=== PATIENT | female | born 1955 | race Caucasian/White ===

== ENCOUNTER 2017-09-20 06:54 | Day surgery (SDC) | payer OTHER ==
--- NOTE | 2017-09-19 15:44 | HP ---
DATE OF SURGERY: 09/20/2017 ANTICIPATED PROCEDURE: EGD and colonoscopy. HISTORY OF PRESENT ILLNESS: The patient has epigastric pain requiring EGD. She presents for screening colonoscopic examination. She has not had one since 2007. She did have polypectomy at that time. PAST MEDICAL HISTORY: ALLERGIES: MORPHINE, PROZAC. MEDICATIONS: See list. PAST SURGICAL HISTORY: Previous colonoscopy in 2007. SOCIAL HISTORY: Positive tobacco. Negative ETOH. FAMILY HISTORY: Negative. PHYSICAL EXAMINATION: VITAL SIGNS: Normal. CHEST: Clear. COR: Regular. ABDOMEN: No palpable organomegaly or mass.
[2017-09-20] MEDS ORDERED: VERSED 5 MG/5 ML IV ONE (06:55)
[2017-09-20] MEDS ORDERED: DEMEROL 50 MG SDV IV ONE (06:55)
[2017-09-20] MEDS ORDERED: Lactated Ringers 1,000 ML IV SCH (07:30)
--- NOTE | 2017-09-20 10:14 | OP ---
SURGERY DATE/TIME: 09/20/2017 0856 PREOPERATIVE DIAGNOSIS: Epigastric pain and screening. POSTOPERATIVE DIAGNOSES: 1) Two inch hiatal hernia. 2) Grade II/III gastroesophageal reflux disease. 3) Antritis. 4) One single large polyp of the distal sigmoid. 5) Moderate internal hemorrhoids. PROCEDURES: 1) Colonoscopy with hot snare polypectomy x1. 2) EGD with cold biopsy x1. SURGEON: Jensen Salazar M.D. CLAM DREDGE BOAT CAPTAIN: Ken Ribeiro M.D. ANESTHESIA: IV sedation 15 minutes monitored. COMPLICATIONS: None. CONDITION: Stable. INDICATION: A patient with epigastric pain. She has not had a scope in ten years. DESCRIPTION OF PROCEDURE: She was taken to endoscopy. Left lateral decubitus position. The scope was introduced. Pharyngo-esophageal junction was normal. The esophagus is normal. Gastroesophageal junction 2 cm rim of esophagitis grade II. There was a two inch hiatal hernia. She states she does get some reflux up to the vocal cords and this is probably is possible. There was some gastritis especially in the antrum. 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 Pylorus satisfactory. Duodenal bulb satisfactory. Second portion satisfactory. The scope withdrawn and looped upon itself. A two inch hiatal hernia. Scope withdrawn. Anal digital examination satisfactory anal tone. The scope advanced. Fairly long redundant colon fairly tortuous. Very significant splenic flexure this was navigated. The scope advanced and advanced to the base of the cecum. The base of the cecum, ileocecal valve and appendiceal orifice was normal. Ascending, hepatic, transverse, splenic, descending there was scattered diverticulum but not many. In the distal sigmoid a 1 cm polyp with a stalk was taken with hot snare. The base was satisfactory. The rectum was satisfactory. There were moderate internal hemorrhoids. The patient tolerated the procedure satisfactorily. Anticipated follow up three years. She will be seen in the office for pathology here shortly. She is started on Protonix also.
[2017-09-20 11:08] VITALS: BP 110/66; PULSE 67; O2SAT 95
== END 2017-09-20 11:15 | disposition home or self-care (01) ==
LOC: SDC 06:54
PROVIDERS: ATTEND Surgery
DX: K44.9 Diaphragmatic hernia without obstruction or gangrene (principal); K21.9 Gastro-esophageal reflux disease without esophagitis; J32.0 Chronic maxillary sinusitis; K63.5 Polyp of colon; K64.8 Other hemorrhoids; Z12.11 Encounter for screening for malignant neoplasm of colon
CPT/HCPCS: 88305; J2175; J2250

== ENCOUNTER 2018-07-27 17:42 | Emergency (ER) | payer OTHER ==
--- NOTE | 2018-07-27 18:10 | ERPHSYRPT ---
- History of Present Illness Time Seen by Provider: 07/27/18 18:07 Source: patient, family Exam Limitations: no limitations Patient Subjective Stated Complaint: pt tripped in road and fell on [address], landing on right side Triage Nursing Assessment: pt arrived per wc, alert, resp easy, skin w/d/p.no bruising or abrasions noted, pt co pain to right hip Physician History: struck right hip from walking trip and has no other pain except that joint - neurovasc intact Method of Injury: fell Occurred: just prior to arrival Quality: constant, sharpness Severity of Pain-Max: moderate Severity of Pain-Current: moderate Lower Extremities Pain: hip: right Modifying Factors: Improves With: movement Allergies/Adverse Reactions: morphine Allergy (Severe, Verified 07/27/18 18:00) Irregular Heart Beat sulfamethoxazole [From Bactrim] Allergy (Verified 07/27/18 18:00) Hives trimethoprim [From Bactrim] Allergy (Verified 07/27/18 18:00) Hives fluoxetine HCl [From Prozac] Adverse Reaction (Intermediate, Verified 07/27/18 18:00) homicidal thoughts homicidal thoughts Home Medications: Lisinopril [Zestril 40 mg] 40 mg PO DAILY 04/23/15 [History] Hydrochlorothiazide 25 mg PO DAILY 09/11/17 [History] Mirtazapine 15 mg PO UD 09/11/17 [History] Trazodone HCl 150 mg PO HS 09/11/17 [History] Ibuprofen [Advil] 0 mg PO UD PRN 09/20/17 [History] Hx Tetanus, Diphtheria Vaccination/Date Given: No Hx Influenza Vaccination/Date Given: No Hx Pneumococcal Vaccination/Date Given: No Immunizations Up to Date: Yes - Review of Systems Constitutional: No Fever, No Chills Eyes: No Symptoms Ears, Nose, & Throat: No Symptoms Respiratory: No Cough, No Dyspnea Cardiac: No Chest Pain, No Edema, No Syncope Abdominal/Gastrointestinal: No Abdominal Pain, No Nausea, No Vomiting, No Diarrhea Genitourinary Symptoms: No Dysuria Musculoskeletal: Fall, Injury, Joint Pain, No Back Pain, No Neck Pain Skin: No Rash Neurological: No Dizziness, No Focal Weakness, No Sensory Changes Psychological: No Symptoms Endocrine: No Symptoms All Other Systems: Reviewed and Negative - Past Medical History Pertinent Past Medical History: Yes Neurological History: No Pertinent History ENT History: No Pertinent History Cardiac History: High Cholesterol, Hypertension Respiratory History: Asthma, COPD Endocrine Medical History: Other Musculoskeletal History: Arthritis, Other GI Medical History: Ulcer, Other History: No Pertinent History Psycho-Social History: Anxiety, Depression Female Reproductive Disorders: Ovarian Cancer, Uterine Cancer Other Medical History: hx of bleeding ulcer and ileus, 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 - Past Surgical History Past Surgical History: Yes Neuro Surgical History: No Pertinent History Cardiac: No Pertinent History Respiratory: No Pertinent History Gastrointestinal: Appendectomy, Bowel Surgery, Cholecystectomy, Hernia Repair Genitourinary: No Pertinent History Musculoskeletal: Orthopedic Surgery Female Surgical History: Hysterectomy, Tubal Ligation Other Surgical History: TONSILS, bone auto graft to wrist - Social History Smoking Status: Current every day smoker How long have you smoked: years Exposure to second hand smoke: Yes Drug Use: none Patient Lives Alone: Yes - Female History Hx Last Menstrual Period: psot Hx Now: No - Nursing Vital Signs Nursing Vital Signs: Initial Vital Signs Temperature 97.4 F 07/27/18 17:55 Pulse Rate 75 07/27/18 17:55 Respiratory Rate 18 07/27/18 17:55 Blood Pressure 129/90 07/27/18 17:55 O2 Sat by Pulse Oximetry 97 07/27/18 17:55 Pain Scale Pain Intensity 7 - Physical Exam General Appearance: alert Eyes, Ears, Nose, Throat Exam: moist mucous membranes Neck Exam: non-tender, supple Cardiovascular/Respiratory Exam: chest non-tender, normal breath sounds, regular rate/rhythm, no respiratory distress Gastrointestinal/Abdominal Exam: non-tender, guarding Back Exam: normal inspection, No vertebral tenderness Hips Exam: right: bone tenderness, limited range of motion, pain, soft tissue tenderness, left: non-tender, normal inspection, normal range of motion, no evidence of injury Legs Exam: bilateral leg: non-tender, normal inspection, normal range of motion , no evidence of injury Knees Exam: bilateral knee: non-tender, normal inspection, normal range of motion, no evidence of injury Ankle Exam: bilateral ankle: non-tender, normal inspection, normal range of motion, no evidence of injury Foot Exam: bilateral foot: non-tender, normal inspection, normal range of motion , no evidence of injury DTR - Lower Extremities Exam: knee (R): 2+, knee (L): 2+, ankle (R): 2+, ankle ( L): 2+ Neuro/Tendon Exam: normal sensation, normal motor functions 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, oriented x 3, cooperative Skin Exam: normal color, warm, dry SpO2 Interpretation: normal SpO2: 97 O2 Delivery: Room Air - Course Nursing assessment & vital signs reviewed: Yes - Radiology Exams Right Hip X-ray Interpretation: Teleradiologist Report, No Fracture Ordered Tests: Active Orders 24 hr Category Date Time Status HIPS BALWINDER(2V) INCL PEL IF DONE Stat Exams 07/27/18 18:11 Taken Medication Summary Discontinued Medications Generic Name Dose Route Start Last Admin Trade Name Freq PRN Reason Stop Dose Admin Hydromorphone HCl 1 mg 07/27/18 19:50 07/27/18 20:02 Hydromorphone 1 Mg/Ml Ampule IM 07/27/18 19:51 1 mg STAT ONE Administration Hydromorphone HCl Confirm 07/27/18 19:59 Hydromorphone 1 Mg/Ml Ampule Administered 07/27/18 20:00 Dose 1 mg .ROUTE .Fixmo-MED ONE - Progress Progress: improved, re-examined Progress Note: 07/27/18 20:58 pt prefers outpt f/u to further w/u in ER or admission and she declines CT at this time and knows she could still have a hip fracture which could be occult 07/27/18 21:09 pt states she has taken hydrocodone before without problems Counseled pt/family regarding: diagnosis, need for follow-up, rad results - Departure Departure Disposition: Home Clinical Impression: Contusion of hip Condition: Good Critical Care Time: No Referrals: KELLE CANALES [ACTIVE STAFF] - Instructions: Hip Fracture (DC), Contusion (DC) Additional Instructions: we are treating this as if there could be a hip fracture even though it is not seen by radiologist today and use crutches and see your DrOdilon next week for more studies if continues and return meantime if not improving; Prescriptions: Hydrocodone/APAP 5-325 Tab^^^ [[place] 5-325 Tablet^^^] 1 tab PO Q6HPRN PRN #10 tablet MDD 6 PRN Reason: Pain
[2018-07-27] MEDS ORDERED: Hydromorphone 1 mg/ml Ampule IM ONE (19:50)
[2018-07-27] MEDS ORDERED: Hydromorphone 1 mg/ml Ampule ONE (19:59)
[2018-07-27 21:09] VITALS: O2SAT 97
[2018-07-27] MEDS ORDERED: NORCO 5/325 MG PO ONE (21:10)
[2018-07-27] MEDS ORDERED: NORCO 5/325 MG ONE (21:16)
[2018-07-27 21:35] VITALS: BP 104/61; PULSE 71
--- NOTE | 2018-07-28 09:40 | XRAY ---
Indication: Right hip pain following fall. Comparison: December 14, 2009. AP pelvis and 2 views of the right hip demonstrates new right greater trochanter curvilinear radiolucency concerning for nondisplaced fracture of uncertain chronicity. Elsewhere pelvic suture material, pelvic phleboliths, and stable right gluteal calcified injection granuloma. No other bony, articular, or soft tissue abnormalities. Comment: Preliminary interpretation was made by [facility] who does not report greater trochanter finding but is reported by the interpreting ER clinician.
== END 2018-07-27 21:35 | disposition home or self-care (01) ==
LOC: ED 17:42
DX: S70.01XA Contusion of right hip, initial encounter (principal); W01.198A Fall on same level from slipping, tripping and stumbling with subsequent striking against other object, initial encounter; Z79.899 Other long term (current) drug therapy; E78.00 Pure hypercholesterolemia, unspecified; I10 Essential (primary) hypertension; J44.9 Chronic obstructive pulmonary disease, unspecified; J45.909 Unspecified asthma, uncomplicated; M19.90 Unspecified osteoarthritis, unspecified site; F41.8 Other specified anxiety disorders
CPT/HCPCS: 73521; 96372; 99284; J1170; A9270-GY

== ENCOUNTER 2018-11-16 02:12 | Emergency (ER) | payer OTHER ==
--- NOTE | 2018-11-16 02:19 | ERPHSYRPT ---
- History of Present Illness Time Seen by Provider: 11/16/18 02:19 Source: family Exam Limitations: clinical condition Physician History: 63 y/o white female presents with altered level of consciousness. has intermittent episodes over last 3 months. pt has had several evaluations by pcp. recent MRI brain(11/12/18) reveals no acute pathology but chronic old changes. no head injury. no new medications. no change in medications. there are a variety of resolution times. 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 new finding is pt unable to follow commands and could not move right side of body. Timing/Duration: week(s) (12 plus), worse Severity: moderate Character of Deficits: new weakness, other (lethargic cannot follow any commands ) Deficits: cannot stand, cannot walk, weak Baseline/Normal Cognition: poor alertness Current Cognition: poor alertness Baseline Gait: walks w/o assistance Associated Symptoms: weakness, other (lethargy) Allergies/Adverse Reactions: morphine Allergy (Severe, Verified 11/16/18 02:49) Irregular Heart Beat sulfamethoxazole [From Bactrim] Allergy (Verified 11/16/18 02:49) Hives trimethoprim [From Bactrim] Allergy (Verified 11/16/18 02:49) Hives fluoxetine HCl [From Prozac] Adverse Reaction (Intermediate, Verified 11/16/18 02:49) homicidal thoughts homicidal thoughts Home Medications: Lisinopril [Zestril 40 mg] 40 mg PO DAILY 04/23/15 [History] Hydrochlorothiazide 25 mg PO DAILY 09/11/17 [History] Gabapentin 300 mg PO TID 11/16/18 [History] Hx Tetanus, Diphtheria Vaccination/Date Given: No Hx Influenza Vaccination/Date Given: No Hx Pneumococcal Vaccination/Date Given: No - Review of Systems Constitutional: Lethargy, Weakness Eyes: No Symptoms Ears, Nose, & Throat: No Symptoms Respiratory: No Symptoms Cardiac: No Symptoms Abdominal/Gastrointestinal: No Symptoms Genitourinary Symptoms: No Symptoms Musculoskeletal: No Symptoms Skin: No Symptoms Neurological: Other (lethargy with generalized weakness; not following commands) Endocrine: No Symptoms Hematologic/Lymphatic: No Symptoms Immunological/Allergic: No Symptoms All Other Systems: Reviewed and Negative - Past Medical History Pertinent Past Medical History: Yes Neurological History: No Pertinent History ENT History: No Pertinent History Cardiac History: High Cholesterol, Hypertension Respiratory History: Asthma, COPD Endocrine Medical History: Other Musculoskeletal History: Arthritis, Other GI Medical History: Ulcer, Other History: No Pertinent History Psycho-Social History: Anxiety, Depression Female Reproductive Disorders: Ovarian Cancer, Uterine Cancer Other Medical History: hx of bleeding ulcer and ileus, 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 - Past Surgical History Past Surgical History: Yes Neuro Surgical History: No Pertinent History Cardiac: No Pertinent History Respiratory: No Pertinent History Gastrointestinal: Appendectomy, Bowel Surgery, Cholecystectomy, Hernia Repair Genitourinary: No Pertinent History Musculoskeletal: Orthopedic Surgery Female Surgical History: Hysterectomy, Tubal Ligation Other Surgical History: TONSILS, bone auto graft to wrist - Social History Smoking Status: Current every day smoker How long have you smoked: years Exposure to second hand smoke: Yes Drug Use: none Patient Lives Alone: Yes - Nursing Vital Signs Nursing Vital Signs: Initial Vital Signs Temperature 96.0 F 11/16/18 02:14 Pulse Rate 75 11/16/18 02:14 Respiratory Rate 20 11/16/18 02:14 Blood Pressure 111/70 11/16/18 02:14 O2 Sat by Pulse Oximetry 91 L 11/16/18 02:14 Pain Scale Pain Intensity 0 - [place] Coma Scale Best Eye Response (Maddie): (3) open to voice Best Verbal Response ([place]): (2) incomprehsible sounds Best Motor Response ([place]): (5) localizes to pain Maddie Total: 10 - Physical Exam General Appearance: lethargy Eye Exam: bilateral eye: normal inspection, PERRL, EOMI Ears, Nose, Throat Exam: normal ENT inspection, moist mucous membranes Neck Exam: normal inspection, non-tender, supple, full range of motion Respiratory: normal breath sounds, lungs clear, airway intact, No chest tenderness, No respiratory distress Cardiovascular: regular rate/rhythm, normal heart sounds, normal peripheral pulses Gastrointestinal: soft, normal bowel sounds, No tenderness Pelvic Exam: not done Rectal Exam: not done Back Exam: normal inspection, normal range of motion, No CVA tenderness, No vertebral tenderness Extremity Exam: normal inspection, normal range of motion, pelvis stable Mental Status: alert, oriented x 3, 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 Exam: PERRL Coordination/Gait: No ABN nose to finger (R), No ABN nose to finger (L) (unable to follow commands) Skin Exam: normal color, warm, dry SpO2 Interpretation: borderline oxygenation O2 Delivery: Room Air - Course Nursing assessment & vital signs reviewed: Yes EKG Interpreted by Me: RATE (71), Sinus Rhythm, NORMAL AXIS, NORMAL INTERVALS, 1st degree AV Block, NORMAL QRS, Other (no changes from comparison ekg dated ) Ordered Tests: Active Orders 24 hr Category Date Time Status Bowling Ball Molder STAT Care 11/16/18 02:30 Active EKG-ER Only STAT Care 11/16/18 02:29 Active IV Insertion STAT Care 11/16/18 02:29 Active NPO (ED) STAT Care 11/16/18 02:29 Active Pulse Oximetry (ED) STAT Care 11/16/18 02:29 Active HEAD WITHOUT CONTRAST [CT] Stat Exams 11/16/18 02:29 Taken CBC W DIFF Stat Lab 11/16/18 03:17 Completed CMP Stat Lab 11/16/18 03:17 Completed CULTURE,URINE Stat Lab 11/16/18 02:55 Ordered UA W/RFX UR CULTURE Stat Lab 11/16/18 02:55 Ordered Urine Triage Profile Stat Lab 11/16/18 03:04 Ordered Medication Summary Generic Name Dose Route Start Last Admin Trade Name Freq PRN Reason Stop Dose Admin Lactated Ringer's 500 mls @ 500 mls/hr 11/16/18 03:43 11/16/18 04:14 Lactated Ringers IV 11/16/18 04:42 500 mls/hr .Q1H ONE Administration Potassium Chloride 20 meq in 100 mls @ 50 mls/hr 11/16/18 03:43 11/16/18 04: 18 Potassium Chloride 20 Meq In Water 100ml IV 11/16/18 05:42 50 mls/hr STAT ONE Administration Discontinued Medications Generic Name Dose Route Start Last Admin Trade Name Freq PRN Reason Stop Dose Admin Sodium Chloride 1,000 mls @ 999 mls/hr 11/16/18 02:29 11/16/18 03:11 Sodium Chloride 0.9% 1000 Ml IV 11/16/18 03:29 999 mls/hr .Q1H1M STA Administration Sodium Chloride Confirm 11/16/18 03:10 Sodium Chloride 0.9% 1000 Ml Administered 11/16/18 03:11 Dose 1,000 mls @ ud .ROUTE .STK-MED ONE Lactated Ringer's Confirm 11/16/18 04:12 Lactated Ringers Administered 11/16/18 04:13 Dose 1,000 mls @ ud IV .STK-MED ONE Potassium Chloride Confirm 11/16/18 04:12 Potassium Chloride 20 Meq In Water 100ml Administered 11/16/18 04:13 Dose 100 mls @ ud IV .STK-MED ONE Lab/Rad Data: Laboratory Result Diagrams 11/16/18 03:17 11/16/18 03:17 Laboratory Results 11/16/18 11/16/18 11/16/18 Range/Units 03:17 03:17 03:01 WBC 8.9 (4.0-10.5) K/mm3 RBC 4.20 (4.1-5.4) M/mm3 Hgb 12.1 (12.0-16.0) gm/dl Hct 34.2 L (35-47) % MCV 81.4 (78-100) fl MCH 28.8 (26-32) pg MCHC 35.4 (32-36) g/dl RDW 13.4 (11.5-14.0) % Plt Count 403 (150-450) K/mm3 MPV 7.8 (6-9.5) fl Gran % 69.9 H (36.0-66.0) % Eos # (Auto) 0.26 (0-0.5) Absolute Lymphs (auto) 1.65 (1.0-4.6) Absolute Monos (auto) 0.72 (0.0-1.3) Lymphocytes % 18.6 L (24.0-44.0) % Monocytes % 8.1 (0.0-12.0) % Eosinophils % 2.9 (0.00-5.0) % Basophils % 0.5 (0.0-0.4) % Absolute Granulocytes 6.21 (1.4-6.9) Basophils # 0.04 (0-0.4) Sodium 121 L (137-145) mmol/L Potassium 2.9 L* (3.5-5.1) mmol/L Chloride 87 L (98-107) mmol/L Carbon Dioxide 24 (22-30) mmol/L Anion Gap 12.9 (5-15) MEQ/L BUN 10 (7-17) mg/dL Creatinine 0.57 (0.52-1.04) mg/dL Estimated GFR > 60.0 ML/MIN Glucose 148 H (74-106) mg/dL Calcium 9.1 (8.4-10.2) mg/dL Total Bilirubin 0.10 L (0.2-1.3) mg/dL AST 20 (14-36) U/L ALT 21 (0-35) U/L Alkaline Phosphatase 110 (38-126) U/L Ammonia 19 (9-30) umol/L Serum Total Protein 6.8 (6.3-8.2) g/dL Albumin 3.9 (3.5-5.0) g/dL - Progress Progress: improved, re-examined Progress Note: 11/16/18 04:01 pt more awake and alert. will reexamine 11/16/18 04:12 pt reexamined. pt without complaints. a & o x4. neurologically intact. pt moving all 4 extremities. tongue midline. no facial droop. speech wnl. pt denies cp, denies soa. denies abd pain. pt laughing, smiling and joking. ct head-no acute intracranial pathology. Counseled pt/family regarding: lab results, diagnosis, need for follow-up, rad results - Departure Departure Disposition: Home Clinical Impression: TIA (transient ischemic attack), Altered mental status, Hypokalemia Condition: Stable Critical Care Time: No Referrals: ORACIO GREENE [Primary Care Provider] - Additional Instructions: resume medications as prescribed. follow up with your primary doctor on sunday for further management. call your neurologist for further management
[2018-11-16] MEDS ORDERED: Sodium Chloride 0.9% 1000 ML 1,000 ML ONE (03:10)
[2018-11-16] MEDS: Sodium Chloride 0.9% 1000 ML 1,000 ML IV STA (03:11)
[2018-11-16 03:15] LABS: BASOPHIL % 0.5 % (0.0-0.4); Basophil (Absolute #) 0.04 (0-0.4); Eosinophil % 2.9 % (0.00-5.0); Eosinophil (Absolute #) 0.26 (0-0.5); Granulocyte Absolute (ANC) 6.21 (1.4-6.9); Granulocytes % 69.9 % (36.0-66.0); Hematocrit 34.2 % (35-47); Hemoglobin 12.1 gm/dl (12.0-16.0); Lymphocyte (Absolute #) 1.65 (1.0-4.6); Lymphocytes % 18.6 % (24.0-44.0); Mean Cell Volume 81.4 fl (78-100); Mean Corpuscular Hemoglobin 28.8 pg (26-32); Mean Corpuscular Hgb Concent. 35.4 g/dl (32-36); Mean Platelet Volume 7.8 fl (6-9.5); Monocyte (Absolute #) 0.72 (0.0-1.3); Monocytes % 8.1 % (0.0-12.0); Platelet Count 403 K/mm3 (150-450); Red Cell Distribution Width 13.4 % (11.5-14.0); White Blood Count 8.9 K/mm3 (4.0-10.5)
[2018-11-16 03:25] LABS: ALBUMIN 3.9 g/dL (3.5-5.0); ALKALINE PHOSPHATASE 110 U/L (38-126); ANION GAP 12.9 MEQ/L (5-15); BLOOD UREA NITROGEN 10 mg/dL (7-17); CHLORIDE 87 mmol/L (98-107); Calcium 9.1 mg/dL (8.4-10.2); Carbon Dioxide 24 mmol/L (22-30); Creatinine 1 0.57 mg/dL (0.52-1.04); Glucose 148 mg/dL (74-106); SGOT/AST 20 U/L (14-36); SGPT/ALT 21 U/L (0-35); SODIUM 121 mmol/L (137-145); Total Protein 6.8 g/dL (6.3-8.2)
[2018-11-16 03:41] LABS: Potassium 2.9 mmol/L (3.5-5.1)
[2018-11-16] MEDS ORDERED: Lactated Ringers 1,000 ML IV ONE (04:12)
[2018-11-16] MEDS ORDERED: POTASSIUM CHLORIDE 20 mEq IN WATER 100ML 100 ML IV ONE (04:12)
[2018-11-16] MEDS: Lactated Ringers 500 ML IV ONE (04:14)
[2018-11-16] MEDS: POTASSIUM CHLORIDE 20 mEq IN WATER 100ML 20 MEQ/100 ML BAG IV ONE (04:18)
[2018-11-16 04:27] LABS: Appearance CLEAR (CLEAR); Bilirubin NEGATIVE (NEGATIVE); Blood NEGATIVE Ery/ul (0-5); Glucose NEGATIVE (NEGATIVE); Ketones NEGATIVE (NEGATIVE); Leukocyte Esterase NEGATIVE (NEGATIVE); Nitrite NEGATIVE (NEGATIVE); Protein,Urine Dip NEGATIVE (Negative); Specific Gravity 1.004 (1.005-1.025); Urobilinogen NEGATIVE mg/dL (0-1)
[2018-11-16 04:44] LABS: Amphetamine,Urine NEGATIVE (NEGATIVE); Barbiturate,Urine NEGATIVE (NEGATIVE); Benzodiazepine,Urine NEGATIVE (NEGATIVE); Cocaine,Urine NEGATIVE (NEGATIVE); Methadone,Urine NEGATIVE (NEGATIVE); Opiate,Urine NEGATIVE (NEGATIVE); PCP,Urine NEGATIVE (NEGATIVE); THC,Urine NEGATIVE (NEGATIVE)
[2018-11-16 05:53] VITALS: BP 161/77; PULSE 76; O2SAT 98
--- NOTE | 2018-11-16 08:46 | XRAY ---
Indication: Facial droop and slurred speech. Possible stroke. Multiple contiguous axial images obtained through the head without contrast. Comparison: December 06, 2015. New finding small remote left occipital lobe infarct. No acute intracranial hemorrhage, hydrocephalus, or mass effect. Fourth ventricle is midline. Steinberg-white matter differentiation preserved. Bony calvarium intact. Visualized paranasal sinuses and mastoid air cells are clear. Impression: 1. 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 2. No acute intracranial abnormalities. Comment: Preliminary interpretation was made by [facility]. No critical discrepancy. CTDI 59.47
== END 2018-11-16 06:44 | disposition home or self-care (01) ==
LOC: ED 02:12
DX: G45.9 Transient cerebral ischemic attack, unspecified (principal); R41.82 Altered mental status, unspecified; E87.6 Hypokalemia
CPT/HCPCS: 36415; 70450; 80053; 80307; 81001; 82140; 85025; 87086; 93005; 93041; 94760; 96360; 96361; 96365; 96366; 99284; J3480

== ENCOUNTER 2019-01-10 01:37 | Emergency (ER) | payer OTHER, SELFPAY ==
[2019-01-10] MEDS ORDERED: Sodium Chloride 0.9% 1000 ML 1,000 ML IV STA (01:42)
[2019-01-10] MEDS ORDERED: Sodium Chloride 0.9% 1000 ML 1,000 ML ONE (01:50)
--- NOTE | 2019-01-10 01:54 | ERPHSYRPT ---
- History of Present Illness Time Seen by Provider: 01/10/19 01:40 Source: patient Exam Limitations: no limitations Physician History: Patient walked to get something to eat, had a brief syncopal event, fell and hit her right shoulder. Patient has pain to the right shoulder. Family states she may have had slurred speech for a minute when she awakened, but this resolved on its own. Patient had no slurred speech when EMS came to the home and no focal weakness. Occurred: just prior to arrival Reason for Fall: fainted Injuries/Pain Location: upper extremity (right clavicle) Loss of Consciousness: unsure Quality: sharpness Severity of Pain-Max: severe Severity of Pain-Current: mild Modifying Factors: Improves With: immobilization, pain medication (given 100 micrograms of Fentanyl by EMS ). Worsens With: movement Associated Symptoms (Fall): slurred speech (briefly per family report, patient does not remember any slurred speech and resolved prior to EMS arriving), No abdominal pain, No back pain, No confusion, No chest pain, No dizziness, No extremity injury, No headache, No lightheadedness, No muscle spasms, No nausea, No neck pain, No ringing in ears, No shortness of breath, No trouble walking, No vomiting, No vision changes Allergies/Adverse Reactions: morphine Allergy (Severe, Verified 11/16/18 02:49) Irregular Heart Beat sulfamethoxazole [From Bactrim] Allergy (Verified 11/16/18 02:49) Hives trimethoprim [From Bactrim] Allergy (Verified 11/16/18 02:49) Hives fluoxetine HCl [From Prozac] Adverse Reaction (Intermediate, Verified 11/16/18 02:49) homicidal thoughts homicidal thoughts Home Medications: Lisinopril [Zestril 40 mg] 40 mg PO DAILY 04/23/15 [History] Hydrochlorothiazide 25 mg PO DAILY 09/11/17 [History] Amitriptyline HCl 25 mg [Elavil 25 mg] 1 tab PO HS 11/16/18 [History] Gabapentin 300 mg PO TID 11/16/18 [History] Hx Tetanus, Diphtheria Vaccination/Date Given: No Hx Influenza Vaccination/Date Given: No Hx Pneumococcal Vaccination/Date Given: No - Review of Systems Constitutional: No Fever, No Chills Eyes: No Symptoms, No Eye Pain, No Vision Changes Ears, Nose, & Throat: No Ear Pain, No Nose Pain, No Epistaxis, No Mouth Swelling , No Loose Teeth, No Stridor Respiratory: No Cough, No Dyspnea Cardiac: No Chest Pain, No Edema, No Syncope Abdominal/Gastrointestinal: No Abdominal Pain, No Nausea, No Vomiting, No Diarrhea Genitourinary Symptoms: No Dysuria, No Hematuria, No Flank Pain Musculoskeletal: No Back Pain, No Neck Pain Skin: No Rash Neurological: No Dizziness, No Focal Weakness, No Sensory Changes Psychological: No Symptoms Endocrine: No Symptoms Hematologic/Lymphatic: No Easy Bleeding, No Easy Bruising All Other Systems: Reviewed and Negative - Past Medical History Pertinent Past Medical History: Yes Neurological History: No Pertinent History ENT History: No Pertinent History Cardiac History: High Cholesterol, Hypertension Respiratory History: Asthma, COPD Endocrine Medical History: Other Musculoskeletal History: Arthritis, Other GI Medical History: Ulcer, Other History: No Pertinent History Psycho-Social History: Anxiety, Depression Female Reproductive Disorders: Ovarian Cancer, Uterine Cancer Other Medical History: hx of bleeding ulcer and ileus, 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 - Past Surgical History Past Surgical History: Yes Neuro Surgical History: No Pertinent History Cardiac: No Pertinent History Respiratory: No Pertinent History Gastrointestinal: Appendectomy, Bowel Surgery, Cholecystectomy, Hernia Repair Genitourinary: No Pertinent History Musculoskeletal: Orthopedic Surgery Female Surgical History: Hysterectomy, Tubal Ligation Other Surgical History: TONSILS, bone auto graft to wrist - Social History Smoking Status: Current every day smoker How long have you smoked: years Exposure to second hand smoke: Yes Drug Use: none Patient Lives Alone: Yes - Nursing Vital Signs Nursing Vital Signs: Initial Vital Signs Pulse Rate 74 01/10/19 01:39 Respiratory Rate 20 01/10/19 01:39 Blood Pressure 93/58 01/10/19 01:39 O2 Sat by Pulse Oximetry 94 L 01/10/19 01:39 Pain Scale Pain Intensity 6 - [place] Coma Score Best Eye Response ([place]): (4) open spontaneously Best Verbal Response ([place]): (5) oriented Best Motor Response ([place]): (6) obeys commands Maddie Total: 15 - Physical Exam General Appearance: no apparent distress, alert Head Injury: no evidence of injury, No active bleeding, No Reese's Sign, No ecchymosis, No raccoon eyes, No swelling, No tenderness Eye Exam: PERRL/EOMI, eyes nml inspection, No scleral icterus ENT Exam: airway nml, nml ext.inspection, hearing grossly normal, No evidence of ENT injury, No dental injury, No midface instability, No hemotympanum, No clotted nasal blood, No malocclusion, No oral injury Neck Exam: supple, trachea midline, normal alignment, normal inspection, No focal neuro deficit, No paraspinous muscle tender, No pain on movement of neck, No tenderness, No tender lateral, No Brudzinski, No Kernig's Respiratory/Chest Exam: normal breath sounds, No chest tenderness, No respiratory distress Cardiovascular Exam: normal heart sounds, regular rate/rhythm, normal peripheral pulses Gastrointestinal Exam: soft, normal bowel sounds, No tenderness, No distention, No guarding, No ecchymosis, No rebound, No hernia Back Exam: normal inspection, No CVA tenderness, No vertebral tenderness Extremity Exam: normal inspection, normal range of motion, capillary refill <3 sec, pelvis stable, bony point tenderness (right clavicle only), pain with movement (right clavicle only), No deformities, No lacerations, No hip tenderness Peripheral Pulses: dorsalis-pedis (R): 2+, dorsalis-pedis (L): 2+ Neurologic Exam: alert, oriented x 3, cooperative, sensation nml, No motor deficits Skin Exam: normal color, warm, dry SpO2 Interpretation: normal O2 Delivery: Room Air - Course EKG Interpreted by Me: RATE (73), Sinus Rhythm (sinus arrhythmia), NORMAL AXIS, NORMAL INTERVALS, NORMAL QRS, NORMAL ST-T, Other (no appreciable change in comparison to EKG from11/16/2018) - Radiology Exams Chest X-ray Interpretation: Interpreted by me, Reviewed by me, No Pneumonia, No Pneumothorax, Nml Alignment, Nml Heart Size, Displaced Fracture (mildly of mid shaft fracture of right clavicle) - CT Exams Head CT Interpretation: Negative, Tele-radiologist Report, No Fracture, No/ Intracranial Hemorrhag, Other (stable age-related diffusely low-volume loss and chronic microvascular ischemic disease. 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 No ventriculomegaly. Unremarkable bowel no acute fracture. Mucosal thickening in the ethmoid sinus. Visualized mastoid air cells are well aerated. Unremarkable soft tissues.) Ordered Tests: Active Orders 24 hr Category Date Time Status Accucheck STAT Care 01/10/19 01:42 Active Ambulate Patient ROUTINE Care 01/10/19 01:42 Active Java Groovy Developer STAT Care 01/10/19 01:47 Active EKG-ER Only STAT Care 01/10/19 01:42 Active IV Insertion STAT Care 01/10/19 01:42 Active Orthostatic Vital Signs STAT Care 01/10/19 01:42 Active Pulse Oximetry (ED) STAT Care 01/10/19 01:42 Active Sling Application STAT Care 01/10/19 04:12 Active CHEST 1 VIEW (PORTABLE) Stat Exams 01/10/19 01:43 Taken HEAD WITHOUT CONTRAST [CT] Stat Exams 01/10/19 01:47 Taken CBC W DIFF Stat Lab 01/10/19 02:15 Completed CMP Stat Lab 01/10/19 02:15 Completed ETHYL ALCOHOL Stat Lab 01/10/19 02:15 Completed MAGNESIUM Stat Lab 01/10/19 02:15 Completed PROTIME WITH INR Stat Lab 01/10/19 02:15 Completed TROPONIN Q3H Lab 01/10/19 02:15 Completed TROPONIN Q3H Lab 01/10/19 06:30 Ordered TROPONIN Q3H Lab 01/10/19 09:30 Ordered TROPONIN Q3H Lab 01/10/19 12:30 Ordered TROPONIN Q3H Lab 01/10/19 15:30 Ordered UA W/RFX UR CULTURE Stat Lab 01/10/19 04:10 Received Urine Triage Profile Stat Lab 01/10/19 04:10 Received Medication Summary Discontinued Medications Generic Name Dose Route Start Last Admin Trade Name Prashantq PRN Reason Stop Dose Admin Fentanyl Citrate 25 mcg 01/10/19 04:13 01/10/19 04:20 Sublimaze 100 Mcg/2 Ml IV 01/10/19 04:14 25 mcg STAT ONE Administration Fentanyl Citrate Confirm 01/10/19 04:18 Sublimaze 100 Mcg/2 Ml Administered 01/10/19 04:19 Dose 100 mcg .ROUTE .STK-MED ONE Sodium Chloride 1,000 mls @ 999 mls/hr 01/10/19 01:42 01/10/19 01:51 Sodium Chloride 0.9% 1000 Ml IV 01/10/19 02:42 999 mls/hr .Q1H1M STA Administration Sodium Chloride Confirm 01/10/19 01:50 Sodium Chloride 0.9% 1000 Ml Administered 01/10/19 01:51 Dose 1,000 mls @ ud .ROUTE .[facility]-MED ONE Lab/Rad Data: Laboratory Result Diagrams 01/10/19 02:15 01/10/19 02:15 Laboratory Results 01/10/19 01/10/19 01/10/19 Range/Units 04:10 04:10 02:15 WBC (4.0-10.5) K/mm3 RBC (4.1-5.4) M/mm3 Hgb (12.0-16.0) gm/dl Hct (35-47) % MCV (78-100) fl MCH (26-32) pg MCHC (32-36) g/dl RDW (11.5-14.0) % Plt Count (150-450) K/mm3 MPV (6-9.5) fl Gran % (36.0-66.0) % Eos # (Auto) (0-0.5) Absolute Lymphs (auto) (1.0-4.6) Absolute Monos (auto) (0.0-1.3) Lymphocytes % (24.0-44.0) % Monocytes % (0.0-12.0) % Eosinophils % (0.00-5.0) % Basophils % (0.0-0.4) % Absolute Granulocytes (1.4-6.9) Basophils # (0-0.4) PT (9.95-12.35) SECONDS INR (0.8-3.0) Sodium (137-145) mmol/L Potassium (3.5-5.1) mmol/L Chloride (98-107) mmol/L Carbon Dioxide (22-30) mmol/L Anion Gap (5-15) MEQ/L BUN (7-17) mg/dL Creatinine (0.52-1.04) mg/dL Estimated GFR ML/MIN Glucose (74-106) mg/dL Calcium (8.4-10.2) mg/dL Magnesium (1.6-2.3) mg/dL Total Bilirubin (0.2-1.3) mg/dL AST (14-36) U/L ALT (0-35) U/L Alkaline Phosphatase (38-126) U/L Troponin I < 0.012 (0.000-0.034) ng/mL Serum Total Protein (6.3-8.2) g/dL Albumin (3.5-5.0) g/dL Urine Color YELLOW (YELLOW) Urine Appearance CLEAR (CLEAR) Urine pH 7.0 (5-6) Ur Specific [place] 1.008 (1.005-1.025) Urine Protein NEGATIVE (Negative) Urine Ketones NEGATIVE (NEGATIVE) Urine Blood NEGATIVE (0-5) Parviz/ul Urine Nitrite NEGATIVE (NEGATIVE) Urine Bilirubin NEGATIVE (NEGATIVE) Urine Urobilinogen NEGATIVE (0-1) mg/dL Ur Leukocyte Esterase NEGATIVE (NEGATIVE) Urine WBC (Auto) NONE (0-5) /HPF Urine RBC (Auto) 0-2 (0-2) /HPF U Hyaline Cast (Auto) 3-5 (0-2) /LPF U Epithel Cells (Auto) NONE (FEW) /HPF Urine Bacteria (Auto) NONE (NEGATIVE) /HPF Urine Mucus (Auto) SLIGHT (NEGATIVE) /HPF Urine Culture Reflexed NO (NO) Urine Glucose NEGATIVE (NEGATIVE) mg/dL Urine Opiates Level NEGATIVE (NEGATIVE) Ur Methadone NEGATIVE (NEGATIVE) Urine Barbiturates NEGATIVE (NEGATIVE) Ur Phencyclidine (PCP) NEGATIVE (NEGATIVE) Urine Amphetamine NEGATIVE (NEGATIVE) U Benzodiazepine Level NEGATIVE (NEGATIVE) Urine Cocaine NEGATIVE (NEGATIVE) Urine Marijuana (THC) NEGATIVE (NEGATIVE) Ethyl Alcohol (0-10) mg/dL 01/10/19 01/10/19 01/10/19 Range/Units 02:15 02:15 02:15 WBC (4.0-10.5) K/mm3 RBC (4.1-5.4) M/mm3 Hgb (12.0-16.0) gm/dl Hct (35-47) % MCV (78-100) fl MCH (26-32) pg MCHC (32-36) g/dl RDW (11.5-14.0) % Plt Count (150-450) K/mm3 MPV (6-9.5) fl Gran % (36.0-66.0) % Eos # (Auto) (0-0.5) Absolute Lymphs (auto) (1.0-4.6) Absolute Monos (auto) (0.0-1.3) Lymphocytes % (24.0-44.0) % Monocytes % (0.0-12.0) % Eosinophils % (0.00-5.0) % Basophils % (0.0-0.4) % Absolute Granulocytes (1.4-6.9) Basophils # (0-0.4) PT 10.7 (9.95-12.35) SECONDS INR 0.95 (0.8-3.0) Sodium 128 L (137-145) mmol/L Potassium 3.5 (3.5-5.1) mmol/L Chloride 92 L (98-107) mmol/L Carbon Dioxide 25 (22-30) mmol/L Anion Gap 14.6 (5-15) MEQ/L BUN 11 (7-17) mg/dL Creatinine 0.71 (0.52-1.04) mg/dL Estimated GFR > 60.0 ML/MIN Glucose 123 H (74-106) mg/dL Calcium 8.9 (8.4-10.2) mg/dL Magnesium 1.8 (1.6-2.3) mg/dL Total Bilirubin 0.30 (0.2-1.3) mg/dL AST 26 (14-36) U/L ALT 25 (0-35) U/L Alkaline Phosphatase 92 (38-126) U/L Troponin I (0.000-0.034) ng/mL Serum Total Protein 7.0 (6.3-8.2) g/dL Albumin 3.8 (3.5-5.0) g/dL Urine Color (YELLOW) Urine Appearance (CLEAR) Urine pH (5-6) Ur Specific [place] (1.005-1.025) Urine Protein (Negative) Urine Ketones (NEGATIVE) Urine Blood (0-5) Parviz/ul Urine Nitrite (NEGATIVE) Urine Bilirubin (NEGATIVE) Urine Urobilinogen (0-1) mg/dL Ur Leukocyte Esterase (NEGATIVE) Urine WBC (Auto) (0-5) /HPF Urine RBC (Auto) (0-2) /HPF U Hyaline Cast (Auto) (0-2) /LPF U Epithel Cells (Auto) (FEW) /HPF Urine Bacteria (Auto) (NEGATIVE) /HPF Urine Mucus (Auto) (NEGATIVE) /HPF Urine Culture Reflexed (NO) Urine Glucose (NEGATIVE) mg/dL Urine Opiates Level (NEGATIVE) Ur Methadone (NEGATIVE) Urine Barbiturates (NEGATIVE) Ur Phencyclidine (PCP) (NEGATIVE) Urine Amphetamine (NEGATIVE) U Benzodiazepine Level (NEGATIVE) Urine Cocaine (NEGATIVE) Urine Marijuana (THC) (NEGATIVE) Ethyl Alcohol < 10 (0-10) mg/dL 01/10/19 Range/Units 02:15 WBC 9.8 (4.0-10.5) K/mm3 RBC 3.66 L (4.1-5.4) M/mm3 Hgb 10.4 L (12.0-16.0) gm/dl Hct 30.8 L (35-47) % MCV 84.2 (78-100) fl MCH 28.4 (26-32) pg MCHC 33.8 (32-36) g/dl RDW 14.6 H (11.5-14.0) % Plt Count 388 (150-450) K/mm3 MPV 7.7 (6-9.5) fl Gran % 64.4 (36.0-66.0) % Eos # (Auto) 0.46 (0-0.5) Absolute Lymphs (auto) 1.90 (1.0-4.6) Absolute Monos (auto) 1.06 (0.0-1.3) Lymphocytes % 19.3 L (24.0-44.0) % Monocytes % 10.8 (0.0-12.0) % Eosinophils % 4.7 (0.00-5.0) % Basophils % 0.8 (0.0-0.4) % Absolute Granulocytes 6.33 (1.4-6.9) Basophils # 0.08 (0-0.4) PT (9.95-12.35) SECONDS INR (0.8-3.0) Sodium (137-145) mmol/L Potassium (3.5-5.1) mmol/L Chloride (98-107) mmol/L Carbon Dioxide (22-30) mmol/L Anion Gap (5-15) MEQ/L BUN (7-17) mg/dL Creatinine (0.52-1.04) mg/dL Estimated GFR ML/MIN Glucose (74-106) mg/dL Calcium (8.4-10.2) mg/dL Magnesium (1.6-2.3) mg/dL Total Bilirubin (0.2-1.3) mg/dL AST (14-36) U/L ALT (0-35) U/L Alkaline Phosphatase (38-126) U/L Troponin I (0.000-0.034) ng/mL Serum Total Protein (6.3-8.2) g/dL Albumin (3.5-5.0) g/dL Urine Color (YELLOW) Urine Appearance (CLEAR) Urine pH (5-6) Ur Specific [place] (1.005-1.025) Urine Protein (Negative) Urine Ketones (NEGATIVE) Urine Blood (0-5) Parviz/ul Urine Nitrite (NEGATIVE) Urine Bilirubin (NEGATIVE) Urine Urobilinogen (0-1) mg/dL Ur Leukocyte Esterase (NEGATIVE) Urine WBC (Auto) (0-5) /HPF Urine RBC (Auto) (0-2) /HPF U Hyaline Cast (Auto) (0-2) /LPF U Epithel Cells (Auto) (FEW) /HPF Urine Bacteria (Auto) (NEGATIVE) /HPF Urine Mucus (Auto) (NEGATIVE) /HPF Urine Culture Reflexed (NO) Urine Glucose (NEGATIVE) mg/dL Urine Opiates Level (NEGATIVE) Ur Methadone (NEGATIVE) Urine Barbiturates (NEGATIVE) Ur Phencyclidine (PCP) (NEGATIVE) Urine Amphetamine (NEGATIVE) U Benzodiazepine Level (NEGATIVE) Urine Cocaine (NEGATIVE) Urine Marijuana (THC) (NEGATIVE) Ethyl Alcohol (0-10) mg/dL Reviewed 2D Echo from 12/02/2018 showed normal EF, Cardiac Imaging Nuclear Study from 12/02/2018 with no signs of any induced reversible ischemia to myocardium Carotid Ultrasound from 11/19/2018: Left ICA occlusion, which was also shown on the Brain MRI from 11/12/2018 as well as a Carotid Ultrasound on 10/15/2017 Brain MRI from 11/12/2018: Small, old occipital infarct, no other significant abnormalities - Progress Progress: improved Progress Note: 01/10/19 04:14 pain is returning in her right shoulder. Patient will be placed in a shoulder sling and given Fentanyl 25micrograms IV times one patient has remained in sinus rhythm throughout her time in the emergency department. 01/10/19 04:39 Reviewed her occluded ICA seen on multiple studies and patient was aware of this. Patient is not a candidate she and her state for any procedure to treat the chronic ICA occlusion 01/10/19 04:40 Patient has no neurologic deficits throughout her time in the emergency department as patient appears to be at her baseline neurologically. With recent MRI, carotid ultrasound, cardiac stress testing and 2D Echo, patient does not require inpatient testing for any further testing as she has a normal EKG and a negative troponin in the emergency department with maintaining sinus rhythm throughout her time in the emergency department. Most likely patient was slightly sleepy and tripped and fell, landing on her right shoulder causing her fracture. With no slurring of her speech noted by EMS or by my examinations with no other deficits seen on EMS or my examinations, patient will be discharged home to follow-up as an outpatient for her clavicle fracture. Counseled pt/family regarding: lab results, diagnosis, need for follow-up, rad results - Departure Departure Disposition: Home Clinical Impression: Syncope Qualifiers: Syncope type: unspecified Qualified Code(s): R55 - Syncope and collapse Closed right clavicular fracture Qualifiers: Encounter type: initial encounter Clavicle location: shaft Fracture alignment: displaced Qualified Code(s): S42.021A - Displaced fracture of shaft of right clavicle, initial encounter for closed fracture Hypertension Qualifiers: Hypertension type: essential hypertension Qualified Code(s): I10 - Essential ( primary) hypertension Condition: Good Critical Care Time: No Referrals: ISAIAH FOSTER NP [Primary Care Provider] - 01/10/19 (Orthopedic Clinic opens on Sunday, January 13, 2019 at 8 am. Follow-up your shoulder/clavicle at 8 am on 01/13/2019.) Instructions: High Blood Pressure (DC), Syncope (Fainting) (DC), Clavicle Fracture (DC) Additional Instructions: You have a right clavicle (collar bone) fracture. FOllow-up with the Orthopedic Clinic on 01/13/2019 at 8am. Return to the emergency department if any new fainting, new weakness, new change in speech, loss of sensation, change in vision, new pain or any other concerning sign or symptom that was not present at today's emergency department visit for immediate reevaluation in the emergency department. Prescriptions: Etodolac 400 mg [Lodine 400 mg] 400 mg PO BID PRN PRN #20 tablet PRN Reason: Pain
[2019-01-10 02:21] LABS: BASOPHIL % 0.8 % (0.0-0.4); Basophil (Absolute #) 0.08 (0-0.4); Eosinophil % 4.7 % (0.00-5.0); Eosinophil (Absolute #) 0.46 (0-0.5); Granulocyte Absolute (ANC) 6.33 (1.4-6.9); Granulocytes % 64.4 % (36.0-66.0); Hematocrit 30.8 % (35-47); Hemoglobin 10.4 gm/dl (12.0-16.0); Lymphocytes % 19.3 % (24.0-44.0); Mean Cell Volume 84.2 fl (78-100); Mean Corpuscular Hemoglobin 28.4 pg (26-32); Mean Corpuscular Hgb Concent. 33.8 g/dl (32-36); Mean Platelet Volume 7.7 fl (6-9.5); Monocyte (Absolute #) 1.06 (0.0-1.3); Monocytes % 10.8 % (0.0-12.0); Platelet Count 388 K/mm3 (150-450); Red Blood Count 3.66 M/mm3 (4.1-5.4); Red Cell Distribution Width 14.6 % (11.5-14.0); White Blood Count 9.8 K/mm3 (4.0-10.5)
[2019-01-10 02:28] LABS: INR 0.95 (0.8-3.0); PROTIME 10.7 SECONDS (9.95-12.35)
[2019-01-10 02:33] LABS: ALBUMIN 3.8 g/dL (3.5-5.0); ALKALINE PHOSPHATASE 92 U/L (38-126); ANION GAP 14.6 MEQ/L (5-15); BLOOD UREA NITROGEN 11 mg/dL (7-17); CHLORIDE 92 mmol/L (98-107); Calcium 8.9 mg/dL (8.4-10.2); Carbon Dioxide 25 mmol/L (22-30); Creatinine 1 0.71 mg/dL (0.52-1.04); Glucose 123 mg/dL (74-106); Potassium 3.5 mmol/L (3.5-5.1); SGOT/AST 26 U/L (14-36); SGPT/ALT 25 U/L (0-35); SODIUM 128 mmol/L (137-145)
[2019-01-10 02:35] LABS: ETHYL ALCOHOL < 10 mg/dL (0-10)
[2019-01-10] MEDS ORDERED: SUBLIMAZE 100 MCG/2 ML IV ONE (04:13)
[2019-01-10 04:17] VITALS: O2SAT 94
[2019-01-10] MEDS ORDERED: SUBLIMAZE 100 MCG/2 ML ONE (04:18)
[2019-01-10 04:29] LABS: Amphetamine,Urine NEGATIVE (NEGATIVE); Barbiturate,Urine NEGATIVE (NEGATIVE); Benzodiazepine,Urine NEGATIVE (NEGATIVE); Cocaine,Urine NEGATIVE (NEGATIVE); Methadone,Urine NEGATIVE (NEGATIVE); Opiate,Urine NEGATIVE (NEGATIVE); PCP,Urine NEGATIVE (NEGATIVE); THC,Urine NEGATIVE (NEGATIVE)
[2019-01-10 04:36] LABS: Appearance CLEAR (CLEAR); Bilirubin NEGATIVE (NEGATIVE); Blood NEGATIVE Ery/ul (0-5); Glucose NEGATIVE (NEGATIVE); Ketones NEGATIVE (NEGATIVE); Leukocyte Esterase NEGATIVE (NEGATIVE); Mucus SLIGHT /HPF (NEGATIVE); Nitrite NEGATIVE (NEGATIVE); Protein,Urine Dip NEGATIVE (Negative); RBC 0-2 /HPF (0-2); Specific Gravity 1.008 (1.005-1.025); Urobilinogen NEGATIVE mg/dL (0-1)
[2019-01-10 05:05] VITALS: PULSE 71
[2019-01-10 05:06] VITALS: BP 166/92
--- NOTE | 2019-01-10 08:45 | XRAY ---
Indication: Syncope. History Parkinson's. Multiple contiguous axial images obtained through the head without contrast. Comparison: November 16, 2018. Stable small remote left occipital lobe infarct. Again no acute intracranial hemorrhage, hydrocephalus, or mass effect. Fourth ventricle is midline. Steinberg-white matter differentiation preserved. Bony calvarium intact. Visualized paranasal sinuses and mastoid air cells are clear. 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 No new or acute intracranial abnormalities. Comment: Preliminary interpretation was made by [facility]. No discrepancy. CT DI 66.37
--- NOTE | 2019-01-10 09:13 | XRAY ---
Indication: Syncope. Comparison: December 06, 2015. Portable chest remains clear with chronic right hemidiaphragm elevation. Heart is not enlarged. Bony thorax demonstrates new right mid clavicle acute fracture with stable osteopenia and old left clavicle/left rib fractures.
== END 2019-01-10 05:20 | disposition home or self-care (01) ==
LOC: ED 01:37
DX: R55 Syncope and collapse (principal); S42.021A Displaced fracture of shaft of right clavicle, initial encounter for closed fracture; I10 Essential (primary) hypertension; W19.XXXA Unspecified fall, initial encounter; M25.511 Pain in right shoulder
CPT/HCPCS: 36415; 70450; 71045; 80053; 80307; 81001; 82962; 83735; 84484; 85025; 85610; 93005; 93041; 94760; 96360; 96374; 99285; G0480; J3010

== ENCOUNTER 2019-08-18 18:58 | Observation (INO) | payer OTHER ==
[2019-08-18 19:26] LABS: Absolute Neutrophil Ct (ANC) 2.01 (1.4-6.9); BASOPHIL % 0.2 % (0.0-0.4); Basophil (Absolute #) 0.01 (0-0.4); Eosinophil % 1.7 % (0.00-5.0); Eosinophil (Absolute #) 0.09 (0-0.5); Hemoglobin 12.7 gm/dl (12.0-16.0); Lymphocyte (Absolute #) 2.89 (1.0-4.6); Lymphocytes % 53.2 % (24.0-44.0); Mean Cell Volume 84.8 fl (78-100); Mean Corpuscular Hemoglobin 27.6 pg (26-32); Mean Corpuscular Hgb Concent. 32.6 g/dl (32-36); Mean Platelet Volume 8.8 fl (7.5-11.0); Monocyte (Absolute #) 0.43 (0.0-1.3); Monocytes % 7.9 % (0.0-12.0); Platelet Count 454 K/mm3 (150-450); Red Cell Distribution Width 14.1 % (11.5-14.0); White Blood Count 5.4 K/mm3 (4.0-10.5)
[2019-08-18 19:54] LABS: ALBUMIN 4.4 g/dL (3.5-5.0); ALKALINE PHOSPHATASE 164 U/L (38-126); ANION GAP 16.4 MEQ/L (5-15); BLOOD UREA NITROGEN 14 mg/dL (7-17); CHLORIDE 100 mmol/L (98-107); Calcium 9.6 mg/dL (8.4-10.2); Carbon Dioxide 22 mmol/L (22-30); Creatinine 1 0.95 mg/dL (0.52-1.04); Glucose 165 mg/dL (74-106); NT PRO BNP 370 pg/mL (0-900); Potassium 3.3 mmol/L (3.5-5.1); SGOT/AST 30 U/L (14-36); SGPT/ALT 39 U/L (0-35); SODIUM 135 mmol/L (137-145); Total Protein 8.1 g/dL (6.3-8.2)
[2019-08-18] MEDS ORDERED: SUBLIMAZE 100 MCG/2 ML IV ONE ×2 (20:12→23:20)
[2019-08-18] MEDS ORDERED: Sodium Chloride 0.9% 1000 ML 1,000 ML IV STA (20:13)
[2019-08-18] MEDS ORDERED: SUBLIMAZE 100 MCG/2 ML ONE ×2 (20:28→23:54)
[2019-08-18] MEDS ORDERED: Sodium Chloride 0.9% 1000 ML 1,000 ML ONE (20:28)
--- NOTE | 2019-08-18 20:30 | ERPHSYRPT ---
- History of Present Illness Time Seen by Provider: 08/18/19 19:40 Historian: patient Exam Limitations: no limitations Patient Subjective Stated Complaint: pt c/o chest pain Triage Nursing Assessment: pt c/o chest pain to center of chest, radiating to left and right arm, more pain to right arm. Pt has had nausea and vomiting, sob but denies any diaphoresis. Lungs clear, heart tones reg, abd lg obese with active bs x4 quad. Pt wore holter monitor x4 weeks and got it off last Sun. Pt is to follow up with pole truck driver Dr. Hale this Sunday. Physician History: Patient is a 63-year-old female presents to our ED with complaint of chest pain or shortness of breath. Pain tends to radiate to both arms on her back. Pain is associated with nausea and vomiting. No diaphoresis. Symptoms are moderate in intensity. No specific worsening or improving factors. No fever. No trauma. Symptoms are constant. No specific worsening improving factors. Patient voices no other complaints at this time. at bedside. Timing/Duration: today (Pain started approximately 6 PM.) Activities at Onset: none Location: substernal Chest Pain Radiation: arm, back Severity of Pain-Max: moderate Severity of Pain-Current: moderate Modifying Factors: Improves With: nothing Associated Symptoms: nausea, vomiting Prior Chest Pain/Cardiac Workup: angina (Patient currently being worked up for chest pain.) Nitro Today/Relief: no nitro taken today Aspirin Treatment Today: no aspirin today Allergies/Adverse Reactions: morphine Allergy (Severe, Verified 11/16/18 02:49) Irregular Heart Beat sulfamethoxazole [From Bactrim] Allergy (Verified 11/16/18 02:49) Hives trimethoprim [From Bactrim] Allergy (Verified 11/16/18 02:49) Hives fluoxetine HCl [From Prozac] Adverse Reaction (Intermediate, Verified 11/16/18 02:49) homicidal thoughts homicidal thoughts Home Medications: lisinopriL [Zestril 40 mg] 40 mg PO DAILY 04/23/15 [History] Amitriptyline HCl 25 mg [Elavil 25 mg] 1 tab PO HS 11/16/18 [History] Gabapentin 300 mg PO TID 11/16/18 [History] Amantadine HCl [Amantadine] 100 mg PO TID 08/18/19 [History] Carvedilol 3.125 mg [Coreg 3.125 MG] 3.125 mg PO BID 08/18/19 [History] Simvastatin 20Mg [Zocor 20Mg] 40 mg PO DAILY 08/18/19 [History] Hx Tetanus, Diphtheria Vaccination/Date Given: No Hx Influenza Vaccination/Date Given: No Hx Pneumococcal Vaccination/Date Given: No Immunizations Up to Date: No Travel Risk - International Travel Have you traveled outside of the country in past 3 weeks: No Have you or anyone close to you been diagnosed with or: No Do your reside in a community with a known COVID-19 case?: Yes If Yes where:: [place] - Coronavirus Screening Has patient experienced Coronavirus symptoms: No - Review of Systems Constitutional: No Symptoms, No Fever, No Chills Eyes: No Symptoms Ears, Nose, & Throat: No Symptoms Respiratory: No Symptoms, No Cough, No Dyspnea Cardiac: No Symptoms, No Chest Pain, No Edema, No Syncope Abdominal/Gastrointestinal: No Symptoms, No Abdominal Pain, No Nausea, No Vomiting, No Diarrhea Genitourinary Symptoms: No Symptoms, No Dysuria Musculoskeletal: No Symptoms, No Back Pain, No Neck Pain Skin: No Symptoms, No Rash Neurological: No Symptoms, No Dizziness, No Focal Weakness, No Sensory Changes Psychological: No Symptoms Endocrine: No Symptoms Hematologic/Lymphatic: No Symptoms Immunological/Allergic: No Symptoms All Other Systems: Reviewed and Negative - Past Medical History Pertinent Past Medical History: Yes Neurological History: TIA ENT History: No Pertinent History Cardiac History: Angina, High Cholesterol, Hypertension Respiratory History: Asthma, COPD Endocrine Medical History: Other Musculoskeletal History: Arthritis, Other GI Medical History: Ulcer, Other History: No Pertinent History Psycho-Social History: Anxiety, Depression Female Reproductive Disorders: Ovarian Cancer, Uterine Cancer Other Medical History: hx of bleeding ulcer and ileus, 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. ??Parkinsons disease - Past Surgical History Past Surgical History: Yes Neuro Surgical History: No Pertinent History Cardiac: No Pertinent History Respiratory: No Pertinent History Gastrointestinal: Appendectomy, Bowel Surgery, Cholecystectomy, Hernia Repair Genitourinary: No Pertinent History Musculoskeletal: Orthopedic Surgery Female Surgical History: Hysterectomy, Tubal Ligation Other Surgical History: bone auto graft to wrist, collar bone surgery - Social History Smoking Status: Former smoker How long have you smoked: years Exposure to second hand smoke: No Drug Use: none Patient Lives Alone: No - Female History Hx Now: No - Nursing Vital Signs Nursing Vital Signs: Initial Vital Signs Temperature 97.6 F 08/18/19 19:22 Pulse Rate 71 08/18/19 19:22 Respiratory Rate 22 08/18/19 19:22 Blood Pressure 97/72 08/18/19 19:22 O2 Sat by Pulse Oximetry 84 L 08/18/19 19:22 Pain Scale Pain Intensity 8 - Physical Exam General Appearance: no apparent distress, alert Eye Exam: PERRL/EOMI, eyes nml inspection Ears, Nose, Throat Exam: normal ENT inspection, moist mucous membranes Neck Exam: normal inspection, non-tender, supple, full range of motion Respiratory Exam: normal breath sounds, lungs clear, No respiratory distress Cardiovascular Exam: regular rate/rhythm, normal heart sounds Gastrointestinal/Abdomen Exam: soft, No tenderness, No mass Back Exam: normal inspection, No CVA tenderness, No vertebral tenderness Extremity Exam: normal inspection, normal range of motion Neurologic Exam: alert, oriented x 3, cooperative, normal mood/affect, sensation nml, No motor deficits Skin Exam: normal color, warm, dry SpO2 Interpretation: normal SpO2: 93 O2 Delivery: Room Air - Course Nursing assessment & vital signs reviewed: Yes EKG Interpreted by Me: RATE, Sinus Rhythm, NORMAL AXIS, NORMAL INTERVALS Ordered Tests: Active Orders 24 hr Category Date Time Status Shank Pinner STAT Care 08/18/19 19:17 Active EKG-ER Only STAT Care 08/18/19 19:16 Active IV Insertion STAT Care 08/18/19 19:16 Active Isolation, Initiate & Maintain Q4H Care 08/18/19 19:36 Active Pulse Oximetry (ED) STAT Care 08/18/19 19:16 Active ABDOMEN AND PELVIS W CONTRAST [CT] Stat Exams 08/18/19 20:27 Taken CHEST 1 VIEW (PORTABLE) Stat Exams 08/18/19 19:17 Taken CHEST WITH CONTRAST [CT] Stat Exams 08/18/19 20:27 Taken CBC W DIFF Stat Lab 08/18/19 19:15 Completed CMP Stat Lab 08/18/19 19:15 Completed NT PRO BNP Stat Lab 08/18/19 19:15 Completed TROPONIN Q3H Lab 08/18/19 19:15 Completed TROPONIN Q3H Lab 08/18/19 22:20 Completed TROPONIN Q3H Lab 08/19/19 01:30 Ordered TROPONIN Q3H Lab 08/19/19 04:30 Ordered TROPONIN Q3H Lab 08/19/19 07:30 Ordered Urine Triage Profile Stat Lab 08/18/19 19:17 Uncollected Transfer Order Routine Transfer 08/18/19 Ordered Medication Summary Discontinued Medications Generic Name Dose Route Start Last Admin Trade Name Freq PRN Reason Stop Dose Admin Aspirin 324 mg 08/18/19 23:13 Baby Aspirin 81 Mg Chew PO 08/18/19 23:14 STAT ONE Fentanyl Citrate 25 mcg 08/18/19 20:12 08/18/19 20:32 Sublimaze 100 Mcg/2 Ml IV 08/18/19 20:13 25 mcg STAT ONE Administration Fentanyl Citrate Confirm 08/18/19 20:28 Sublimaze 100 Mcg/2 Ml Administered 08/18/19 20:29 Dose 100 mcg .ROUTE .STK-MED ONE Fentanyl Citrate 25 mcg 08/18/19 23:20 Sublimaze 100 Mcg/2 Ml IV 08/18/19 23:21 STAT ONE Sodium Chloride 1,000 mls @ 999 mls/hr 08/18/19 20:13 08/18/19 20:32 Sodium Chloride 0.9% 1000 Ml IV 08/18/19 21:13 999 mls/hr .Q1H1M STA Administration Sodium Chloride Confirm 08/18/19 20:28 Sodium Chloride 0.9% 1000 Ml Administered 08/18/19 20:29 Dose 1,000 mls @ ud .ROUTE .STK-MED ONE Nitroglycerin 1 gm 08/18/19 23:20 Nitro-Bid 2% Ud Packets TOP 08/18/19 23:21 STAT ONE Ondansetron HCl 4 mg 08/18/19 21:53 08/18/19 22:56 Zofran 4 Mg/2 Ml Vial IV 08/18/19 21:54 4 mg STAT ONE Administration Ondansetron HCl Confirm 08/18/19 22:54 Zofran 4 Mg/2 Ml Vial Administered 08/18/19 22:55 Dose 4 mg .ROUTE .STK-MED ONE Lab/Rad Data: Laboratory Result Diagrams 08/18/19 19:15 08/18/19 19:15 Laboratory Results 08/18/19 08/18/19 08/18/19 Range/Units 22:20 19:15 19:15 WBC (4.0-10.5) K/mm3 RBC (4.1-5.4) M/mm3 Hgb (12.0-16.0) gm/dl Hct (35-47) % MCV (78-100) fl MCH (26-32) pg MCHC (32-36) g/dl RDW (11.5-14.0) % Plt Count (150-450) K/mm3 MPV (7.5-11.0) fl Gran % (36.0-66.0) % Eos # (Auto) (0-0.5) Absolute Lymphs (auto) (1.0-4.6) Absolute Monos (auto) (0.0-1.3) Lymphocytes % (24.0-44.0) % Monocytes % (0.0-12.0) % Eosinophils % (0.00-5.0) % Basophils % (0.0-0.4) % Absolute Granulocytes (1.4-6.9) Basophils # (0-0.4) Sodium 135 L (137-145) mmol/L Potassium 3.3 L (3.5-5.1) mmol/L Chloride 100 (98-107) mmol/L Carbon Dioxide 22 (22-30) mmol/L Anion Gap 16.4 H (5-15) MEQ/L BUN 14 (7-17) mg/dL Creatinine 0.95 (0.52-1.04) mg/dL Estimated GFR > 60.0 ML/MIN Glucose 165 H (74-106) mg/dL Calcium 9.6 (8.4-10.2) mg/dL Total Bilirubin 0.30 (0.2-1.3) mg/dL AST 30 (14-36) U/L ALT 39 H (0-35) U/L Alkaline Phosphatase 164 H (38-126) U/L Troponin I < 0.012 < 0.012 (0.000-0.034) ng/mL NT-Pro-B Natriuret Pep 370 (0-900) pg/mL Serum Total Protein 8.1 (6.3-8.2) g/dL Albumin 4.4 (3.5-5.0) g/dL 08/18/19 Range/Units 19:15 WBC 5.4 (4.0-10.5) K/mm3 RBC 4.60 (4.1-5.4) M/mm3 Hgb 12.7 (12.0-16.0) gm/dl Hct 39.0 (35-47) % MCV 84.8 (78-100) fl MCH 27.6 (26-32) pg MCHC 32.6 (32-36) g/dl RDW 14.1 H (11.5-14.0) % Plt Count 454 H (150-450) K/mm3 MPV 8.8 (7.5-11.0) fl Gran % 37.0 (36.0-66.0) % Eos # (Auto) 0.09 (0-0.5) Absolute Lymphs (auto) 2.89 (1.0-4.6) Absolute Monos (auto) 0.43 (0.0-1.3) Lymphocytes % 53.2 H (24.0-44.0) % Monocytes % 7.9 (0.0-12.0) % Eosinophils % 1.7 (0.00-5.0) % Basophils % 0.2 (0.0-0.4) % Absolute Granulocytes 2.01 (1.4-6.9) Basophils # 0.01 (0-0.4) Sodium (137-145) mmol/L Potassium (3.5-5.1) mmol/L Chloride (98-107) mmol/L Carbon Dioxide (22-30) mmol/L Anion Gap (5-15) MEQ/L BUN (7-17) mg/dL Creatinine (0.52-1.04) mg/dL Estimated GFR ML/MIN Glucose (74-106) mg/dL Calcium (8.4-10.2) mg/dL Total Bilirubin (0.2-1.3) mg/dL AST (14-36) U/L ALT (0-35) U/L Alkaline Phosphatase (38-126) U/L Troponin I (0.000-0.034) ng/mL NT-Pro-B Natriuret Pep (0-900) pg/mL Serum Total Protein (6.3-8.2) g/dL Albumin (3.5-5.0) g/dL - Progress Progress: improved Air Movement: good Progress Note: 08/18/19 23:25 Patient reassessed. Chest pain improved. Case discussed with Dr. Mcgill covering Dr. Lozano. We will admit patient for further evaluation and treatment of chest pain. Blood Culture(s) Obtained: No Antibiotics given: No Discussed with : Sameera Will see patient in: hospital (observation) Counseled pt/family regarding: lab results, diagnosis, rad results - Departure Departure Disposition: Home, Observation, Extended Care Facility Clinical Impression: ACS (acute coronary syndrome), Chest pain, CAD (coronary artery disease), Mitral valve annular calcification, Atherosclerosis, Hepatic steatosis, Renal lesion, Lumbar spine pain, Abdominal wall hernia, Bowel wall thickening Condition: Stable Critical Care Time: No Referrals: TAWNYA LOZANO [Primary Care Provider] -
[2019-08-18] MEDS ORDERED: Zofran 4 MG/2 ML VIAL IV ONE (21:53)
[2019-08-18] MEDS ORDERED: Zofran 4 MG/2 ML VIAL ONE (22:54)
[2019-08-18] MEDS ORDERED: BABY ASPIRIN 81 MG CHEW PO ONE (23:13)
[2019-08-18] MEDS ORDERED: NITRO-BID 2% UD PACKETS TOP ONE (23:20)
[2019-08-18] MEDS ORDERED: BABY ASPIRIN 81 MG CHEW ONE (23:51)
[2019-08-18] MEDS ORDERED: NITRO-BID 2% UD PACKETS ONE (23:51)
[2019-08-19] MEDS ORDERED: TYLENOL 325 MG PO PRN (00:37)
[2019-08-19] MEDS ORDERED: MILK OF MAGNESIA 30 ML PO PRN (00:37)
[2019-08-19] MEDS ORDERED: MAALOX ES 30 ML UNIT DOSE PO PRN (00:37)
[2019-08-19] MEDS ORDERED: Senokot-S Tablet PO PRN (00:37)
[2019-08-19 00:42] LABS: Amphetamine,Urine NEGATIVE (NEGATIVE); Barbiturate,Urine NEGATIVE (NEGATIVE); Benzodiazepine,Urine NEGATIVE (NEGATIVE); Cocaine,Urine NEGATIVE (NEGATIVE); Methadone,Urine NEGATIVE (NEGATIVE); Opiate,Urine NEGATIVE (NEGATIVE); PCP,Urine NEGATIVE (NEGATIVE); THC,Urine NEGATIVE (NEGATIVE)
[2019-08-19] MEDS ORDERED: MORPHINE SULFATE 2 MG INJ IV PRN (00:53)
[2019-08-19] MEDS: DILAUDID 2 MG INJECTION IV PRN ×3 (01:39→10:33)
[2019-08-19] MEDS: Phenergan 25 MG INJ IV PRN ×2 (01:51→05:57)
[2019-08-19] MEDS: Zofran 4 MG/2 ML VIAL IV PRN ×3 (03:54→15:15)
[2019-08-19 06:20] LABS: Cholesterol 117 mg/dL (50-200); HDL CHOLESTEROL 41 mg/dL (40-60); LDL, DIRECT 64 mg/dL (30-100); Risk Ratio 2.9; TRIGLYCERIDE 152 mg/dL (30-150)
[2019-08-19 06:26] LABS: TROPONIN < 0.012 ng/mL (0.000-0.034)
--- NOTE | 2019-08-19 08:41 | XRAY ---
Indication: Substernal chest pain radiating upper extremities. History angina and TIAs. Multiple contiguous axial images obtained through the chest using 100 cc Isovue-370 contrast. Comparison: None Lungs demonstrates minimal bilateral dependent atelectasis and minimal scattered fibrosis/scarring. No suspicious pulmonary mass, infiltrate, or effusion. Heart is not enlarged. Aorta is normal in course and caliber. No pathologic mediastinal/hilar lymphadenopathy. Bony thorax demonstrates mild degenerative changes throughout the spine, multiple old bilateral anterior rib fractures, and old right clavicle fracture with intact fixation hardware. CT abdomen/pelvis reported separately. Impression: 1. Scattered atelectasis, fibrosis/scarring, and chronic bony findings. 2. Remaining CT chest with contrast exam is negative.
--- NOTE | 2019-08-19 08:51 | XRAY ---
Indication: Abdomen pain. Substernal chest pain radiating upper extremities. History angina and TIAs. Multiple contiguous axial images obtained through the abdomen and pelvis using 100 cc Isovue-370 contrast. Comparison: January 20, 2008. CT chest reported separately. Stomach is moderately fluid distended. Stomach also demonstrates mild focal wall thickening at the GE junction. Noncontrasted stomach and bowel loops appear nonobstructed mild/moderate fecal debris in the right hemicolon. Previous appendectomy, cholecystectomy, and hysterectomy. No free fluid/air. 23 cm fatty hepatomegaly. Both kidneys enhance and excrete with a few small bilateral renal cysts, largest 1 cm left mid to upper pole. Remaining liver, pancreas, spleen, adrenal glands, kidneys, ureters, and bladder appear unremarkable. Moderate scattered aortoiliac calcifications. No AAA or pathological retroperitoneal lymphadenopathy. Osseous structures intact with mild/moderate degenerative changes throughout the thoracolumbar spine. Additional mild degenerative changes of both hips, old right greater trochanter fracture, and 1 cm right superior acetabulum bone island. Mild broad-based midline epigastric ventral hernia with minimal protruding small bowel loop without incarceration. Impression: 1. Mild broad-based epigastric ventral hernia as detailed without complications. 2. Fluid distended stomach with focal wall thickening at the GE junction. Endoscopy may yield further information. 3. Right hemicolon fecal loading. 4. Incidental fatty hepatomegaly, bilateral renal cysts, and chronic bony findings. Comment: Preliminary interpretation was made by [facility]. No critical discrepancy.
--- NOTE | 2019-08-19 08:53 | XRAY ---
Indication: Chest pain. Comparison: June 25, 2019. Portable chest less inflated and remains clear. Heart is not enlarged. Bony thorax intact again with osteopenia, old bilateral clavicle fractures, and old left rib fractures. Impression: Continued nonacute chest with chronic bony findings.
--- NOTE | 2019-08-19 12:27 | PCM.HP ---
History of Present Illness - Chief Complaint Chief Complaint: ACS, CAD Date: 08/19/19 History of Present Illness: is a 63 year old female seen following admission from ER for chest pain. Patient reports that the chest pain comes and goes and radiates deep to her back. It is left sided. Deep breaths make it worse. She is unsure if the pain is sharp or dull. Patient reports that she has taken Nitro for her chest pain which usually helps and she reports after the nitro and IV fluids she startePatient reports that she has had chest pain before and has had a stroke as well. Patient reports increasing pain. Patient sees Dr Hale and had a cath done. Patient reports that she has an occluded artery. Patient had cardiac monitoring done which lasted 4 weeks and just finished last week. Patient does report a hx of GI issues. - Review of Systems Constitutional: Night Sweats, Other (Weight gain 40 pounds since mar), No Fever , No Chills, No Weakness Eyes: No Symptoms Ears, Nose, & Throat: Nose Congestion, Sinus Drainage, Throat Pain, Snoring, Other (trouble swallowing) Respiratory: Cough, Short Of Breath, Wheezing, No Orthopnea Cardiac: Chest Pain, Palpitations, Syncope, No Edema Abdominal/Gastrointestinal: Nausea, Vomiting, Constipation, No Abdominal Pain, No Diarrhea Genitourinary Symptoms: Other (odor), No Frequency Musculoskeletal: Back Pain, Joint Pain Skin: No Symptoms Neurological: Dizziness, Headache Psychological: Anxiety, Other (panic attacks), No Alcohol Abuse, No Drug Abuse Endocrine: Other (Thyroid problems) Hematologic/Lymphatic: Anemia, Blood Clots Immunological/Allergic: Other (sometimes seasonal allergies. ) Medications & Allergies Home Medications: Home Medication List lisinopriL [Zestril 40 mg] 40 mg PO DAILY 04/23/15 [History Confirmed 08/18/19] Amitriptyline HCl 25 mg [Elavil 25 mg] 2 - 3 tab PO HS PRN PRN 11/16/18 [ History Confirmed 08/19/19] Gabapentin 300 mg PO TID 11/16/18 [History Confirmed 08/18/19] Amantadine HCl [Amantadine] 100 mg PO TID 08/18/19 [History Confirmed 08/18/19] Carvedilol 3.125 mg [Coreg 3.125 MG] 3.125 mg PO BID 08/18/19 [History Confirmed 08/18/19] Simvastatin 20Mg [Zocor 20Mg] 40 mg PO DAILY 08/18/19 [History Confirmed 08/03] Aspirin EC 81 mg [Ecotrin 81 mg] 81 mg PO DAILY 08/19/19 [History Confirmed 08/19/19] Allergies/Adverse Reactions: Allergies Allergy/AdvReac Type Severity Reaction Status Date / Time morphine Allergy Severe Irregular Verified 11/16/18 02:49 Heart Beat sulfamethoxazole Allergy Intermediate Hives Verified 08/19/19 01:18 [From Bactrim] trimethoprim [From Bactrim] Allergy Intermediate Hives Verified 08/19/19 01:18 fluoxetine HCl [From Prozac] AdvReac Intermediate homicidal Verified 11/16/18 02 :49 thoughts - Past Medical History Past Medical History: Yes Neurological History: TIA ENT History: No Pertinent History Cardiac History: Angina, High Cholesterol, Hypertension Respiratory History: Asthma, COPD Endocrine Medical History: Other Musculoskelatal History: Arthritis, Other GI Medical History: Ulcer, Other History: No Pertinent History Pyscho-Social History: Anxiety, Depression Reproductive Disorders: Ovarian Cancer, Uterine Cancer Comment: hx of bleeding ulcer and ileus, 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. ??Parkinsons disease - Female History Are you now?: No - Past Surgical History Past Surgical History: Yes Neuro Surgical History: No Pertinent History Cardiac History: No Pertinent History, Cardiac Catheterization Respiratory Surgery: No Pertinent History GI Surgical History: Appendectomy, Bowel Surgery, Cholecystectomy, Hernia Repair Genitourinary Surgical Hx: No Pertinent History Musculskeletal Surgical Hx: Orthopedic Surgery Female Surgical History: Hysterectomy, Tubal Ligation Other Surgical History: bone auto graft to wrist, collar bone surgery - Social History Smoking Status: Former smoker How long have you smoked: years Exposure to second hand smoke: No Alcohol: Rarely Drug Use: none - Physical Exam Vital Signs: Vital Signs - 24 hr Temp Pulse Pulse Resp BP Pulse Ox 08/19/19 09:08 98.6 F 82 20 126/61 93 L 08/19/19 06:16 98.7 F 70 18 120/58 95 08/19/19 03:51 98.0 F 73 18 96/54 94 L 08/19/19 01:54 98.5 F 93 H 18 123/69 96 08/19/19 00:50 83 18 93 L 08/19/19 00:03 83 20 99/73 96 08/18/19 23:40 84 21 122/106 97 08/18/19 23:25 93 L 08/18/19 22:58 81 15 103/68 93 L 08/18/19 22:15 81 23 117/86 92 L 08/18/19 20:45 83 14 87/76 100 08/18/19 19:54 87 23 93 L 08/18/19 19:26 81 08/18/19 19:25 92 L 08/18/19 19:22 97.6 F 71 22 97/72 84 L General Appearance: moderate distress Neurologic Exam: alert, oriented x 3, cooperative, normal mood/affect Eye Exam: No scleral icterus Ears, Nose, Throat Exam: moist mucous membranes Neck Exam: normal inspection Respiratory Exam: normal breath sounds, chest tenderness, lungs clear, No respiratory distress, No diminished breath sounds, No crackles/rales, No rhonchi , No wheezing Cardiovascular Exam: regular rate/rhythm, normal heart sounds, other, No murmur , No friction rub, No gallop Gastrointestinal/Abdomen Exam: soft, normal bowel sounds, No tenderness, No distention Pelvic Exam: deferred Rectal Exam: deferred Extremity Exam: normal inspection Skin Exam: normal color, warm, dry, No rash Results - Labs Lab/Micro Results: Lab Results-Last 24 Hours 08/18/19 08/18/19 08/18/19 Range/Units 00:05 19:15 19:15 WBC 5.4 (4.0-10.5) K/mm3 RBC 4.60 (4.1-5.4) M/mm3 Hgb 12.7 (12.0-16.0) gm/dl Hct 39.0 (35-47) % MCV 84.8 (78-100) fl MCH 27.6 (26-32) pg MCHC 32.6 (32-36) g/dl RDW 14.1 H (11.5-14.0) % Plt Count 454 H (150-450) K/mm3 MPV 8.8 (7.5-11.0) fl Gran % 37.0 (36.0-66.0) % Eos # (Auto) 0.09 (0-0.5) Absolute Lymphs (auto) 2.89 (1.0-4.6) Absolute Monos (auto) 0.43 (0.0-1.3) Lymphocytes % 53.2 H (24.0-44.0) % Monocytes % 7.9 (0.0-12.0) % Eosinophils % 1.7 (0.00-5.0) % Basophils % 0.2 (0.0-0.4) % Absolute Granulocytes 2.01 (1.4-6.9) Basophils # 0.01 (0-0.4) Sodium 135 L (137-145) mmol/L Potassium 3.3 L (3.5-5.1) mmol/L Chloride 100 (98-107) mmol/L Carbon Dioxide 22 (22-30) mmol/L Anion Gap 16.4 H (5-15) MEQ/L BUN 14 (7-17) mg/dL Creatinine 0.95 (0.52-1.04) mg/dL Estimated GFR > 60.0 ML/MIN Glucose 165 H (74-106) mg/dL Calcium 9.6 (8.4-10.2) mg/dL Total Bilirubin 0.30 (0.2-1.3) mg/dL AST 30 (14-36) U/L ALT 39 H (0-35) U/L Alkaline Phosphatase 164 H (38-126) U/L Troponin I (0.000-0.034) ng/mL NT-Pro-B Natriuret Pep 370 (0-900) pg/mL Serum Total Protein 8.1 (6.3-8.2) g/dL Albumin 4.4 (3.5-5.0) g/dL Triglycerides (30-150) mg/dL Cholesterol (50-200) mg/dL LDL Cholesterol (30-100) mg/dL HDL Cholesterol (40-60) mg/dL Heart Disease Risk Ratio Urine Opiates Level NEGATIVE (NEGATIVE) Ur Methadone NEGATIVE (NEGATIVE) Urine Barbiturates NEGATIVE (NEGATIVE) Ur Phencyclidine (PCP) NEGATIVE (NEGATIVE) Urine Amphetamine NEGATIVE (NEGATIVE) U Benzodiazepine Level NEGATIVE (NEGATIVE) Urine Cocaine NEGATIVE (NEGATIVE) Urine Marijuana (THC) NEGATIVE (NEGATIVE) 05/04/20 05/04/20 05/05/20 Range/Units 19:15 22:20 01:34 WBC (4.0-10.5) K/mm3 RBC (4.1-5.4) M/mm3 Hgb (12.0-16.0) gm/dl Hct (35-47) % MCV (78-100) fl MCH (26-32) pg MCHC (32-36) g/dl RDW (11.5-14.0) % Plt Count (150-450) K/mm3 MPV (7.5-11.0) fl Gran % (36.0-66.0) % Eos # (Auto) (0-0.5) Absolute Lymphs (auto) (1.0-4.6) Absolute Monos (auto) (0.0-1.3) Lymphocytes % (24.0-44.0) % Monocytes % (0.0-12.0) % Eosinophils % (0.00-5.0) % Basophils % (0.0-0.4) % Absolute Granulocytes (1.4-6.9) Basophils # (0-0.4) Sodium (137-145) mmol/L Potassium (3.5-5.1) mmol/L Chloride (98-107) mmol/L Carbon Dioxide (22-30) mmol/L Anion Gap (5-15) MEQ/L BUN (7-17) mg/dL Creatinine (0.52-1.04) mg/dL Estimated GFR ML/MIN Glucose (74-106) mg/dL Calcium (8.4-10.2) mg/dL Total Bilirubin (0.2-1.3) mg/dL AST (14-36) U/L ALT (0-35) U/L Alkaline Phosphatase (38-126) U/L Troponin I < 0.012 < 0.012 < 0.012 (0.000-0.034) ng/mL NT-Pro-B Natriuret Pep (0-900) pg/mL Serum Total Protein (6.3-8.2) g/dL Albumin (3.5-5.0) g/dL Triglycerides (30-150) mg/dL Cholesterol (50-200) mg/dL LDL Cholesterol (30-100) mg/dL HDL Cholesterol (40-60) mg/dL Heart Disease Risk Ratio Urine Opiates Level (NEGATIVE) Ur Methadone (NEGATIVE) Urine Barbiturates (NEGATIVE) Ur Phencyclidine (PCP) (NEGATIVE) Urine Amphetamine (NEGATIVE) U Benzodiazepine Level (NEGATIVE) Urine Cocaine (NEGATIVE) Urine Marijuana (THC) (NEGATIVE) 08/19/19 08/19/19 Range/Units 05:10 07:44 WBC (4.0-10.5) K/mm3 RBC (4.1-5.4) M/mm3 Hgb (12.0-16.0) gm/dl Hct (35-47) % MCV (78-100) fl MCH (26-32) pg MCHC (32-36) g/dl RDW (11.5-14.0) % Plt Count (150-450) K/mm3 MPV (7.5-11.0) fl Gran % (36.0-66.0) % Eos # (Auto) (0-0.5) Absolute Lymphs (auto) (1.0-4.6) Absolute Monos (auto) (0.0-1.3) Lymphocytes % (24.0-44.0) % Monocytes % (0.0-12.0) % Eosinophils % (0.00-5.0) % Basophils % (0.0-0.4) % Absolute Granulocytes (1.4-6.9) Basophils # (0-0.4) Sodium (137-145) mmol/L Potassium (3.5-5.1) mmol/L Chloride (98-107) mmol/L Carbon Dioxide (22-30) mmol/L Anion Gap (5-15) MEQ/L BUN (7-17) mg/dL Creatinine (0.52-1.04) mg/dL Estimated GFR ML/MIN Glucose (74-106) mg/dL Calcium (8.4-10.2) mg/dL Total Bilirubin (0.2-1.3) mg/dL AST (14-36) U/L ALT (0-35) U/L Alkaline Phosphatase (38-126) U/L Troponin I < 0.012 < 0.012 (0.000-0.034) ng/mL NT-Pro-B Natriuret Pep (0-900) pg/mL Serum Total Protein (6.3-8.2) g/dL Albumin (3.5-5.0) g/dL Triglycerides 152 H (30-150) mg/dL Cholesterol 117 (50-200) mg/dL LDL Cholesterol 64 (30-100) mg/dL HDL Cholesterol 41 (40-60) mg/dL Heart Disease Risk Ratio 2.9 Urine Opiates Level (NEGATIVE) Ur Methadone (NEGATIVE) Urine Barbiturates (NEGATIVE) Ur Phencyclidine (PCP) (NEGATIVE) Urine Amphetamine (NEGATIVE) U Benzodiazepine Level (NEGATIVE) Urine Cocaine (NEGATIVE) Urine Marijuana (THC) (NEGATIVE) - Radiology Impressions Radiology Exams & Impressions: Radiology Procedures Category Date Time Status ABDOMEN AND PELVIS W CONTRAST [CT] Stat Exams 08/18/19 20:27 Completed CHEST 1 VIEW (PORTABLE) Stat Exams 08/18/19 19:17 Completed CHEST WITH CONTRAST [CT] Stat Exams 08/18/19 20:27 Completed - Other Procedures and Tests Respiratory Therapy 08/19/19 00:57 Respiratory Therapy Assessment DAILY 08/20/19 05:00 EKG DAILY 08/21/19 05:00 EKG ROUTINE 08/22/19 05:00 EKG DAILY Assessment/Plan (1) ACS (acute coronary syndrome) Current Visit: Yes Status: Acute Assessment & Plan: 63 yr old female with chest pain. Patient had x3 negative troponins and 2 ekg's that did not show STEMI. This episode of chest pain did not appear to be cardiac in nature. Patient's CT indicated Fluid distended stomach with focal wall thickening at the GE junction. It also showed large ventral hernia. These may be alternate explanation's for patients pleuritic chest pain. Patient also recently had cath performed by Dr Hale. Patient has follow up appt with him already scheduled for tomorrow. Patient appeared to be stable enough for discharge however she will need to follow up with both cardiology and surgery. She will also follow up with me in clinic next week Code(s): I24.9 - ACUTE ISCHEMIC HEART DISEASE, UNSPECIFIED (2) Bowel wall thickening Current Visit: Yes Status: Acute Assessment & Plan: Unsure etiology. Patient will have Surgery consult following discharge to evaluate both the bowel wall thickening and ventral hernia as they potentially could be causing her chest pain. Code(s): K63.9 - DISEASE OF INTESTINE, UNSPECIFIED (3) Chest pain Current Visit: Yes Status: Acute Assessment & Plan: Patient was having pleuritic chest pain which had improved after admission. 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 Unsure if patient may benefit from imdur or other type medication Code(s): R07.9 - CHEST PAIN, UNSPECIFIED (4) Hypokalemia Current Visit: No Status: Acute Assessment & Plan: Will get repeat labs as outpatient. Patient will be restarted on oral potassium. Will also check magnesium Code(s): E87.6 - HYPOKALEMIA Discharge Summary Date of Admission: 08/19/19 00:33 Date of Discharge: 08/19/2019 Admitting Physician: AUBREY SONI MD Primary Care Provider: TAWNYA LOZANO
[2019-08-19 13:06] VITALS: BP 134/60; PULSE 87; O2SAT 94
[2019-08-19] MEDS ORDERED: ELAVIL 25 MG PO PRN (15:12)
[2019-08-19] MEDS ORDERED: MEDICATION INTERVENTION MC SCH (15:45)
[2019-08-19] MEDS ORDERED: NEURONTIN 300 MG PO SCH (16:00)
[2019-08-19] MEDS ORDERED: Zestril 20 MG PO SCH (16:00)
[2019-08-19] MEDS ORDERED: ECOTRIN 81 MG PO SCH (16:00)
[2019-08-19] MEDS ORDERED: Coreg 3.125 MG PO SCH (17:00)
[2019-08-19] MEDS ORDERED: NON-FORMULARY ITEM (Amantadine Hcl [Amantadine] 100 MG) PO SCH (22:00)
[2019-08-20] MEDS ORDERED: ZOCOR 20MG PO SCH (22:00)
== END 2019-08-19 17:50 | disposition home or self-care (01) ==
LOC: ED 18:58 → MED SURG 08-19 00:33
PROVIDERS: ADMIT Family Medicine; ATTEND Family Medicine
DX: I24.9 Acute ischemic heart disease, unspecified (principal); R42 Dizziness and giddiness; K63.9 Disease of intestine, unspecified; I10 Essential (primary) hypertension; R06.02 Shortness of breath; R51 Headache; E87.6 Hypokalemia; R11.2 Nausea with vomiting, unspecified; F41.9 Anxiety disorder, unspecified; J44.9 Chronic obstructive pulmonary disease, unspecified; E78.00 Pure hypercholesterolemia, unspecified; Z79.899 Other long term (current) drug therapy; Z86.73 Personal history of transient ischemic attack (TIA), and cerebral infarction without residual deficits
CPT/HCPCS: 36000; 36415; 71045; 71260; 74177; 80053; 80061; 80307; 83721; 83880; 84484; 85025; 93005; 93041; 93268; 94760; 96374; 96375; 96376; 99285; G0378; J1170; J2405; J2550; J3010; A9270-GY

== ENCOUNTER 2019-09-29 08:26 | Day surgery (SDC) | payer OTHER ==
[2019-09-29] MEDS ORDERED: Lactated Ringers 1,000 ML IV SCH (08:30)
--- NOTE | 2019-09-29 08:34 | HP ---
DATE OF SURGERY: 09/29/2019 HISTORY OF PRESENT ILLNESS: The patient is a 64 year old with epigastric pain radiating up to the chest associated with some nausea. Last upper endoscopy was a couple of years ago. She has history of ventral hernia, epigastric pain, question esophagitis, gastritis or peptic ulcer disease. She is in need of upper endoscopy for further evaluation. PAST MEDICAL HISTORY: TIA in the past. CT scan showed ventral hernia without complications. Hyperlipidemia. Hypertension. PAST SURGICAL HISTORY: Cholecystectomy. Upper endoscopy in the past. Laparotomy in the past. MEDICATIONS: Lisinopril. Gabapentin. Amitriptyline. Simvastatin. Carvedilol. Amantadine. Aspirin. Omeprazole. ALLERGIES: MORPHINE. LATEX. FLU VACCINE. FAMILY HISTORY: Negative in regards to this problem. SOCIAL HISTORY: No alcohol abuse. REVIEW OF SYSTEMS: Fourteen systems reviewed per admission assessment. No chest pain or palpitations. Other systems negative or noncontributory as above and per preadmission questionnaire. PHYSICAL EXAMINATION: GENERAL: No acute distress. HEENT: Sclerae nonicteric. NECK: No JVD. CHEST: Equal excursion, nonlabored breathing. CVS: Regular rate and rhythm. ABDOMEN: Soft. No peritoneal signs. EXTREMITIES: No significant edema. NEURO: Alert, oriented, moving extremities symmetrically. No gross motor deficits noted. PSYCH: Appropriate mood and affect. IMPRESSION: Epigastric pain radiating to the chest. I feel she needs upper endoscopy. Risks and benefits explained in detail including but not limited to bleeding or infection, risk of bowel injury or perforation possibly requiring open procedure, risk of missed or nondiagnosis or incomplete exam possibly requiring barium swallow, other studies or procedures. She understands and agrees to the planned procedure and will proceed with outpatient EGD with possible biopsy.
[2019-09-29] MEDS ORDERED: Lactated Ringers 1,000 ML IV ONE (09:30)
[2019-09-29] MEDS ORDERED: DIPRIVAN 200 MG/20 ML IV ONE (10:37)
[2019-09-29] MEDS ORDERED: Ketamine HCl 50 MG/ML ONE (10:37)
[2019-09-29 11:31] VITALS: O2SAT 97
--- NOTE | 2019-09-29 11:45 | OP ---
SURGERY DATE/TIME: 09/29/2019 1036 PREOPERATIVE DIAGNOSIS: History of epigastric pain, nausea. POSTOPERATIVE DIAGNOSES: 1) Minimal to mild gastritis. 2) Plus or minus very short segment of early distal gastroesophagitis versus early Buchanan's versus normal variation of the gastroesophageal junction. PROCEDURES: 1) EGD with cold biopsy small bowel for celiac sprue. 2) Cold biopsy of antrum to evaluate with JORDON-test for Helicobacter pylori. 3) Cold biopsy distal esophagus to GE junction. SURGEON: Dr. Robert Villar. ANESTHESIA: MAC. ESTIMATED BLOOD LOSS: Minimal. INDICATIONS: As noted above. Risks and benefits explained in detail and not limited to and consent obtained. DESCRIPTION OF PROCEDURE AND FINDINGS: The patient is taken to the endoscopy room. MAC anesthesia introduced. After official time out and no disagreement with planned procedure, bite block positioned. Video gastroscope easily passed down the esophagus through the patent pylorus to the junction of the second and third portion of the duodenum. Given her symptoms complaints and unclear etiology, cold biopsy taken of the small bowel to evaluate for celiac sprue. There is no evidence of any obvious ulcers or masses in the proximal small bowel. Scope is pulled back into the stomach. Antrum had some mild erythema. Whether just some minimal to mild early gastritis versus normal variation of the mucosa, cold biopsy taken to evaluate for JORDON-test for Helicobacter pylori. Good hemostasis noted. On retroflex the gastroesophageal junction was snug against the scope. There were no signs of any significant hiatal hernia. Cold biopsy taken of the antrum for JORDON-test. Good hemostasis noted. The scope pulled back to gastroesophageal junction at 40 cm. Z-line had a few little splotches of pink mucosa a couple areas proximal to the Z-line. Cold biopsy taken to evaluate for early distal gastroesophagitis versus normal variation of gastroesophageal junction versus early splotches of Buchanan's. Again, this is very small, just 2 to 3 mm segment. Cold biopsy taken. Good hemostasis noted. The remainder of the esophagus grossly unremarkable. No signs of any significant masses or other mucosal lesions on withdrawal of the scope. The patient tolerated the procedure well. There were no immediate complications. There was no family available to discuss the findings with out in the waiting area.
[2019-09-29 12:04] VITALS: BP 158/98; PULSE 85
== END 2019-09-29 12:00 | disposition home or self-care (01) ==
LOC: SDC 08:26
PROVIDERS: ATTEND Surgery
DX: K29.70 Gastritis, unspecified, without bleeding (principal); K21.0 Gastro-esophageal reflux disease with esophagitis; E11.9 Type 2 diabetes mellitus without complications; I10 Essential (primary) hypertension; E78.5 Hyperlipidemia, unspecified; Z79.899 Other long term (current) drug therapy
CPT/HCPCS: 82962; 87081; 88305; 88341; 88342; J2704

== ENCOUNTER 2019-10-09 16:55 | Emergency (ER) | payer OTHER ==
--- NOTE | 2019-10-09 17:18 | ERPHSYRPT ---
- History of Present Illness Time Seen by Provider: 10/09/19 16:56 Source: patient, EMS Exam Limitations: no limitations Physician History: This is a morbidly obese 64-year-old white female has a history of hypertension coronary disease, stroke without residual deficits panic attacks, benzodiazepine dependency and overdose of narcotics who presents via ambulance service with hypotension and symptoms of acute CVA which onset was approximately an hour and a half prior to arrival. Patient had a systolic blood pressure in the 50s upon EMS arrival. She was not communicating with the ambulance service. An intravenous line was placed and bolus of normal saline was started. Patient was mumbling with right-sided drooping of face and marked right-sided weakness dimple red to the left side. Patient arrived to the emergency department with a systolic blood pressure in the 80s. She was immediately taken to the CAT scanner suite. Patient returns to the emergency department from the CAT scan suite now answering questions but still with right side facial weakness and right-sided weakness. She also appears to have some decreased vision in right- sided hummel. She states she has no headache, no chest pain, no abdominal pain. She is able to move her left side upper extremities and left side lower extremities. Timing/Duration: today Severity: moderate Character of Deficits: new weakness, impaired speech, impaired swallowing, Right Facial, RLE, RUE, vision problems Deficits: cannot stand, cannot walk Baseline/Normal Cognition: alert oriented x 3 Current Cognition: alert but confused Baseline Gait: walks w/o assistance Associated Symptoms: confusion, paresthesia, slurred speech, trouble walking, vision changes Allergies/Adverse Reactions: morphine Allergy (Severe, Verified 11/16/18 02:49) Irregular Heart Beat sulfamethoxazole [From Bactrim] Allergy (Intermediate, Verified 08/19/19 01:18) Hives trimethoprim [From Bactrim] Allergy (Intermediate, Verified 08/19/19 01:18) Hives fluoxetine HCl [From Prozac] Adverse Reaction (Intermediate, Verified 11/16/18 02:49) homicidal thoughts homicidal thoughts Home Medications: lisinopriL [Zestril 40 mg] 20 mg PO BID 04/23/15 [History] Amantadine HCl [Amantadine] 100 mg PO TID 08/18/19 [History] Carvedilol 3.125 mg [Coreg 3.125 MG] 3.125 mg PO BID 08/18/19 [History] Simvastatin 20Mg [Zocor 20Mg] 40 mg PO DAILY 08/18/19 [History] Amlodipine Besylate 5 mg [Norvasc 5 mg] 5 mg PO BID 10/09/19 [History] Clopidogrel Bisulfate [Clopidogrel] 75 mg PO DAILY 10/09/19 [History] Omeprazole 20 mg PO DAILY 10/09/19 [History] PANTOPRAZOLE 40 mg Tablet [Protonix 40MG Tablet] 40 mg PO DAILY 10/09/19 [History] Hx Tetanus, Diphtheria Vaccination/Date Given: No Hx Influenza Vaccination/Date Given: No Hx Pneumococcal Vaccination/Date Given: No Travel Risk - International Travel Have you traveled outside of the country in past 3 weeks: No - Coronavirus Screening Are you exhibiting any of the following symptoms?: No Close contact with a COVID-19 positive Pt in past 14-21 Days: No - Review of Systems Constitutional: Weakness (Right side) Eyes: Vision Changes Ears, Nose, & Throat: No Symptoms Respiratory: No Symptoms Cardiac: No Symptoms Abdominal/Gastrointestinal: No Symptoms Genitourinary Symptoms: No Symptoms Musculoskeletal: No Symptoms Skin: No Symptoms Neurological: Gait Changes, Paralysis (Right side), Parasthesia (Right side), Speech Changes Psychological: No Symptoms, Drug Abuse (In the past patient was dependent on benzodiazepines and has had a history of narcotic overdose.) Endocrine: No Symptoms Hematologic/Lymphatic: No Symptoms Immunological/Allergic: No Symptoms All Other Systems: Reviewed and Negative - Past Medical History Pertinent Past Medical History: Yes Neurological History: Peripheral Neuropathy, TIA ENT History: No Pertinent History Cardiac History: Angina, Coronary Artery Disease, High Cholesterol, Hypertension Respiratory History: Asthma, COPD Endocrine Medical History: Other Musculoskeletal History: Arthritis, Other GI Medical History: Ulcer, Other History: No Pertinent History Psycho-Social History: Anxiety, Depression Female Reproductive Disorders: Ovarian Cancer, Uterine Cancer Other Medical History: hx of bleeding ulcer and ileus, 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. early onset Parkinsons disease - Past Surgical History Past Surgical History: Yes Neuro Surgical History: No Pertinent History Cardiac: Cardiac Catheterization Respiratory: No Pertinent History Gastrointestinal: Appendectomy, Bowel Surgery, Cholecystectomy, Hernia Repair Genitourinary: No Pertinent History Musculoskeletal: Orthopedic Surgery Female Surgical History: Hysterectomy, Tubal Ligation Other Surgical History: bone auto graft to wrist, collar bone surgery - Social History Smoking Status: Never smoker How long have you smoked: years Exposure to second hand smoke: No Drug Use: none Patient Lives Alone: No - Female History Hx Now: No (N) - Nursing Vital Signs Nursing Vital Signs: Initial Vital Signs Pulse Rate 68 10/09/19 16:56 Respiratory Rate 20 10/09/19 16:56 Blood Pressure 116/61 10/09/19 16:56 O2 Sat by Pulse Oximetry 96 10/09/19 16:56 Pain Scale Pain Intensity 4 - Yarnell Coma Scale Best Eye Response (Maddie): (3) open to voice Best Verbal Response (Maddie): (4) confused conversation Best Motor Response (Maddie): (6) obeys commands Yarnell Total: 13 - Physical Exam General Appearance: mild distress, alert, anxiety, obese Eye Exam: bilateral eye: normal inspection, PERRL, EOMI Ears, Nose, Throat Exam: normal ENT inspection, TMs normal, moist mucous membranes Neck Exam: normal inspection, non-tender, supple, full range of motion Respiratory: normal breath sounds, lungs clear, airway intact, No chest tenderness, No respiratory distress Cardiovascular: regular rate/rhythm, normal heart sounds, normal peripheral pulses Gastrointestinal: soft, normal bowel sounds, No tenderness Pelvic Exam: not done Rectal Exam: not done Back Exam: normal inspection, normal range of motion, No CVA tenderness, No vertebral tenderness Extremity Exam: normal inspection, paralysis (Right upper and lower extremities) 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 No acute ischemic changes) Ordered Tests: Active Orders 24 hr Category Date Time Status Acute Dialysis Registered Nurse STAT Care 10/09/19 17:19 Active Catheter-[place] STAT Care 10/09/19 17:18 Active EKG-ER Only STAT Care 10/09/19 17:18 Active IV Insertion STAT Care 10/09/19 17:18 Active IV Insertion-2nd Peripheral STAT Care 10/09/19 17:34 Active NPO (ED) STAT Care 10/09/19 17:18 Active NPO (ED) STAT Care 10/09/19 17:55 Active Oxygen-ED Only Nasal Cannula 2 lpm Care 10/09/19 17:34 Active Pulse Oximetry (ED) STAT Care 10/09/19 17:18 Active HEAD WITHOUT CONTRAST [CT] Routine Exams 10/09/19 17:06 Taken CBC W DIFF Stat Lab 10/09/19 17:15 Completed CMP Stat Lab 10/09/19 17:15 Completed CULTURE,URINE Stat Lab 10/09/19 17:40 Received PROTIME WITH INR Stat Lab 10/09/19 17:15 Completed TROPONIN Q3H Lab 10/09/19 17:15 Completed TROPONIN Q3H Lab 10/09/19 20:30 Ordered TROPONIN Q3H Lab 10/09/19 23:30 Ordered TROPONIN Q3H Lab 10/10/19 02:30 Ordered TROPONIN Q3H Lab 10/10/19 05:30 Ordered UA W/RFX UR CULTURE Stat Lab 10/09/19 17:40 Received Urine Triage Profile Stat Lab 10/09/19 17:40 Received Medication Summary Generic Name Dose Route Start Last Admin Trade Name Freq PRN Reason Stop Dose Admin Sodium Chloride 1,000 mls @ 100 mls/hr 10/09/19 17:30 10/09/19 17:40 Sodium Chloride 0.9% 1000 Ml IV 11/08/19 17:29 100 mls/hr .Q10H BRADY Administration Discontinued Medications Generic Name Dose Route Start Last Admin Trade Name Freq PRN Reason Stop Dose Admin Alteplase, Recombinant 9 mg 10/09/19 17:48 10/09/19 18:01 Activase 100 Mg IV 10/09/19 17:49 9 mg STAT STA Administration Alteplase, Recombinant 80 mg 10/09/19 17:55 10/09/19 18:02 Activase 100 Mg IV 10/09/19 17:56 80 mg STAT STA Administration Lab/Rad Data: Laboratory Result Diagrams 10/09/19 17:15 10/09/19 17:15 Laboratory Results 10/09/19 10/09/19 10/09/19 Range/Units 17:15 17:15 17:15 WBC (4.0-10.5) K/mm3 RBC (4.1-5.4) M/mm3 Hgb (12.0-16.0) gm/dl Hct (35-47) % MCV (78-100) fl MCH (26-32) pg MCHC (32-36) g/dl RDW (11.5-14.0) % Plt Count (150-450) K/mm3 MPV (7.5-11.0) fl Gran % (36.0-66.0) % Eos # (Auto) (0-0.5) Absolute Lymphs (auto) (1.0-4.6) Absolute Monos (auto) (0.0-1.3) Lymphocytes % (24.0-44.0) % Monocytes % (0.0-12.0) % Eosinophils % (0.00-5.0) % Basophils % (0.0-0.4) % Absolute Granulocytes (1.4-6.9) Basophils # (0-0.4) PT 13.0 H (9.95-12.35) SECONDS INR 1.15 (0.8-3.0) Sodium 134 L (137-145) mmol/L Potassium 3.8 (3.5-5.1) mmol/L Chloride 102 (98-107) mmol/L Carbon Dioxide 22 (22-30) mmol/L Anion Gap 13.6 (5-15) MEQ/L BUN 16 (7-17) mg/dL Creatinine 1.08 H (0.52-1.04) mg/dL Estimated GFR 54.5 ML/MIN Glucose 157 H (74-106) mg/dL Calcium 9.3 (8.4-10.2) mg/dL Total Bilirubin 0.50 (0.2-1.3) mg/dL AST 32 (14-36) U/L ALT 38 H (0-35) U/L Alkaline Phosphatase 146 H (38-126) U/L Troponin I < 0.012 (0.000-0.034) ng/mL Serum Total Protein 7.3 (6.3-8.2) g/dL Albumin 4.0 (3.5-5.0) g/dL // Range/Units 17:15 WBC 9.4 (4.0-10.5) K/mm3 RBC 4.45 (4.1-5.4) M/mm3 Hgb 11.9 L (12.0-16.0) gm/dl Hct 38.0 (35-47) % MCV 85.4 (78-100) fl MCH 26.7 (26-32) pg MCHC 31.3 L (32-36) g/dl RDW 14.6 H (11.5-14.0) % Plt Count 372 (150-450) K/mm3 MPV 9.0 (7.5-11.0) fl Gran % 69.2 H (36.0-66.0) % Eos # (Auto) 0.17 (0-0.5) Absolute Lymphs (auto) 1.85 (1.0-4.6) Absolute Monos (auto) 0.85 (0.0-1.3) Lymphocytes % 19.7 L (24.0-44.0) % Monocytes % 9.0 (0.0-12.0) % Eosinophils % 1.8 (0.00-5.0) % Basophils % 0.3 (0.0-0.4) % Absolute Granulocytes 6.51 (1.4-6.9) Basophils # 0.03 (0-0.4) PT (9.95-12.35) SECONDS INR (0.8-3.0) Sodium (137-145) mmol/L Potassium (3.5-5.1) mmol/L Chloride (98-107) mmol/L Carbon Dioxide (22-30) mmol/L Anion Gap (5-15) MEQ/L BUN (7-17) mg/dL Creatinine (0.52-1.04) mg/dL Estimated GFR ML/MIN Glucose (74-106) mg/dL Calcium (8.4-10.2) mg/dL Total Bilirubin (0.2-1.3) mg/dL AST (14-36) U/L ALT (0-35) U/L Alkaline Phosphatase (38-126) U/L Troponin I (0.000-0.034) ng/mL Serum Total Protein (6.3-8.2) g/dL Albumin (3.5-5.0) g/dL - Progress Progress: improved Progress Note: 10/09/19 17:37 Stat read of the CAT scan of the head (stroke protocol): Compared to 01/10/2019 there is a new finding of a 1 cm focus of an old infarct left insula. Stable small old left occipital infarct 3 tiny bilateral basal ganglia lacunar infarcts. No acute findings. 10/09/19 18:03 Medical decision making: This patient clinically is having an active stroke. Patient underwent tele-neurology with Dr. Cata Gill. Dr. Gill and I agree that the patient is a candidate for TPA and it should be used. We did discuss tpa use with the patient's son Nash. The patient also gave her consent. She stated that she understood risks and benefits of tpa use. The patient's son, Nash also agreed and TPA 9 mg intravenous bolus over 1 minute was given to the patient. We will follow that up immediately with 80 mg intravenous TPA over 60 minutes. 10/09/19 18:16 10/09/19 18:24 Medical decision making: I spoke with Dr. Jiang who is the emergency department physician at . He accepts the patient in transfer. The patient will need a CTA of the head. We are unable to perform that test. I reviewed the patient history, condition, EKG findings laboratory results and the results of the CAT scan. I also reviewed the patient's initial stroke scale score and the updated condition. Counseled pt/family regarding: lab results, diagnosis, rad results - Departure Departure Disposition: Transfer Clinical Impression: Acute CVA (cerebrovascular accident) Condition: Fair Critical Care Time: Yes Critical Care Time(excluding separately billable procedures): Critical 30-74 mins Referrals: AURBEY SONI MD [Primary Care Provider] -
[2019-10-09 17:23] LABS: Absolute Neutrophil Ct (ANC) 6.51 (1.4-6.9); BASOPHIL % 0.3 % (0.0-0.4); Basophil (Absolute #) 0.03 (0-0.4); Eosinophil % 1.8 % (0.00-5.0); Eosinophil (Absolute #) 0.17 (0-0.5); Hemoglobin 11.9 gm/dl (12.0-16.0); Lymphocyte (Absolute #) 1.85 (1.0-4.6); Lymphocytes % 19.7 % (24.0-44.0); Mean Cell Volume 85.4 fl (78-100); Mean Corpuscular Hemoglobin 26.7 pg (26-32); Mean Corpuscular Hgb Concent. 31.3 g/dl (32-36); Monocyte (Absolute #) 0.85 (0.0-1.3); Neutrophil % 69.2 % (36.0-66.0); Platelet Count 372 K/mm3 (150-450); Red Blood Count 4.45 M/mm3 (4.1-5.4); Red Cell Distribution Width 14.6 % (11.5-14.0); White Blood Count 9.4 K/mm3 (4.0-10.5)
[2019-10-09 17:27] LABS: INR 1.15 (0.8-3.0)
[2019-10-09] MEDS ORDERED: Sodium Chloride 0.9% 1000 ML 1,000 ML IV SCH (17:30)
[2019-10-09 17:33] LABS: ANION GAP 13.6 MEQ/L (5-15); BILIRUBIN,TOTAL 0.5 mg/dL (0.2-1.3); Calcium 9.3 mg/dL (8.4-10.2); Creatinine 1 1.08 mg/dL (0.52-1.04); Potassium 3.8 mmol/L (3.5-5.1); Total Protein 7.3 g/dL (6.3-8.2)
[2019-10-09] MEDS ORDERED: Sodium Chloride 0.9% 1000 ML 1,000 ML ONE (17:35)
[2019-10-09] MEDS ORDERED: Activase 100 MG IV STA ×2 (17:48→17:55)
[2019-10-09 17:58] LABS: Appearance CLEAR (CLEAR); Bilirubin NEGATIVE (NEGATIVE); Blood NEGATIVE Ery/ul (0-5); Glucose NEGATIVE (NEGATIVE); Ketones NEGATIVE (NEGATIVE); Leukocyte Esterase NEGATIVE (NEGATIVE); Mucus SLIGHT /HPF (NEGATIVE); Nitrite NEGATIVE (NEGATIVE); Protein,Urine Dip NEGATIVE (Negative); Specific Gravity 1.006 (1.005-1.025); Urobilinogen NEGATIVE mg/dL (0-1)
[2019-10-09 18:21] LABS: Amphetamine,Urine NEGATIVE (NEGATIVE); Barbiturate,Urine NEGATIVE (NEGATIVE); Benzodiazepine,Urine NEGATIVE (NEGATIVE); Cocaine,Urine NEGATIVE (NEGATIVE); Methadone,Urine NEGATIVE (NEGATIVE); Opiate,Urine NEGATIVE (NEGATIVE); PCP,Urine NEGATIVE (NEGATIVE); THC,Urine NEGATIVE (NEGATIVE)
[2019-10-09 18:47] VITALS: PULSE 70
[2019-10-09 18:52] VITALS: BP 104/59; O2SAT 98
--- NOTE | 2019-10-10 08:36 | XRAY ---
Indication: Right-sided weakness. Possible stroke. Multiple contiguous axial images obtained through the head without contrast. Comparison: January 10, 2019. There is again age-appropriate global atrophy, small remote left occipital lobe infarct, and tiny bilateral basal ganglia lacunar infarcts. Left insula demonstrates new 1 cm ovoid focus of remote appearing infarct. No acute intracranial hemorrhage, abnormal extra-axial fluid question, or mass effect. Fourth ventricle is midline without hydrocephalus. Steinberg-white matter differentiation preserved. Bony calvarium intact. Visualized paranasal sinuses and mastoid air cells are clear. Impression: 1. New finding small focus old left insula infarct. 2. Stable atrophy, small old left occipital infarct, and old bilateral basal ganglia lacunar infarcts. 3. No acute intracranial abnormalities. Comment: Follow-up CT head or MRI brain may yield further information if there remains clinical concern.
== END 2019-10-09 19:07 | disposition short-term general hospital (02) ==
LOC: ED 16:55
DX: I63.9 Cerebral infarction, unspecified (principal); I25.10 Atherosclerotic heart disease of native coronary artery without angina pectoris; I10 Essential (primary) hypertension; R41.0 Disorientation, unspecified; Z79.899 Other long term (current) drug therapy; E78.00 Pure hypercholesterolemia, unspecified; J44.9 Chronic obstructive pulmonary disease, unspecified
CPT/HCPCS: 36000; 36415; 51702; 70450; 80053; 80307; 81001; 84484; 85025; 85610; 87086; 93005; 93041; 94760; 96374; 99285; 99291; J2997

== ENCOUNTER 2019-10-23 15:28 | Observation (INO) | payer OTHER ==
[2019-10-23] MEDS ORDERED: NITRO-BID 2% UD PACKETS TOP ONE (16:02)
[2019-10-23] MEDS ORDERED: BABY ASPIRIN 81 MG CHEW PO ONE (16:02)
[2019-10-23 16:10] LABS: Absolute Neutrophil Ct (ANC) 3.38 (1.4-6.9); BASOPHIL % 0.3 % (0.0-0.4); Basophil (Absolute #) 0.02 (0-0.4); Eosinophil % 2.2 % (0.00-5.0); Eosinophil (Absolute #) 0.15 (0-0.5); Hematocrit 37.5 % (35-47); Lymphocyte (Absolute #) 2.57 (1.0-4.6); Lymphocytes % 38.4 % (24.0-44.0); Mean Corpuscular Hemoglobin 26.5 pg (26-32); Mean Platelet Volume 9.1 fl (7.5-11.0); Monocyte (Absolute #) 0.58 (0.0-1.3); Monocytes % 8.7 % (0.0-12.0); Neutrophil % 50.4 % (36.0-66.0); Platelet Count 489 K/mm3 (150-450); Red Blood Count 4.52 M/mm3 (4.1-5.4); Red Cell Distribution Width 14.3 % (11.5-14.0); White Blood Count 6.7 K/mm3 (4.0-10.5)
[2019-10-23] MEDS ORDERED: Hydromorphone 1 mg/ml Ampule IV ONE (16:13)
[2019-10-23] MEDS ORDERED: Zofran 4 MG/2 ML VIAL IV ONE (16:13)
[2019-10-23 16:14] LABS: INR 1.09 (0.8-3.0); PROTIME 12.3 SECONDS (9.95-12.35)
[2019-10-23] MEDS ORDERED: NITRO-BID 2% UD PACKETS ONE (16:14)
[2019-10-23] MEDS ORDERED: BABY ASPIRIN 81 MG CHEW ONE (16:14)
[2019-10-23 16:16] LABS: PTT 32.7 SECONDS (25.3-37.0)
[2019-10-23] MEDS ORDERED: Zofran 4 MG/2 ML VIAL ONE (16:16)
[2019-10-23] MEDS ORDERED: Hydromorphone 1 mg/ml Ampule ONE (16:17)
[2019-10-23 16:27] LABS: ALBUMIN 4.3 g/dL (3.5-5.0); ALKALINE PHOSPHATASE 159 U/L (38-126); ANION GAP 16.3 MEQ/L (5-15); BLOOD UREA NITROGEN 9 mg/dL (7-17); CHLORIDE 95 mmol/L (98-107); Calcium 9.7 mg/dL (8.4-10.2); Carbon Dioxide 24 mmol/L (22-30); Creatinine 1 0.78 mg/dL (0.52-1.04); Glucose 181 mg/dL (74-106); SGOT/AST 31 U/L (14-36); SGPT/ALT 37 U/L (0-35); SODIUM 133 mmol/L (137-145); Total Protein 7.7 g/dL (6.3-8.2)
--- NOTE | 2019-10-23 16:28 | XRAY ---
Indication: Sternal chest pain. Comparison: August 18, 2019. Portable chest remains clear. Heart and mediastinal structures within normal limits. Bony thorax intact again with osteopenia, old bilateral clavicle fractures, and old bilateral rib fractures. Impression: Continued nonacute chest with chronic features.
[2019-10-23] MEDS ORDERED: Klor Con 10 MEQ PO ONE ×2 (16:57→17:01)
--- NOTE | 2019-10-23 17:12 | ERPHSYRPT ---
- History of Present Illness Time Seen by Provider: 10/23/19 15:47 Historian: patient Exam Limitations: no limitations Patient Subjective Stated Complaint: Pt stated that she began having chest pain approx 15 minutes prior to arrival to the ER, N&V accompanied the pain Triage Nursing Assessment: Pt brought to the ER by her , hypertensive, tachycardic, states pain in the medial chest that radiates to her right arm, pt stated that she had a stroke a week and a half ago and they had stopped here on the way to [facility] due to being unresponsive, rates chest pain as 01/23 Physician History: 64 years old female with multiple medical problems including coronary artery disease, hypertension, hyperlipidemia, diabetes mellitus, recent stroke presented in the ER with chief complaint of substernal chest pain moderate intensity while she was walking in [facility] almost an hour prior to arrival, gradually worsening, moderate intensity dull aching pressure in the center with radiation to the right arm with no associated shortness of breath or palpitations. Denies any fever chills or cough. Patient report having 40 to 50% blockage on previous cardiac cath done few months ago. Timing/Duration: today, sudden, worse Activities at Onset: activity Quality: dullness, fullness Location: substernal Chest Pain Radiation: arm Severity of Pain-Max: moderate Severity of Pain-Current: moderate Modifying Factors: Improves With: exertion Associated Symptoms: nausea, vomiting Prior Chest Pain/Cardiac Workup: cardiac cath Nitro Today/Relief: no nitro taken today Aspirin Treatment Today: 81 mg x 1 Allergies/Adverse Reactions: morphine Allergy (Severe, Verified 10/23/19 15:48) Irregular Heart Beat sulfamethoxazole [From Bactrim] Allergy (Intermediate, Verified 10/23/19 15:48) Hives trimethoprim [From Bactrim] Allergy (Intermediate, Verified 10/23/19 15:48) Hives fluoxetine HCl [From Prozac] Adverse Reaction (Intermediate, Verified 10/23/19 15:48) homicidal thoughts homicidal thoughts Home Medications: Amlodipine Besylate 5 mg [Norvasc 5 mg] 5 mg PO BID 10/09/19 [History] Clopidogrel Bisulfate [Clopidogrel] 75 mg PO DAILY 10/09/19 [History] Atorvastatin Calcium 80 mg PO DAILY 10/23/19 [History] Gabapentin 300 mg PO TID 10/23/19 [History] lisinopriL [Lisinopril] 5 mg PO DAILY 10/23/19 [History] Hx Tetanus, Diphtheria Vaccination/Date Given: No Hx Influenza Vaccination/Date Given: No Hx Pneumococcal Vaccination/Date Given: No Travel Risk - International Travel Have you traveled outside of the country in past 3 weeks: No - Coronavirus Screening Close contact with a COVID-19 positive Pt in past 14-21 Days: No - Review of Systems Constitutional: Weakness Eyes: No Symptoms Ears, Nose, & Throat: No Symptoms Respiratory: Dyspnea, Dyspnea on Exertion (GREGG) Cardiac: Chest Pain Abdominal/Gastrointestinal: Nausea, Vomiting, No Abdominal Pain Genitourinary Symptoms: No Symptoms Musculoskeletal: No Symptoms Skin: No Symptoms Neurological: No Symptoms Psychological: No Symptoms Endocrine: No Symptoms Hematologic/Lymphatic: No Symptoms Immunological/Allergic: No Symptoms - Past Medical History Pertinent Past Medical History: Yes Neurological History: Peripheral Neuropathy, TIA ENT History: No Pertinent History Cardiac History: Angina, Coronary Artery Disease, High Cholesterol, Hypertension Respiratory History: Asthma, COPD Endocrine Medical History: Other Musculoskeletal History: Arthritis, Other GI Medical History: Ulcer, Other History: No Pertinent History Psycho-Social History: Anxiety, Depression Female Reproductive Disorders: Ovarian Cancer, Uterine Cancer Other Medical History: hx of bleeding ulcer and ileus, 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. early onset Parkinsons disease - Past Surgical History Past Surgical History: Yes Neuro Surgical History: No Pertinent History Cardiac: Cardiac Catheterization Respiratory: No Pertinent History Gastrointestinal: Appendectomy, Bowel Surgery, Cholecystectomy, Hernia Repair Genitourinary: No Pertinent History Musculoskeletal: Orthopedic Surgery Female Surgical History: Hysterectomy, Tubal Ligation Other Surgical History: bone auto graft to wrist, collar bone surgery - Social History Smoking Status: Former smoker How long have you smoked: years Exposure to second hand smoke: No Drug Use: none Patient Lives Alone: No - Female History Hx Now: No - Nursing Vital Signs Nursing Vital Signs: Initial Vital Signs Temperature 97.3 F 10/23/19 15:35 Pulse Rate 103 H 10/23/19 15:35 Respiratory Rate 17 10/23/19 15:35 Blood Pressure 163/132 10/23/19 15:35 O2 Sat by Pulse Oximetry 96 10/23/19 15:35 Pain Scale Pain Intensity 10 - Physical Exam General Appearance: no apparent distress, alert Eye Exam: PERRL/EOMI, eyes nml inspection Ears, Nose, Throat Exam: normal ENT inspection, TMs normal, pharynx normal Neck Exam: normal inspection, non-tender, supple, full range of motion Respiratory Exam: normal breath sounds, lungs clear Cardiovascular Exam: regular rate/rhythm, normal heart sounds Gastrointestinal/Abdomen Exam: soft, normal bowel sounds, No tenderness, No distention Back Exam: normal inspection, normal range of motion Extremity Exam: normal inspection, normal range of motion Neurologic Exam: alert, oriented x 3, cooperative Skin Exam: normal color SpO2 Interpretation: normal SpO2: 96 O2 Delivery: Room Air - Course Nursing assessment & vital signs reviewed: Yes EKG Interpreted by Me: RATE ([id number]), Sinus Tach, Left [place] Deviation, NORMAL INTERVALS, Non-specific ST Changes Ordered Tests: Active Orders 24 hr Category Date Time Status Glove Examiner STAT Care 10/23/19 16:03 Active EKG-ER Only STAT Care 10/23/19 16:02 Active IV Insertion STAT Care 10/23/19 16:02 Active CHEST 1 VIEW (PORTABLE) Stat Exams 10/23/19 16:03 Completed CHEST WITH CONTRAST [CT] Stat Exams 10/23/19 17:59 Ordered CBC W DIFF Stat Lab 10/23/19 16:00 Completed CMP Stat Lab 10/23/19 16:00 Completed D-DIMER QUANTITATIVE Stat Lab 10/23/19 Completed NT PRO BNP Stat Lab 10/23/19 16:00 Completed PROTIME WITH INR Stat Lab 10/23/19 16:00 Completed PTT Stat Lab 10/23/19 16:00 Completed TROPONIN Q3H Lab 10/23/19 16:00 Completed TROPONIN Q3H Lab 10/23/19 19:15 Ordered TROPONIN Q3H Lab 10/23/19 22:15 Ordered TROPONIN Q3H Lab 10/24/19 01:15 Ordered TROPONIN Q3H Lab 10/24/19 04:15 Ordered Transfer Order Routine Transfer 10/23/19 Ordered Medication Summary Discontinued Medications Generic Name Dose Route Start Last Admin Trade Name Freq PRN Reason Stop Dose Admin Aspirin 324 mg 10/23/19 16:02 10/23/19 16:15 Baby Aspirin 81 Mg Chew PO 10/23/19 16:03 324 mg STAT ONE Administration Aspirin Confirm 10/23/19 16:14 Baby Aspirin 81 Mg Chew Administered 10/23/19 16:15 Dose 324 mg .ROUTE .STK-MED ONE Hydromorphone HCl 1 mg 10/23/19 16:13 10/23/19 16:18 Hydromorphone 1 Mg/Ml Ampule IV 10/23/19 16:14 1 mg STAT ONE Administration Hydromorphone HCl Confirm 10/23/19 16:17 Hydromorphone 1 Mg/Ml Ampule Administered 10/23/19 16:18 Dose 1 mg .ROUTE .STK-MED ONE Nitroglycerin 1 gm 10/23/19 16:02 10/23/19 16:16 Nitro-Bid 2% Ud Packets TOP 10/23/19 16:03 1 gm STAT ONE Administration Nitroglycerin Confirm 10/23/19 16:14 Nitro-Bid 2% Ud Packets Administered 10/23/19 16:15 Dose 1 gm .ROUTE .STK-MED ONE Ondansetron HCl 4 mg 10/23/19 16:13 10/23/19 16:17 Zofran 4 Mg/2 Ml Vial IV 10/23/19 16:14 4 mg STAT ONE Administration Ondansetron HCl Confirm 10/23/19 16:16 Zofran 4 Mg/2 Ml Vial Administered 10/23/19 16:17 Dose 4 mg .ROUTE .STK-MED ONE Potassium Chloride 40 meq 10/23/19 16:57 10/23/19 17:02 Klor Con 10 Meq PO 10/23/19 16:58 40 meq STAT ONE Administration Potassium Chloride Confirm 10/23/19 17:01 Klor Con 10 Meq Administered 10/23/19 17:02 Dose 40 meq PO .STK-MED ONE Lab/Rad Data: Laboratory Result Diagrams 10/23/19 16:00 10/23/19 16:00 Laboratory Results 10/23/19 10/23/19 10/23/19 Range/Units Unknown 16:00 16:00 WBC (4.0-10.5) K/mm3 RBC (4.1-5.4) M/mm3 Hgb (12.0-16.0) gm/dl Hct (35-47) % MCV (78-100) fl MCH (26-32) pg MCHC (32-36) g/dl RDW (11.5-14.0) % Plt Count (150-450) K/mm3 MPV (7.5-11.0) fl Gran % (36.0-66.0) % Eos # (Auto) (0-0.5) Absolute Lymphs (auto) (1.0-4.6) Absolute Monos (auto) (0.0-1.3) Lymphocytes % (24.0-44.0) % Monocytes % (0.0-12.0) % Eosinophils % (0.00-5.0) % Basophils % (0.0-0.4) % Absolute Granulocytes (1.4-6.9) Basophils # (0-0.4) PT 12.3 (9.95-12.35) SECONDS INR 1.09 (0.8-3.0) APTT 32.7 (25.3-37.0) SECONDS D-Dimer 1231 H* (215-500) ng/mL Sodium (137-145) mmol/L Potassium (3.5-5.1) mmol/L Chloride (98-107) mmol/L Carbon Dioxide (22-30) mmol/L Anion Gap (5-15) MEQ/L BUN (7-17) mg/dL Creatinine (0.52-1.04) mg/dL Estimated GFR ML/MIN Glucose (74-106) mg/dL Calcium (8.4-10.2) mg/dL Total Bilirubin (0.2-1.3) mg/dL AST (14-36) U/L ALT (0-35) U/L Alkaline Phosphatase (38-126) U/L Troponin I < 0.012 (0.000-0.034) ng/mL NT-Pro-B Natriuret Pep (0-900) pg/mL Serum Total Protein (6.3-8.2) g/dL Albumin (3.5-5.0) g/dL 10/23/19 10/23/19 Range/Units 16:00 16:00 WBC 6.7 (4.0-10.5) K/mm3 RBC 4.52 (4.1-5.4) M/mm3 Hgb 12.0 (12.0-16.0) gm/dl Hct 37.5 (35-47) % MCV 83.0 (78-100) fl MCH 26.5 (26-32) pg MCHC 32.0 (32-36) g/dl RDW 14.3 H (11.5-14.0) % Plt Count 489 H (150-450) K/mm3 MPV 9.1 (7.5-11.0) fl Gran % 50.4 (36.0-66.0) % Eos # (Auto) 0.15 (0-0.5) Absolute Lymphs (auto) 2.57 (1.0-4.6) Absolute Monos (auto) 0.58 (0.0-1.3) Lymphocytes % 38.4 (24.0-44.0) % Monocytes % 8.7 (0.0-12.0) % Eosinophils % 2.2 (0.00-5.0) % Basophils % 0.3 (0.0-0.4) % Absolute Granulocytes 3.38 (1.4-6.9) Basophils # 0.02 (0-0.4) PT (9.95-12.35) SECONDS INR (0.8-3.0) APTT (25.3-37.0) SECONDS D-Dimer (215-500) ng/mL Sodium 133 L (137-145) mmol/L Potassium 3.0 L (3.5-5.1) mmol/L Chloride 95 L (98-107) mmol/L Carbon Dioxide 24 (22-30) mmol/L Anion Gap 16.3 H (5-15) MEQ/L BUN 9 (7-17) mg/dL Creatinine 0.78 (0.52-1.04) mg/dL Estimated GFR > 60.0 ML/MIN Glucose 181 H (74-106) mg/dL Calcium 9.7 (8.4-10.2) mg/dL Total Bilirubin 0.30 (0.2-1.3) mg/dL AST 31 (14-36) U/L ALT 37 H (0-35) U/L Alkaline Phosphatase 159 H (38-126) U/L Troponin I (0.000-0.034) ng/mL NT-Pro-B Natriuret Pep 36.0 (0-900) pg/mL Serum Total Protein 7.7 (6.3-8.2) g/dL Albumin 4.3 (3.5-5.0) g/dL - Progress Progress: improved, re-examined Air Movement: good Progress Note: 10/23/19 17:57 64 years old is evaluated for chest pain. EKG did not show any acute ST elevation. Has negative initial troponin. Chest x-ray did not show any acute cardiopulmonary findings. She is given pain medicine, aspirin and nitro, on reevaluation her pain is better but not completely improved. Patient has multiple risk factor for CAD. Her D-dimers are elevated and will obtain CTA chest. She has a mildly low potassium for which she is getting replacement. I have discussed with Dr. Wilkinson and patient is being admitted for rule out. Blood Culture(s) Obtained: No Antibiotics given: No Discussed with .: Johanny Will see patient in: hospital (observation) Counseled pt/family regarding: lab results, diagnosis, rad results - Departure Departure Disposition: Observation Clinical Impression: Chest pain, rule out acute myocardial infarction, Hypokalemia, Elevated d-dimer Condition: Stable Critical Care Time: No Referrals: AUBREY SONI MD [Primary Care Provider] -
[2019-10-23] MEDS ORDERED: DUONEB 0.5-3 MG/3 ml Neb IH PRN (20:42)
[2019-10-23] MEDS ORDERED: HUMALOG SQ PRN (20:42)
[2019-10-23] MEDS ORDERED: Zofran 4 MG/2 ML VIAL IV PRN (20:42)
[2019-10-23] MEDS: NORCO 5/325 MG PO PRN (21:25)
[2019-10-23] MEDS: Pepcid 20 MG VIAL IV SCH (21:38)
[2019-10-23] MEDS: TYLENOL 325 MG PO PRN (23:22)
[2019-10-24] MEDS: NORCO 5/325 MG PO PRN (02:03)
[2019-10-24 05:31] LABS: ALBUMIN 3.7 g/dL (3.5-5.0); ANION GAP 12.5 MEQ/L (5-15); BILIRUBIN,TOTAL 0.3 mg/dL (0.2-1.3); Creatinine 1 1.11 mg/dL (0.52-1.04); Potassium 3.6 mmol/L (3.5-5.1); Total Protein 6.7 g/dL (6.3-8.2)
[2019-10-24 05:33] LABS: Absolute Neutrophil Ct (ANC) 4.27 (1.4-6.9); BASOPHIL % 0.3 % (0.0-0.4); Basophil (Absolute #) 0.02 (0-0.4); Eosinophil % 2.1 % (0.00-5.0); Eosinophil (Absolute #) 0.15 (0-0.5); Hematocrit 31.9 % (35-47); Hemoglobin 10.1 gm/dl (12.0-16.0); Lymphocyte (Absolute #) 2.27 (1.0-4.6); Lymphocytes % 31.1 % (24.0-44.0); Mean Cell Volume 83.5 fl (78-100); Mean Corpuscular Hemoglobin 26.4 pg (26-32); Mean Corpuscular Hgb Concent. 31.7 g/dl (32-36); Mean Platelet Volume 8.9 fl (7.5-11.0); Monocyte (Absolute #) 0.58 (0.0-1.3); Neutrophil % 58.5 % (36.0-66.0); Platelet Count 411 K/mm3 (150-450); Red Blood Count 3.82 M/mm3 (4.1-5.4); Red Cell Distribution Width 14.3 % (11.5-14.0); White Blood Count 7.3 K/mm3 (4.0-10.5)
[2019-10-24 07:15] VITALS: O2SAT 94
[2019-10-24 07:26] VITALS: BP 138/60; PULSE 81
--- NOTE | 2019-10-24 08:01 | PCM.SSS ---
History of Present Illness - Chief Complaint Chief Complaint: CHEST PAIN RULE OUT ND History of Present Illness: is a 64 year old female who presented with chest pain that began while shopping at [employer], she denies pain today. she has a previous history of cva, follows with Dr Hale and states she had a cardiac cath within the last 6 months with 1 mild blockage found, no intervention was required. pain was a dull, ache in substernal chest with right arm radiation. no shortness of breath, no diaphoresis or palpitations associated with the episode. - Review of Systems Constitutional: No Fever, No Chills Respiratory: No Cough, No Short Of Breath Cardiac: Chest Pain Abdominal/Gastrointestinal: No Abdominal Pain, No Nausea, No Vomiting, No Diarrhea Genitourinary Symptoms: No Dysuria Skin: No Rash All Other Systems: Reviewed and Negative Medications & Allergies Home Medications: Home Medication List Aspirin EC 81 mg [Ecotrin 81 mg] 81 mg PO DAILY #0 09/29/19 [Rx Confirmed 10/23/19] Clopidogrel Bisulfate [Clopidogrel] 75 mg PO DAILY 10/09/19 [History Confirmed 10/23/19] Amitriptyline HCl 25 mg [Elavil 25 mg] 25 mg PO HS 10/23/19 [History Confirmed 10/23/19] Atorvastatin Calcium 80 mg PO HS 10/23/19 [History Confirmed 10/23/19] Gabapentin 300 mg PO TID 10/23/19 [History Confirmed 10/23/19] PANTOPRAZOLE 40 mg Tablet [Protonix 40MG Tablet] 40 mg PO DAILY 10/23/19 [History Confirmed 10/23/19] lisinopriL [Lisinopril] 5 mg PO DAILY 10/23/19 [History Confirmed 10/23/19] Allergies/Adverse Reactions: Allergies Allergy/AdvReac Type Severity Reaction Status Date / Time morphine Allergy Severe Irregular Verified 10/23/19 15:48 Heart Beat sulfamethoxazole Allergy Intermediate Hives Verified 10/23/19 15:48 [From Bactrim] trimethoprim [From Bactrim] Allergy Intermediate Hives Verified 10/23/19 15:48 fluoxetine HCl [From Prozac] AdvReac Intermediate homicidal Verified 10/23/19 15:48 thoughts - Past Medical History Past Medical History: Yes Neurological History: Peripheral Neuropathy, TIA ENT History: No Pertinent History Cardiac History: Angina, Coronary Artery Disease, High Cholesterol, Hypertension Respiratory History: Asthma, COPD Endocrine Medical History: Other Musculoskelatal History: Arthritis, Other GI Medical History: Ulcer, Other History: No Pertinent History Pyscho-Social History: Anxiety, Depression Reproductive Disorders: Ovarian Cancer, Uterine Cancer Comment: hx of bleeding ulcer and ileus, 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. early onset Parkinsons disease - Female History Are you now?: No - Past Surgical History Past Surgical History: Yes Neuro Surgical History: No Pertinent History Cardiac History: Cardiac Catheterization Respiratory Surgery: No Pertinent History GI Surgical History: Appendectomy, Bowel Surgery, Cholecystectomy, Hernia Repair Genitourinary Surgical Hx: No Pertinent History Musculskeletal Surgical Hx: Orthopedic Surgery Female Surgical History: Hysterectomy, Tubal Ligation Other Surgical History: bone auto graft to wrist, collar bone surgery - Social History Smoking Status: Former smoker How long have you smoked: years Exposure to second hand smoke: No Alcohol: None Drug Use: none - Physical Exam Vital Signs: Vital Signs - 24 hr Temp Pulse Pulse Resp BP Pulse Ox 10/24/19 07:26 97.6 F 81 20 138/60 94 L 10/24/19 07:14 88 18 94 L 10/24/19 04:00 96.8 F 84 18 141/83 91 L 10/23/19 23:27 97.1 F 68 20 129/68 94 L 10/23/19 21:13 97.9 F 89 20 89/52 92 L 10/23/19 20:14 84 17 75/62 95 10/23/19 19:44 92 H 22 94 L 10/23/19 19:33 84 21 88/54 95 10/23/19 18:31 96 10/23/19 17:53 90 27 H 104/67 93 L 10/23/19 17:15 90 20 104/67 94 L 10/23/19 15:35 97.3 F 101 H 103 H 17 163/132 96 General Appearance: no apparent distress, alert Neurologic Exam: alert, oriented x 3, cooperative, normal mood/affect, nml cerebellar function, nml station & gait, sensation nml, No motor deficits Respiratory Exam: normal breath sounds, lungs clear, No respiratory distress Cardiovascular Exam: regular rate/rhythm, normal heart sounds, normal peripheral pulses Gastrointestinal/Abdomen Exam: soft, normal bowel sounds, No tenderness, No mass Extremity Exam: normal inspection Skin Exam: normal color, warm, dry, No rash Results - Labs Lab/Micro Results: Accuchecks Date 10/24/19 Date 10/24/19 Time 04:15 Time 00:01 Accucheck Value: 130 Accucheck Value: 144 Lab Results-Last 24 Hours 10/23/19 10/23/19 10/23/19 Range/Units 16:00 16:00 16:00 WBC 6.7 (4.0-10.5) K/mm3 RBC 4.52 (4.1-5.4) M/mm3 Hgb 12.0 (12.0-16.0) gm/dl Hct 37.5 (35-47) % MCV 83.0 (78-100) fl MCH 26.5 (26-32) pg MCHC 32.0 (32-36) g/dl RDW 14.3 H (11.5-14.0) % Plt Count 489 H (150-450) K/mm3 MPV 9.1 (7.5-11.0) fl Gran % 50.4 (36.0-66.0) % Eos # (Auto) 0.15 (0-0.5) Absolute Lymphs (auto) 2.57 (1.0-4.6) Absolute Monos (auto) 0.58 (0.0-1.3) Lymphocytes % 38.4 (24.0-44.0) % Monocytes % 8.7 (0.0-12.0) % Eosinophils % 2.2 (0.00-5.0) % Basophils % 0.3 (0.0-0.4) % Absolute Granulocytes 3.38 (1.4-6.9) Basophils # 0.02 (0-0.4) PT 12.3 (9.95-12.35) SECONDS INR 1.09 (0.8-3.0) APTT 32.7 (25.3-37.0) SECONDS D-Dimer (215-500) ng/mL Sodium 133 L (137-145) mmol/L Potassium 3.0 L (3.5-5.1) mmol/L Chloride 95 L (98-107) mmol/L Carbon Dioxide 24 (22-30) mmol/L Anion Gap 16.3 H (5-15) MEQ/L BUN 9 (7-17) mg/dL Creatinine 0.78 (0.52-1.04) mg/dL Estimated GFR > 60.0 ML/MIN Glucose 181 H (74-106) mg/dL Calcium 9.7 (8.4-10.2) mg/dL Total Bilirubin 0.30 (0.2-1.3) mg/dL AST 31 (14-36) U/L ALT 37 H (0-35) U/L Alkaline Phosphatase 159 H (38-126) U/L Troponin I (0.000-0.034) ng/mL NT-Pro-B Natriuret Pep 36.0 (0-900) pg/mL Serum Total Protein 7.7 (6.3-8.2) g/dL Albumin 4.3 (3.5-5.0) g/dL 10/23/19 10/23/19 10/23/19 Range/Units 16:00 20:30 22:15 WBC (4.0-10.5) K/mm3 RBC (4.1-5.4) M/mm3 Hgb (12.0-16.0) gm/dl Hct (35-47) % MCV (78-100) fl MCH (26-32) pg MCHC (32-36) g/dl RDW (11.5-14.0) % Plt Count (150-450) K/mm3 MPV (7.5-11.0) fl Gran % (36.0-66.0) % Eos # (Auto) (0-0.5) Absolute Lymphs (auto) (1.0-4.6) Absolute Monos (auto) (0.0-1.3) Lymphocytes % (24.0-44.0) % Monocytes % (0.0-12.0) % Eosinophils % (0.00-5.0) % Basophils % (0.0-0.4) % Absolute Granulocytes (1.4-6.9) Basophils # (0-0.4) PT (9.95-12.35) SECONDS INR (0.8-3.0) APTT (25.3-37.0) SECONDS D-Dimer (215-500) ng/mL Sodium (137-145) mmol/L Potassium (3.5-5.1) mmol/L Chloride (98-107) mmol/L Carbon Dioxide (22-30) mmol/L Anion Gap (5-15) MEQ/L BUN (7-17) mg/dL Creatinine (0.52-1.04) mg/dL Estimated GFR ML/MIN Glucose (74-106) mg/dL Calcium (8.4-10.2) mg/dL Total Bilirubin (0.2-1.3) mg/dL AST (14-36) U/L ALT (0-35) U/L Alkaline Phosphatase (38-126) U/L Troponin I < 0.012 < 0.012 < 0.012 (0.000-0.034) ng/mL NT-Pro-B Natriuret Pep (0-900) pg/mL Serum Total Protein (6.3-8.2) g/dL Albumin (3.5-5.0) g/dL 10/23/19 10/24/19 10/24/19 Range/Units Unknown 01:15 04:35 WBC (4.0-10.5) K/mm3 RBC (4.1-5.4) M/mm3 Hgb (12.0-16.0) gm/dl Hct (35-47) % MCV (78-100) fl MCH (26-32) pg MCHC (32-36) g/dl RDW (11.5-14.0) % Plt Count (150-450) K/mm3 MPV (7.5-11.0) fl Gran % (36.0-66.0) % Eos # (Auto) (0-0.5) Absolute Lymphs (auto) (1.0-4.6) Absolute Monos (auto) (0.0-1.3) Lymphocytes % (24.0-44.0) % Monocytes % (0.0-12.0) % Eosinophils % (0.00-5.0) % Basophils % (0.0-0.4) % Absolute Granulocytes (1.4-6.9) Basophils # (0-0.4) PT (9.95-12.35) SECONDS INR (0.8-3.0) APTT (25.3-37.0) SECONDS D-Dimer 1231 H* (215-500) ng/mL Sodium (137-145) mmol/L Potassium (3.5-5.1) mmol/L Chloride (98-107) mmol/L Carbon Dioxide (22-30) mmol/L Anion Gap (5-15) MEQ/L BUN (7-17) mg/dL Creatinine (0.52-1.04) mg/dL Estimated GFR ML/MIN Glucose (74-106) mg/dL Calcium (8.4-10.2) mg/dL Total Bilirubin (0.2-1.3) mg/dL AST (14-36) U/L ALT (0-35) U/L Alkaline Phosphatase (38-126) U/L Troponin I < 0.012 < 0.012 (0.000-0.034) ng/mL NT-Pro-B Natriuret Pep (0-900) pg/mL Serum Total Protein (6.3-8.2) g/dL Albumin (3.5-5.0) g/dL 10/24/19 10/24/19 Range/Units 04:35 04:35 WBC 7.3 (4.0-10.5) K/mm3 RBC 3.82 L (4.1-5.4) M/mm3 Hgb 10.1 L (12.0-16.0) gm/dl Hct 31.9 L (35-47) % MCV 83.5 (78-100) fl MCH 26.4 (26-32) pg MCHC 31.7 L (32-36) g/dl RDW 14.3 H (11.5-14.0) % Plt Count 411 (150-450) K/mm3 MPV 8.9 (7.5-11.0) fl Gran % 58.5 (36.0-66.0) % Eos # (Auto) 0.15 (0-0.5) Absolute Lymphs (auto) 2.27 (1.0-4.6) Absolute Monos (auto) 0.58 (0.0-1.3) Lymphocytes % 31.1 (24.0-44.0) % Monocytes % 8.0 (0.0-12.0) % Eosinophils % 2.1 (0.00-5.0) % Basophils % 0.3 (0.0-0.4) % Absolute Granulocytes 4.27 (1.4-6.9) Basophils # 0.02 (0-0.4) PT (9.95-12.35) SECONDS INR (0.8-3.0) APTT (25.3-37.0) SECONDS D-Dimer (215-500) ng/mL Sodium 128 L (137-145) mmol/L Potassium 3.6 (3.5-5.1) mmol/L Chloride 93 L (98-107) mmol/L Carbon Dioxide 27 (22-30) mmol/L Anion Gap 12.5 (5-15) MEQ/L BUN 14 (7-17) mg/dL Creatinine 1.11 H (0.52-1.04) mg/dL Estimated GFR 52.8 ML/MIN Glucose 120 H (74-106) mg/dL Calcium 9.0 (8.4-10.2) mg/dL Total Bilirubin 0.30 (0.2-1.3) mg/dL AST 26 (14-36) U/L ALT 32 (0-35) U/L Alkaline Phosphatase 125 (38-126) U/L Troponin I (0.000-0.034) ng/mL NT-Pro-B Natriuret Pep (0-900) pg/mL Serum Total Protein 6.7 (6.3-8.2) g/dL Albumin 3.7 (3.5-5.0) g/dL Accuchecks Date 10/24/19 Date 10/24/19 Time 04:15 Time 00:01 Accucheck Value: 130 Accucheck Value: 144 - Radiology Impressions Radiology Exams & Impressions: Radiology Procedures Category Date Time Status CHEST 1 VIEW (PORTABLE) Stat Exams 10/23/19 16:03 Completed CHEST WITH CONTRAST [CT] Stat Exams 10/23/19 17:59 Taken - Other Procedures and Tests Respiratory Therapy 10/23/19 20:49 Respiratory Therapy Assessment DAILY Assessment/Plan (1) Chest pain, rule out acute myocardial infarction Current Visit: Yes Status: Acute Assessment & Plan: ND ruled out, no current of injury on EKG and serial enzymes are negative, patient is pain-free today. will discharge and advise to f/u with Dr Hale Code(s): R07.9 - CHEST PAIN, UNSPECIFIED Hospital Summary - Vitals & Intake/Output Vital Signs: Vital Signs Temperature 97.6 F 10/24/19 07:26 Pulse Rate 81 10/24/19 07:26 Respiratory Rate 20 10/24/19 07:26 Blood Pressure 138/60 10/24/19 07:26 O2 Sat by Pulse Oximetry 94 L 10/24/19 07:26 Intake & Output: Intake & Output 10/21/19 10/22/19 10/23/19 10/24/19 11:59 11:59 11:59 11:59 Intake Total 660 Balance 660 Weight 87.6 kg - Lab Result Diagrams: 10/24/19 04:35 10/24/19 04:35 Lab Results-Last 24 Hrs: Accuchecks Date 10/24/19 Date 10/24/19 Time 04:15 Time 00:01 Accucheck Value: 130 Accucheck Value: 144 Lab Results-Last 24 Hours 10/23/19 10/23/19 10/23/19 Range/Units 16:00 16:00 16:00 WBC 6.7 (4.0-10.5) K/mm3 RBC 4.52 (4.1-5.4) M/mm3 Hgb 12.0 (12.0-16.0) gm/dl Hct 37.5 (35-47) % MCV 83.0 (78-100) fl MCH 26.5 (26-32) pg MCHC 32.0 (32-36) g/dl RDW 14.3 H (11.5-14.0) % Plt Count 489 H (150-450) K/mm3 MPV 9.1 (7.5-11.0) fl Gran % 50.4 (36.0-66.0) % Eos # (Auto) 0.15 (0-0.5) Absolute Lymphs (auto) 2.57 (1.0-4.6) Absolute Monos (auto) 0.58 (0.0-1.3) Lymphocytes % 38.4 (24.0-44.0) % Monocytes % 8.7 (0.0-12.0) % Eosinophils % 2.2 (0.00-5.0) % Basophils % 0.3 (0.0-0.4) % Absolute Granulocytes 3.38 (1.4-6.9) Basophils # 0.02 (0-0.4) PT 12.3 (9.95-12.35) SECONDS INR 1.09 (0.8-3.0) APTT 32.7 (25.3-37.0) SECONDS D-Dimer (215-500) ng/mL Sodium 133 L (137-145) mmol/L Potassium 3.0 L (3.5-5.1) mmol/L Chloride 95 L (98-107) mmol/L Carbon Dioxide 24 (22-30) mmol/L Anion Gap 16.3 H (5-15) MEQ/L BUN 9 (7-17) mg/dL Creatinine 0.78 (0.52-1.04) mg/dL Estimated GFR > 60.0 ML/MIN Glucose 181 H (74-106) mg/dL Calcium 9.7 (8.4-10.2) mg/dL Total Bilirubin 0.30 (0.2-1.3) mg/dL AST 31 (14-36) U/L ALT 37 H (0-35) U/L Alkaline Phosphatase 159 H (38-126) U/L Troponin I (0.000-0.034) ng/mL NT-Pro-B Natriuret Pep 36.0 (0-900) pg/mL Serum Total Protein 7.7 (6.3-8.2) g/dL Albumin 4.3 (3.5-5.0) g/dL 10/23/19 10/23/19 10/23/19 Range/Units 16:00 20:30 22:15 WBC (4.0-10.5) K/mm3 RBC (4.1-5.4) M/mm3 Hgb (12.0-16.0) gm/dl Hct (35-47) % MCV (78-100) fl MCH (26-32) pg MCHC (32-36) g/dl RDW (11.5-14.0) % Plt Count (150-450) K/mm3 MPV (7.5-11.0) fl Gran % (36.0-66.0) % Eos # (Auto) (0-0.5) Absolute Lymphs (auto) (1.0-4.6) Absolute Monos (auto) (0.0-1.3) Lymphocytes % (24.0-44.0) % Monocytes % (0.0-12.0) % Eosinophils % (0.00-5.0) % Basophils % (0.0-0.4) % Absolute Granulocytes (1.4-6.9) Basophils # (0-0.4) PT (9.95-12.35) SECONDS INR (0.8-3.0) APTT (25.3-37.0) SECONDS D-Dimer (215-500) ng/mL Sodium (137-145) mmol/L Potassium (3.5-5.1) mmol/L Chloride (98-107) mmol/L Carbon Dioxide (22-30) mmol/L Anion Gap (5-15) MEQ/L BUN (7-17) mg/dL Creatinine (0.52-1.04) mg/dL Estimated GFR ML/MIN Glucose (74-106) mg/dL Calcium (8.4-10.2) mg/dL Total Bilirubin (0.2-1.3) mg/dL AST (14-36) U/L ALT (0-35) U/L Alkaline Phosphatase (38-126) U/L Troponin I < 0.012 < 0.012 < 0.012 (0.000-0.034) ng/mL NT-Pro-B Natriuret Pep (0-900) pg/mL Serum Total Protein (6.3-8.2) g/dL Albumin (3.5-5.0) g/dL 10/23/19 10/24/19 10/24/19 Range/Units Unknown 01:15 04:35 WBC (4.0-10.5) K/mm3 RBC (4.1-5.4) M/mm3 Hgb (12.0-16.0) gm/dl Hct (35-47) % MCV (78-100) fl MCH (26-32) pg MCHC (32-36) g/dl RDW (11.5-14.0) % Plt Count (150-450) K/mm3 MPV (7.5-11.0) fl Gran % (36.0-66.0) % Eos # (Auto) (0-0.5) Absolute Lymphs (auto) (1.0-4.6) Absolute Monos (auto) (0.0-1.3) Lymphocytes % (24.0-44.0) % Monocytes % (0.0-12.0) % Eosinophils % (0.00-5.0) % Basophils % (0.0-0.4) % Absolute Granulocytes (1.4-6.9) Basophils # (0-0.4) PT (9.95-12.35) SECONDS INR (0.8-3.0) APTT (25.3-37.0) SECONDS D-Dimer 1231 H* (215-500) ng/mL Sodium (137-145) mmol/L Potassium (3.5-5.1) mmol/L Chloride (98-107) mmol/L Carbon Dioxide (22-30) mmol/L Anion Gap (5-15) MEQ/L BUN (7-17) mg/dL Creatinine (0.52-1.04) mg/dL Estimated GFR ML/MIN Glucose (74-106) mg/dL Calcium (8.4-10.2) mg/dL Total Bilirubin (0.2-1.3) mg/dL AST (14-36) U/L ALT (0-35) U/L Alkaline Phosphatase (38-126) U/L Troponin I < 0.012 < 0.012 (0.000-0.034) ng/mL NT-Pro-B Natriuret Pep (0-900) pg/mL Serum Total Protein (6.3-8.2) g/dL Albumin (3.5-5.0) g/dL 10/24/19 10/24/19 Range/Units 04:35 04:35 WBC 7.3 (4.0-10.5) K/mm3 RBC 3.82 L (4.1-5.4) M/mm3 Hgb 10.1 L (12.0-16.0) gm/dl Hct 31.9 L (35-47) % MCV 83.5 (78-100) fl MCH 26.4 (26-32) pg MCHC 31.7 L (32-36) g/dl RDW 14.3 H (11.5-14.0) % Plt Count 411 (150-450) K/mm3 MPV 8.9 (7.5-11.0) fl Gran % 58.5 (36.0-66.0) % Eos # (Auto) 0.15 (0-0.5) Absolute Lymphs (auto) 2.27 (1.0-4.6) Absolute Monos (auto) 0.58 (0.0-1.3) Lymphocytes % 31.1 (24.0-44.0) % Monocytes % 8.0 (0.0-12.0) % Eosinophils % 2.1 (0.00-5.0) % Basophils % 0.3 (0.0-0.4) % Absolute Granulocytes 4.27 (1.4-6.9) Basophils # 0.02 (0-0.4) PT (9.95-12.35) SECONDS INR (0.8-3.0) APTT (25.3-37.0) SECONDS D-Dimer (215-500) ng/mL Sodium 128 L (137-145) mmol/L Potassium 3.6 (3.5-5.1) mmol/L Chloride 93 L (98-107) mmol/L Carbon Dioxide 27 (22-30) mmol/L Anion Gap 12.5 (5-15) MEQ/L BUN 14 (7-17) mg/dL Creatinine 1.11 H (0.52-1.04) mg/dL Estimated GFR 52.8 ML/MIN Glucose 120 H (74-106) mg/dL Calcium 9.0 (8.4-10.2) mg/dL Total Bilirubin 0.30 (0.2-1.3) mg/dL AST 26 (14-36) U/L ALT 32 (0-35) U/L Alkaline Phosphatase 125 (38-126) U/L Troponin I (0.000-0.034) ng/mL NT-Pro-B Natriuret Pep (0-900) pg/mL Serum Total Protein 6.7 (6.3-8.2) g/dL Albumin 3.7 (3.5-5.0) g/dL Micro Results-Entire Visit: Accuchecks Date 10/24/19 Date 10/24/19 Time 04:15 Time 00:01 Accucheck Value: 130 Accucheck Value: 144 - Radiology Exams Ordered Rad Exams-Entire Visit: Radiology Procedures Category Date Time Status CHEST 1 VIEW (PORTABLE) Stat Exams 10/23/19 16:03 Completed CHEST WITH CONTRAST [CT] Stat Exams 10/23/19 17:59 Taken - Procedures and Test Procedures and Tests throughout Hospitalization: Therapy Orders & Screens 10/23/19 20:49 Respiratory Therapy Assessment DAILY Comment: Diagnosis: CHEST PAIN RULE OUT ND 10/23/19 21:37 ST Screen per Nursing Assess ONCE Comment: Protocol Order Physician Instructions: Greater than [address] Admission Screening Reason For Exam: Triggered on Admission Diagnosis: CHEST PAIN RULE OUT ND CVA/Dyshpagia/Aphasia: Yes Cognitive Deficits: No Dehydration/Nutrition Deficit: No Reflux: Yes Oral-Motor Difficulties: Yes Pneumonia: No [facility] Resident: No Total Points: 11 - Discharge Disposition: Home, Self-Care Condition: Stable Prescriptions: Continue Aspirin EC 81 mg [Ecotrin 81 mg] 81 mg PO DAILY #0 Clopidogrel Bisulfate [Clopidogrel] 75 mg PO DAILY Atorvastatin Calcium 80 mg PO HS lisinopriL [Lisinopril] 5 mg PO DAILY Gabapentin 300 mg PO TID Amitriptyline HCl 25 mg [Elavil 25 mg] 25 mg PO HS PANTOPRAZOLE 40 mg Tablet [Protonix 40MG Tablet] 40 mg PO DAILY Follow up with: AUBREY SONI MD [Primary Care Provider] - 1 Week
--- NOTE | 2019-10-24 08:43 | XRAY ---
Indication: Chest pain. Elevated d-dimer. Multiple contiguous axial images obtained through the chest using 80 cc Isovue 370 contrast and PE protocol. Comparison: Conventional CT chest with contrast August 18, 2019. There is adequate opacification of the pulmonary arteries. Posterior segmental branch of the right upper lobe demonstrates tiny nonoccluding pulmonary emboli. Heart is not enlarged. Aorta remains mildly arteriosclerotic without aneurysm/dissection. No pathologic mediastinal/hilar lymphadenopathy. Examination of the lung parenchyma demonstrates increasing moderate bilateral dependent atelectasis. Stable scattered bilateral peripheral fibrosis/scarring. Again no suspicious pulmonary mass/nodule, infiltrate, or effusion. Bony thorax again demonstrates mild degenerative changes throughout the spine, multiple old bilateral rib fractures, and old right clavicle fracture with fixation hardware. Limited upper abdomen again demonstrates fatty liver. Impression: 1. Nonoccluding right upper lobe pulmonary emboli. 2. Again incidental atelectasis, fibrosis/scarring, fatty liver, and chronic bony findings.
[2019-10-24] MEDS: Pepcid 20 MG VIAL IV SCH (09:12)
[2019-10-24] MEDS: TYLENOL 325 MG PO PRN (09:12)
[2019-10-24] MEDS ORDERED: NEURONTIN 300 MG PO SCH (10:00)
[2019-10-24] MEDS ORDERED: ENOXAPARIN SODIUM SQ SCH (10:00)
[2019-10-24] MEDS ORDERED: Protonix 40MG Tablet PO SCH (10:00)
[2019-10-24] MEDS ORDERED: Zestril 5 MG PO SCH (10:00)
[2019-10-24] MEDS ORDERED: PLAVIX 75 MG Tablet PO SCH (10:00)
[2019-10-24] MEDS ORDERED: ECOTRIN 81 MG PO SCH (10:00)
[2019-10-24] MEDS ORDERED: ELAVIL 25 MG PO SCH (22:00)
[2019-10-24] MEDS ORDERED: NON-FORMULARY ITEM (Atorvastatin Calcium [Atorvastatin Calcium] 80 MG) PO SCH (22:00)
== END 2019-10-24 10:05 | disposition home or self-care (01) ==
LOC: ED 15:28 → MED SURG 20:41
PROVIDERS: ADMIT Family Medicine; ATTEND Family Medicine
DX: R07.9 Chest pain, unspecified (principal); I25.10 Atherosclerotic heart disease of native coronary artery without angina pectoris; I10 Essential (primary) hypertension; J44.9 Chronic obstructive pulmonary disease, unspecified; E78.00 Pure hypercholesterolemia, unspecified; Z86.73 Personal history of transient ischemic attack (TIA), and cerebral infarction without residual deficits; Z79.899 Other long term (current) drug therapy; Z85.43 Personal history of malignant neoplasm of ovary; Z85.42 Personal history of malignant neoplasm of other parts of uterus
CPT/HCPCS: 36000; 36415; 71045; 71260; 80053; 82962; 83036; 83880; 84484; 85025; 85379; 85610; 85730; 93005; 93041; 93268; 94760; 96374; 96375; 99285; G0378; J1170; J2405; A9270-GY

== ENCOUNTER 2020-01-18 13:53 | Inpatient (IN) | payer OTHER ==
[2020-01-18] MEDS ORDERED: Hydromorphone 1 mg/ml Injection IV ONE (14:16)
[2020-01-18] MEDS ORDERED: Sodium Chloride 0.9% 1000 ML 1,000 ML IV STA ×2 (14:16→16:53)
[2020-01-18] MEDS ORDERED: Zofran 4 MG/2 ML VIAL IV ONE (14:16)
--- NOTE | 2020-01-18 14:23 | ERPHSYRPT ---
- History of Present Illness Time Seen by Provider: 01/18/20 14:09 Historian: patient Exam Limitations: no limitations Patient Subjective Stated Complaint: Pt states "My stomach is distended and hurts and I am dry heaving." Triage Nursing Assessment: Pt presented alert and oriented X 3, skin pwd PT ambulates with an upright steady gait, able to speak in clear full sentences pt in no apparent respirattory distress. Pt has tenderness in abdomen in right lower qudrant, periumbilical, and left upper quadrant, abdomen slightly distended. Physician History: 64 years old male with history of hypertension, hyperlipidemia, diabetes mellitus, TIA,/stroke with right-sided residual weakness, coronary artery disease, multiple abdominal surgeries in the past with subsequent obstructions presented in the ER with sudden onset upper abdominal pain with some distention and 2 episodes of nonprojectile, nonbilious vomiting. She is complaining of moderate intensity sharp pain comes and goes without any significant aggravating or relieving factors. Denies passing flatus. Reports symptoms similar to previous episodes when she had obstruction. No fever or chills reported. Denies any sick contact. Timing/Duration: today Activities at Onset: sleep Quality: sharpness Abdominal Pain Onset Location: LUQ, epigastric Severity of Pain-Max: moderate Severity of Pain-Current: moderate Modifying Factors: Worsens With: movement, palpation, vomiting Associated Symptoms: nausea, vomiting Previous symptoms: no prior history Allergies/Adverse Reactions: morphine Allergy (Severe, Verified 10/23/19 15:48) Irregular Heart Beat sulfamethoxazole [From Bactrim] Allergy (Intermediate, Verified 10/23/19 15:48) Hives trimethoprim [From Bactrim] Allergy (Intermediate, Verified 10/23/19 15:48) Hives fluoxetine HCl [From Prozac] Adverse Reaction (Intermediate, Verified 10/23/19 1 5:48) homicidal thoughts homicidal thoughts Home Medications: Clopidogrel Bisulfate [Clopidogrel] 75 mg PO DAILY 10/09/19 [History] Amitriptyline HCl 25 mg [Elavil 25 mg] 25 mg PO HS 10/23/19 [History] Atorvastatin Calcium 80 mg PO HS 10/23/19 [History] Gabapentin 300 mg PO TID 10/23/19 [History] PANTOPRAZOLE 40 mg Tablet [Protonix 40MG Tablet] 40 mg PO DAILY 10/23/19 [History] lisinopriL [Lisinopril] 5 mg PO DAILY 10/23/19 [History] Apixaban [Eliquis] 5 mg PO DAILY 01/18/20 [History] Loratadine 10 mg PO DAILY 01/18/20 [History] Metformin HCl 850 mg [Glucophage 850 MG] 850 mg PO BID 01/18/20 [History] Hx Tetanus, Diphtheria Vaccination/Date Given: No Hx Influenza Vaccination/Date Given: No Hx Pneumococcal Vaccination/Date Given: No Immunizations Up to Date: Yes Travel Risk - International Travel Have you traveled outside of the country in past 3 weeks: No - Coronavirus Screening Are you exhibiting any of the following symptoms?: No Close contact with a COVID-19 positive Pt in past 14-21 Days: No - Review of Systems Constitutional: No Symptoms Eyes: No Symptoms Ears, Nose, & Throat: No Symptoms Respiratory: No Symptoms Cardiac: No Symptoms Abdominal/Gastrointestinal: Abdominal Pain, Nausea Genitourinary Symptoms: No Symptoms Musculoskeletal: No Symptoms Skin: No Symptoms Neurological: No Symptoms Psychological: No Symptoms Endocrine: No Symptoms Hematologic/Lymphatic: No Symptoms - Past Medical History Pertinent Past Medical History: Yes Neurological History: Peripheral Neuropathy, TIA ENT History: No Pertinent History Cardiac History: Angina, Coronary Artery Disease, High Cholesterol, Hypertension Respiratory History: Asthma, COPD Endocrine Medical History: Other Musculoskeletal History: Arthritis, Other GI Medical History: Ulcer, Other History: No Pertinent History Psycho-Social History: Anxiety, Depression Female Reproductive Disorders: Ovarian Cancer, Uterine Cancer Other Medical History: hx of bleeding ulcer and ileus, 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. early onset Parkinsons disease - Past Surgical History Past Surgical History: Yes Neuro Surgical History: No Pertinent History Cardiac: Cardiac Catheterization Respiratory: No Pertinent History Gastrointestinal: Appendectomy, Bowel Surgery, Cholecystectomy, Hernia Repair Genitourinary: No Pertinent History Musculoskeletal: Orthopedic Surgery Female Surgical History: Hysterectomy, Tubal Ligation Other Surgical History: bone auto graft to wrist, collar bone surgery - Social History Smoking Status: Former smoker How long have you smoked: years Exposure to second hand smoke: No Drug Use: none Patient Lives Alone: No - Female History Hx Now: No - Nursing Vital Signs Nursing Vital Signs: Initial Vital Signs Temperature 98.3 F 01/18/20 14:02 Pulse Rate 104 H 01/18/20 14:02 Respiratory Rate 22 01/18/20 14:02 Blood Pressure 138/74 01/18/20 14:02 O2 Sat by Pulse Oximetry 96 01/18/20 14:02 Pain Scale Pain Intensity 6 - Physical Exam General Appearance: no apparent distress, alert Eye Exam: eyes nml inspection Ears, Nose, Throat Exam: normal ENT inspection Neck Exam: normal inspection, non-tender, supple, full range of motion Respiratory Exam: normal breath sounds, lungs clear Cardiovascular Exam: regular rate/rhythm, normal heart sounds Gastrointestinal/Abdomen Exam: soft, tenderness (UPPER ABD ), distention, No normal bowel sounds Back Exam: normal inspection Extremity Exam: normal range of motion Neurologic Exam: alert, oriented x 3, cooperative Skin Exam: normal color SpO2 Interpretation: normal SpO2: 96 O2 Delivery: Room Air Ordered Tests: Active Orders 24 hr Category Date Time Status IV Insertion STAT Care 01/18/20 14:16 Active NPO (ED) STAT Care 01/18/20 14:16 Active ABDOMEN AND PELVIS W CONTRAST [CT] Stat Exams 01/18/20 14:16 Taken CBC W DIFF Stat Lab 01/18/20 14:15 Completed CMP Stat Lab 01/18/20 14:15 Completed LIPASE Stat Lab 01/18/20 14:15 Completed Lactic Acid Stat Lab 01/18/20 14:27 Completed Lactic Acid Stat Lab 01/18/20 16:32 Completed UA W/RFX UR CULTURE Stat Lab 01/18/20 16:04 Completed Transfer Order Routine Transfer 01/18/20 Ordered Medication Summary Generic Name Dose Route Start Last Admin Trade Name Freq PRN Reason Stop Dose Admin Sodium Chloride 1,000 mls @ 999 mls/hr 01/18/20 16:53 01/18/20 17:05 Sodium Chloride 0.9% 1000 Ml IV 01/18/20 17:53 999 mls/hr .Q1H1M STA Administration Discontinued Medications Generic Name Dose Route Start Last Admin Trade Name Freq PRN Reason Stop Dose Admin Hydromorphone HCl 0.5 mg 01/18/20 14:16 01/18/20 14:42 Hydromorphone 1 Mg/Ml Injection IV 01/18/20 14:17 0.5 mg STAT ONE Administration Hydromorphone HCl Confirm 01/18/20 14:31 Hydromorphone 1 Mg/Ml Injection Administered 01/18/20 14:32 Dose 1 mg .ROUTE .STK-MED ONE Sodium Chloride 1,000 mls @ 999 mls/hr 01/18/20 14:16 01/18/20 16:12 Sodium Chloride 0.9% 1000 Ml IV 01/18/20 15:16 Infused .Q1H1M STA Infusion Sodium Chloride Confirm 01/18/20 14:32 Sodium Chloride 0.9% 1000 Ml Administered 01/18/20 14:33 Dose 1,000 mls @ ud .ROUTE .STK-MED ONE Sodium Chloride Confirm 01/18/20 17:00 Sodium Chloride 0.9% 1000 Ml Administered 01/18/20 17:01 Dose 1,000 mls @ ud .ROUTE .STK-MED ONE Ondansetron HCl 4 mg 01/18/20 14:16 01/18/20 14:41 Zofran 4 Mg/2 Ml Vial IV 01/18/20 14:17 4 mg STAT ONE Administration Ondansetron HCl Confirm 01/18/20 14:31 Zofran 4 Mg/2 Ml Vial Administered 01/18/20 14:32 Dose 4 mg .ROUTE .STK-MED ONE Lab/Rad Data: Laboratory Result Diagrams 01/18/20 14:15 01/18/20 14:15 Laboratory Results 01/18/20 01/18/20 01/18/20 Range/Units 16:32 16:04 14:27 WBC (4.0-10.5) K/mm3 RBC (4.1-5.4) M/mm3 Hgb (12.0-16.0) gm/dl Hct (35-47) % MCV (78-100) fl MCH (26-32) pg MCHC (32-36) g/dl RDW (11.5-14.0) % Plt Count (150-450) K/mm3 MPV (7.5-11.0) fl Gran % (36.0-66.0) % Eos # (Auto) (0-0.5) Absolute Lymphs (auto) (1.0-4.6) Absolute Monos (auto) (0.0-1.3) Lymphocytes % (24.0-44.0) % Monocytes % (0.0-12.0) % Eosinophils % (0.00-5.0) % Basophils % (0.0-0.4) % Absolute Granulocytes (1.4-6.9) Basophils # (0-0.4) Sodium (137-145) mmol/L Potassium (3.5-5.1) mmol/L Chloride (98-107) mmol/L Carbon Dioxide (22-30) mmol/L Anion Gap (5-15) MEQ/L BUN (7-17) mg/dL Creatinine (0.52-1.04) mg/dL Estimated GFR ML/MIN Glucose (74-106) mg/dL Lactic Acid 3.0 H 3.2 H (0.4-2.0) Calcium (8.4-10.2) mg/dL Total Bilirubin (0.2-1.3) mg/dL AST (14-36) U/L ALT (0-35) U/L Alkaline Phosphatase (38-126) U/L Serum Total Protein (6.3-8.2) g/dL Albumin (3.5-5.0) g/dL Lipase (23-300) U/L Urine Color STRAW (YELLOW) Urine Appearance SLIGHTLY CLOUDY (CLEAR) Urine pH 6.0 (5-6) Ur Specific [place] 1.021 (1.005-1.025) Urine Protein NEGATIVE (Negative) Urine Ketones NEGATIVE (NEGATIVE) Urine Blood NEGATIVE (0-5) Parviz/ul Urine Nitrite NEGATIVE (NEGATIVE) Urine Bilirubin NEGATIVE (NEGATIVE) Urine Urobilinogen NEGATIVE (0-1) mg/dL Ur Leukocyte Esterase NEGATIVE (NEGATIVE) Urine WBC (Auto) NONE (0-5) /HPF Urine RBC (Auto) NONE (0-2) /HPF U Epithel Cells (Auto) RARE (FEW) /HPF Urine Bacteria (Auto) NONE (NEGATIVE) /HPF Urine Mucus (Auto) SLIGHT (NEGATIVE) /HPF Urine Culture Reflexed NO (NO) Urine Glucose NEGATIVE (NEGATIVE) mg/dL 01/18/20 01/18/20 Range/Units 14:15 14:15 WBC 13.1 H (4.0-10.5) K/mm3 RBC 4.58 (4.1-5.4) M/mm3 Hgb 11.1 L (12.0-16.0) gm/dl Hct 35.2 (35-47) % MCV 76.9 L (78-100) fl MCH 24.2 L (26-32) pg MCHC 31.5 L (32-36) g/dl RDW 15.0 H (11.5-14.0) % Plt Count 609 H (150-450) K/mm3 MPV 8.4 (7.5-11.0) fl Gran % 82.9 H (36.0-66.0) % Eos # (Auto) 0.02 (0-0.5) Absolute Lymphs (auto) 1.36 (1.0-4.6) Absolute Monos (auto) 0.82 (0.0-1.3) Lymphocytes % 10.4 L (24.0-44.0) % Monocytes % 6.3 (0.0-12.0) % Eosinophils % 0.2 (0.00-5.0) % Basophils % 0.2 (0.0-0.4) % Absolute Granulocytes 10.84 H (1.4-6.9) Basophils # 0.02 (0-0.4) Sodium 129 L (137-145) mmol/L Potassium 3.9 (3.5-5.1) mmol/L Chloride 92 L (98-107) mmol/L Carbon Dioxide 24 (22-30) mmol/L Anion Gap 17.0 H (5-15) MEQ/L BUN 11 (7-17) mg/dL Creatinine 0.71 (0.52-1.04) mg/dL Estimated GFR > 60.0 ML/MIN Glucose 173 H (74-106) mg/dL Lactic Acid (0.4-2.0) Calcium 10.1 (8.4-10.2) mg/dL Total Bilirubin 0.40 (0.2-1.3) mg/dL AST 47 H (14-36) U/L ALT 49 H (0-35) U/L Alkaline Phosphatase 158 H (38-126) U/L Serum Total Protein 8.2 (6.3-8.2) g/dL Albumin 4.7 (3.5-5.0) g/dL Lipase 48 (23-300) U/L Urine Color (YELLOW) Urine Appearance (CLEAR) Urine pH (5-6) Ur Specific [place] (1.005-1.025) Urine Protein (Negative) Urine Ketones (NEGATIVE) Urine Blood (0-5) Parviz/ul Urine Nitrite (NEGATIVE) Urine Bilirubin (NEGATIVE) Urine Urobilinogen (0-1) mg/dL Ur Leukocyte Esterase (NEGATIVE) Urine WBC (Auto) (0-5) /HPF Urine RBC (Auto) (0-2) /HPF U Epithel Cells (Auto) (FEW) /HPF Urine Bacteria (Auto) (NEGATIVE) /HPF Urine Mucus (Auto) (NEGATIVE) /HPF Urine Culture Reflexed (NO) Urine Glucose (NEGATIVE) mg/dL - Progress Progress: improved, pain not gone completely, re-examined Progress Note: 01/18/20 17:20 64 years old is evaluated for sudden onset abdominal pain with some distention and vomiting. She is given fluid bolus along with symptomatic treatment for pain, on reevaluation feeling better. No vomiting while in the ER. She has a white count of 13, elevated lactate 3.2 which I believe is secondary to dehydration. She has a normal bicarb. Repeat lactate is 3.0, given another fluid bolus. CT showed small bowel obstruction in the distal jejunum/early ileum area and left lower quadrant. Placed NG tube. Discussed with surgeon on- call Dr. Madrigal, agreed with conservative management initially. Discussed with Dr. Vance and patient is admitted in consultation with general surgery. Discussed with patient understand and agree with it. Discussed with .: Kevin, Other ( ) Will see patient in: hospital (observation) Counseled pt/family regarding: lab results, diagnosis, rad results - Departure Departure Disposition: Observation Clinical Impression: Small bowel obstruction, Lactic acid acidosis Condition: Fair Critical Care Time: Yes Critical Care Time(excluding separately billable procedures): Critical 30-74 mins Referrals: AUBREY SONI MD [ACTIVE STAFF] -
[2020-01-18 14:25] LABS: Absolute Neutrophil Ct (ANC) 10.84 (1.4-6.9); BASOPHIL % 0.2 % (0.0-0.4); Basophil (Absolute #) 0.02 (0-0.4); Eosinophil % 0.2 % (0.00-5.0); Eosinophil (Absolute #) 0.02 (0-0.5); Hematocrit 35.2 % (35-47); Hemoglobin 11.1 gm/dl (12.0-16.0); Lymphocyte (Absolute #) 1.36 (1.0-4.6); Lymphocytes % 10.4 % (24.0-44.0); Mean Cell Volume 76.9 fl (78-100); Mean Corpuscular Hemoglobin 24.2 pg (26-32); Mean Corpuscular Hgb Concent. 31.5 g/dl (32-36); Mean Platelet Volume 8.4 fl (7.5-11.0); Monocyte (Absolute #) 0.82 (0.0-1.3); Monocytes % 6.3 % (0.0-12.0); Neutrophil % 82.9 % (36.0-66.0); Platelet Count 609 K/mm3 (150-450); Red Blood Count 4.58 M/mm3 (4.1-5.4); White Blood Count 13.1 K/mm3 (4.0-10.5)
[2020-01-18] MEDS ORDERED: Hydromorphone 1 mg/ml Injection ONE ×2 (14:31→18:22)
[2020-01-18] MEDS ORDERED: Zofran 4 MG/2 ML VIAL ONE (14:31)
[2020-01-18] MEDS ORDERED: Sodium Chloride 0.9% 1000 ML 1,000 ML ONE ×2 (14:32→17:00)
[2020-01-18 14:36] LABS: ALBUMIN 4.7 g/dL (3.5-5.0); ALKALINE PHOSPHATASE 158 U/L (38-126); BLOOD UREA NITROGEN 11 mg/dL (7-17); CHLORIDE 92 mmol/L (98-107); Calcium 10.1 mg/dL (8.4-10.2); Carbon Dioxide 24 mmol/L (22-30); Creatinine 1 0.71 mg/dL (0.52-1.04); EST GLOMERULAR FILTRATION RATE > 60.0 ML/MIN; Glucose 173 mg/dL (74-106); LIPASE 48 U/L (23-300); Potassium 3.9 mmol/L (3.5-5.1); SGOT/AST 47 U/L (14-36); SGPT/ALT 49 U/L (0-35); SODIUM 129 mmol/L (137-145); Total Protein 8.2 g/dL (6.3-8.2)
[2020-01-18 16:13] LABS: Appearance SLIGHTLY CLOUDY (CLEAR); Bilirubin NEGATIVE (NEGATIVE); Blood NEGATIVE Ery/ul (0-5); Epithelial Cells RARE /HPF (FEW); Glucose NEGATIVE (NEGATIVE); Ketones NEGATIVE (NEGATIVE); Leukocyte Esterase NEGATIVE (NEGATIVE); Mucus SLIGHT /HPF (NEGATIVE); Nitrite NEGATIVE (NEGATIVE); Protein,Urine Dip NEGATIVE (Negative); Specific Gravity 1.021 (1.005-1.025); Urobilinogen NEGATIVE mg/dL (0-1)
[2020-01-18] MEDS ORDERED: Hydromorphone 1 mg/ml Injection IV PRN (18:19)
[2020-01-18] MEDS ORDERED: HUMALOG SQ PRN (18:19)
[2020-01-18] MEDS ORDERED: PROTONIX 40 MG IV IV ONE (18:24)
[2020-01-18] MEDS: Sodium Chloride 0.9% 1000 ML 1,000 ML IV SCH (18:24)
[2020-01-18] MEDS: Zofran 4 MG/2 ML VIAL IV PRN (19:46)
--- NOTE | 2020-01-18 20:01 | XRAY ---
Indication: Abdomen pain, nausea, and vomiting. Multiple contiguous axial images obtained through the abdomen and pelvis using 80 cc Isovue 370 contrast only. Comparison: August 18, 2019 Lung bases demonstrates mild atelectasis/scarring. Heart is not enlarged. Stomach fluid distended. Duodenal and jejunum are also fluid distended up to 4 cm with transition point left lower quadrant where there is large fecal-like sulcus entericus. The more distal ileum and colon are more normal in caliber. Findings favor distal small bowel obstruction. Stable intact right lower quadrant anastomosis. No free fluid/air. Stable appendectomy, cholecystectomy, hysterectomy, fatty hepatomegaly measuring 24 cm, and bilateral renal cysts. Remaining liver, pancreas, spleen, adrenal glands, kidneys, ureters, and bladder are unremarkable. Stable moderate aortoiliac calcifications. No AAA or pathological retroperitoneal lymphadenopathy. Osseous structures intact again with degenerative changes throughout the thoracolumbar spine, degenerative changes both hips, old right greater trochanter fracture, and right superior acetabulum bone island. Stable broadbase midline epigastric ventral hernia with minimal protruding small bowel loop without incarceration. Impression: 1. New CT findings as detailed for distal small bowel obstruction in the left lower quadrant. 2. Stable fatty hepatomegaly, bilateral renal cysts, epigastric ventral hernia, and chronic bony findings. Comment: Preliminary interpretation was made by [facility]. No critical discrepancy.
[2020-01-18] MEDS: ENOXAPARIN SODIUM SQ SCH (21:50)
[2020-01-18] MEDS: Hydromorphone 1 mg/ml Injection IV PRN (21:51)
[2020-01-19] MEDS: Sodium Chloride 0.9% 1000 ML 1,000 ML IV SCH ×3 (01:48→20:44)
[2020-01-19] MEDS: Zofran 4 MG/2 ML VIAL IV PRN ×4 (01:51→21:42)
[2020-01-19] MEDS: Hydromorphone 1 mg/ml Injection IV PRN ×5 (01:52→21:30)
[2020-01-19 05:26] LABS: Absolute Neutrophil Ct (ANC) 8.24 (1.4-6.9); BASOPHIL % 0.3 % (0.0-0.4); Basophil (Absolute #) 0.03 (0-0.4); Eosinophil % 0.6 % (0.00-5.0); Eosinophil (Absolute #) 0.07 (0-0.5); Hematocrit 30.6 % (35-47); Hemoglobin 9.4 gm/dl (12.0-16.0); Lymphocyte (Absolute #) 2.14 (1.0-4.6); Lymphocytes % 18.5 % (24.0-44.0); Mean Cell Volume 79.7 fl (78-100); Mean Corpuscular Hemoglobin 24.5 pg (26-32); Mean Corpuscular Hgb Concent. 30.7 g/dl (32-36); Mean Platelet Volume 8.4 fl (7.5-11.0); Monocytes % 9.5 % (0.0-12.0); Neutrophil % 71.1 % (36.0-66.0); Platelet Count 498 K/mm3 (150-450); Red Blood Count 3.84 M/mm3 (4.1-5.4); White Blood Count 11.6 K/mm3 (4.0-10.5)
[2020-01-19 05:39] LABS: ALKALINE PHOSPHATASE 118 U/L (38-126); ANION GAP 10.3 MEQ/L (5-15); BLOOD UREA NITROGEN 11 mg/dL (7-17); CHLORIDE 102 mmol/L (98-107); Calcium 9.1 mg/dL (8.4-10.2); Carbon Dioxide 26 mmol/L (22-30); Creatinine 1 0.77 mg/dL (0.52-1.04); EST GLOMERULAR FILTRATION RATE > 60.0 ML/MIN; Glucose 121 mg/dL (74-106); Potassium 3.5 mmol/L (3.5-5.1); SGOT/AST 40 U/L (14-36); SGPT/ALT 50 U/L (0-35); SODIUM 135 mmol/L (137-145); Total Protein 6.9 g/dL (6.3-8.2)
[2020-01-19 09:50] LABS: Risk Ratio 3.3
[2020-01-19] MEDS ORDERED: PROTONIX 40 MG IV IV SCH (10:00)
[2020-01-19] MEDS: PROTONIX 40 MG IV IV SCH (10:09)
[2020-01-19] MEDS: DEXTROSE IV SCH ×3 (10:26→23:46)
[2020-01-19] MEDS: ZOSYN IV SCH ×3 (10:26→23:46)
[2020-01-19] MEDS: WATER IV SCH ×3 (10:26→23:46)
[2020-01-19] MEDS: ENOXAPARIN SODIUM SQ SCH (11:45)
[2020-01-19] MEDS ORDERED: Dulcolax 10 MG SUPP PR ONE (11:45)
--- NOTE | 2020-01-19 14:52 | HP ---
CHIEF COMPLAINT: Vomiting, abdominal pain, abdominal distention. HISTORY OF PRESENT ILLNESS: The patient is a 64 year old white female who has had the above problems for the past few days. She reports a normal bowel movement two days ago. She has been having problems that felt like she was getting so distended she felt like she was going to bust. The patient does report previously having had bowel resection surgery due to retained sponge after hysterectomy when she was in her 20's. The patient has had a couple of episodes since that time with partial bowel obstruction which apparently relieved on its own. PAST MEDICAL HISTORY: The patient had a stroke back in September leaving her with partial right hemiparesis but she has completely resolved her symptoms since that time. The patient does report history of diabetes mellitus type II as well. PAST SURGICAL HISTORY: Surgery prasad she also had cholecystectomy, hysterectomy and appendectomy. HOME MEDICATIONS: Currently are Plavix 75 mg a day, amitriptyline 25 mg at night, atorvastatin 80 mg, gabapentin 300 mg t.i.d., pantoprazole 40 mg a day, Lisinopril 5 mg a day, Eliquis 5 mg a day, loratadine 10 mg a day, Metformin 850 b.i.d. ALLERGIES: MORPHINE. BACTRIM. FLUOXETINE. PHYSICAL EXAMINATION: The patient's vital signs on admission in the emergency room showed her temperature to be 98.3F, pulse 104, respiratory rate 22, blood pressure 138/74. O2 saturation 96%. HEENT: Normocephalic, atraumatic. Pupils equal round reactive to light. Extraocular movements intact. Oropharynx is pink and moist. NECK: Supple without lymphadenopathy, thyromegaly or JVD. She apparently does have NG tube to bulb suction in place and the suction canister is noted to be completely full. HEART: Regular rate and rhythm without murmurs, rubs or gallops. ABDOMEN: Distended, somewhat tender throughout. No palpable masses. Old scars are present. EXTREMITIES: Without cyanosis, clubbing or edema. NEUROLOGIC: The patient is alert and oriented x3 with minimal focal deficits on the right side consistent with her previous CVA. LAB DATA AND TESTS: The patient's x-rays, CT scans showed distal small bowel obstruction, left lower quadrant and stable hepatomegaly. The patient's UA was essentially normal. Her initial lactic acid was 3.0 and follow up with 3.1. Her sugar initially was 173, BUN 11, creatinine 0.71. Sodium slightly low at 129, potassium 3.9. Liver enzymes were slightly elevated with AST 47 and AST 49. Alkaline phosphatase also slightly elevated. Her lipase however is normal. The patient's white count initially 13,100 with hemoglobin 11.1, PLT count 609,000 with 89.2% granulocytes. ASSESSMENT: A patient with small bowel obstruction. She has been placed in the hospital with IV fluids and NG tube suctioning. Will place her on Zosyn empirically to help prevent development of peritonitis. Surgical consultation will be obtained. She has been placed NPO otherwise. Sliding scale coverage for her sugar at a low dose.
[2020-01-20] MEDS: Zofran 4 MG/2 ML VIAL IV PRN ×4 (01:48→16:57)
[2020-01-20] MEDS: Hydromorphone 1 mg/ml Injection IV PRN ×4 (01:48→16:55)
[2020-01-20] MEDS: Sodium Chloride 0.9% 1000 ML 1,000 ML IV SCH ×2 (05:09→16:56)
[2020-01-20 05:14] LABS: Absolute Neutrophil Ct (ANC) 6.94 (1.4-6.9); BASOPHIL % 0.2 % (0.0-0.4); Basophil (Absolute #) 0.02 (0-0.4); Eosinophil % 0.3 % (0.00-5.0); Eosinophil (Absolute #) 0.03 (0-0.5); Hematocrit 31.2 % (35-47); Hemoglobin 9.4 gm/dl (12.0-16.0); Lymphocyte (Absolute #) 1.45 (1.0-4.6); Lymphocytes % 15.5 % (24.0-44.0); Mean Cell Volume 80.2 fl (78-100); Mean Corpuscular Hemoglobin 24.2 pg (26-32); Mean Corpuscular Hgb Concent. 30.1 g/dl (32-36); Mean Platelet Volume 8.4 fl (7.5-11.0); Monocyte (Absolute #) 0.91 (0.0-1.3); Monocytes % 9.7 % (0.0-12.0); Neutrophil % 74.3 % (36.0-66.0); Platelet Count 446 K/mm3 (150-450); Red Blood Count 3.89 M/mm3 (4.1-5.4); White Blood Count 9.4 K/mm3 (4.0-10.5)
[2020-01-20 05:33] LABS: ALBUMIN 3.9 g/dL (3.5-5.0); ALKALINE PHOSPHATASE 117 U/L (38-126); ANION GAP 9.5 MEQ/L (5-15); BLOOD UREA NITROGEN 8 mg/dL (7-17); CHLORIDE 101 mmol/L (98-107); Carbon Dioxide 27 mmol/L (22-30); Creatinine 1 0.71 mg/dL (0.52-1.04); EST GLOMERULAR FILTRATION RATE > 60.0 ML/MIN; Glucose 122 mg/dL (74-106); SGOT/AST 51 U/L (14-36); SGPT/ALT 69 U/L (0-35); SODIUM 134 mmol/L (137-145); Total Protein 6.8 g/dL (6.3-8.2)
[2020-01-20] MEDS: ZOSYN IV SCH ×3 (05:50→17:43)
[2020-01-20] MEDS: DEXTROSE IV SCH ×3 (05:50→17:43)
[2020-01-20] MEDS: WATER IV SCH ×3 (05:50→17:43)
[2020-01-20] MEDS: POTASSIUM CHLORIDE 20 mEq IN WATER 100ML 20 MEQ/100 ML BAG IV SCH ×2 (07:41→10:09)
--- NOTE | 2020-01-20 08:09 | CONS ---
CONSULT DATE: 01/19/2020 This patient is seen for Dr. Madrigal who was consulted yesterday. HISTORY: A 64 year old female with multiple medical problems. She has history of pulmonary embolism and stroke in the past. She has had her gallbladder out. She has had appendix out. She had a hernia repair in the past. She had hysterectomy and tubal in the past. She had Kienbock's and had bone graft of her wrist in the past. She apparently had a major laparotomy by Dr. Salazar a few years ago. He did resection and reanastomosis. PAST MEDICAL HISTORY: Transient ischemic attack, stroke, neuropathy, heart disease, hypertension, chronic obstructive pulmonary disease, obesity, arthritis. She had some depression. 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 She had bleeding ulcers and ileus. Kienbock's disease. Borderline diabetic in the past. She had TMJ, early onset Parkinson's. PAST SURGICAL HISTORY: Laparoscopic cholecystectomy. Appendectomy when she was a child. Hysterectomy. MEDICATIONS: She has been on Eliquis and clopidogrel apparently at the same time. She has been on Elavil, atorvastatin, gabapentin, pantoprazole, Lisinopril, loratadine, Metformin. ALLERGIES: SULFA. BACTRIM. FLUOXETINE. SENSITIVE TO MORPHINE IN THE PAST. FAMILY HISTORY: Negative in regards to this specific problem. SOCIAL HISTORY: Former smoker. No alcohol abuse. REVIEW OF SYSTEMS: Fourteen systems reviewed pertinent for as noted above and per admission assessment. No chest pain or palpitations currently. PHYSICAL EXAMINATION: GENERAL: A 64 year old female in no acute distress. She is feeling a lot better and she is nontoxic, afebrile, vital signs stable. No peritoneal signs. HEENT: Sclera nonicteric. NECK: No JVD. CHEST: Equal excursion, nonlabored breathing. CVS: Regular rate and rhythm. ABDOMEN: Obese, soft. She does have a prior midline incision by Dr. Salazar in the past who took her gallbladder out in the past. No peritoneal signs. Mild distention much improved. She has had NG in position since yesterday. Decreased output a little bit. No bowel movement this morning. EXTREMITIES: No cyanosis. NEURO: Alert, moving extremities grossly symmetrically. PSYCH: Appropriate mood and affect. LAB DATA AND TESTS: White count was 11, hemoglobin 9.4, PLT 190,000. IMPRESSION: A 64 year old female with history of prior major laparotomy and bowel resection by Dr. Saalzar in the past. She came in over the weekend when Dr. Madrigal was telephone surveyor. He asked that I see her today. She did have partial obstruction. She had some fluid-filled bowel loops proximal bowel. She has a large amount of stool in the colon itself. Whether it is early partial obstruction versus enteritis or gastritis. She is nontoxic and hemodynamically stable. No need for emergent surgery. Need to continue holding her blood thinners. She can have Lovenox until a decision is made whether intervention is necessary. At this point continue NG decompression, bowel rest and try suppository to try to get some of her stool out of the colon and see how she does. If she fails to improve over the next day or two she may need consideration of small bowel follow through. Otherwise general risk of anesthesia, deep venous thrombosis, pulmonary embolism, pneumonia, risk of cardiopulmonary event or stroke should she need intervention. At this time continue trial conservative management as she is nontoxic at this point so hold her blood thinner and continue NG decompression, IV hydration and bowel rest. She agrees and her family agrees to the plan. Will repeat some films tomorrow and decide whether to order small bowel follow through or not.
--- NOTE | 2020-01-20 08:57 | XRAY ---
Indication: Follow-up small bowel obstruction. Comparison: None 2 view abdomen demonstrates mild air distended mid abdomen small bowel loops with fluid leveling and paucity of distal bowel gas favoring distal small bowel obstruction. No free air. Mild fecal debris in the right hemicolon. There are cholecystectomy clips and NG tube tip in the stomach. Solid organs are unremarkable. Osseous structures intact with mild osteopenia, mild multilevel degenerative spondylosis, and old right greater trochanter fracture. Impression: Distal small bowel obstruction with NG tube in situ.
[2020-01-20] MEDS: PROTONIX 40 MG IV IV SCH (10:08)
[2020-01-20] MEDS: D5W/0.45NS W/ 20mEq KCl 1000 ML 1,000 ML IV SCH ×2 (12:06→16:56)
[2020-01-20] MEDS ORDERED: MEFOXIN 2 GM PREMIX** 2 GM/50 ML ML IV SCH (14:00)
[2020-01-20] MEDS ORDERED: Lactated Ringers 1,000 ML IV SCH (14:00)
[2020-01-20] MEDS: Artificial Tears 15 ML OP PRN (14:16)
[2020-01-20] MEDS ORDERED: DIPRIVAN 200 MG/20 ML IV ONE (17:24)
[2020-01-20] MEDS ORDERED: SUBLIMAZE 250 MCG/5 ML ONE (17:24)
[2020-01-20] MEDS ORDERED: Versed 2 MG/2 ML Injection ONE (17:24)
[2020-01-20] MEDS ORDERED: Quelicin Fliptop 200 MG/10 ML ONE (17:24)
[2020-01-20] MEDS ORDERED: Zemuron 100 MG/10 ML ONE ×3 (17:24→20:31)
[2020-01-20] MEDS ORDERED: Xylocaine-Mpf 2% 5 Ml Vial ONE (17:26)
[2020-01-20 17:59] LABS: A-aADO2 -88; ABG HEMOGLOBIN 9.1; ABG POTASSIUM 3.1 (3.5-5.1); ARTERIAL BLD GAS O2 SATURATION 99.8 % (95-100); ARTERIAL BLOOD GAS FIO2 28 %; ARTERIAL BLOOD GAS PCO2 40 mmHg (35-45); ARTERIAL BLOOD GAS PO2 238 mmHg (75-100); ARTERIAL BLOOD GAS pH 7.47 (7.35-7.45); HCO3- 29.1 (22-28); HGB O2 SAT 97.6 g/dF (94-100); Methhemoglobin 1.2 % (1.4-1.5); paO2 pAO1 1.59
[2020-01-20 18:13] LABS: ANION GAP 9.3 MEQ/L (5-15); Potassium 3.3 mmol/L (3.5-5.1)
[2020-01-20 18:16] LABS: ABO TYPING O; Antibody Screen NEGATIVE (NEGATIVE); RH TYPING POSITIVE
[2020-01-20] MEDS ORDERED: SUBLIMAZE 100 MCG/2 ML ONE ×2 (18:58→21:08)
[2020-01-20] MEDS ORDERED: DILAUDID 2 MG INJECTION ONE (19:12)
[2020-01-20] MEDS ORDERED: APRESOLINE 20 MG/ML INJ ONE (19:25)
[2020-01-20] MEDS ORDERED: LOPRESSOR 5 MG/5 ML INJECTION IV ONE (19:43)
[2020-01-20 20:17] LABS: A-aADO2 525; ABG POTASSIUM 3.2 (3.5-5.1); ARTERIAL BLD GAS O2 SATURATION 99.5 % (95-100); ARTERIAL BLOOD GAS BASE EXCESS 0.3 (-2.0-2.0); ARTERIAL BLOOD GAS FIO2 100 %; ARTERIAL BLOOD GAS PCO2 38 mmHg (35-45); ARTERIAL BLOOD GAS PO2 141 mmHg (75-100); ARTERIAL BLOOD GAS pH 7.42 (7.35-7.45); CARBOXYHEMOGLOBIN 1.2 % THgb (0.0-6.9); HCO3- 24.6 (22-28); HGB O2 SAT 97.4 g/dF (94-100); Methhemoglobin 0.9 % (1.4-1.5); paO2 pAO1 0.21
[2020-01-20 20:29] LABS: ANION GAP 9.8 MEQ/L (5-15); Potassium 3.3 mmol/L (3.5-5.1)
[2020-01-20] MEDS ORDERED: MARCAINE 0.5%-EPI 1:200,000 VL IJ ONE (22:20)
[2020-01-20] MEDS ORDERED: Marcaine 0.5%/Epinephrine 10 ML ONE (22:20)
[2020-01-20 22:24] LABS: A-aADO2 509; ABG HEMOGLOBIN 8.7; ARTERIAL BLD GAS O2 SATURATION 99.6 % (95-100); ARTERIAL BLOOD GAS BASE EXCESS -1.8 (-2.0-2.0); ARTERIAL BLOOD GAS FIO2 100 %; ARTERIAL BLOOD GAS PCO2 39 mmHg (35-45); ARTERIAL BLOOD GAS PO2 155 mmHg (75-100); ARTERIAL BLOOD GAS pH 7.38 (7.35-7.45); CARBOXYHEMOGLOBIN 1.3 % THgb (0.0-6.9); HCO3- 23.1 (22-28); HGB O2 SAT 97.1 g/dF (94-100); Methhemoglobin 1.2 % (1.4-1.5); paO2 pAO1 0.23
[2020-01-20 22:25] LABS: ABG POTASSIUM 2.9 (3.5-5.1)
[2020-01-20] MEDS ORDERED: POTASSIUM CHLORIDE 20 mEq IN WATER 100ML 200 ML IV ONE (22:28)
[2020-01-20] MEDS ORDERED: Magnesium 1 Gm / 100 Ml D5W*** 200 ML IV ONE (22:35)
[2020-01-20] MEDS ORDERED: Lactated Ringers 2,000 ML IV ONE (22:39)
[2020-01-20] MEDS ORDERED: BRIDION 200MG/2ML IV ONE (22:53)
[2020-01-20] MEDS ORDERED: Sodium Chloride 0.9% 1000 ML 1,000 ML ONE (23:20)
[2020-01-20 23:41] LABS: Absolute Neutrophil Ct (ANC) 9.97 (1.4-6.9); BASOPHIL % 0.1 % (0.0-0.4); Basophil (Absolute #) 0.01 (0-0.4); Eosinophil % 0.1 % (0.00-5.0); Eosinophil (Absolute #) 0.01 (0-0.5); Hematocrit 27.3 % (35-47); Hemoglobin 8.1 gm/dl (12.0-16.0); Lymphocyte (Absolute #) 1.94 (1.0-4.6); Mean Cell Volume 80.8 fl (78-100); Mean Corpuscular Hgb Concent. 29.7 g/dl (32-36); Mean Platelet Volume 8.3 fl (7.5-11.0); Monocyte (Absolute #) 1.04 (0.0-1.3); Neutrophil % 76.8 % (36.0-66.0); Platelet Count 489 K/mm3 (150-450); Red Blood Count 3.38 M/mm3 (4.1-5.4); Red Cell Distribution Width 15.1 % (11.5-14.0)
[2020-01-20 23:48] LABS: A-aADO2 226; ABG POTASSIUM 3.7 (3.5-5.1); ABG SITE ARTERIAL LINE; ARTERIAL BLD GAS O2 SATURATION 99.2 % (95-100); ARTERIAL BLOOD GAS BASE EXCESS -2.4 (-2.0-2.0); ARTERIAL BLOOD GAS FIO2 60 %; ARTERIAL BLOOD GAS PCO2 34 mmHg (35-45); ARTERIAL BLOOD GAS PO2 159 mmHg (75-100); ARTERIAL BLOOD GAS pH 7.41 (7.35-7.45); CARBOXYHEMOGLOBIN 1.2 % THgb (0.0-6.9); HCO3- 21.6 (22-28); HGB O2 SAT 96.9 g/dF (94-100); Methhemoglobin 1.2 % (1.4-1.5); paO2 pAO1 0.41
[2020-01-20 23:52] LABS: ALBUMIN 2.7 g/dL (3.5-5.0); ALKALINE PHOSPHATASE 79 U/L (38-126); ANION GAP 8.4 MEQ/L (5-15); BLOOD UREA NITROGEN 6 mg/dL (7-17); CHLORIDE 110 mmol/L (98-107); Calcium 7.5 mg/dL (8.4-10.2); Carbon Dioxide 20 mmol/L (22-30); Creatinine 1 0.56 mg/dL (0.52-1.04); EST GLOMERULAR FILTRATION RATE > 60.0 ML/MIN; Glucose 158 mg/dL (74-106); PHOSPHOROUS 2.7 mg/dL (2.5-4.5); Potassium 3.6 mmol/L (3.5-5.1); SGOT/AST 66 U/L (14-36); SGPT/ALT 69 U/L (0-35); SODIUM 134 mmol/L (137-145); Total Protein 5.2 g/dL (6.3-8.2)
[2020-01-20 23:55] LABS: Appearance CLEAR (CLEAR); Bilirubin NEGATIVE (NEGATIVE); Blood NEGATIVE Ery/ul (0-5); Glucose NEGATIVE (NEGATIVE); Ketones NEGATIVE (NEGATIVE); Leukocyte Esterase NEGATIVE (NEGATIVE); Mucus SLIGHT /HPF (NEGATIVE); Nitrite NEGATIVE (NEGATIVE); Protein,Urine Dip 30 (Negative); Specific Gravity 1.018 (1.005-1.025); Urobilinogen NEGATIVE mg/dL (0-1)
[2020-01-21] MEDS: DILAUDID 1 MG/1ML PCA IV PRN (01:28)
[2020-01-21] MEDS: D5W/0.45NS W/ 20mEq KCl 1000 ML 1,000 ML IV SCH ×4 (02:04→20:30)
[2020-01-21] MEDS: DEXTROSE IV SCH ×5 (02:12→23:42)
[2020-01-21] MEDS: WATER IV SCH ×5 (02:12→23:42)
[2020-01-21] MEDS: ZOSYN IV SCH ×5 (02:12→23:42)
[2020-01-21 04:52] LABS: ALBUMIN 2.8 g/dL (3.5-5.0); ALKALINE PHOSPHATASE 72 U/L (38-126); ANION GAP 8.7 MEQ/L (5-15); BLOOD UREA NITROGEN 5 mg/dL (7-17); CHLORIDE 106 mmol/L (98-107); Calcium 7.4 mg/dL (8.4-10.2); Carbon Dioxide 21 mmol/L (22-30); Creatinine 1 0.56 mg/dL (0.52-1.04); EST GLOMERULAR FILTRATION RATE > 60.0 ML/MIN; Glucose 183 mg/dL (74-106); Potassium 3.9 mmol/L (3.5-5.1); SGOT/AST 52 U/L (14-36); SGPT/ALT 67 U/L (0-35); SODIUM 132 mmol/L (137-145); Total Protein 5.2 g/dL (6.3-8.2)
[2020-01-21 05:22] LABS: Absolute Neutrophil Ct (ANC) 10.64 (1.4-6.9); BASOPHIL % 0.2 % (0.0-0.4); Basophil (Absolute #) 0.02 (0-0.4); Eosinophil (Absolute #) 0 (0-0.5); Hematocrit 27.7 % (35-47); Hemoglobin 8.3 gm/dl (12.0-16.0); Lymphocyte (Absolute #) 0.81 (1.0-4.6); Lymphocytes % 6.5 % (24.0-44.0); Mean Cell Volume 81.5 fl (78-100); Mean Corpuscular Hemoglobin 24.4 pg (26-32); Mean Platelet Volume 8.6 fl (7.5-11.0); Monocyte (Absolute #) 1.05 (0.0-1.3); Monocytes % 8.4 % (0.0-12.0); Neutrophil % 84.9 % (36.0-66.0); Platelet Count 433 K/mm3 (150-450); Red Cell Distribution Width 15.2 % (11.5-14.0); White Blood Count 12.5 K/mm3 (4.0-10.5)
--- NOTE | 2020-01-21 08:41 | PROG NOTE ---
DATE: 01/20/2020 HISTORY: The patient is a 64 year old with multiple medical problems. The patient has been here and had some initial vomiting, abdominal pain and abdominal distention. She was admitted for question of partial obstruction. Dr. Madrigal was consulted over the weekend. Dr. Salazar had done the only major laparotomy procedure according to the patient in the past. He apparently took out 6 inches of small bowel and 6 inches of colon in the past. Apparently she had a lot of scar tissue at that time. She has not had any other major open laparotomy procedure or any other recently but she has been here two days. She has NG in place until this afternoon where she reportedly sneezed it out. It is hard to believe. She had some films today show some persistent gas-filled small bowel loops and stool in the colon. She said she is not passing flatus or bowel movements at this time. She is afebrile. She is nontoxic. White count is 9.4. As she has failed to dramatically improve with NG decompression, bowel rest and conservative treatment. PHYSICAL EXAMINATION: GENERAL: No acute distress. HEENT: Sclera nonicteric. NECK: No JVD. CHEST: Equal excursion, nonlabored breathing. CVS: Regular rhythm and pulse. ABDOMEN: Soft. She still has some distention. No peritoneal signs. EXTREMITIES: No cyanosis. NEURO: Alert, oriented. PSYCH: Appropriate mood and affect. IMPRESSION: Persistent at least partial small bowel obstruction. Options were discussed with the patient. She is nontoxic. However, she has failed to dramatically improve with conservative treatment, bowel rest, NG decompression. Options were discussed, consideration of exploratory laparotomy, possible bowel resection, possible ostomy versus ordering a small bowel follow through. I had a long discussion with the patient. She insists on pursuing operative intervention. She does not feel like she could tolerate try placing a new NG at this point. She is definitively not passing gas or stool for the past few days. She has a persistent partial obstruction or at least a partial obstruction and has failed a trial of conservative management, will proceed with exploratory laparotomy, lysis of adhesions, possible bowel resection, possible ostomy not expected but remotely possible should she have a carcinoma or some other issues. General risk of anesthesia, deep venous thrombosis, pulmonary embolism, pneumonia. Risk of wound complications, hernia or dehiscence. Risk of ileus or new obstruction, scar formation, possible need for bowel resection, risk of anastomotic complications, bleeding, abscess, fistula formation, leak or stenosis possibly requiring other procedures or prolonged bowel rest. General risk of anesthesia, deep venous thrombosis, pulmonary embolism, pneumonia or remote risk of possible need for diversion ostomy should she have some sort of a carcinoma or carcinomatosis process. General risk of aches, pains. Risk of hernia formation not limited to. 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 Risk of stroke or cardiopulmonary event given her comorbidities. Follow up progress note spent at least 35 minutes of which about 20 minutes spent [id number] and discussing with nursing staff and patient.
--- NOTE | 2020-01-21 09:21 | OP ---
SURGERY DATE/TIME: 01/20/2020 1009 PREOPERATIVE DIAGNOSIS: Persistent partial small bowel obstruction failed resolution with conservative management. Prior extensive laparotomy per Dr. Salazar with prior bowel resection in the past. POSTOPERATIVE DIAGNOSIS: Extensive intra-abdominal small bowel obstruction secondary to extensive intra-abdominal adhesions as well as vegetable bezoar. PROCEDURES: 1) Exploratory laparotomy extensive lysis of adhesions (3 hours). 2) Segmental resection of jejunum primary anastomosis. SURGEON: Dr. Robert Villar. ANESTHESIA: General. ESTIMATED BLOOD LOSS: Less than 350 cc. INDICATIONS: As noted above. Risks and benefits explained in detail and not limited to and consent obtained. DESCRIPTION OF PROCEDURE AND FINDINGS: The patient is taken to the operating room. General anesthesia induced. Abdomen prepped and draped in usual sterile fashion. After official time out and no disagreement with planned procedure, a midline incision made. Dissection carried down through linea alba. She had extensive abdominal adhesions. It took quite some time just to enter the abdominal cavity and required three hours of complete enterolysis extending from the proximal dilated small bowel distally to what appeared to be prior small bowel colon connection. Again, this took three hours layer by layer. The mesentery was quite friable, just touching the mesentery left an ooze. The adhesions were released. The area where there was a thickening it was unclear whether there was any small bowel tumor, stricture or other issues. It was felt this area should be resected as the area in this part of the dilated small bowel and portion of more normal caliber small bowel distal to this did not appear to do well a long time. It was felt it would be safer to go ahead and resect this area and decompress the proximal bowel through this area and primary anastomosis would be less risk than leaving the bowel in there. Therefore transected distally the more decompressed small bowel and jejunum taken down, divided and ligated with LigaSure device. Most of the blood loss just came from the generalized ooze in the mesentery earlier in the case. Appeared to have good hemostasis at this point. Proximal small bowel had been transected. It was placed off the end of the table and opened. There was a large amount of vegetable matter bezoar to the main area causing the thickening a very, very large amount this even extended in the proximal bowel. A [id number] anastomosis created with posterior row of PDS suture. [id number] staple anastomosis created. Good hemostasis noted. The stump closed with TA stapler and reinforced with 3-0 PDS. Mesenteric defect closed with 3-0 PDS. Copious amount of irrigation irrigating until clear. BASIM drain in place out lateral to the anastomotic area out towards the left abdomen. Good hemostasis. Copious amount of irrigation irrigating clear. All tacks had been removed and counts were correct. The patient did have attenuated, very weak fascia so this herniation was closed with suture only at the epigastrium with running loop 0 PDS. Once down to a little better fascia, sequential 0 PDS used to close the fascial defect. Visceral protector was then removed. All sponge, needle and instrument counts were correct x2. Subcu irrigated out. Skin closed with martinez. Retracting the abdomen had a little bit of excess fascia on the right but was able to be closed. The subcu had been irrigated out. The skin was stapled. Iodoform packing placed to be gradually advanced out as this was an unprepped case. Drain secured with PDS suture placed to bulb suction. Anesthesia placed tap blocks. The patient was given a binder. Findings discussed with the family out in the waiting area.
[2020-01-21] MEDS: PROTONIX 40 MG IV IV SCH (09:41)
[2020-01-21] MEDS: BENADRYL 50 MG/ML IV PRN (10:35)
[2020-01-21] MEDS: ENOXAPARIN SODIUM SQ SCH (13:12)
[2020-01-21] MEDS: Artificial Tears 15 ML OP PRN (14:02)
[2020-01-22] MEDS: NORCO 5/325 MG PO PRN ×3 (02:02→23:33)
[2020-01-22] MEDS: D5W/0.45NS W/ 20mEq KCl 1000 ML 1,000 ML IV SCH ×2 (05:10→18:39)
[2020-01-22] MEDS: WATER IV SCH ×5 (05:11→23:26)
[2020-01-22] MEDS: DEXTROSE IV SCH ×5 (05:11→23:26)
[2020-01-22] MEDS: ZOSYN IV SCH ×5 (05:11→23:26)
[2020-01-22 05:15] LABS: Absolute Neutrophil Ct (ANC) 6.71 (1.4-6.9); BASOPHIL % 0.2 % (0.0-0.4); Basophil (Absolute #) 0.02 (0-0.4); Eosinophil % 0.4 % (0.00-5.0); Eosinophil (Absolute #) 0.04 (0-0.5); Hematocrit 22.6 % (35-47); Lymphocyte (Absolute #) 1.47 (1.0-4.6); Lymphocytes % 15.4 % (24.0-44.0); Mean Cell Volume 80.4 fl (78-100); Mean Corpuscular Hemoglobin 24.2 pg (26-32); Mean Corpuscular Hgb Concent. 30.1 g/dl (32-36); Mean Platelet Volume 8.3 fl (7.5-11.0); Monocytes % 13.6 % (0.0-12.0); Neutrophil % 70.4 % (36.0-66.0); Platelet Count 368 K/mm3 (150-450); Red Blood Count 2.81 M/mm3 (4.1-5.4); Red Cell Distribution Width 15.1 % (11.5-14.0); White Blood Count 9.5 K/mm3 (4.0-10.5)
[2020-01-22 05:46] LABS: ALBUMIN 2.7 g/dL (3.5-5.0); ALKALINE PHOSPHATASE 74 U/L (38-126); ANION GAP 7.8 MEQ/L (5-15); BLOOD UREA NITROGEN 5 mg/dL (7-17); CHLORIDE 103 mmol/L (98-107); Calcium 8.1 mg/dL (8.4-10.2); Carbon Dioxide 24 mmol/L (22-30); Creatinine 1 0.59 mg/dL (0.52-1.04); EST GLOMERULAR FILTRATION RATE > 60.0 ML/MIN; Glucose 141 mg/dL (74-106); MAGNESIUM 1.7 mg/dL (1.6-2.3); Potassium 3.3 mmol/L (3.5-5.1); SGOT/AST 27 U/L (14-36); SGPT/ALT 55 U/L (0-35); SODIUM 131 mmol/L (137-145); Total Protein 5.3 g/dL (6.3-8.2)
[2020-01-22 06:08] LABS: Hemoglobin 6.8 gm/dl (12.0-16.0)
[2020-01-22 08:12] LABS: CROSS MATCH (PRBC) COMPATIBLE (COMPATIBLE)
[2020-01-22] MEDS ORDERED: Lasix 20 MG/2 ML IV SCH (08:15)
[2020-01-22] MEDS: Sodium Chloride 0.9% 500 ML 500 ML IV SCH (08:25)
[2020-01-22] MEDS: ENOXAPARIN SODIUM SQ SCH (09:16)
[2020-01-22] MEDS: PROTONIX 40 MG IV IV SCH (09:17)
[2020-01-22] MEDS: DILAUDID 1 MG/1ML PCA IV PRN (10:10)
--- NOTE | 2020-01-22 11:13 | PROG NOTE ---
DATE: 01/22/2020 HISTORY: Miss Ballard is postoperative day three. She is alert and oriented. She has a nasogastric tube that is not draining much. She has a Monsalve that is clear. She has Steven-Greco drain that is clear. Her incision has Charisse and is satisfactory. Her abdominal binder is satisfactory. She is not passing gas. We are considering taking the NG out. It is being clamped for four hours currently. She does look good other than just not passing gas yet. PLAN: Extraction of the NG if possible and we will start clear liquids when she starts passing flatus.
[2020-01-22] MEDS ORDERED: Xylocaine-Mpf 2% 5 Ml Vial ONE (12:47)
[2020-01-22] MEDS: Hydromorphone 1 mg/ml Injection IV PRN ×2 (13:48→17:24)
[2020-01-22 17:50] LABS: Hematocrit 31.7 % (35-47); Hemoglobin 9.8 gm/dl (12.0-16.0)
[2020-01-23] MEDS: D5W/0.45NS W/ 20mEq KCl 1000 ML 1,000 ML IV SCH ×3 (03:11→20:40)
[2020-01-23 05:07] LABS: Absolute Neutrophil Ct (ANC) 6.11 (1.4-6.9); BASOPHIL % 0.3 % (0.0-0.4); Basophil (Absolute #) 0.03 (0-0.4); Eosinophil % 2.2 % (0.00-5.0); Eosinophil (Absolute #) 0.19 (0-0.5); Hematocrit 27.9 % (35-47); Hemoglobin 8.6 gm/dl (12.0-16.0); Lymphocyte (Absolute #) 1.31 (1.0-4.6); Mean Cell Volume 81.3 fl (78-100); Mean Corpuscular Hemoglobin 25.1 pg (26-32); Mean Corpuscular Hgb Concent. 30.8 g/dl (32-36); Mean Platelet Volume 8.5 fl (7.5-11.0); Monocyte (Absolute #) 1.11 (0.0-1.3); Monocytes % 12.7 % (0.0-12.0); Neutrophil % 69.8 % (36.0-66.0); Platelet Count 333 K/mm3 (150-450); Red Blood Count 3.43 M/mm3 (4.1-5.4); Red Cell Distribution Width 15.8 % (11.5-14.0); White Blood Count 8.8 K/mm3 (4.0-10.5)
[2020-01-23 05:21] LABS: ALBUMIN 3.1 g/dL (3.5-5.0); ALKALINE PHOSPHATASE 88 U/L (38-126); ANION GAP 8.6 MEQ/L (5-15); BLOOD UREA NITROGEN 5 mg/dL (7-17); CHLORIDE 99 mmol/L (98-107); Calcium 8.5 mg/dL (8.4-10.2); Carbon Dioxide 26 mmol/L (22-30); Creatinine 1 0.62 mg/dL (0.52-1.04); EST GLOMERULAR FILTRATION RATE > 60.0 ML/MIN; Glucose 137 mg/dL (74-106); SGOT/AST 26 U/L (14-36); SGPT/ALT 48 U/L (0-35); SODIUM 131 mmol/L (137-145); Total Protein 5.8 g/dL (6.3-8.2)
[2020-01-23 05:25] LABS: Potassium 2.9 mmol/L (3.5-5.1)
[2020-01-23] MEDS: ZOSYN IV SCH ×4 (06:00→23:24)
[2020-01-23] MEDS: DEXTROSE IV SCH ×4 (06:00→23:24)
[2020-01-23] MEDS: WATER IV SCH ×4 (06:00→23:24)
[2020-01-23] MEDS ORDERED: Sodium Chloride 0.9% 500 ML 500 ML IV ONE (06:03)
[2020-01-23] MEDS: POTASSIUM CHLORIDE 20 mEq IN WATER 100ML 20 MEQ/100 ML BAG IV SCH ×2 (06:06→08:16)
[2020-01-23] MEDS: Sodium Chloride 0.9% 500 ML 500 ML IV SCH (06:15)
[2020-01-23] MEDS: NORCO 5/325 MG PO PRN ×2 (07:03→13:39)
[2020-01-23] MEDS: ENOXAPARIN SODIUM SQ SCH (08:48)
[2020-01-23] MEDS: PROTONIX 40 MG IV IV SCH (08:49)
[2020-01-23] MEDS ORDERED: ELAVIL 25 MG PO PRN (09:00)
[2020-01-23] MEDS: Zestril 20 MG PO SCH (09:46)
[2020-01-23] MEDS: Hydromorphone 1 mg/ml Injection IV PRN ×2 (16:08→20:03)
[2020-01-23] MEDS: Zofran 4 MG/2 ML VIAL IV PRN (20:16)
[2020-01-23] MEDS: ZOCOR 20MG PO SCH (21:52)
[2020-01-23] MEDS: BENADRYL 50 MG/ML IV PRN (22:29)
[2020-01-24] MEDS ORDERED: Hydromorphone 1 mg/ml Injection ONE (04:08)
[2020-01-24] MEDS: Zofran 4 MG/2 ML VIAL IV PRN (04:24)
[2020-01-24] MEDS: Hydromorphone 1 mg/ml Injection IV PRN ×2 (04:24→07:53)
[2020-01-24] MEDS: WATER IV SCH ×2 (05:33→12:13)
[2020-01-24] MEDS: DEXTROSE IV SCH ×2 (05:33→12:13)
[2020-01-24] MEDS: ZOSYN IV SCH ×2 (05:33→12:13)
[2020-01-24] MEDS: D5W/0.45NS W/ 20mEq KCl 1000 ML 1,000 ML IV SCH (05:43)
[2020-01-24 06:44] LABS: BASOPHIL % 0.2 % (0.0-0.4); Basophil (Absolute #) 0.02 (0-0.4); Eosinophil % 2.6 % (0.00-5.0); Eosinophil (Absolute #) 0.21 (0-0.5); Hemoglobin 9.6 gm/dl (12.0-16.0); Lymphocyte (Absolute #) 1.57 (1.0-4.6); Lymphocytes % 19.6 % (24.0-44.0); Mean Cell Volume 82.7 fl (78-100); Mean Corpuscular Hemoglobin 24.8 pg (26-32); Mean Platelet Volume 8.6 fl (7.5-11.0); Monocyte (Absolute #) 0.92 (0.0-1.3); Monocytes % 11.5 % (0.0-12.0); Neutrophil % 66.1 % (36.0-66.0); Platelet Count 416 K/mm3 (150-450); Red Blood Count 3.87 M/mm3 (4.1-5.4)
[2020-01-24 06:47] LABS: ALBUMIN 3.6 g/dL (3.5-5.0); ALKALINE PHOSPHATASE 109 U/L (38-126); ANION GAP 11.3 MEQ/L (5-15); BLOOD UREA NITROGEN 5 mg/dL (7-17); CHLORIDE 104 mmol/L (98-107); Calcium 9.1 mg/dL (8.4-10.2); Carbon Dioxide 22 mmol/L (22-30); Creatinine 1 0.59 mg/dL (0.52-1.04); EST GLOMERULAR FILTRATION RATE > 60.0 ML/MIN; Glucose 146 mg/dL (74-106); Potassium 3.6 mmol/L (3.5-5.1); SGOT/AST 35 U/L (14-36); SGPT/ALT 65 U/L (0-35); SODIUM 134 mmol/L (137-145); Total Protein 6.7 g/dL (6.3-8.2)
[2020-01-24] MEDS: BENADRYL 50 MG/ML IV PRN (07:27)
[2020-01-24] MEDS ORDERED: xanAX 0.25 MG PO ONE ×2 (10:45→21:58)
[2020-01-24] MEDS: NORCO 5/325 MG PO PRN ×3 (12:11→21:42)
[2020-01-24] MEDS: Zestril 20 MG PO SCH ×2 (12:12→21:42)
[2020-01-24] MEDS: ENOXAPARIN SODIUM SQ SCH (12:12)
[2020-01-24] MEDS: PROTONIX 40 MG IV IV SCH (12:13)
[2020-01-24] MEDS ORDERED: DULCOLAX 5 MG PO PRN (13:01)
[2020-01-24] MEDS ORDERED: BENADRYL 25 MG CAPSULE PO PRN (13:01)
[2020-01-24] MEDS ORDERED: Klor Con 10 MEQ PO ONE (13:03)
--- NOTE | 2020-01-24 13:07 | PCM.NOTE ---
Date and Time: 01/24/20 1300 Subjective Assessment: 64 yr old female seen and examined this am. Patient reports she is feeling better. She has had BMx2. She is frustrated about the soft diet but understands that she needs to slowly progress. She reports being anxious and fearful following her stroke. She would like someone to inform her what the plan is for tx and discharge. Patient is also frustrated that she forgets things sometimes since the stroke and is not as independent as she used to be. Patient reports that she has abdominal pain but feels that she could try to ween off of diluadid and try PO norco. She wanted a pill for her nerves. - Review of Systems Constitutional: No Fever Eyes: No Symptoms Ears, Nose, & Throat: No Symptoms Respiratory: No Symptoms Cardiac: No Symptoms Abdominal/Gastrointestinal: Abdominal Pain (mod), Nausea (only with the diluadid), No Vomiting, No Diarrhea, No Constipation Genitourinary Symptoms: No Symptoms Musculoskeletal: No Symptoms Objective Exam General Appearance: moderate distress Neurologic Exam: alert, oriented x 3, cooperative, depressed mood/affect Skin Exam: normal color, warm, dry Eye Exam: No scleral icterus Ears, Nose, Throat Exam: moist mucous membranes Neck Exam: normal inspection Respiratory Exam: normal breath sounds, lungs clear, No respiratory distress, No diminished breath sounds, No crackles/rales, No wheezing Cardiovascular Exam: regular rate/rhythm, normal heart sounds, No murmur, No friction rub, No gallop, No edema Gastrointestinal/Abdomen Exam: soft, normal bowel sounds, tenderness, other (Patient has BASIM drain and martinez intact. Dressing intact with scant drainage.), No distention, No mass Extremity Exam: No pedal edema, No swelling, No tenderness OBJECTIVE DATA Vital Signs: Vital Signs - 24 hr Temp Pulse Resp BP Pulse Ox 01/24/20 12:00 98.3 F 78 22 152/82 94 L 01/24/20 07:58 96.7 F 84 22 182/103 94 L 01/24/20 04:05 98.5 F 88 16 185/90 96 01/23/20 23:42 98.1 F 83 20 136/82 97 01/23/20 19:29 98.3 F 82 22 172/80 97 01/23/20 19:15 94 L 01/23/20 17:30 80 20 184/100 95 01/23/20 16:00 98.9 F 84 20 191/103 96 Pain Assessment - Last Documented Pain Intensity 10 Pain Scale Used 0-10 Pain Scale Intake and Output: Intake & Output 01/22/20 01/23/20 01/24/20 01/25/20 11:59 11:59 11:59 11:59 Intake Total 7817 416 5626 Output Total 3145 3750 3320 Balance -1815 -3630 1755 Lab Results: Lab Results-Last 24 Hours 01/20/20 01/23/20 01/23/20 Range/Units 21:57 13:15 16:00 WBC (4.0-10.5) K/mm3 RBC (4.1-5.4) M/mm3 Hgb (12.0-16.0) gm/dl Hct (35-47) % MCV (78-100) fl MCH (26-32) pg MCHC (32-36) g/dl RDW (11.5-14.0) % Plt Count (150-450) K/mm3 MPV (7.5-11.0) fl Gran % (36.0-66.0) % Eos # (Auto) (0-0.5) Absolute Lymphs (auto) (1.0-4.6) Absolute Monos (auto) (0.0-1.3) Lymphocytes % (24.0-44.0) % Monocytes % (0.0-12.0) % Eosinophils % (0.00-5.0) % Basophils % (0.0-0.4) % Absolute Granulocytes (1.4-6.9) Basophils # (0-0.4) Sodium (137-145) mmol/L Potassium 3.5 D (3.5-5.1) mmol/L Chloride (98-107) mmol/L Carbon Dioxide (22-30) mmol/L Anion Gap (5-15) MEQ/L BUN (7-17) mg/dL Creatinine (0.52-1.04) mg/dL Estimated GFR ML/MIN Glucose (74-106) mg/dL POC Glucometer 144 H (74 to 106) mg/dL Calcium (8.4-10.2) mg/dL Total Bilirubin (0.2-1.3) mg/dL AST (14-36) U/L ALT (0-35) U/L Alkaline Phosphatase (38-126) U/L Serum Total Protein (6.3-8.2) g/dL Albumin (3.5-5.0) g/dL Surg PTH Diagnosis See Note H 01/23/20 01/24/20 01/24/20 Range/Units 21:01 05:55 05:55 WBC 8.0 (4.0-10.5) K/mm3 RBC 3.87 L (4.1-5.4) M/mm3 Hgb 9.6 L (12.0-16.0) gm/dl Hct 32.0 L (35-47) % MCV 82.7 (78-100) fl MCH 24.8 L (26-32) pg MCHC 30.0 L (32-36) g/dl RDW 16.0 H (11.5-14.0) % Plt Count 416 (150-450) K/mm3 MPV 8.6 (7.5-11.0) fl Gran % 66.1 H (36.0-66.0) % Eos # (Auto) 0.21 (0-0.5) Absolute Lymphs (auto) 1.57 (1.0-4.6) Absolute Monos (auto) 0.92 (0.0-1.3) Lymphocytes % 19.6 L (24.0-44.0) % Monocytes % 11.5 (0.0-12.0) % Eosinophils % 2.6 (0.00-5.0) % Basophils % 0.2 (0.0-0.4) % Absolute Granulocytes 5.30 (1.4-6.9) Basophils # 0.02 (0-0.4) Sodium 134 L (137-145) mmol/L Potassium 3.6 (3.5-5.1) mmol/L Chloride 104 (98-107) mmol/L Carbon Dioxide 22 (22-30) mmol/L Anion Gap 11.3 (5-15) MEQ/L BUN 5 L (7-17) mg/dL Creatinine 0.59 (0.52-1.04) mg/dL Estimated GFR > 60.0 ML/MIN Glucose 146 H (74-106) mg/dL POC Glucometer 130 H (74 to 106) mg/dL Calcium 9.1 (8.4-10.2) mg/dL Total Bilirubin 0.40 (0.2-1.3) mg/dL AST 35 (14-36) U/L ALT 65 H (0-35) U/L Alkaline Phosphatase 109 (38-126) U/L Serum Total Protein 6.7 (6.3-8.2) g/dL Albumin 3.6 (3.5-5.0) g/dL Surg PTH Diagnosis 01/24/20 01/24/20 Range/Units 07:21 11:18 WBC (4.0-10.5) K/mm3 RBC (4.1-5.4) M/mm3 Hgb (12.0-16.0) gm/dl Hct (35-47) % MCV (78-100) fl MCH (26-32) pg MCHC (32-36) g/dl RDW (11.5-14.0) % Plt Count (150-450) K/mm3 MPV (7.5-11.0) fl Gran % (36.0-66.0) % Eos # (Auto) (0-0.5) Absolute Lymphs (auto) (1.0-4.6) Absolute Monos (auto) (0.0-1.3) Lymphocytes % (24.0-44.0) % Monocytes % (0.0-12.0) % Eosinophils % (0.00-5.0) % Basophils % (0.0-0.4) % Absolute Granulocytes (1.4-6.9) Basophils # (0-0.4) Sodium (137-145) mmol/L Potassium (3.5-5.1) mmol/L Chloride (98-107) mmol/L Carbon Dioxide (22-30) mmol/L Anion Gap (5-15) MEQ/L BUN (7-17) mg/dL Creatinine (0.52-1.04) mg/dL Estimated GFR ML/MIN Glucose (74-106) mg/dL POC Glucometer 142 H 117 H (74 to 106) mg/dL Calcium (8.4-10.2) mg/dL Total Bilirubin (0.2-1.3) mg/dL AST (14-36) U/L ALT (0-35) U/L Alkaline Phosphatase (38-126) U/L Serum Total Protein (6.3-8.2) g/dL Albumin (3.5-5.0) g/dL Surg PTH Diagnosis Multi-Disciplinary Progress Notes: Multi-Disciplinary Progress Notes 01/23/20 14:00 Nutrition Note by Breanna Larry F/u Note: Note Pt diet advanced to clear liqs w/po intake 25-75%. Full liquid diet ordered for dinner 01/22. Pt s/p partial colectomy. residential treatment staff reports bowel sounds, no flatus, BM at this time. no new wt. labs 01/22: Na 131, K+ 2.9, glu 137, alb 3.1, hgb 8.6, hct 27.9. NPO x 1 day. Pt with altered gi fxn as r/t changes in motility a/e/b bowel resection. Goal #1) po intake 50-75% x most meals. F/u prn. LYUNG Uerña Initialized on 01/23/20 14:00 - END OF NOTE Assessment/Plan (1) Small bowel obstruction Current Visit: Yes Status: Acute Assessment & Plan: Patient is post op Code(s): K56.609 - UNSP INTESTNL OBST, UNSP TO PARTIAL VERSUS COMPLETE OBST
[2020-01-24] MEDS: ZOFRAN ODT 4 MG PO PRN (18:41)
[2020-01-24] MEDS: ZOCOR 20MG PO SCH (21:42)
[2020-01-24] MEDS: Augmentin 875-125 Tablet PO SCH (21:43)
[2020-01-25] MEDS: NORCO 5/325 MG PO PRN ×3 (01:44→15:10)
[2020-01-25 06:06] LABS: Absolute Neutrophil Ct (ANC) 4.51 (1.4-6.9); BASOPHIL % 0.5 % (0.0-0.4); Basophil (Absolute #) 0.04 (0-0.4); Eosinophil % 3.1 % (0.00-5.0); Eosinophil (Absolute #) 0.23 (0-0.5); Hematocrit 30.1 % (35-47); Hemoglobin 9.3 gm/dl (12.0-16.0); Lymphocyte (Absolute #) 1.81 (1.0-4.6); Lymphocytes % 24.4 % (24.0-44.0); Mean Cell Volume 81.1 fl (78-100); Mean Corpuscular Hemoglobin 25.1 pg (26-32); Mean Corpuscular Hgb Concent. 30.9 g/dl (32-36); Mean Platelet Volume 8.3 fl (7.5-11.0); Monocyte (Absolute #) 0.82 (0.0-1.3); Monocytes % 11.1 % (0.0-12.0); Neutrophil % 60.9 % (36.0-66.0); Platelet Count 441 K/mm3 (150-450); Red Blood Count 3.71 M/mm3 (4.1-5.4); Red Cell Distribution Width 15.9 % (11.5-14.0); White Blood Count 7.4 K/mm3 (4.0-10.5)
[2020-01-25] MEDS ORDERED: Protonix 40MG Tablet PO SCH (10:00)
[2020-01-25] MEDS ORDERED: Klor Con 10 MEQ PO SCH (10:00)
[2020-01-25] MEDS ORDERED: Acidophilus TABLET PO SCH (10:00)
[2020-01-25] MEDS: Zestril 20 MG PO SCH (10:34)
[2020-01-25] MEDS: Augmentin 875-125 Tablet PO SCH (10:35)
[2020-01-25] MEDS: ENOXAPARIN SODIUM SQ SCH (10:35)
--- NOTE | 2020-01-25 15:09 | PCM.DS ---
Discharge Summary Date of Admission: 01/19/20 08:40 Date of Discharge: 64 yr Admitting Physician: LYDIA WHITFIELD Consults: Consults on Case 01/18/20 17:20 Consult Surgery ROUTINE Primary Care Provider: LYDIA WHITFIELD Allergies Allergies morphine Allergy (Severe, Verified 10/23/19 15:48) Irregular Heart Beat sulfamethoxazole [From Bactrim] Allergy (Intermediate, Verified 10/23/19 15:48) Hives trimethoprim [From Bactrim] Allergy (Intermediate, Verified 10/23/19 15:48) Hives fluoxetine HCl [From Prozac] Adverse Reaction (Intermediate, Verified 10/23/19 15:48) homicidal thoughts homicidal thoughts Hospital Summary - Hospital Course Hospital Course: The patient is a 64 year old white female who has had the above problems for the past few days. She reports a normal bowel movement two days ago. She has been having problems that felt like she was getting so distended she felt like she was going to bust. The patient does report previously having had bowel resection surgery due to retained sponge after hysterectomy when she was in her 20s. The patient has had a couple of episodes since that time with partial bowel obstruction which apparently relieved on its own. Patient was admitted to the hospital and surgery was consulted please refer to surgery's note for details. P atient started to have improvement of symptoms. She started having BMs and her diet was progressed. Patient wanted to go home. Surgery wanted patient to follow up in one week. Patient will have drain pulled prior to discharge and will remove the rest of the wick herself. - Vitals & Intake/Output Vital Signs: Vital Signs Temperature 98.3 F 01/25/20 12:00 Pulse Rate 79 01/25/20 12:00 Respiratory Rate 22 01/25/20 12:00 Blood Pressure 184/84 01/25/20 12:00 O2 Sat by Pulse Oximetry 96 01/25/20 12:00 Intake & Output: Intake & Output 01/23/20 01/24/20 01/25/20 01/26/20 11:59 11:59 11:59 11:59 Intake Total 120 5075 2107 Output Total 6630 3080 06753 Balance -3631 7832 -09342 - Lab Result Diagrams: 01/25/20 05:50 01/24/20 05:55 Lab Results-Last 24 Hrs: Lab Results-Last 24 Hours 01/24/20 01/24/20 01/25/20 Range/Units 16:03 21:01 05:50 WBC 7.4 (4.0-10.5) K/mm3 RBC 3.71 L (4.1-5.4) M/mm3 Hgb 9.3 L (12.0-16.0) gm/dl Hct 30.1 L (35-47) % MCV 81.1 (78-100) fl MCH 25.1 L (26-32) pg MCHC 30.9 L (32-36) g/dl RDW 15.9 H (11.5-14.0) % Plt Count 441 (150-450) K/mm3 MPV 8.3 (7.5-11.0) fl Gran % 60.9 (36.0-66.0) % Eos # (Auto) 0.23 (0-0.5) Absolute Lymphs (auto) 1.81 (1.0-4.6) Absolute Monos (auto) 0.82 (0.0-1.3) Lymphocytes % 24.4 (24.0-44.0) % Monocytes % 11.1 (0.0-12.0) % Eosinophils % 3.1 (0.00-5.0) % Basophils % 0.5 (0.0-0.4) % Absolute Granulocytes 4.51 (1.4-6.9) Basophils # 0.04 (0-0.4) POC Glucometer 150 H 145 H (74 to 106) mg/dL 01/25/20 01/25/20 Range/Units 07:12 11:40 WBC (4.0-10.5) K/mm3 RBC (4.1-5.4) M/mm3 Hgb (12.0-16.0) gm/dl Hct (35-47) % MCV (78-100) fl MCH (26-32) pg MCHC (32-36) g/dl RDW (11.5-14.0) % Plt Count (150-450) K/mm3 MPV (7.5-11.0) fl Gran % (36.0-66.0) % Eos # (Auto) (0-0.5) Absolute Lymphs (auto) (1.0-4.6) Absolute Monos (auto) (0.0-1.3) Lymphocytes % (24.0-44.0) % Monocytes % (0.0-12.0) % Eosinophils % (0.00-5.0) % Basophils % (0.0-0.4) % Absolute Granulocytes (1.4-6.9) Basophils # (0-0.4) POC Glucometer 98 118 H (74 to 106) mg/dL Micro Results-Entire Visit: Microbiology 01/20/20 18:12 Urine Culture - Final Urine, Catheterized NO GROWTH Accuchecks Date 01/25/20 Date 01/25/20 Date 01/24/20 Time 11:30 Time 07:15 Time 15:05 - Procedures and Test Procedures and Tests throughout Hospitalization: Therapy Orders & Screens 01/19/20 09:15 EKG ROUTINE Comment: Diagnosis: Small Bowel Obstruction 01/21/20 00:45 Oxygen NASAL CANNULA 2 lpm Comment: Diagnosis: Small Bowel Obstruction 01/21/20 02:00 Incentive Spirometry TID Comment: Diagnosis: Small Bowel Obstruction - Discharge Disposition: Home, Self-Care Condition: Stable Prescriptions: New Lactobacillus Acidophilus [Acidophilus TABLET] 2 tab PO DAILY 9 Days #18 tablet Amox Tr/Potass Clav. 875 mg [Augmentin 875-125 Tablet] 875 mg PO BID 9 Days #18 tablet Bisacodyl 5 mg [Dulcolax 5 mg] 5 mg PO TID PRN 10 Days #30 tablet.ec PRN Reason: Constipation Amitriptyline HCl 25 mg [Elavil 25 mg] 50 mg PO HS PRN PRN 10 Days #20 tablet PRN Reason: Anxiety Lisinopril 20 mg [Zestril 20 MG] 20 mg PO BID 30 Days #60 tablet Ondansetron ODT 4 MG [Zofran Odt 4 mg] 4 mg PO Q6H PRN PRN 6 Days #24 tab.rapdis PRN Reason: Nausea/Vomiting Continue Clopidogrel Bisulfate [Clopidogrel] 75 mg PO DAILY Atorvastatin Calcium 80 mg PO HS Gabapentin 300 mg PO TID PRN PRN Reason: Pain Amitriptyline HCl 25 mg [Elavil 25 mg] 2 - 3 tab PO HS PRN PRN Reason: 2-3 PANTOPRAZOLE 40 mg Tablet [Protonix 40MG Tablet] 40 mg PO DAILY Metformin HCl 850 mg [Glucophage 850 MG] 850 mg PO BID Apixaban [Eliquis] 5 mg PO BID Meclizine HCl 25 mg [Antivert 25 mg] 25 mg PO TID PRN PRN PRN Reason: Dizziness Discontinued lisinopriL [Lisinopril] 20 mg PO DAILY Omeprazole 20 mg PO DAILY Additional Instructions: Patient to follow up with surgery in one week Follow up with: LYDIA WHITFIELD [Primary Care Provider] - 1 Week
[2020-01-25] MEDS: ZOFRAN ODT 4 MG PO PRN (15:23)
[2020-01-25 17:44] VITALS: BP 191/94; PULSE 91; O2SAT 98
== END 2020-01-25 18:06 | disposition home or self-care (01) | DRG 331 ==
LOC: ED 13:53 → MED SURG 18:14 → OBSVTOIN 01-19 08:40 → MED SURG 01-20 22:20 → ICU 01-20 22:20 → MED SURG 01-21 08:59
PROVIDERS: ADMIT Family Medicine; ATTEND Family Medicine
PROC: 0DBA0ZZ Excision of Jejunum, Open Approach (ICD-10-PCS; principal; 2020-01-20)
PROC: 0DNA0ZZ Release Jejunum, Open Approach (ICD-10-PCS; 2020-01-20)
DX: K56.51 Intestinal adhesions [bands], with partial obstruction (principal); T18.3XXA Foreign body in small intestine, initial encounter; E11.9 Type 2 diabetes mellitus without complications; J44.9 Chronic obstructive pulmonary disease, unspecified; I10 Essential (primary) hypertension; Z86.73 Personal history of transient ischemic attack (TIA), and cerebral infarction without residual deficits; Z86.711 Personal history of pulmonary embolism
CPT/HCPCS: 36000; 36415; 36600; 36620; 64488; 74021; 74177; 76937; 76942; 80051; 80053; 80061; 81001; 82375; 82803; 82962; 83036; 83605; 83690; 83721; 83735; 84100; 84132; 85014; 85018; 85025; 86850; 86900; 86901; 86922; 87086; 88307; 93005; 93268; 94760; 94762; 96360; 96361; 96374; 96375; 99140; 99285; 99291; J0330; J0360; J0694; J1170; J1200; J1650; J1940; J2250; J2405; J2704; J3010; J3475; J3480; L0625; P9016; Q0162; A9270-GY; G0378

== ENCOUNTER 2020-01-29 14:40 | Inpatient (IN) | payer OTHER ==
[2020-01-29] MEDS ORDERED: Sodium Chloride 0.9% 1000 ML 1,000 ML IV SCH ×2 (15:30→20:15)
[2020-01-29] MEDS ORDERED: Zofran 4 MG/2 ML VIAL ONE ×2 (15:35→18:12)
--- NOTE | 2020-01-29 15:42 | ERPHSYRPT ---
- History of Present Illness Time Seen by Provider: 01/29/20 14:50 Historian: patient Exam Limitations: no limitations Patient Subjective Stated Complaint: abd pain Triage Nursing Assessment: pt to ED c/o abd pain and NVD x 3 days. states she had bowel obs surgery last week, was DC home Sunday and began feeling bad Sunday night. has been intermittently vomiting since then. diarrhea when BMs occur. rates 6/10 gross abd pain that radiates to chest. normally ambulates per self but was weak and unsteady on arrival. A&Ox4. Physician History: Patient is a 64-year-old female presents to our ED for evaluation of abdominal pain, nausea vomiting and diarrhea. Symptoms have been ongoing for 3 days. Patient advises that she had a small bowel resection approximately 9 days ago. Patient has been having intermittent symptoms since then. Symptoms became progressive 3 days ago. No trauma. No fever. Pain rated 6 out of 10. Pain tends to radiate to the chest. Abdominal pain is primarily periumbilical. Patient states she has not passed gas today. Decreased p.o. Patient voices no other complaints or concerns at this time. Timing/Duration: week(s) Activities at Onset: none Quality: aching Abdominal Pain Onset Location: periumbilical Pain Radiation: chest Severity of Pain-Max: moderate Severity of Pain-Current: mild Modifying Factors: Improves With: vomiting Associated Symptoms: chest pain, diarrhea, nausea, vomiting, No neck pain, No shortness of breath Previous symptoms: same symptoms as today Allergies/Adverse Reactions: morphine Allergy (Severe, Verified 01/29/20 16:16) Irregular Heart Beat sulfamethoxazole [From Bactrim] Allergy (Intermediate, Verified 01/29/20 16:16) Hives trimethoprim [From Bactrim] Allergy (Intermediate, Verified 01/29/20 16:16) Hives fluoxetine HCl [From Prozac] Adverse Reaction (Intermediate, Verified 01/29/20 16:16) homicidal thoughts homicidal thoughts Home Medications: Clopidogrel Bisulfate [Clopidogrel] 75 mg PO DAILY 10/09/19 [History] Atorvastatin Calcium 80 mg PO HS 10/23/19 [History] Gabapentin 300 mg PO TID PRN 10/23/19 [History] PANTOPRAZOLE 40 mg Tablet [Protonix 40MG Tablet] 40 mg PO DAILY 10/23/19 [History] Apixaban [Eliquis] 5 mg PO BID 01/18/20 [History] Metformin HCl 850 mg [Glucophage 850 MG] 850 mg PO BID 01/18/20 [History] Amitriptyline HCl 25 mg [Elavil 25 mg] 25 mg PO HS PRN PRN 01/29/20 [History] Loratadine 10 mg PO DAILY 01/29/20 [History] Promethazine HCl 25 mg [Phenergan 25 mg] 25 mg PO DAILY 01/29/20 [History] Hx Tetanus, Diphtheria Vaccination/Date Given: No Hx Influenza Vaccination/Date Given: No Hx Pneumococcal Vaccination/Date Given: No Immunizations Up to Date: No Travel Risk - International Travel Have you traveled outside of the country in past 3 weeks: No - Coronavirus Screening Are you exhibiting any of the following symptoms?: Yes Symptoms: Vomiting/Diarrhea Close contact with a COVID-19 positive Pt in past 14-21 Days: No - Review of Systems Constitutional: No Symptoms, No Fever, No Chills Eyes: No Symptoms Ears, Nose, & Throat: No Symptoms Respiratory: No Symptoms, No Cough, No Dyspnea Cardiac: No Symptoms, No Chest Pain, No Edema, No Syncope Abdominal/Gastrointestinal: No Symptoms, No Abdominal Pain, No Nausea, No Vomiting, No Diarrhea Genitourinary Symptoms: No Symptoms, No Dysuria Musculoskeletal: No Symptoms, No Back Pain, No Neck Pain Skin: No Symptoms, No Rash Neurological: No Symptoms, No Dizziness, No Focal Weakness, No Sensory Changes Psychological: No Symptoms Endocrine: No Symptoms Hematologic/Lymphatic: No Symptoms All Other Systems: Reviewed and Negative - Past Medical History Pertinent Past Medical History: Yes Neurological History: Peripheral Neuropathy, Stroke, TIA ENT History: No Pertinent History Cardiac History: Angina, Coronary Artery Disease, High Cholesterol, Hypertension Respiratory History: Asthma, COPD, Pulmonary Embolism Endocrine Medical History: Diabetes Type II, Other Musculoskeletal History: Arthritis, Other GI Medical History: Ulcer, Other History: No Pertinent History Psycho-Social History: Anxiety, Depression Female Reproductive Disorders: Ovarian Cancer, Uterine Cancer Other Medical History: hx of bleeding ulcer and ileus, [place]ien[place]ocks disease, stroke in september 2019 (right sided weakness). . pt states TMJ. early onset Parkinsons disease, right hip fx - Past Surgical History Past Surgical History: Yes Neuro Surgical History: No Pertinent History Cardiac: Cardiac Catheterization Respiratory: No Pertinent History Gastrointestinal: Appendectomy, Bowel Surgery, Cholecystectomy, Hernia Repair Genitourinary: No Pertinent History Musculoskeletal: Orthopedic Surgery Female Surgical History: Hysterectomy, Tubal Ligation Other Surgical History: bone auto graft to wrist, collar bone surgery, heart cath 06/2019. bowel obstruction 01/2020 - Social History Smoking Status: Former smoker How long have you smoked: years Exposure to second hand smoke: No Drug Use: none Patient Lives Alone: No - Female History Hx Now: No - Nursing Vital Signs Nursing Vital Signs: Initial Vital Signs Temperature 98.0 F 01/29/20 14:45 Pulse Rate 101 H 01/29/20 14:45 Respiratory Rate 17 01/29/20 14:45 Blood Pressure 154/93 01/29/20 14:45 O2 Sat by Pulse Oximetry 99 01/29/20 14:45 Pain Scale Pain Intensity 4 - Physical Exam General Appearance: no apparent distress, alert Eye Exam: PERRL/EOMI, eyes nml inspection Ears, Nose, Throat Exam: normal ENT inspection, pharynx normal, moist mucous membranes Neck Exam: normal inspection, non-tender, supple, full range of motion Respiratory Exam: normal breath sounds, lungs clear, No respiratory distress Cardiovascular Exam: regular rate/rhythm, normal heart sounds Gastrointestinal/Abdomen Exam: soft, tenderness, No mass Back Exam: normal inspection, normal range of motion, No CVA tenderness, No vertebral tenderness Extremity Exam: normal inspection, normal range of motion, pelvis stable Neurologic Exam: alert, oriented x 3, cooperative, normal mood/affect, nml cerebellar function, sensation nml, No motor deficits Skin Exam: normal color, warm, dry SpO2 Interpretation: normal SpO2: 99 O2 Delivery: Room Air - Course Nursing assessment & vital signs reviewed: Yes EKG Interpreted by Me: RATE (94), Sinus Rhythm, NORMAL AXIS, NORMAL INTERVALS - CT Exams Abdomen/Pelvis CT Interpretation: Tele-radiologist Report (Abnormal fluid this tended stomach and small bowel loops with small bowel up to 4.5 cm diameter favoring small bowel obstruction. Transition point at surgical anastomosis.) Chest CT Interpretation: Tele-radiologist Report (Mild respiration artifacts limit PE evaluation. New tiny nonoccluding PE distal lateral segmental branch of the left lower lobe. Stable bilateral peripheral atelectasis versus scarring, old right clavicle fracture and old bilateral rib fractures.) Ordered Tests: Active Orders 24 hr Category Date Time Status Up With Assistance ROUTINE Activity 01/29/20 20:58 Active Block Trimmer STAT Care 01/29/20 15:37 Completed Code Status Order ROUTINE Care 01/29/20 20:58 Active EKG-ER Only STAT Care 01/29/20 15:30 Completed IV Care Q6H Care 01/29/20 20:58 Active IV Insertion STAT Care 01/29/20 15:30 Completed IV Insertion-2nd Peripheral STAT Care 01/29/20 18:43 Completed NG to Suction (Insertion) ROUTINE Care 01/29/20 17:59 Completed Neuro Checks Q4H Care 01/29/20 20:[address] in Observation ROUTINE Care 01/29/20 20:58 Active Pulse Oximetry (ED) STAT Care 01/29/20 15:30 Completed Telemetry q6h Care 01/29/20 20:58 Active ABDOMEN AND PELVIS W CONTRAST [CT] Stat Exams 01/29/20 15:39 Taken CHEST 1 VIEW (PORTABLE) Stat Exams 01/29/20 20:02 Taken CHEST WITH CONTRAST [CT] Stat Exams 01/29/20 17:54 Taken CBC W DIFF AM.LAB Lab 01/30/20 02:30 Completed CBC W DIFF Stat Lab 01/29/20 16:11 Completed CMP AM.LAB Lab 01/30/20 02:30 Completed CMP Stat Lab 01/29/20 16:11 Completed D-DIMER QUANTITATIVE Stat Lab 01/29/20 16:11 Completed LIPASE Stat Lab 01/29/20 16:11 Completed MAGNESIUM Stat Lab 01/29/20 16:11 Completed TROPONIN Q3H Lab 01/29/20 16:11 Completed TROPONIN Q3H Lab 01/29/20 18:45 Completed TROPONIN Q3H Lab 01/29/20 22:15 Completed TROPONIN Q3H Lab 01/30/20 02:30 Completed TROPONIN Q3H Lab 01/30/20 04:50 Completed UA W/RFX UR CULTURE Stat Lab 01/29/20 15:53 Completed Pulse Oximetry CONTINUOUS RT 01/29/20 20:58 Active Medication Summary Generic Name Dose Route Start Last Admin Trade Name Freq PRN Reason Stop Dose Admin Enoxaparin Sodium 83 mg 01/29/20 22:00 01/29/20 22:27 Enoxaparin Sodium SQ 02/28/20 21:59 Not Given BID BRADY Hydromorphone HCl 0.5 mg 01/29/20 20:58 01/30/20 06:42 Hydromorphone 1 Mg/Ml Injection IV 02/03/20 20:57 0.5 mg Q4H PRN PRN Administration PAIN Magnesium Sulfate/Dextrose 100 mls @ 100 mls/hr 01/29/20 17:45 01/29/20 21:59 Magnesium 1 Gm / 100 Ml D5w IV 01/29/20 19:44 100 mls/hr Q1H BRADY Administration Potassium Chloride 20 meq in 100 mls @ 50 mls/hr 01/29/20 18:00 01/29/20 22:28 Potassium Chloride 20 Meq In Water 100ml IV 01/29/20 21:59 50 mls/hr Q2H BRADY Administration Sodium Chloride 1,000 mls @ 100 mls/hr 01/29/20 20:58 Sodium Chloride 0.9% 1000 Ml IV 02/28/20 20:57 .Q10H BRADY Ondansetron HCl 4 mg 01/29/20 20:58 01/30/20 01:58 Zofran 4 Mg/2 Ml Vial IV 02/28/20 20:57 4 mg Q6H PRN PRN Administration NAUSEA/VOMITING Discontinued Medications Generic Name Dose Route Start Last Admin Trade Name Freq PRN Reason Stop Dose Admin Diphenhydramine HCl 25 mg 01/29/20 18:25 01/29/20 18:27 Benadryl 50 Mg/Ml IV 01/29/20 18:26 25 mg STAT ONE Administration Diphenhydramine HCl Confirm 01/29/20 18:26 Benadryl 50 Mg/Ml Administered 01/29/20 18:27 Dose 50 mg .ROUTE .STK-MED ONE Hydromorphone HCl 0.5 mg 01/29/20 18:05 01/29/20 18:14 Hydromorphone 1 Mg/Ml Injection IV 01/29/20 18:06 0.5 mg STAT ONE Administration Hydromorphone HCl Confirm 01/29/20 18:13 Hydromorphone 1 Mg/Ml Injection Administered 01/29/20 18:14 Dose 1 mg .ROUTE .STK-MED ONE Sodium Chloride 1,000 mls @ 100 mls/hr 01/29/20 15:30 01/29/20 15:49 Sodium Chloride 0.9% 1000 Ml IV 02/28/20 15:29 100 mls/hr .Q10H BRADY Administration Sodium Chloride 1,000 mls @ 100 mls/hr 01/29/20 20:15 01/29/20 20:15 Sodium Chloride 0.9% 1000 Ml IV 02/28/20 20:14 100 mls/hr .Q10H BRADY Administration Sodium Chloride Confirm 01/29/20 15:47 Sodium Chloride 0.9% 1000 Ml Administered 01/29/20 15:48 Dose 1,000 mls @ ud .ROUTE .STK-MED ONE Sodium Chloride Confirm 01/29/20 20:11 Sodium Chloride 0.9% 1000 Ml Administered 01/29/20 20:12 Dose 1,000 mls @ ud .ROUTE .STK-MED ONE Lorazepam 0.5 mg 01/29/20 19:32 01/29/20 19:33 Ativan 2 Mg/1 Ml Vial IV 01/29/20 19:33 0.5 mg 1XONLY ONE Administration Lorazepam Confirm 01/29/20 19:30 Ativan 2 Mg/1 Ml Vial Administered 01/29/20 19:31 Dose 2 mg .ROUTE .STK-MED ONE Ondansetron HCl Confirm 01/29/20 15:35 Zofran 4 Mg/2 Ml Vial Administered 01/29/20 15:36 Dose 4 mg .ROUTE .STK-MED ONE Ondansetron HCl 4 mg 01/29/20 15:48 01/29/20 15:48 Zofran 4 Mg/2 Ml Vial IV 01/29/20 15:49 4 mg STAT ONE Administration Ondansetron HCl 4 mg 01/29/20 18:07 01/29/20 18:15 Zofran 4 Mg/2 Ml Vial IV 01/29/20 18:08 4 mg STAT ONE Administration Ondansetron HCl Confirm 01/29/20 18:12 Zofran 4 Mg/2 Ml Vial Administered 01/29/20 18:13 Dose 4 mg .ROUTE .STK-MED ONE Lab/Rad Data: Laboratory Result Diagrams 01/29/20 16:11 01/29/20 16:11 Laboratory Results 01/29/20 01/29/20 01/29/20 Range/Units 18:45 16:11 16:11 WBC (4.0-10.5) K/mm3 RBC (4.1-5.4) M/mm3 Hgb (12.0-16.0) gm/dl Hct (35-47) % MCV (78-100) fl MCH (26-32) pg MCHC (32-36) g/dl RDW (11.5-14.0) % Plt Count (150-450) K/mm3 MPV (7.5-11.0) fl Gran % (36.0-66.0) % Eos # (Auto) (0-0.5) Absolute Lymphs (auto) (1.0-4.6) Absolute Monos (auto) (0.0-1.3) Lymphocytes % (24.0-44.0) % Monocytes % (0.0-12.0) % Eosinophils % (0.00-5.0) % Basophils % (0.0-0.4) % Absolute Granulocytes (1.4-6.9) Basophils # (0-0.4) D-Dimer 2612 H* (215-500) ng/mL Sodium (137-145) mmol/L Potassium (3.5-5.1) mmol/L Chloride (98-107) mmol/L Carbon Dioxide (22-30) mmol/L Anion Gap (5-15) MEQ/L BUN (7-17) mg/dL Creatinine (0.52-1.04) mg/dL Estimated GFR ML/MIN Glucose (74-106) mg/dL Calcium (8.4-10.2) mg/dL Magnesium (1.6-2.3) mg/dL Total Bilirubin (0.2-1.3) mg/dL AST (14-36) U/L ALT (0-35) U/L Alkaline Phosphatase (38-126) U/L Troponin I < 0.012 < 0.012 (0.000-0.034) ng/mL Serum Total Protein (6.3-8.2) g/dL Albumin (3.5-5.0) g/dL Lipase (23-300) U/L Urine Color (YELLOW) Urine Appearance (CLEAR) Urine pH (5-6) Ur Specific [place] (1.005-1.025) Urine Protein (Negative) Urine Ketones (NEGATIVE) Urine Blood (0-5) Parviz/ul Urine Nitrite (NEGATIVE) Urine Bilirubin (NEGATIVE) Urine Urobilinogen (0-1) mg/dL Ur Leukocyte Esterase (NEGATIVE) Urine WBC (Auto) (0-5) /HPF Urine RBC (Auto) (0-2) /HPF U Hyaline Cast (Auto) (0-2) /LPF U Epithel Cells (Auto) (FEW) /HPF Urine Culture Reflexed (NO) Urine Glucose (NEGATIVE) mg/dL 01/29/20 01/29/20 01/29/20 Range/Units 16:11 16:11 15:53 WBC 10.4 (4.0-10.5) K/mm3 RBC 4.53 (4.1-5.4) M/mm3 Hgb 11.5 L (12.0-16.0) gm/dl Hct 36.1 (35-47) % MCV 79.7 (78-100) fl MCH 25.4 L (26-32) pg MCHC 31.9 L (32-36) g/dl RDW 16.3 H (11.5-14.0) % Plt Count 718 H (150-450) K/mm3 MPV 8.1 (7.5-11.0) fl Gran % 73.6 H (36.0-66.0) % Eos # (Auto) 0.02 (0-0.5) Absolute Lymphs (auto) 1.75 (1.0-4.6) Absolute Monos (auto) 0.93 (0.0-1.3) Lymphocytes % 16.9 L (24.0-44.0) % Monocytes % 9.0 (0.0-12.0) % Eosinophils % 0.2 (0.00-5.0) % Basophils % 0.3 (0.0-0.4) % Absolute Granulocytes 7.64 H (1.4-6.9) Basophils # 0.03 (0-0.4) D-Dimer (215-500) ng/mL Sodium 134 L (137-145) mmol/L Potassium 3.2 L (3.5-5.1) mmol/L Chloride 100 (98-107) mmol/L Carbon Dioxide 21 L (22-30) mmol/L Anion Gap 15.4 H (5-15) MEQ/L BUN 3 L (7-17) mg/dL Creatinine 0.69 (0.52-1.04) mg/dL Estimated GFR > 60.0 ML/MIN Glucose 119 H (74-106) mg/dL Calcium 9.5 (8.4-10.2) mg/dL Magnesium 1.5 L (1.6-2.3) mg/dL Total Bilirubin 0.30 (0.2-1.3) mg/dL AST 18 (14-36) U/L ALT 26 (0-35) U/L Alkaline Phosphatase 129 H (38-126) U/L Troponin I (0.000-0.034) ng/mL Serum Total Protein 7.7 (6.3-8.2) g/dL Albumin 4.2 (3.5-5.0) g/dL Lipase 208 (23-300) U/L Urine Color YELLOW (YELLOW) Urine Appearance SLIGHTLY CLOUDY (CLEAR) Urine pH 6.0 (5-6) Ur Specific [place] 1.005 (1.005-1.025) Urine Protein NEGATIVE (Negative) Urine Ketones NEGATIVE (NEGATIVE) Urine Blood NEGATIVE (0-5) Parviz/ul Urine Nitrite NEGATIVE (NEGATIVE) Urine Bilirubin NEGATIVE (NEGATIVE) Urine Urobilinogen NEGATIVE (0-1) mg/dL Ur Leukocyte Esterase TRACE (NEGATIVE) Urine WBC (Auto) 0-2 (0-5) /HPF Urine RBC (Auto) 0-2 (0-2) /HPF U Hyaline Cast (Auto) 0-2 (0-2) /LPF U Epithel Cells (Auto) RARE (FEW) /HPF Urine Culture Reflexed NO (NO) Urine Glucose NEGATIVE (NEGATIVE) mg/dL - Progress Progress: improved Progress Note: 01/30/20 06:47 Patient had a small bowel obstruction. CT chest reveals small pulmonary emboli. Patient took her anticoagulation for the evening. Lovenox to be initiated tomorrow. Case discussed with Vincent Salazar who advises admission. NG tube placed to low intermittent suction. Patient admitted to Dr. Tovar who accepts admission to observation. Dr. Salazar on consult. Plan of care discussed with patient. She agrees to admission to [facility] for further evaluation and treatment. 01/30/20 06:49 Discussed with : Harish Will see patient in: hospital (observation) Counseled pt/family regarding: lab results, diagnosis, need for follow-up, rad results - Departure Departure Disposition: Observation Clinical Impression: Abdominal pain, Thrombocytosis, Hypokalemia, Hypomagnesemia, Small bowel obstruction, Pulmonary embolism, Chest pain Condition: Stable Critical Care Time: No
[2020-01-29] MEDS ORDERED: Sodium Chloride 0.9% 1000 ML 1,000 ML ONE ×2 (15:47→20:11)
[2020-01-29] MEDS ORDERED: Zofran 4 MG/2 ML VIAL IV ONE ×2 (15:48→18:07)
[2020-01-29 16:09] LABS: Absolute Neutrophil Ct (ANC) 7.64 (1.4-6.9); BASOPHIL % 0.3 % (0.0-0.4); Basophil (Absolute #) 0.03 (0-0.4); Eosinophil % 0.2 % (0.00-5.0); Eosinophil (Absolute #) 0.02 (0-0.5); Hematocrit 36.1 % (35-47); Hemoglobin 11.5 gm/dl (12.0-16.0); Lymphocyte (Absolute #) 1.75 (1.0-4.6); Lymphocytes % 16.9 % (24.0-44.0); Mean Cell Volume 79.7 fl (78-100); Mean Corpuscular Hemoglobin 25.4 pg (26-32); Mean Corpuscular Hgb Concent. 31.9 g/dl (32-36); Mean Platelet Volume 8.1 fl (7.5-11.0); Monocyte (Absolute #) 0.93 (0.0-1.3); Neutrophil % 73.6 % (36.0-66.0); Platelet Count 718 K/mm3 (150-450); Red Blood Count 4.53 M/mm3 (4.1-5.4); Red Cell Distribution Width 16.3 % (11.5-14.0); White Blood Count 10.4 K/mm3 (4.0-10.5)
[2020-01-29 16:18] LABS: Appearance SLIGHTLY CLOUDY (CLEAR); Bilirubin NEGATIVE (NEGATIVE); Blood NEGATIVE Ery/ul (0-5); Epithelial Cells RARE /HPF (FEW); Glucose NEGATIVE (NEGATIVE); Hyaline Casts 0-2 /LPF (0-2); Ketones NEGATIVE (NEGATIVE); Leukocyte Esterase TRACE (NEGATIVE); Nitrite NEGATIVE (NEGATIVE); Protein,Urine Dip NEGATIVE (Negative); RBC 0-2 /HPF (0-2); Specific Gravity 1.005 (1.005-1.025); Urobilinogen NEGATIVE mg/dL (0-1); WBC 0-2 /HPF (0-5)
[2020-01-29 16:25] LABS: ALBUMIN 4.2 g/dL (3.5-5.0); ALKALINE PHOSPHATASE 129 U/L (38-126); ANION GAP 15.4 MEQ/L (5-15); BLOOD UREA NITROGEN 3 mg/dL (7-17); CHLORIDE 100 mmol/L (98-107); Calcium 9.5 mg/dL (8.4-10.2); Carbon Dioxide 21 mmol/L (22-30); Creatinine 1 0.69 mg/dL (0.52-1.04); EST GLOMERULAR FILTRATION RATE > 60.0 ML/MIN; Glucose 119 mg/dL (74-106); LIPASE 208 U/L (23-300); MAGNESIUM 1.5 mg/dL (1.6-2.3); Potassium 3.2 mmol/L (3.5-5.1); SGOT/AST 18 U/L (14-36); SGPT/ALT 26 U/L (0-35); SODIUM 134 mmol/L (137-145); Total Protein 7.7 g/dL (6.3-8.2)
[2020-01-29] MEDS ORDERED: Hydromorphone 1 mg/ml Injection IV ONE (18:05)
[2020-01-29] MEDS ORDERED: Hydromorphone 1 mg/ml Injection ONE (18:13)
[2020-01-29] MEDS ORDERED: BENADRYL 50 MG/ML IV ONE (18:25)
[2020-01-29] MEDS ORDERED: BENADRYL 50 MG/ML ONE (18:26)
[2020-01-29] MEDS ORDERED: Ativan 2 MG/1 ML VIAL ONE (19:30)
[2020-01-29] MEDS ORDERED: Ativan 2 MG/1 ML VIAL IV ONE (19:32)
[2020-01-29] MEDS: POTASSIUM CHLORIDE 20 mEq IN WATER 100ML 20 MEQ/100 ML BAG IV SCH ×2 (20:15→22:28)
[2020-01-29] MEDS: Magnesium 1 Gm / 100 Ml D5W*** 100 ML IV SCH ×2 (20:16→21:59)
[2020-01-29] MEDS: Hydromorphone 1 mg/ml Injection IV PRN (21:58)
[2020-01-29] MEDS ORDERED: ENOXAPARIN SODIUM SQ SCH (22:00)
[2020-01-30] MEDS: Hydromorphone 1 mg/ml Injection IV PRN ×5 (01:57→22:59)
[2020-01-30] MEDS: Zofran 4 MG/2 ML VIAL IV PRN ×4 (01:58→20:10)
[2020-01-30 02:44] LABS: Absolute Neutrophil Ct (ANC) 7.06 (1.4-6.9); BASOPHIL % 0.3 % (0.0-0.4); Basophil (Absolute #) 0.03 (0-0.4); Eosinophil % 0.5 % (0.00-5.0); Eosinophil (Absolute #) 0.05 (0-0.5); Hematocrit 32.2 % (35-47); Lymphocyte (Absolute #) 2.04 (1.0-4.6); Lymphocytes % 20.1 % (24.0-44.0); Mean Cell Volume 80.7 fl (78-100); Mean Corpuscular Hemoglobin 25.1 pg (26-32); Mean Corpuscular Hgb Concent. 31.1 g/dl (32-36); Mean Platelet Volume 8.2 fl (7.5-11.0); Monocyte (Absolute #) 0.97 (0.0-1.3); Monocytes % 9.6 % (0.0-12.0); Neutrophil % 69.5 % (36.0-66.0); Platelet Count 677 K/mm3 (150-450); Red Blood Count 3.99 M/mm3 (4.1-5.4); Red Cell Distribution Width 16.2 % (11.5-14.0); White Blood Count 10.2 K/mm3 (4.0-10.5)
[2020-01-30 02:57] LABS: ALBUMIN 3.7 g/dL (3.5-5.0); ALKALINE PHOSPHATASE 106 U/L (38-126); ANION GAP 10.7 MEQ/L (5-15); BLOOD UREA NITROGEN 4 mg/dL (7-17); CHLORIDE 104 mmol/L (98-107); Carbon Dioxide 22 mmol/L (22-30); Creatinine 1 0.74 mg/dL (0.52-1.04); EST GLOMERULAR FILTRATION RATE > 60.0 ML/MIN; Glucose 110 mg/dL (74-106); Potassium 3.3 mmol/L (3.5-5.1); SGOT/AST 17 U/L (14-36); SGPT/ALT 22 U/L (0-35); SODIUM 133 mmol/L (137-145); Total Protein 6.7 g/dL (6.3-8.2)
[2020-01-30] MEDS ORDERED: HUMALOG SQ PRN (08:44)
--- NOTE | 2020-01-30 08:52 | XRAY ---
Indication: Abdomen pain, nausea, and vomiting. Status post bowel resection one week ago. Multiple contiguous axial images obtained through the abdomen and pelvis using 80 cc Isovue 370 contrast only. Comparison: January 18, 2020. CT chest reported separately. Stomach and small bowel loops are again abnormally fluid distended. Small bowel loops are distended up to 4.5 cm favoring small bowel obstruction. Transition point seen mid abdomen approximately umbilicus level at site of surgical anastomosis. No free fluid/air. Stable appendectomy, cholecystectomy, hysterectomy, fatty hepatomegaly, bilateral renal cysts, and aortoiliac calcifications. Remaining liver, pancreas, spleen, adrenal glands, kidneys, ureters, and bladder are unremarkable. No AAA or pathologic retroperitoneal lymphadenopathy. Osseous structures intact again with degenerative changes throughout the spine and both hips. New midline anterior abdomen cutaneous martinez without abnormal subcutaneous fluid/air. Impression: 1. Recurrent distal small bowel obstruction as detailed. 2. Stable fatty hepatomegaly, bilateral renal cysts, and chronic bony findings.
--- NOTE | 2020-01-30 08:56 | HP ---
CHIEF COMPLAINT: Nausea, vomiting and abdominal pain. HISTORY OF PRESENT ILLNESS: The patient is a 64 year old white female who had recently had surgery for small bowel obstruction. She was doing well over the ensuing days after the surgery until on Sunday evening the patient reports that the bowel movements slowed down and began having problems with increasing bloating and abdominal discomfort as she had approximately ten days ago when she was in for similar problem. The patient's history otherwise was that of having had surgical lap sponge left in her abdomen from hysterectomy when she was 25 years of age. She had to have bowel resection at that time. She has had intermittent problems since that time. She had lysis of adhesions and partial bowel resection and reanastomosis approximately nine days ago. PAST MEDICAL/SURGICAL HISTORY: The patient also has a history of having blood clots and had elevation of D-dimer rechecked on her CT to rule out pulmonary emboli. Preliminary was read as small non-occluding pulmonary emboli. The patient was admitted to the hospital for NG decompression, surgical consultation and anticoagulant therapy. HOME MEDICATIONS: Plavix 75 mg a day, atorvastatin 80 mg a day, gabapentin 300 mg t.i.d. PRN for neuropathy pain, pantoprazole 40 mg a day, Eliquis 5 mg a day, Metformin 850 b.i.d., Zosyn 25 mg at night, loratadine 10 mg a day, Phenergan PRN for nausea. ALLERGIES: MORPHINE. BACTRIM. FLUOXETINE. PHYSICAL EXAMINATION: The patient's vital signs on admission to the emergency room showed at temperature 98.0F, pulse 101, respiratory rate 18 and blood pressure 154/93. O2 saturation was 99%. HEENT: Normocephalic, atraumatic. Pupils equal round reactive to light. Extraocular movements intact. Oropharynx: Currently the patient has NG tube in place draining bilious material and approximately 800 cc in the container from overnight. The patient is still otherwise having dry heaves at this time CHEST: Clear to auscultation. HEART: Regular rate and rhythm. ABDOMEN: Diffusely tender. Scar from previous surgery that are healing well. EXTREMITIES: Without cyanosis, clubbing or edema. NEUROLOGIC: The patient is alert and oriented x3. No focal deficits noted. LAB DATA AND TESTS: Currently show the troponin less than 0.012 on two separate occasions. In the emergency room, her white count was 10,200, hemoglobin 10.0, PLT count 677,000. Her metabolic panel showed a glucose of 110, BUN 4, creatinine 0.74, sodium 133 and potassium 3.3. Liver enzymes were normal. The patient's lipase is normal at 208. D-dimer was elevated at 2,612 leading to the aforementioned CT scan protocol to rule out pulmonary emboli. The abdomen and pelvis otherwise showed minimal fluid-distended stomach of small bowel loops with small bowel up to 4.5 cm in diameter favoring small bowel obstruction, transition point at the surgical anastomosis site. ASSESSMENT: A patient with small bowel obstruction. She had the NG placed. She will receive IV fluid rehydration. We will consider at this point in time also TPN for the patient as she has previously been without food for at least five days previously and will likely be without for quite some time. We will attempt to place a PICC line for TPN and if not perhaps the central line. The patient is receiving anticoagulant therapy with Lovenox presently while we are pending our radiologist interpretation of the CT scan. We will also obtain venous Doppler's of the lower extremities to rule out a lower extremity source. Her home medications will currently have to be held for oral medications if she is unable to take anything p.o.
--- NOTE | 2020-01-30 08:59 | XRAY ---
Indication: Elevated d-dimer. Multiple contiguous axial images obtained through the chest using 100 cc Isovue 370 contrast and PE protocol. Comparison: October 23, 2019. CT abdomen/pelvis with contrast exam was performed earlier in the day using 80 cc Isovue 370 contrast. Ordering ER clinician, Dr. Tobias was made aware of the additional IV contrast load with this exam. He acknowledged and requested the exam be performed. There is satisfactory opacification of the pulmonary arteries. However mild respiration artifact limits evaluation of the more distal lobar and segmental branches. New tiny nonoccluding pulmonary embolus seen in the distal lateral segmental branch of the left lower lobe (images [id number], series 3). No other obvious pulmonary embolus. Heart is not enlarged. Aorta remains mildly arteriosclerotic without aneurysm/dissection. No pathologic mediastinal/hilar lymphadenopathy. Lungs inflated again with scattered bilateral peripheral atelectasis/scarring. No suspicious pulmonary mass, infiltrate, or effusion. Bony thorax again demonstrates mild degenerative changes throughout the spine, multiple old bilateral rib fractures, and old right clavicle fracture. CT abdomen/pelvis reported separately. Impression: 1. Respiration artifact limits pulmonary embolus evaluation. New tiny nonoccluding pulmonary embolus in lateral segmental branch of left lower lobe. No distal infarct. 2. Stable scattered atelectasis/scarring and chronic bony findings.
--- NOTE | 2020-01-30 09:03 | XRAY ---
Indication: NG tube placement. Comparison: October 23, 2019. Portable chest demonstrates new NG tube tip in the gastric lumen. Remaining heart and lungs unremarkable. Bony thorax intact again with osteopenia, old bilateral rib fractures, and old bilateral clavicle fractures.
[2020-01-30 09:09] LABS: INR 1.23 (0.8-3.0); PROTIME 13.9 SECONDS (9.95-12.35)
[2020-01-30 09:12] LABS: PTT 34.6 SECONDS (25.3-37.0)
[2020-01-30] MEDS: Phenergan 25 MG INJ IV PRN ×3 (09:34→19:03)
--- NOTE | 2020-01-30 09:36 | XRAY ---
Indication: PE. DVT. Two-dimensional sonogram and color Doppler imaging of the major venous vessels of the left and right leg was performed. Comparison: None No thrombus seen in the examined deep venous vessels of the left and right leg including greater saphenous vein. Veins demonstrate normal compressibility. Venous waveforms are normal with and without augmentation. Posterior left knee demonstrates a 6.7 x 1.7 cm partially calcified Wilburn's cyst. Impression: 1. Left and right legs negative for DVT. 2. Incidental left knee Wilburn's cyst.
[2020-01-30] MEDS: PHENERGAN 25 MG PO SCH (09:53)
[2020-01-30] MEDS: HOLD METFORMIN PRODUCTS FOR 48 HOURS MC SCH (09:54)
[2020-01-30] MEDS ORDERED: ENOXAPARIN SODIUM SQ SCH (10:00)
--- NOTE | 2020-01-30 10:59 | XRAY ---
Indication: Small bowel obstruction. Long-term IV access and therapy for antibiotic and nutritional therapy. Informed consent obtained. Patient was placed on the fluoroscopic table in a supine position. Initial sonographic imaging of the right upper extremity was performed for localization of patent veins. The right upper extremity was then prepped and draped in sterile fashion. Tourniquet applied. 1% lidocaine plain used for local anesthesia. Using ultrasound guidance and a micropuncture needle, a basilic vein above the elbow was successfully percutaneously cannulized. A floppy tip 0.018 guidewire inserted. Tourniquet released. Needle was exchanged for a 5 [place] dilator peel-away sheath catheter. Ultimately a 5 [place] double-lumen PICC line was inserted over a longer 0.018 guidewire with the tip positioned in the distal SVC using fluoroscopic guidance. Guidewire removed. Both ports flushed with heparinized saline. Catheter was secured. Postoperative instructions and orders given. Patient discharged in good condition. Impression: Technically successful right upper extremity PICC line placement using ultrasound and fluoroscopic guidance. No immediate complications. Approximately 1 cc blood loss. Approximately 0.1 minute of fluoroscopy used. Catheter length is 31 cm.
[2020-01-30] MEDS: Sodium Chloride 0.9% W/ 20 mEq KCl/LITER 1,000 ML IV SCH (11:00)
--- NOTE | 2020-01-30 11:01 | XRAY ---
Indication: Ultrasound guidance for PICC line placement. Initial sonographic imaging of the right upper extremity was performed for localization of patent veins. A patent basilic vein identified above the elbow. Ultrasound guidance was then used for PICC line insertion. Full PICC line insertion is reported separately.
[2020-01-30] MEDS: ENOXAPARIN SODIUM SQ SCH (12:48)
[2020-01-30] MEDS ORDERED: PHARMACY DOSING REQUEST MC ONE (13:46)
[2020-01-30] MEDS ORDERED: [UNRECOGNIZED DRUG - NUTRITION] IV SCH ×7 (14:00→14:45)
[2020-01-30] MEDS: [UNRECOGNIZED DRUG - NUTRITION] IV SCH ×5 (15:58)
[2020-01-31] MEDS: BENADRYL 50 MG/ML IV PRN ×2 (00:24→21:58)
[2020-01-31] MEDS: Sodium Chloride 0.9% W/ 20 mEq KCl/LITER 1,000 ML IV SCH (02:00)
[2020-01-31] MEDS: Zofran 4 MG/2 ML VIAL IV PRN ×3 (04:05→17:02)
[2020-01-31] MEDS: Hydromorphone 1 mg/ml Injection IV PRN ×5 (04:08→21:59)
[2020-01-31 06:29] LABS: ALBUMIN 3.8 g/dL (3.5-5.0); ALKALINE PHOSPHATASE 106 U/L (38-126); ANION GAP 9.2 MEQ/L (5-15); BLOOD UREA NITROGEN 6 mg/dL (7-17); CHLORIDE 100 mmol/L (98-107); Calcium 9.3 mg/dL (8.4-10.2); Carbon Dioxide 28 mmol/L (22-30); Creatinine 1 0.65 mg/dL (0.52-1.04); EST GLOMERULAR FILTRATION RATE > 60.0 ML/MIN; Glucose 175 mg/dL (74-106); MAGNESIUM 2.3 mg/dL (1.6-2.3); Potassium 3.1 mmol/L (3.5-5.1); SGOT/AST 20 U/L (14-36); SGPT/ALT 21 U/L (0-35); SODIUM 134 mmol/L (137-145); Total Protein 6.9 g/dL (6.3-8.2)
[2020-01-31] MEDS: Sodium Chloride 0.9% 1000 ML 1,000 ML IV SCH (07:32)
[2020-01-31] MEDS: Phenergan 25 MG INJ IV PRN ×4 (07:41→21:59)
[2020-01-31] MEDS: PHENERGAN 25 MG PO SCH (09:27)
[2020-01-31] MEDS: HOLD METFORMIN PRODUCTS FOR 48 HOURS MC SCH (09:27)
[2020-01-31] MEDS: ENOXAPARIN SODIUM SQ SCH (10:04)
[2020-01-31] MEDS: Ativan 2 MG/1 ML VIAL IV PRN ×3 (10:28→22:16)
[2020-01-31] MEDS ORDERED: MILK OF MAGNESIA 30 ML NG ONE (12:15)
--- NOTE | 2020-01-31 12:32 | PCM.NOTE ---
Date and Time: 01/31/20 1227 Subjective Assessment: Pt is feeling discouraged. Still has NG. Not passing any gas. Feeling "weaker and sicker." Abd pain is 5/10. BP high over the past 24 h, to 220s systolic but on recheck was 130/77. Pt states she has been very anxious and has panic attacks (had one with the NG placement). Received a PICC line for TPN. Objective Exam General Appearance: no apparent distress, alert Neurologic Exam: oriented x 3, cooperative Skin Exam: normal color, warm, dry, No rash Eye Exam: eyes nml inspection Ears, Nose, Throat Exam: other (NG present and draining) Neck Exam: normal inspection Respiratory Exam: normal breath sounds, lungs clear, No crackles/rales, No rhonchi, No wheezing Cardiovascular Exam: regular rate/rhythm, normal heart sounds, No murmur Gastrointestinal/Abdomen Exam: soft, normal bowel sounds (good BS), other (large dressing present. Soft.) Extremity Exam: normal inspection, No pedal edema, No swelling Back Exam: normal inspection, No rash OBJECTIVE DATA Vital Signs: Vital Signs - 24 hr Temp Pulse Resp BP Pulse Ox 01/31/20 09:16 79 130/77 01/31/20 08:00 98.4 F 68 20 220/105 99 01/31/20 07:48 92 L 01/31/20 03:25 98.0 F 79 20 174/74 95 01/31/20 00:00 98.4 F 81 15 176/83 93 L 01/30/20 19:31 98.4 F 75 13 169/69 95 01/30/20 19:11 94 L 01/30/20 16:00 98.2 F 88 20 141/90 96 Pain Assessment - Last Documented Pain Intensity 4 Pain Scale Used 0-10 Pain Scale Intake and Output: Intake & Output 01/29/20 01/30/20 01/31/20 02/01/20 11:59 11:59 11:59 11:59 Intake Total 1895 3097 Output Total 1125 6820 Balance 770 -3203 Weight 79.4 kg 81.2 kg Lab Results: Lab Results-Last 24 Hours 01/30/20 01/30/20 01/30/20 Range/Units 16:03 18:25 23:57 Sodium (137-145) mmol/L Potassium (3.5-5.1) mmol/L Chloride (98-107) mmol/L Carbon Dioxide (22-30) mmol/L Anion Gap (5-15) MEQ/L BUN (7-17) mg/dL Creatinine (0.52-1.04) mg/dL Estimated GFR ML/MIN Glucose (74-106) mg/dL POC Glucometer 81 114 H 140 H (74 to 106) mg/dL Calcium (8.4-10.2) mg/dL Magnesium (1.6-2.3) mg/dL Total Bilirubin (0.2-1.3) mg/dL AST (14-36) U/L ALT (0-35) U/L Alkaline Phosphatase (38-126) U/L Serum Total Protein (6.3-8.2) g/dL Albumin (3.5-5.0) g/dL 01/31/20 01/31/20 01/31/20 Range/Units 05:41 05:55 11:36 Sodium 134 L (137-145) mmol/L Potassium 3.1 L (3.5-5.1) mmol/L Chloride 100 (98-107) mmol/L Carbon Dioxide 28 (22-30) mmol/L Anion Gap 9.2 (5-15) MEQ/L BUN 6 L (7-17) mg/dL Creatinine 0.65 (0.52-1.04) mg/dL Estimated GFR > 60.0 ML/MIN Glucose 175 H (74-106) mg/dL POC Glucometer 150 H 145 H (74 to 106) mg/dL Calcium 9.3 (8.4-10.2) mg/dL Magnesium 2.3 (1.6-2.3) mg/dL Total Bilirubin 0.20 (0.2-1.3) mg/dL AST 20 (14-36) U/L ALT 21 (0-35) U/L Alkaline Phosphatase 106 (38-126) U/L Serum Total Protein 6.9 (6.3-8.2) g/dL Albumin 3.8 (3.5-5.0) g/dL Radiology Exams: Radiology Procedures Category Date Time Status ABDOMEN AND PELVIS W CONTRAST [CT] Stat Exams 01/29/20 15:39 Completed CHEST 1 VIEW (PORTABLE) Stat Exams 01/29/20 20:02 Completed CHEST WITH CONTRAST [CT] Stat Exams 01/29/20 17:54 Completed GUIDE FOR VASCULAR ACCESS [US] Routine Exams 01/30/20 09:38 Completed PICC LINE PLACEMENT Stat Exams 01/30/20 10:42 Completed VENOUS BILATERAL EXTREMITY [US] Urgent Exams 01/30/20 09:23 Completed Multi-Disciplinary Progress Notes: Multi-Disciplinary Progress Notes 01/30/20 15:17 Nutrition Note by Elaina Gould f/u Note: Note TPN ordered today; pt receiving TPN @ 80mls/hour providing 2377kcals. Recommend decreasing TPN rate to allow for 1800 kcals. Will monitor and f/u prn. MS [email or web address] Initialized on 01/30/20 15:17 - END OF NOTE Assessment/Plan (1) Small bowel obstruction Current Visit: Yes Status: Acute Assessment & Plan: Recurrent. Surgery following, thank you. Currently managing conservatively. Code(s): K56.609 - UNSP INTESTNL OBST, UNSP TO PARTIAL VERSUS COMPLETE OBST (2) Pulmonary embolism Current Visit: Yes Status: Acute Qualifiers: Pulmonary embolism type: multiple subsegmental (without acute cor pulmonale) Qualified Code(s): I26.94 - Multiple subsegmental pulmonary emboli without acute cor pulmonale Assessment & Plan: On lovenox 30mg/d per Dr. Tovar. Code(s): I26.99 - OTHER PULMONARY EMBOLISM WITHOUT ACUTE COR PULMONALE (3) Panic attack Current Visit: No Status: Chronic Assessment & Plan: added ativan IV QID prn. Will probably help her BP as well. Code(s): F41.0 - PANIC DISORDER [EPISODIC PAROXYSMAL ANXIETY] (4) Atherosclerosis Current Visit: No Status: Chronic Code(s): I70.90 - UNSPECIFIED ATHEROSCLEROSIS (5) CAD (coronary artery disease) Current Visit: No Status: Chronic Qualifiers: Coronary Disease-Associated Artery/Lesion type: [place] artery [place] vs. transplanted heart: [place] heart Associated angina: without angina Qualified Code(s): I25.10 - Atherosclerotic heart disease of [place] coronary artery without angina pectoris Code(s): I25.10 - ATHSCL HEART DISEASE OF [place] CORONARY ARTERY W/O ANG PCTRS (6) Hypertension Current Visit: No Status: Chronic Qualifiers: Hypertension type: essential hypertension Qualified Code(s): I10 - Essential (primary) hypertension Code(s): I10 - ESSENTIAL (PRIMARY) HYPERTENSION
[2020-01-31] MEDS: [UNRECOGNIZED DRUG - NUTRITION] IV SCH ×5 (13:55)
--- NOTE | 2020-01-31 20:45 | XRAY ---
Indication: Pain. No known injury. Comparison: None 3 view right shoulder demonstrates mild osteopenia, old clavicle fracture with intact plate/screws, partially visualized NG tube, and right arm PICC line. No other bony, articular, or soft tissue abnormalities. Comment: Preliminary interpretation was made by [facility]. No critical discrepancy.
[2020-02-01] MEDS: Sodium Chloride 0.9% W/ 20 mEq KCl/LITER 1,000 ML IV SCH (00:21)
[2020-02-01] MEDS: Hydromorphone 1 mg/ml Injection IV PRN ×5 (03:22→23:04)
[2020-02-01] MEDS: Phenergan 25 MG INJ IV PRN ×5 (03:24→23:05)
[2020-02-01 06:27] LABS: ALBUMIN 3.7 g/dL (3.5-5.0); ALKALINE PHOSPHATASE 98 U/L (38-126); ANION GAP 10.5 MEQ/L (5-15); BLOOD UREA NITROGEN 12 mg/dL (7-17); CHLORIDE 101 mmol/L (98-107); Calcium 9.6 mg/dL (8.4-10.2); Carbon Dioxide 29 mmol/L (22-30); EST GLOMERULAR FILTRATION RATE > 60.0 ML/MIN; Glucose 158 mg/dL (74-106); MAGNESIUM 2.4 mg/dL (1.6-2.3); Potassium 3.6 mmol/L (3.5-5.1); SGOT/AST 21 U/L (14-36); SGPT/ALT 21 U/L (0-35); SODIUM 137 mmol/L (137-145); Total Protein 6.8 g/dL (6.3-8.2)
[2020-02-01] MEDS: BENADRYL 50 MG/ML IV PRN ×2 (08:05→20:12)
[2020-02-01] MEDS: Nitrostat 0.4 MG Tablet SL PRN ×3 (08:47→09:06)
[2020-02-01] MEDS: ENOXAPARIN SODIUM SQ SCH ×3 (08:49→23:06)
[2020-02-01] MEDS: Ativan 2 MG/1 ML VIAL IV PRN ×2 (09:05→20:19)
[2020-02-01] MEDS: HOLD METFORMIN PRODUCTS FOR 48 HOURS MC SCH (09:05)
--- NOTE | 2020-02-01 09:11 | PCM.NOTE ---
Date and Time: 02/01/20904 Subjective Assessment: Pt still not feeling well. Has increased output from NG - >1000 cc last night and color has changed from green to brown. Not taking in much in the way of ice chips. C/o 7/10 abd pain, epigastric and generalized. C/o 8.5/10 substernal chest pain; she states she has had this pain since her CVA and sometimes takes nitro. BP without elevation since yesterday morning. Just noted by RN to have O2 sat 87% on RA, so placed on 2L NC. - Review of Systems Constitutional: No Fever Abdominal/Gastrointestinal: Abdominal Pain, Nausea Objective Exam General Appearance: moderate distress (some gagging during exam, and intermittently moans in pain.), alert (is conversant and pleasant) Neurologic Exam: oriented x 3, cooperative Skin Exam: normal color, warm, dry, No rash Eye Exam: eyes nml inspection Respiratory Exam: normal breath sounds, lungs clear, No crackles/rales, No rhonchi, No wheezing Cardiovascular Exam: regular rate/rhythm, normal heart sounds, No murmur Gastrointestinal/Abdomen Exam: soft, tenderness (around the periphery of the large central dressing), No normal bowel sounds (hypoactive), No guarding, No rebound Back Exam: normal inspection, No rash OBJECTIVE DATA Vital Signs: Vital Signs - 24 hr Temp Pulse Resp BP BP Pulse Ox 02/01/20 08:57 88 158/72 02/01/20 06:58 94 L 02/01/20 03:52 98.3 F 80 18 128/60 94 L 02/01/20 00:51 75 18 01/31/20 20:03 97.5 F 81 17 128/66 94 L 01/31/20 16:04 99.0 F 76 18 140/85 95 01/31/20 13:00 98.4 F 79 20 130/77 99 01/31/20 09:16 79 130/77 Pain Assessment - Last Documented Pain Intensity 8 Pain Scale Used 0-10 Pain Scale Intake and Output: Intake & Output 01/29/20 01/30/20 01/31/20 02/01/20 11:59 11:59 11:59 11:59 Intake Total 9126 4808 0889 Output Total 8181 1833 8250 Balance 770 -3203 124 Weight 79.4 kg 81.2 kg 80.7 kg Lab Results: Lab Results-Last 24 Hours 01/31/20 01/31/20 02/01/20 Range/Units 11:36 20:08 05:30 Sodium 137 (137-145) mmol/L Potassium 3.6 (3.5-5.1) mmol/L Chloride 101 (98-107) mmol/L Carbon Dioxide 29 (22-30) mmol/L Anion Gap 10.5 (5-15) MEQ/L BUN 12 (7-17) mg/dL Creatinine 0.70 (0.52-1.04) mg/dL Estimated GFR > 60.0 ML/MIN Glucose 158 H (74-106) mg/dL POC Glucometer 145 H 155 H (74 to 106) mg/dL Calcium 9.6 (8.4-10.2) mg/dL Magnesium 2.4 H (1.6-2.3) mg/dL Total Bilirubin 0.10 L (0.2-1.3) mg/dL AST 21 (14-36) U/L ALT 21 (0-35) U/L Alkaline Phosphatase 98 (38-126) U/L Serum Total Protein 6.8 (6.3-8.2) g/dL Albumin 3.7 (3.5-5.0) g/dL 02/01/20 Range/Units 05:44 Sodium (137-145) mmol/L Potassium (3.5-5.1) mmol/L Chloride (98-107) mmol/L Carbon Dioxide (22-30) mmol/L Anion Gap (5-15) MEQ/L BUN (7-17) mg/dL Creatinine (0.52-1.04) mg/dL Estimated GFR ML/MIN Glucose (74-106) mg/dL POC Glucometer 138 H (74 to 106) mg/dL Calcium (8.4-10.2) mg/dL Magnesium (1.6-2.3) mg/dL Total Bilirubin (0.2-1.3) mg/dL AST (14-36) U/L ALT (0-35) U/L Alkaline Phosphatase (38-126) U/L Serum Total Protein (6.3-8.2) g/dL Albumin (3.5-5.0) g/dL Radiology Exams: Radiology Procedures Category Date Time Status GUIDE FOR VASCULAR ACCESS [US] Routine Exams 01/30/20 09:38 Completed KUB Urgent Exams 02/01/20 Ordered PICC LINE PLACEMENT Stat Exams 01/30/20 10:42 Completed SHOULDER Stat Exams 01/31/20 16:14 Completed VENOUS BILATERAL EXTREMITY [US] Urgent Exams 01/30/20 09:23 Completed Assessment/Plan (1) Small bowel obstruction Current Visit: Yes Status: Acute Assessment & Plan: with more NG output and decreased bowl sounds over yesterday. KUB ordered. Surgery following, thank you. Will go ahead and add CBC to her a.m. labs - BMP was normal. Code(s): K56.609 - UNSP INTESTNL OBST, UNSP TO PARTIAL VERSUS COMPLETE OBST (2) Chest pain Current Visit: Yes Status: Acute Qualifiers: Chest pain type: unspecified Qualified Code(s): R07.9 - Chest pain, unspecified Assessment & Plan: Pt states she's had this since her CVA. Was not complaining to RN, who asked her about pain just before I came in the room. Treating for PE already. EKG and troponin pending. Will repeat another troponin in 3h. Code(s): R07.9 - CHEST PAIN, UNSPECIFIED (3) Pulmonary embolism Current Visit: Yes Status: Acute Qualifiers: Pulmonary embolism type: multiple subsegmental (without acute cor pulmonale) Qualified Code(s): I26.94 - Multiple subsegmental pulmonary emboli without acute cor pulmonale Assessment & Plan: Has been on lovenox 30mg/d but changing to 1mg/kg SQ BID. Code(s): I26.99 - OTHER PULMONARY EMBOLISM WITHOUT ACUTE COR PULMONALE (4) Hypoxemia Current Visit: Yes Status: Acute Assessment & Plan: Now on 2L O2 per NC. Code(s): R09.02 - HYPOXEMIA (5) Panic attack Current Visit: No Status: Chronic Code(s): F41.0 - PANIC DISORDER [EPISODIC PAROXYSMAL ANXIETY] (6) Atherosclerosis Current Visit: No Status: Chronic Code(s): I70.90 - UNSPECIFIED ATHEROSCLEROSIS (7) CAD (coronary artery disease) Current Visit: No Status: Chronic Qualifiers: Coronary Disease-Associated Artery/Lesion type: [place] artery [place] vs. t ransplanted heart: [place] heart Associated angina: without angina Qualified Code(s): I25.10 - Atherosclerotic heart disease of [place] coronary artery without angina pectoris Code(s): I25.10 - ATHSCL HEART DISEASE OF [place] CORONARY ARTERY W/O ANG PCTRS (8) Hypertension Current Visit: No Status: Chronic Qualifiers: Hypertension type: essential hypertension Qualified Code(s): I10 - Essential (primary) hypertension Code(s): I10 - ESSENTIAL (PRIMARY) HYPERTENSION
[2020-02-01] MEDS ORDERED: ENOXAPARIN SODIUM SQ ONE (10:00)
[2020-02-01] MEDS: PHENERGAN 25 MG PO SCH (10:05)
[2020-02-01 11:46] LABS: Hematocrit 35.5 % (35-47); Hemoglobin 10.9 gm/dl (12.0-16.0); Mean Cell Volume 81.8 fl (78-100); Mean Corpuscular Hemoglobin 25.1 pg (26-32); Mean Corpuscular Hgb Concent. 30.7 g/dl (32-36); Mean Platelet Volume 8.6 fl (7.5-11.0); Platelet Count 817 K/mm3 (150-450); Red Blood Count 4.34 M/mm3 (4.1-5.4); Red Cell Distribution Width 16.5 % (11.5-14.0)
[2020-02-01] MEDS: PROTONIX 40 MG IV IV SCH ×2 (12:07→23:05)
[2020-02-01 14:12] LABS: ANISOCYTOSIS 1+; Eosinophil 1 % (0.00-3.0); Lymphocytes 19 % (24-44); Monocyte 3 % (0.0-12.0); Neutrophils 77 % (36.0-66.0); Platelet Estimate INCREASED (NORMAL); Total Cells Counted 100
[2020-02-01] MEDS: KABIVEN - CENT TPN 2053 ML 2,053 ML with Vitamins For Infusion 10 ML INJECTION*** 10 ML... IV SCH ×3 (14:13)
--- NOTE | 2020-02-01 20:33 | XRAY ---
Indication: Abdomen pain, nausea, and vomiting. History small bowel obstruction with resection 11 days ago. Comparison: January 20, 2020. KUB demonstrates nonspecific nonobstructed bowel gas pattern with again the NG tube tip in the gastric lumen and cholecystectomy clips. Solid organs unremarkable. Osseous structures intact again with mild degenerative changes. New midline cutaneous martinez consistent with recent surgery. Impression: Negative KUB. NG tube in situ. Comment: Preliminary interpretation was made by [facility]. No critical discrepancy.
[2020-02-02] MEDS: Sodium Chloride 0.9% W/ 20 mEq KCl/LITER 1,000 ML IV SCH (00:06)
[2020-02-02 06:27] LABS: Absolute Neutrophil Ct (ANC) 6.77 (1.4-6.9); BASOPHIL % 0.3 % (0.0-0.4); Basophil (Absolute #) 0.03 (0-0.4); Eosinophil % 1.9 % (0.00-5.0); Hematocrit 34.3 % (35-47); Hemoglobin 10.3 gm/dl (12.0-16.0); Lymphocyte (Absolute #) 2.87 (1.0-4.6); Lymphocytes % 26.7 % (24.0-44.0); Mean Cell Volume 83.1 fl (78-100); Mean Corpuscular Hemoglobin 24.9 pg (26-32); Mean Platelet Volume 8.9 fl (7.5-11.0); Monocyte (Absolute #) 0.87 (0.0-1.3); Monocytes % 8.1 % (0.0-12.0); Platelet Count 734 K/mm3 (150-450); Red Blood Count 4.13 M/mm3 (4.1-5.4); Red Cell Distribution Width 16.5 % (11.5-14.0); White Blood Count 10.7 K/mm3 (4.0-10.5)
[2020-02-02 06:36] LABS: ALBUMIN 3.5 g/dL (3.5-5.0); ALKALINE PHOSPHATASE 98 U/L (38-126); ANION GAP 9.4 MEQ/L (5-15); BLOOD UREA NITROGEN 19 mg/dL (7-17); CHLORIDE 95 mmol/L (98-107); Calcium 9.3 mg/dL (8.4-10.2); Carbon Dioxide 34 mmol/L (22-30); EST GLOMERULAR FILTRATION RATE > 60.0 ML/MIN; Glucose 128 mg/dL (74-106); MAGNESIUM 2.4 mg/dL (1.6-2.3); SGOT/AST 25 U/L (14-36); SGPT/ALT 21 U/L (0-35); SODIUM 135 mmol/L (137-145); Total Protein 6.6 g/dL (6.3-8.2)
[2020-02-02] MEDS: Hydromorphone 1 mg/ml Injection IV PRN ×4 (09:14→23:08)
[2020-02-02] MEDS: PROTONIX 40 MG IV IV SCH (09:23)
--- NOTE | 2020-02-02 09:24 | XRAY ---
Indication: Follow-up small bowel obstruction. Nausea and vomiting. Comparison: KUB 1 day earlier. 2 view abdomen unchanged again demonstrating nonspecific nonobstructed bowel gas pattern, NG tube, cholecystectomy clips, left mid abdomen suture material, midline cutaneous martinez, chronic bony findings, and right hemidiaphragm elevation. No new abnormalities.
[2020-02-02] MEDS: Phenergan 25 MG INJ IV PRN ×4 (09:25→23:08)
[2020-02-02] MEDS: ENOXAPARIN SODIUM SQ SCH ×2 (09:31→21:44)
[2020-02-02] MEDS: POTASSIUM CHLORIDE 20 mEq IN WATER 100ML 20 MEQ/100 ML BAG IV SCH ×2 (09:36→12:03)
[2020-02-02] MEDS: PHENERGAN 25 MG PO SCH (09:41)
[2020-02-02] MEDS: BENADRYL 50 MG/ML IV PRN ×2 (09:46→21:42)
[2020-02-02] MEDS: KABIVEN - CENT TPN 2053 ML 2,053 ML with Vitamins For Infusion 10 ML INJECTION*** 10 ML... IV SCH ×3 (14:20)
[2020-02-03] MEDS: Hydromorphone 1 mg/ml Injection IV PRN ×4 (03:33→21:30)
[2020-02-03] MEDS: Phenergan 25 MG INJ IV PRN ×3 (04:20→21:30)
[2020-02-03] MEDS: Sodium Chloride 0.9% W/ 20 mEq KCl/LITER 1,000 ML IV SCH (04:20)
[2020-02-03 05:10] LABS: Absolute Neutrophil Ct (ANC) 5.25 (1.4-6.9); BASOPHIL % 0.4 % (0.0-0.4); Basophil (Absolute #) 0.04 (0-0.4); Eosinophil % 3.5 % (0.00-5.0); Eosinophil (Absolute #) 0.32 (0-0.5); Hematocrit 35.7 % (35-47); Hemoglobin 10.5 gm/dl (12.0-16.0); Lymphocyte (Absolute #) 2.66 (1.0-4.6); Mean Cell Volume 85.2 fl (78-100); Mean Corpuscular Hemoglobin 25.1 pg (26-32); Mean Corpuscular Hgb Concent. 29.4 g/dl (32-36); Mean Platelet Volume 8.8 fl (7.5-11.0); Monocyte (Absolute #) 0.91 (0.0-1.3); Monocytes % 9.9 % (0.0-12.0); Neutrophil % 57.2 % (36.0-66.0); Platelet Count 723 K/mm3 (150-450); Red Blood Count 4.19 M/mm3 (4.1-5.4); Red Cell Distribution Width 16.5 % (11.5-14.0); White Blood Count 9.2 K/mm3 (4.0-10.5)
[2020-02-03 05:13] LABS: ALBUMIN 3.6 g/dL (3.5-5.0); ALKALINE PHOSPHATASE 102 U/L (38-126); ANION GAP 9.4 MEQ/L (5-15); BLOOD UREA NITROGEN 16 mg/dL (7-17); CHLORIDE 100 mmol/L (98-107); Calcium 9.3 mg/dL (8.4-10.2); Carbon Dioxide 28 mmol/L (22-30); Creatinine 1 0.63 mg/dL (0.52-1.04); EST GLOMERULAR FILTRATION RATE > 60.0 ML/MIN; Glucose 123 mg/dL (74-106); MAGNESIUM 2.3 mg/dL (1.6-2.3); Potassium 3.5 mmol/L (3.5-5.1); SGOT/AST 28 U/L (14-36); SGPT/ALT 24 U/L (0-35); SODIUM 134 mmol/L (137-145); Total Protein 6.7 g/dL (6.3-8.2)
[2020-02-03 05:55] LABS: Basophil 2 % (0.0-1.0); Lymphocytes 32 % (24-44); Monocyte 3 % (0.0-12.0); Neutrophils 63 % (36.0-66.0); Total Cells Counted 100
[2020-02-03 05:56] LABS: ANISOCYTOSIS 1+; Platelet Estimate INCREASED (NORMAL); Poikilocytosis 1+
[2020-02-03] MEDS: PROTONIX 40 MG IV IV SCH (09:15)
[2020-02-03] MEDS: Zofran 4 MG/2 ML VIAL IV PRN (09:18)
[2020-02-03] MEDS: ENOXAPARIN SODIUM SQ SCH ×2 (09:29→22:02)
[2020-02-03] MEDS: PHENERGAN 25 MG PO SCH (10:08)
[2020-02-03] MEDS: BENADRYL 50 MG/ML IV PRN (10:13)
[2020-02-03] MEDS: KABIVEN - CENT TPN 2053 ML 2,053 ML with Vitamins For Infusion 10 ML INJECTION*** 10 ML... IV SCH ×3 (14:42)
[2020-02-03] MEDS: Reglan 10 MG/2 ML IV SCH ×2 (17:20→23:59)
[2020-02-04] MEDS: Hydromorphone 1 mg/ml Injection IV PRN ×5 (01:39→19:50)
[2020-02-04] MEDS: Phenergan 25 MG INJ IV PRN ×4 (01:39→19:50)
[2020-02-04] MEDS: BENADRYL 50 MG/ML IV PRN ×2 (03:13→19:49)
[2020-02-04 05:19] LABS: Absolute Neutrophil Ct (ANC) 4.66 (1.4-6.9); BASOPHIL % 0.5 % (0.0-0.4); Basophil (Absolute #) 0.04 (0-0.4); Eosinophil % 4.2 % (0.00-5.0); Eosinophil (Absolute #) 0.35 (0-0.5); Hemoglobin 9.9 gm/dl (12.0-16.0); Lymphocyte (Absolute #) 2.42 (1.0-4.6); Lymphocytes % 29.1 % (24.0-44.0); Mean Cell Volume 82.9 fl (78-100); Mean Corpuscular Hemoglobin 24.9 pg (26-32); Mean Platelet Volume 9.2 fl (7.5-11.0); Monocyte (Absolute #) 0.84 (0.0-1.3); Monocytes % 10.1 % (0.0-12.0); Neutrophil % 56.1 % (36.0-66.0); Platelet Count 686 K/mm3 (150-450); Red Blood Count 3.98 M/mm3 (4.1-5.4); Red Cell Distribution Width 15.9 % (11.5-14.0); White Blood Count 8.3 K/mm3 (4.0-10.5)
[2020-02-04 05:26] LABS: ALBUMIN 3.5 g/dL (3.5-5.0); ALKALINE PHOSPHATASE 106 U/L (38-126); ANION GAP 9.8 MEQ/L (5-15); BLOOD UREA NITROGEN 13 mg/dL (7-17); CHLORIDE 103 mmol/L (98-107); Calcium 9.1 mg/dL (8.4-10.2); Carbon Dioxide 25 mmol/L (22-30); EST GLOMERULAR FILTRATION RATE > 60.0 ML/MIN; Glucose 136 mg/dL (74-106); MAGNESIUM 2.1 mg/dL (1.6-2.3); Potassium 3.8 mmol/L (3.5-5.1); SGOT/AST 29 U/L (14-36); SGPT/ALT 29 U/L (0-35); SODIUM 135 mmol/L (137-145); Total Protein 6.7 g/dL (6.3-8.2)
[2020-02-04] MEDS: Sodium Chloride 0.9% W/ 20 mEq KCl/LITER 1,000 ML IV SCH (05:39)
[2020-02-04] MEDS: Reglan 10 MG/2 ML IV SCH ×2 (05:40→12:00)
[2020-02-04] MEDS: ENOXAPARIN SODIUM SQ SCH ×2 (09:17→22:00)
[2020-02-04] MEDS: PHENERGAN 25 MG PO SCH (09:17)
[2020-02-04] MEDS: PROTONIX 40 MG IV IV SCH (09:18)
[2020-02-04] MEDS: Ativan 2 MG/1 ML VIAL IV PRN ×3 (09:42→19:47)
[2020-02-04] MEDS: KABIVEN - CENT TPN 2053 ML 2,053 ML with Vitamins For Infusion 10 ML INJECTION*** 10 ML... IV SCH ×3 (15:19)
[2020-02-04] MEDS: Zofran 4 MG/2 ML VIAL IV PRN (16:47)
[2020-02-04] MEDS ORDERED: APRESOLINE 20 MG/ML INJ IV PRN (20:09)
[2020-02-04] MEDS ORDERED: APRESOLINE 20 MG/ML INJ IV ONE (20:12)
[2020-02-04] MEDS ORDERED: TRANDATE 20 MG/5 ML SYRINGE IV ONE (20:27)
[2020-02-04] MEDS ORDERED: TRANDATE 20 MG/5 ML SYRINGE IV PRN (20:30)
[2020-02-05] MEDS: Phenergan 25 MG INJ IV PRN ×4 (01:45→21:11)
[2020-02-05] MEDS: Reglan 10 MG/2 ML IV SCH ×6 (01:46→23:49)
[2020-02-05] MEDS: Ativan 2 MG/1 ML VIAL IV PRN ×2 (01:46→12:26)
[2020-02-05] MEDS: BENADRYL 50 MG/ML IV PRN (01:46)
[2020-02-05] MEDS: Hydromorphone 1 mg/ml Injection IV PRN ×4 (01:47→21:11)
[2020-02-05 05:33] LABS: ALBUMIN 3.4 g/dL (3.5-5.0); ALKALINE PHOSPHATASE 112 U/L (38-126); ANION GAP 11.6 MEQ/L (5-15); BLOOD UREA NITROGEN 12 mg/dL (7-17); CHLORIDE 105 mmol/L (98-107); Calcium 9.2 mg/dL (8.4-10.2); Carbon Dioxide 23 mmol/L (22-30); Creatinine 1 0.64 mg/dL (0.52-1.04); EST GLOMERULAR FILTRATION RATE > 60.0 ML/MIN; Glucose 154 mg/dL (74-106); MAGNESIUM 2.2 mg/dL (1.6-2.3); Potassium 4.2 mmol/L (3.5-5.1); SGOT/AST 36 U/L (14-36); SGPT/ALT 38 U/L (0-35); SODIUM 135 mmol/L (137-145); Total Protein 6.6 g/dL (6.3-8.2)
[2020-02-05] MEDS: Sodium Chloride 0.9% W/ 20 mEq KCl/LITER 1,000 ML IV SCH (06:52)
[2020-02-05] MEDS: PHENERGAN 25 MG PO SCH ×2 (09:17→09:36)
[2020-02-05] MEDS: PROTONIX 40 MG IV IV SCH (09:19)
[2020-02-05] MEDS: ENOXAPARIN SODIUM SQ SCH ×2 (09:19→21:11)
[2020-02-05] MEDS: Zofran 4 MG/2 ML VIAL IV PRN (12:13)
[2020-02-05] MEDS: KABIVEN - CENT TPN 2053 ML 2,053 ML with Vitamins For Infusion 10 ML INJECTION*** 10 ML... IV SCH ×3 (14:09)
[2020-02-06] MEDS: Hydromorphone 1 mg/ml Injection IV PRN ×5 (01:46→20:13)
[2020-02-06 05:57] LABS: Absolute Neutrophil Ct (ANC) 4.16 (1.4-6.9); BASOPHIL % 0.8 % (0.0-0.4); Basophil (Absolute #) 0.06 (0-0.4); Eosinophil % 3.5 % (0.00-5.0); Eosinophil (Absolute #) 0.27 (0-0.5); Hematocrit 31.4 % (35-47); Hemoglobin 9.5 gm/dl (12.0-16.0); Lymphocyte (Absolute #) 2.27 (1.0-4.6); Lymphocytes % 29.7 % (24.0-44.0); Mean Cell Volume 82.4 fl (78-100); Mean Corpuscular Hemoglobin 24.9 pg (26-32); Mean Corpuscular Hgb Concent. 30.3 g/dl (32-36); Mean Platelet Volume 9.2 fl (7.5-11.0); Monocyte (Absolute #) 0.89 (0.0-1.3); Monocytes % 11.6 % (0.0-12.0); Neutrophil % 54.4 % (36.0-66.0); Platelet Count 617 K/mm3 (150-450); Red Blood Count 3.81 M/mm3 (4.1-5.4); Red Cell Distribution Width 16.3 % (11.5-14.0); White Blood Count 7.7 K/mm3 (4.0-10.5)
[2020-02-06] MEDS: Reglan 10 MG/2 ML IV SCH ×3 (06:10→17:11)
[2020-02-06 06:23] LABS: ALBUMIN 3.3 g/dL (3.5-5.0); ALKALINE PHOSPHATASE 116 U/L (38-126); ANION GAP 10.5 MEQ/L (5-15); BLOOD UREA NITROGEN 15 mg/dL (7-17); CHLORIDE 108 mmol/L (98-107); Carbon Dioxide 23 mmol/L (22-30); Creatinine 1 0.68 mg/dL (0.52-1.04); EST GLOMERULAR FILTRATION RATE > 60.0 ML/MIN; Glucose 144 mg/dL (74-106); MAGNESIUM 2.3 mg/dL (1.6-2.3); Potassium 3.7 mmol/L (3.5-5.1); SGOT/AST 34 U/L (14-36); SGPT/ALT 46 U/L (0-35); SODIUM 138 mmol/L (137-145); Total Protein 6.4 g/dL (6.3-8.2)
[2020-02-06] MEDS ORDERED: Sodium Chloride 0.9% 500 ML 500 ML IV SCH (08:15)
[2020-02-06] MEDS: Ativan 2 MG/1 ML VIAL IV PRN ×3 (08:19→21:43)
[2020-02-06] MEDS: Sodium Chloride 0.9% W/ 20 mEq KCl/LITER 1,000 ML IV SCH (08:27)
[2020-02-06] MEDS: PROTONIX 40 MG IV IV SCH (10:27)
[2020-02-06] MEDS: ENOXAPARIN SODIUM SQ SCH ×2 (10:27→21:44)
[2020-02-06] MEDS: PHENERGAN 25 MG PO SCH (10:27)
[2020-02-06] MEDS: Phenergan 25 MG INJ IV PRN ×3 (10:34→20:13)
--- NOTE | 2020-02-06 11:41 | XRAY ---
Indication: Nausea and vomiting. Small bowel obstruction. Approximately 500 cc of diluted Gastrografin was injected through indwelling NG tube. Multiple overhead radiographs obtained. Gastrografin initially collects in the gastric lumen. Delayed overhead radiographs demonstrates slow antegrade movement of the Gastrografin through the small bowel loops. After 3 hours Gastrografin opacifies the majority of the small bowel loops all appearing uniformly mildly distended. Large amount of Gastrografin remains in the stomach. No abnormal extravasation/leak. Impression: Slow antegrade movement of Gastrografin predominantly via diffusion and not peristalsis. After 3 hours there are mild uniformly distended small bowel loops without focal transition identified. Rule out ileus versus distal small bowel obstruction. Approximately 0.5 minute fluoroscopy used.
--- NOTE | 2020-02-06 14:13 | XRAY ---
Indication: Abdomen pain and vomiting. Comparison: February 02, 2020. 2 view abdomen demonstrates interval increasing nonspecific bowel gas with a few air-fluid leveling, ileus versus recurrent small bowel obstruction. Midline cutaneous martinez have been removed. Remaining abdomen unchanged again with NG tube, cholecystectomy clips, left mid abdomen suture material, and chronic bony findings.
[2020-02-06] MEDS: KABIVEN - CENT TPN 2053 ML 2,053 ML with Vitamins For Infusion 10 ML INJECTION*** 10 ML... IV SCH ×3 (14:26)
[2020-02-07] MEDS: Phenergan 25 MG INJ IV PRN ×2 (00:14→04:18)
[2020-02-07] MEDS: Hydromorphone 1 mg/ml Injection IV PRN ×5 (00:14→20:36)
[2020-02-07] MEDS: Reglan 10 MG/2 ML IV SCH ×5 (00:14→23:14)
[2020-02-07 06:14] LABS: Absolute Neutrophil Ct (ANC) 4.88 (1.4-6.9); BASOPHIL % 0.5 % (0.0-0.4); Basophil (Absolute #) 0.04 (0-0.4); Eosinophil % 4.8 % (0.00-5.0); Hemoglobin 9.1 gm/dl (12.0-16.0); Lymphocyte (Absolute #) 2.11 (1.0-4.6); Lymphocytes % 25.4 % (24.0-44.0); Mean Cell Volume 82.2 fl (78-100); Mean Corpuscular Hemoglobin 24.9 pg (26-32); Mean Corpuscular Hgb Concent. 30.3 g/dl (32-36); Mean Platelet Volume 9.4 fl (7.5-11.0); Monocyte (Absolute #) 0.89 (0.0-1.3); Monocytes % 10.7 % (0.0-12.0); Neutrophil % 58.6 % (36.0-66.0); Platelet Count 558 K/mm3 (150-450); Red Blood Count 3.65 M/mm3 (4.1-5.4); Red Cell Distribution Width 16.2 % (11.5-14.0); White Blood Count 8.3 K/mm3 (4.0-10.5)
[2020-02-07 06:29] LABS: ALBUMIN 3.2 g/dL (3.5-5.0); ALKALINE PHOSPHATASE 119 U/L (38-126); ANION GAP 8.1 MEQ/L (5-15); BLOOD UREA NITROGEN 13 mg/dL (7-17); CHLORIDE 106 mmol/L (98-107); Calcium 8.8 mg/dL (8.4-10.2); Carbon Dioxide 23 mmol/L (22-30); Creatinine 1 0.61 mg/dL (0.52-1.04); EST GLOMERULAR FILTRATION RATE > 60.0 ML/MIN; Glucose 139 mg/dL (74-106); MAGNESIUM 2.1 mg/dL (1.6-2.3); Potassium 3.7 mmol/L (3.5-5.1); SGOT/AST 32 U/L (14-36); SGPT/ALT 45 U/L (0-35); SODIUM 133 mmol/L (137-145); Total Protein 6.4 g/dL (6.3-8.2)
[2020-02-07] MEDS: Sodium Chloride 0.9% W/ 20 mEq KCl/LITER 1,000 ML IV SCH (09:34)
[2020-02-07] MEDS: PROTONIX 40 MG IV IV SCH (09:44)
[2020-02-07] MEDS: PHENERGAN 25 MG PO SCH (09:44)
[2020-02-07] MEDS: ENOXAPARIN SODIUM SQ SCH (09:51)
[2020-02-07] MEDS: Ativan 2 MG/1 ML VIAL IV PRN ×2 (11:55→21:17)
[2020-02-07] MEDS: KABIVEN - CENT TPN 2053 ML 2,053 ML with Vitamins For Infusion 10 ML INJECTION*** 10 ML... IV SCH ×3 (15:23)
[2020-02-07] MEDS: NEOSYNEPHRINE 0.5% NASAL SPRAY/DROPS NS ONE ×2 (16:44→21:52)
[2020-02-07] MEDS: Zofran 4 MG/2 ML VIAL IV PRN ×2 (17:10→21:18)
--- NOTE | 2020-02-07 17:10 | PCM.NOTE ---
Date and Time: 02/07/201658 Subjective Assessment: Patient was seen by Gen Surgery Dr Villar this morning-improvement of SBO. BM yesterday evening and 2 small soft stools today. Patient has been having blood from both nostrils for 2 hours . NGT pulled and bleeding eventually stopped with neosynephrine packing. She is on Lovenox 80 q 12 for tiny nonoccluding PE dg 01/29/2020. Objective Exam General Appearance: mild distress (nosebleed coming around NGT) Neurologic Exam: alert, oriented x 3, cooperative Skin Exam: normal color, warm, dry Respiratory Exam: normal breath sounds Cardiovascular Exam: regular rate/rhythm Gastrointestinal/Abdomen Exam: other (BS present, binder on,periumbilical tenderness,mild) OBJECTIVE DATA Vital Signs: Vital Signs - 24 hr Temp Pulse Resp BP Pulse Ox 02/07/20 11:59 97.9 F 104 H 18 135/65 02/07/20 07:31 192/100 02/07/20 07:30 99.5 F 87 18 199/91 95 02/07/20 06:54 93 L 02/07/20 04:21 98.3 F 92 H 21 189/95 94 L 02/07/20 00:00 99 F 91 H 27 H 184/86 95 02/06/20 20:00 98.6 F 90 17 163/77 96 02/06/20 19:17 92 L Pain Assessment - Last Documented Pain Intensity 9 Pain Scale Used FLACC Intake and Output: Intake & Output 02/05/20 02/06/20 02/07/20 02/08/20 11:59 11:59 11:59 11:59 Intake Total 3546 0 6287 0 Output Total 2950 2900 3000 600 Balance 596 -2900 3287 -600 Weight 77.5 kg 78 kg Lab Results: Lab Results-Last 24 Hours 02/06/20 02/06/20 02/07/20 Range/Units 18:20 23:20 05:45 WBC (4.0-10.5) K/mm3 RBC (4.1-5.4) M/mm3 Hgb (12.0-16.0) gm/dl Hct (35-47) % MCV (78-100) fl MCH (26-32) pg MCHC (32-36) g/dl RDW (11.5-14.0) % Plt Count (150-450) K/mm3 MPV (7.5-11.0) fl Gran % (36.0-66.0) % Eos # (Auto) (0-0.5) Absolute Lymphs (auto) (1.0-4.6) Absolute Monos (auto) (0.0-1.3) Lymphocytes % (24.0-44.0) % Monocytes % (0.0-12.0) % Eosinophils % (0.00-5.0) % Basophils % (0.0-0.4) % Absolute Granulocytes (1.4-6.9) Basophils # (0-0.4) Sodium 133 L (137-145) mmol/L Potassium 3.7 (3.5-5.1) mmol/L Chloride 106 (98-107) mmol/L Carbon Dioxide 23 (22-30) mmol/L Anion Gap 8.1 (5-15) MEQ/L BUN 13 (7-17) mg/dL Creatinine 0.61 (0.52-1.04) mg/dL Estimated GFR > 60.0 ML/MIN Glucose 139 H (74-106) mg/dL POC Glucometer 149 H 135 H (74 to 106) mg/dL Calcium 8.8 (8.4-10.2) mg/dL Magnesium 2.1 (1.6-2.3) mg/dL Total Bilirubin 0.10 L (0.2-1.3) mg/dL AST 32 (14-36) U/L ALT 45 H (0-35) U/L Alkaline Phosphatase 119 (38-126) U/L Serum Total Protein 6.4 (6.3-8.2) g/dL Albumin 3.2 L (3.5-5.0) g/dL 02/07/20 02/07/20 02/07/20 Range/Units 05:45 05:48 11:43 WBC 8.3 (4.0-10.5) K/mm3 RBC 3.65 L (4.1-5.4) M/mm3 Hgb 9.1 L (12.0-16.0) gm/dl Hct 30.0 L (35-47) % MCV 82.2 (78-100) fl MCH 24.9 L (26-32) pg MCHC 30.3 L (32-36) g/dl RDW 16.2 H (11.5-14.0) % Plt Count 558 H (150-450) K/mm3 MPV 9.4 (7.5-11.0) fl Gran % 58.6 (36.0-66.0) % Eos # (Auto) 0.40 (0-0.5) Absolute Lymphs (auto) 2.11 (1.0-4.6) Absolute Monos (auto) 0.89 (0.0-1.3) Lymphocytes % 25.4 (24.0-44.0) % Monocytes % 10.7 (0.0-12.0) % Eosinophils % 4.8 (0.00-5.0) % Basophils % 0.5 (0.0-0.4) % Absolute Granulocytes 4.88 (1.4-6.9) Basophils # 0.04 (0-0.4) Sodium (137-145) mmol/L Potassium (3.5-5.1) mmol/L Chloride (98-107) mmol/L Carbon Dioxide (22-30) mmol/L Anion Gap (5-15) MEQ/L BUN (7-17) mg/dL Creatinine (0.52-1.04) mg/dL Estimated GFR ML/MIN Glucose (74-106) mg/dL POC Glucometer 139 H 156 H (74 to 106) mg/dL Calcium (8.4-10.2) mg/dL Magnesium (1.6-2.3) mg/dL Total Bilirubin (0.2-1.3) mg/dL AST (14-36) U/L ALT (0-35) U/L Alkaline Phosphatase (38-126) U/L Serum Total Protein (6.3-8.2) g/dL Albumin (3.5-5.0) g/dL Radiology Exams: Radiology Procedures Category Date Time Status ABDOMEN 2 VIEW Routine Exams 02/07/20 18:00 Ordered Assessment/Plan (1) Epistaxis Status: Acute Assessment & Plan: Order to hold Lovenox x 2 doses,is given q 12H. Dr Jian donaldsoned removal of NGT with caution to very slowly advance diet Code(s): R04.0 - EPISTAXIS (2) Small bowel obstruction Status: Acute Assessment & Plan: improved.Dr Villar is managing. Code(s): K56.609 - UNSP INTESTNL OBST, UNSP TO PARTIAL VERSUS COMPLETE OBST (3) Pulmonary embolism Status: Acute Qualifiers: Pulmonary embolism type: single subsegmental (without acute cor pulmonale) Qualified Code(s): I26.93 - Single subsegmental pulmonary embolism without acute cor pulmonale Assessment & Plan: will need to restart Lovenox in AM Code(s): I26.99 - OTHER PULMONARY EMBOLISM WITHOUT ACUTE COR PULMONALE
--- NOTE | 2020-02-07 21:04 | XRAY ---
Indication: Follow-up small bowel obstruction. Recent small bowel follow-through exam 2 days earlier. Comparison: February 05, 2020. 2 view abdomen continues to demonstrate slow antegrade movement of Gastrografin contrast now collecting in right lower quadrant small bowel loops with little contrast in distal colon. More proximal small bowel demonstrates stable mild air distention with fluid leveling including a stable midline distended bowel loop. No free air or extravasation of contrast. Stable left mid abdomen suture material, cholecystectomy clips, and chronic bony findings. Impression: Slow antegrade movement of Gastrografin contrast over a 2 today period with continued mild air distended small bowel loops and fluid leveling. Again rule out ileus versus partial distal small bowel obstruction. Comment: Preliminary interpretation was made by [facility]. No critical discrepancy.
[2020-02-08] MEDS: Hydromorphone 1 mg/ml Injection IV PRN ×5 (00:39→22:04)
[2020-02-08] MEDS: Zofran 4 MG/2 ML VIAL IV PRN ×3 (04:28→22:04)
[2020-02-08] MEDS: BENADRYL 50 MG/ML IV PRN (04:43)
[2020-02-08] MEDS: Reglan 10 MG/2 ML IV SCH ×3 (05:29→17:53)
[2020-02-08] MEDS: Ativan 2 MG/1 ML VIAL IV PRN ×3 (06:38→22:21)
[2020-02-08 06:39] LABS: ALBUMIN 3.2 g/dL (3.5-5.0); ALKALINE PHOSPHATASE 114 U/L (38-126); ANION GAP 9.2 MEQ/L (5-15); BLOOD UREA NITROGEN 12 mg/dL (7-17); CHLORIDE 107 mmol/L (98-107); Carbon Dioxide 21 mmol/L (22-30); Creatinine 1 0.62 mg/dL (0.52-1.04); EST GLOMERULAR FILTRATION RATE > 60.0 ML/MIN; Glucose 164 mg/dL (74-106); MAGNESIUM 2.1 mg/dL (1.6-2.3); Potassium 3.8 mmol/L (3.5-5.1); SGOT/AST 19 U/L (14-36); SGPT/ALT 33 U/L (0-35); SODIUM 134 mmol/L (137-145); Total Protein 6.4 g/dL (6.3-8.2)
[2020-02-08] MEDS: Phenergan 25 MG INJ IV PRN (08:30)
[2020-02-08] MEDS: PROTONIX 40 MG IV IV SCH (10:12)
[2020-02-08] MEDS: Sodium Chloride 0.9% W/ 20 mEq KCl/LITER 1,000 ML IV SCH (13:13)
[2020-02-08] MEDS: KABIVEN - CENT TPN 2053 ML 2,053 ML with Vitamins For Infusion 10 ML INJECTION*** 10 ML... IV SCH ×3 (14:59)
--- NOTE | 2020-02-08 16:23 | PCM.NOTE ---
Date and Time: 02/08/20 1613 Patient had NGT removed yesterday evening due to nose bleed.C/O nasal congestion but no further bleeding and has tolerated eggs today so Dr Villar advanced patient from clear liquids to full liquids,has not had supper yet. Has had small BM. Subjective Assessment: see above. Objective Exam General Appearance: no apparent distress Neurologic Exam: alert, oriented x 3 Skin Exam: warm, dry Ears, Nose, Throat Exam: moist mucous membranes, other (nasal congestion,no active blood, NGT is out.) Neck Exam: normal inspection Respiratory Exam: normal breath sounds Cardiovascular Exam: regular rate/rhythm Gastrointestinal/Abdomen Exam: other (binder on, increased bowel sounds x 4 Q . Minimal periumbilical tenderness no guarding) OBJECTIVE DATA Vital Signs: Vital Signs - 24 hr Temp Pulse Resp BP Pulse Ox 02/08/20 12:00 96.7 F 103 H 16 120/75 90 L 02/08/20 07:26 97.2 F 84 18 122/58 95 02/08/20 07:19 90 L 02/08/20 04:05 97.6 F 87 17 111/62 96 02/08/20 00:06 98.3 F 91 H 21 120/72 94 L 02/07/20 20:19 93 L 02/07/20 19:55 98.4 F 94 H 18 182/87 96 Pain Assessment - Last Documented Pain Intensity 10 Pain Scale Used 0-10 Pain Scale Intake and Output: Intake & Output 02/06/20 02/07/20 02/08/20 02/09/20 11:59 11:59 11:59 11:59 Intake Total 0 6287 3691 2127 Output Total 2900 3000 4100 Balance -2900 3287 -409 2127 Weight 78 kg 78.9 kg Lab Results: Lab Results-Last 24 Hours 02/07/20 02/07/20 02/08/20 Range/Units 17:28 20:40 00:09 Sodium (137-145) mmol/L Potassium (3.5-5.1) mmol/L Chloride (98-107) mmol/L Carbon Dioxide (22-30) mmol/L Anion Gap (5-15) MEQ/L BUN (7-17) mg/dL Creatinine (0.52-1.04) mg/dL Estimated GFR ML/MIN Glucose (74-106) mg/dL POC Glucometer 166 H 144 H 143 H (74 to 106) mg/dL Calcium (8.4-10.2) mg/dL Magnesium (1.6-2.3) mg/dL Total Bilirubin (0.2-1.3) mg/dL AST (14-36) U/L ALT (0-35) U/L Alkaline Phosphatase (38-126) U/L Serum Total Protein (6.3-8.2) g/dL Albumin (3.5-5.0) g/dL 02/08/20 02/08/20 02/08/20 Range/Units 05:40 05:50 12:22 Sodium 134 L (137-145) mmol/L Potassium 3.8 (3.5-5.1) mmol/L Chloride 107 (98-107) mmol/L Carbon Dioxide 21 L (22-30) mmol/L Anion Gap 9.2 (5-15) MEQ/L BUN 12 (7-17) mg/dL Creatinine 0.62 (0.52-1.04) mg/dL Estimated GFR > 60.0 ML/MIN Glucose 164 H (74-106) mg/dL POC Glucometer 156 H 139 H (74 to 106) mg/dL Calcium 9.0 (8.4-10.2) mg/dL Magnesium 2.1 (1.6-2.3) mg/dL Total Bilirubin 0.20 (0.2-1.3) mg/dL AST 19 (14-36) U/L ALT 33 (0-35) U/L Alkaline Phosphatase 114 (38-126) U/L Serum Total Protein 6.4 (6.3-8.2) g/dL Albumin 3.2 L (3.5-5.0) g/dL Radiology Exams: Radiology Procedures Category Date Time Status ABDOMEN 2 VIEW Routine Exams 02/07/20 18:00 Completed Assessment/Plan (1) Small bowel obstruction Status: Acute Assessment & Plan: improving slowly,has tolerated NGT out ,advanced diet is per Surgeon Dr Villar Code(s): K56.609 - UNSP INTESTNL OBST, UNSP TO PARTIAL VERSUS COMPLETE OBST (2) Epistaxis Status: Resolved Assessment & Plan: Lovenox was held for 24 hours during bleed yesterday,no further bleeding today Code(s): R04.0 - EPISTAXIS (3) Pulmonary embolism Status: Acute Qualifiers: Pulmonary embolism type: single subsegmental (without acute cor pulmonale) Qualified Code(s): I26.93 - Single subsegmental pulmonary embolism without acute cor pulmonale Assessment & Plan: tiny nonoccluding PE,had to hold Lovenox due to 4 hours of nose bleed which is now stabilized. Restart Lovenox. Code(s): I26.99 - OTHER PULMONARY EMBOLISM WITHOUT ACUTE COR PULMONALE
[2020-02-08] MEDS ORDERED: Robitussin 100 MG/5 ML PO PRN (16:24)
[2020-02-08] MEDS ORDERED: TYLENOL SUSPENSION 160 MG/5 ML PO PRN (16:31)
[2020-02-08] MEDS: ENOXAPARIN SODIUM SQ SCH (22:05)
[2020-02-09] MEDS: Reglan 10 MG/2 ML IV SCH ×5 (00:30→23:53)
[2020-02-09 01:11] LABS: Appearance CLEAR (CLEAR); Bilirubin NEGATIVE (NEGATIVE); Blood NEGATIVE Ery/ul (0-5); Glucose NEGATIVE (NEGATIVE); Ketones NEGATIVE (NEGATIVE); Leukocyte Esterase NEGATIVE (NEGATIVE); Mucus SLIGHT /HPF (NEGATIVE); Nitrite NEGATIVE (NEGATIVE); Protein,Urine Dip NEGATIVE (Negative); Specific Gravity 1.006 (1.005-1.025); Urobilinogen NEGATIVE mg/dL (0-1)
[2020-02-09] MEDS: Zofran 4 MG/2 ML VIAL IV PRN ×3 (04:30→13:58)
[2020-02-09] MEDS: Hydromorphone 1 mg/ml Injection IV PRN (04:31)
[2020-02-09 05:10] LABS: BASOPHIL % 0.5 % (0.0-0.4); Basophil (Absolute #) 0.04 (0-0.4); Eosinophil % 2.4 % (0.00-5.0); Hematocrit 29.4 % (35-47); Hemoglobin 8.9 gm/dl (12.0-16.0); Lymphocyte (Absolute #) 1.97 (1.0-4.6); Lymphocytes % 24.1 % (24.0-44.0); Mean Cell Volume 81.7 fl (78-100); Mean Corpuscular Hemoglobin 24.7 pg (26-32); Mean Corpuscular Hgb Concent. 30.3 g/dl (32-36); Mean Platelet Volume 9.6 fl (7.5-11.0); Monocyte (Absolute #) 0.98 (0.0-1.3); Platelet Count 499 K/mm3 (150-450); Red Cell Distribution Width 16.1 % (11.5-14.0); White Blood Count 8.2 K/mm3 (4.0-10.5)
[2020-02-09 05:34] LABS: ALBUMIN 3.1 g/dL (3.5-5.0); ALKALINE PHOSPHATASE 119 U/L (38-126); ANION GAP 9.3 MEQ/L (5-15); BLOOD UREA NITROGEN 13 mg/dL (7-17); CHLORIDE 107 mmol/L (98-107); Calcium 8.8 mg/dL (8.4-10.2); Carbon Dioxide 21 mmol/L (22-30); Creatinine 1 0.64 mg/dL (0.52-1.04); EST GLOMERULAR FILTRATION RATE > 60.0 ML/MIN; Glucose 161 mg/dL (74-106); SGOT/AST 20 U/L (14-36); SGPT/ALT 28 U/L (0-35); SODIUM 133 mmol/L (137-145); Total Protein 6.4 g/dL (6.3-8.2)
[2020-02-09] MEDS: Miralax Powder 17GM PACKET PO SCH (09:34)
[2020-02-09] MEDS: PROTONIX 40 MG IV IV SCH (09:35)
[2020-02-09] MEDS: ENOXAPARIN SODIUM SQ SCH ×2 (09:42→20:50)
[2020-02-09] MEDS: NORCO 5/325 MG PO PRN ×2 (13:58→19:52)
[2020-02-09] MEDS: KABIVEN - CENT TPN 2053 ML 2,053 ML with Vitamins For Infusion 10 ML INJECTION*** 10 ML... IV SCH ×3 (14:01)
[2020-02-09] MEDS: Sodium Chloride 0.9% W/ 20 mEq KCl/LITER 1,000 ML IV SCH (15:24)
[2020-02-09] MEDS: Ativan 2 MG/1 ML VIAL IV PRN (20:50)
[2020-02-10] MEDS: NORCO 5/325 MG PO PRN ×2 (01:52→08:21)
[2020-02-10] MEDS: Phenergan 25 MG INJ IV PRN (01:53)
[2020-02-10 05:09] LABS: Absolute Neutrophil Ct (ANC) 3.76 (1.4-6.9); BASOPHIL % 0.5 % (0.0-0.4); Basophil (Absolute #) 0.04 (0-0.4); Eosinophil % 4.3 % (0.00-5.0); Eosinophil (Absolute #) 0.33 (0-0.5); Hematocrit 30.3 % (35-47); Hemoglobin 9.3 gm/dl (12.0-16.0); Lymphocyte (Absolute #) 2.63 (1.0-4.6); Lymphocytes % 34.2 % (24.0-44.0); Mean Cell Volume 81.2 fl (78-100); Mean Corpuscular Hemoglobin 24.9 pg (26-32); Mean Corpuscular Hgb Concent. 30.7 g/dl (32-36); Mean Platelet Volume 9.9 fl (7.5-11.0); Monocyte (Absolute #) 0.92 (0.0-1.3); Platelet Count 516 K/mm3 (150-450); Red Blood Count 3.73 M/mm3 (4.1-5.4); Red Cell Distribution Width 15.9 % (11.5-14.0); White Blood Count 7.7 K/mm3 (4.0-10.5)
[2020-02-10] MEDS: Reglan 10 MG/2 ML IV SCH ×3 (05:21→17:24)
[2020-02-10 05:29] LABS: ALBUMIN 3.6 g/dL (3.5-5.0); ALKALINE PHOSPHATASE 137 U/L (38-126); ANION GAP 10.6 MEQ/L (5-15); BLOOD UREA NITROGEN 11 mg/dL (7-17); CHLORIDE 107 mmol/L (98-107); Calcium 9.2 mg/dL (8.4-10.2); Carbon Dioxide 22 mmol/L (22-30); Creatinine 1 0.64 mg/dL (0.52-1.04); EST GLOMERULAR FILTRATION RATE > 60.0 ML/MIN; Glucose 160 mg/dL (74-106); MAGNESIUM 2.1 mg/dL (1.6-2.3); Potassium 3.8 mmol/L (3.5-5.1); SGOT/AST 27 U/L (14-36); SGPT/ALT 35 U/L (0-35); SODIUM 136 mmol/L (137-145); Total Protein 7.2 g/dL (6.3-8.2)
[2020-02-10] MEDS: Sodium Chloride 0.9% W/ 20 mEq KCl/LITER 1,000 ML IV SCH (09:13)
[2020-02-10] MEDS: Miralax Powder 17GM PACKET PO SCH (09:15)
[2020-02-10] MEDS: Glucophage 850 MG PO SCH ×2 (09:20→17:24)
[2020-02-10] MEDS ORDERED: Protonix 40MG Tablet PO SCH (10:00)
[2020-02-10] MEDS ORDERED: ELIQUIS 2.5 MG TABLET PO SCH (10:00)
[2020-02-10] MEDS ORDERED: Zestril 20 MG PO SCH (10:00)
[2020-02-10 17:30] VITALS: BP 146/70; PULSE 96; O2SAT 96
--- NOTE | 2020-02-11 10:55 | DS ---
DISCHARGE DIAGNOSIS: PARTIAL SMALL BOWEL OBSTRUCTION. HISTORY: The patient is a 64 year old white female who had been in the hospital earlier in the month of January 18. She had a six hour surgery. She had a partial bowel resection of the small bowel which there was a bezoar removed. She had reanastomosis. The patient had been doing fairly well after surgery and returned home. After two days began having problems with increasing nausea and vomiting and represented to the hospital. CT scan at that time showed what appeared to be small bowel obstruction at the anastomosis site. The patient was placed on NG suction and admitted to the hospital. HOSPITAL COURSE: The patient during the hospitalization had NG suction for several days approximately one weeks' worth of low intermittent suction. Surgery was consulted and continued to have conservative approach after clamping and suctioning NG tube several times. She had no production therefore gave her some clear liquids but after about 12 hours of this she began having problems with 800 cc residual and this was suctioned with low intermittent suction once again. We did a small bowel follow through at this point which showed no peristaltic action but movement of Gastrografin by diffusion only. The patient was on IV Reglan. She had a PICC line placed and had been on TPN since the beginning of her hospital stay. The patient was quite anxious and required Ativan at times for her nerves. She used Dilaudid fairly regularly for control of pain. We were able to get her off the Dilaudid and place her on [place] once it appeared that things were starting to slowly pass through the GI tract. She was on a clear liquid diet and advanced to full liquids which she tolerated and placed on a low-residue diet. The patient was quite anxious to discharge home and was felt to be ready discharge by the evening of 02/10/2020 with follow up in the office in one week. She has [place] for pain relief and otherwise she was to return to the use of her usual home medications including Eliquis for what appeared to be some small pulmonary emboli on a previous hospitalization earlier in January. She also was given her cholesterol medicine and beta ольга. She will be seen in the office in one week for follow up and follow up with the surgeon also in approximately that time frame.
== END 2020-02-10 18:47 | disposition home or self-care (01) | DRG 388 ==
LOC: ED 14:40 → OBSVTOIN 20:56 → MED SURG 20:56
PROVIDERS: ADMIT Family Medicine; ATTEND Family Medicine
DX: K56.600 Partial intestinal obstruction, unspecified as to cause (principal); I26.99 Other pulmonary embolism without acute cor pulmonale; F41.0 Panic disorder [episodic paroxysmal anxiety]; I70.90 Unspecified atherosclerosis; I25.10 Atherosclerotic heart disease of native coronary artery without angina pectoris; E11.9 Type 2 diabetes mellitus without complications; I10 Essential (primary) hypertension; R09.02 Hypoxemia; E78.00 Pure hypercholesterolemia, unspecified; J44.9 Chronic obstructive pulmonary disease, unspecified; Z98.890 Other specified postprocedural states; Z86.711 Personal history of pulmonary embolism; Z79.01 Long term (current) use of anticoagulants; Z79.899 Other long term (current) drug therapy
CPT/HCPCS: 36000; 36415; 36573; 71045; 71260; 73030; 74018; 74021; 74177; 74240; 74248; 76937; 77001; 80053; 81001; 82271; 82962; 83036; 83690; 83735; 84132; 84484; 85025; 85379; 85610; 85730; 93005; 93041; 93970; 94760; 94762; 96360; 96361; 96365; 96368; 96374; 96375; 96376; 99285; C1769; J1170; J1200; J1642; J1650; J2060; J2405; J2550; J3475; J3480; L0625; A9270-GY

== ENCOUNTER 2020-05-21 18:05 | Observation (INO) | payer OTHER ==
[2020-05-21 19:32] LABS: MAGNESIUM 1.1 mg/dL (1.6-2.3); Potassium 2.5 mmol/L (3.5-5.1)
[2020-05-21] MEDS ORDERED: Sodium Chloride 0.9% 1000 ML 1,000 ML ONE (20:14)
[2020-05-21] MEDS: Sodium Chloride 0.9% 1000 ML 1,000 ML IV SCH (20:21)
[2020-05-21] MEDS: Magnesium 1 Gm / 100 Ml D5W*** 100 ML IV SCH ×2 (20:21→21:36)
[2020-05-21] MEDS: POTASSIUM CHLORIDE 20 mEq IN WATER 100ML 20 MEQ/100 ML BAG IV SCH ×2 (20:22→23:25)
[2020-05-21] MEDS ORDERED: TYLENOL 325 MG PO PRN (22:40)
[2020-05-21] MEDS ORDERED: Ativan 1 MG ONE (23:19)
[2020-05-22 05:16] LABS: MAGNESIUM 1.9 mg/dL (1.6-2.3)
[2020-05-22 05:23] LABS: Potassium 2.7 mmol/L (3.5-5.1)
[2020-05-22] MEDS ORDERED: K-LYTE 25 MEQ PO ONE ×2 (06:00→07:59)
[2020-05-22] MEDS: POTASSIUM CHLORIDE 20 mEq IN WATER 100ML 20 MEQ/100 ML BAG IV SCH ×2 (06:16→08:52)
[2020-05-22] MEDS: Sodium Chloride 0.9% 1000 ML 1,000 ML IV SCH (06:33)
[2020-05-22] MEDS ORDERED: Glucophage 850 MG PO SCH (08:00)
[2020-05-22] MEDS ORDERED: NORCO 5/325 MG PO PRN (08:12)
[2020-05-22] MEDS ORDERED: ELIQUIS 2.5 MG TABLET PO SCH (10:00)
[2020-05-22] MEDS ORDERED: PERCOCET TABLET 5/325MG PO ONE (11:07)
--- NOTE | 2020-05-22 11:59 | PCM.SSS ---
History of Present Illness - Chief Complaint Chief Complaint: hypokalemia/hypomagnesemia History of Present Illness: is a 64 year old female pt of Dr. Tovar with hx CVA, Parkinson's disease, CAD, HTN, COPD, OA, hx PE, who had a visit and labs with Dr. Tovar yesterday. She was found to have K+ of 2.6 and Mg of 1.1 and I asked her to come to the hospital for repletion. Overnight she received a 40mEq Krider and 2g bolus of magnesium - her Mg increased to 1.6 and her potassium to 2.7, so she is receiving another K-rider. She also received K-lyte 25 mEq po x 1; this is being repeated. She had some chest pain last night, 10/23 substernal; troponins neg x 4 and the pain has decreased this morning. Pt denies any recent medication changes. Has not been on a diuretic for a year, per Dr. Hale's direction. She does say she had to receive iron, potassium, and sodium about 1 month ago at [facility]. When her potassium is corrected to at least 3.0, she can be discharged to home on po potassium supplements. F/u with Dr. Tovar in 1 week. Get outpatient K+ and Mg in 2 days. - Review of Systems Cardiac: Chest Pain, Palpitations (6 d ago) Abdominal/Gastrointestinal: Constipation Genitourinary Symptoms: Dysuria Skin: Dryness Neurological: Dizziness (occ vertigo) Psychological: Depression, No Suicidal Ideations All Other Systems: Reviewed and Negative Medications & Allergies Home Medications: Home Medication List PANTOPRAZOLE 40 mg Tablet [Protonix 40MG Tablet] 40 mg PO DAILY 10/23/19 [History Confirmed 05/21/20] Apixaban [Eliquis] 5 mg PO BID 01/18/20 [History Confirmed 05/21/20] Metformin HCl 850 mg [Glucophage 850 MG] 850 mg PO BID 01/18/20 [History Confirmed 05/21/20] Lisinopril 20 mg [Zestril 20 MG] 20 mg PO DAILY 05/21/20 [History Confirmed 05/21/20] Allergies/Adverse Reactions: Allergies Allergy/AdvReac Type Severity Reaction Status Date / Time morphine Allergy Severe Irregular Verified 10/15/20 16:16 Heart Beat sulfamethoxazole Allergy Intermediate Hives Verified 01/29/20 16:16 [From Bactrim] trimethoprim [From Bactrim] Allergy Intermediate Hives Verified 01/29/20 16:16 fluoxetine HCl [From Prozac] AdvReac Intermediate homicidal Verified 01/29/20 16:16 thoughts - Past Medical History Past Medical History: Yes Neurological History: Peripheral Neuropathy, Stroke, TIA ENT History: No Pertinent History Cardiac History: Angina, Coronary Artery Disease, High Cholesterol, Hypertension Respiratory History: Asthma, COPD, Pulmonary Embolism Endocrine Medical History: Diabetes Type II, Other Musculoskelatal History: Arthritis, Other GI Medical History: Ulcer, Other History: No Pertinent History Pyscho-Social History: Anxiety, Depression Reproductive Disorders: Ovarian Cancer, Uterine Cancer Comment: hx of bleeding ulcer and ileus, Kienbocks disease, stroke in september 2019 (right sided weakness). . pt states TMJ. early onset Parkinsons disease, right hip fx - Female History Are you now?: No - Past Surgical History Past Surgical History: Yes Neuro Surgical History: No Pertinent History Cardiac History: Cardiac Catheterization Respiratory Surgery: No Pertinent History GI Surgical History: Appendectomy, Bowel Surgery, Cholecystectomy, Hernia Repair Genitourinary Surgical Hx: No Pertinent History Musculskeletal Surgical Hx: Orthopedic Surgery Female Surgical History: Hysterectomy, Tubal Ligation Other Surgical History: bone auto graft to wrist, collar bone surgery, heart cath 06/2019. bowel obstruction 01/2020 - Social History Smoking Status: Former smoker How long have you smoked: years Exposure to second hand smoke: No Alcohol: None Drug Use: none - Physical Exam Vital Signs: Vital Signs - 24 hr Temp Pulse Resp BP Pulse Ox 05/22/20 08:00 20 05/22/20 07:21 98.0 F 71 20 130/65 100 05/22/20 04:00 98.0 F 72 20 135/63 92 L 05/22/20 00:00 98.6 F 67 18 126/69 94 L 05/21/20 20:49 99.4 F 82 20 130/86 98 05/21/20 18:36 99.4 F 82 20 130/86 98 General Appearance: no apparent distress, alert Neurologic Exam: oriented x 3, cooperative, normal mood/affect Eye Exam: eyes nml inspection Ears, Nose, Throat Exam: moist mucous membranes Neck Exam: normal inspection, non-tender, No lymphadenopathy Respiratory Exam: normal breath sounds, lungs clear, No crackles/rales, No rhonchi, No wheezing Cardiovascular Exam: regular rate/rhythm, normal heart sounds, No murmur Gastrointestinal/Abdomen Exam: soft, normal bowel sounds, tenderness (diffuse), No distention, No mass, No guarding, No rebound Back Exam: normal inspection, No CVA tenderness, No rash Extremity Exam: normal inspection, No pedal edema, No swelling Skin Exam: normal color, warm, dry, No rash Results - Labs Lab/Micro Results: Lab Results-Last 24 Hours 05/21/20 05/21/20 05/21/20 Range/Units 18:55 18:55 23:46 Potassium 2.5 L* (3.5-5.1) mmol/L POC Glucometer (74 to 106) mg/dL Magnesium 1.1 L (1.6-2.3) mg/dL Troponin I < 0.012 < 0.012 (0.000-0.034) ng/mL 05/22/20 05/22/20 05/22/20 Range/Units 02:06 04:42 04:42 Potassium 2.7 L* (3.5-5.1) mmol/L POC Glucometer (74 to 106) mg/dL Magnesium 1.9 (1.6-2.3) mg/dL Troponin I 0.014 < 0.012 (0.000-0.034) ng/mL 05/22/20 05/22/20 Range/Units 07:16 10:58 Potassium (3.5-5.1) mmol/L POC Glucometer 106 108 H (74 to 106) mg/dL Magnesium (1.6-2.3) mg/dL Troponin I (0.000-0.034) ng/mL Assessment/Plan (1) Hypokalemia Current Visit: No Status: Acute Assessment & Plan: Still repleting; if she gets up to 3.0 will discharge to home on po supplementation. F/u with repeat K+ draw in 2d and see Dr. Tovar in 1 week. Code(s): E87.6 - HYPOKALEMIA (2) Chest pain Current Visit: No Status: Acute Qualifiers: Chest pain type: unspecified Qualified Code(s): R07.9 - Chest pain, unspecified Assessment & Plan: improved; serial troponins are neg and EKG non acute. Code(s): R07.9 - CHEST PAIN, UNSPECIFIED (3) Hypomagnesemia Current Visit: No Status: Acute Assessment & Plan: repleted. Code(s): E83.42 - HYPOMAGNESEMIA (4) Dysuria Current Visit: Yes Status: Acute Assessment & Plan: checking UA. Code(s): R30.0 - DYSURIA Hospital Summary - Hospital Course Hospital Course: Pt is 64 yo female pt of Dr. Tovar with CAD, COPD, Parkinson's, hx PE, and HTN who was admitted directly after having low K and Mg (2.7 and 1.1). Repleted on med surg - if levels come up acceptably, she is to be sent home on po supplements and f/u with Dr. Tovar in 1 week. Recheck levels in 2d. - Vitals & Intake/Output Vital Signs: Vital Signs Temperature 98.0 F 05/22/20 07:21 Pulse Rate 71 05/22/20 07:21 Respiratory Rate 20 05/22/20 08:00 Blood Pressure 130/65 05/22/20 07:21 O2 Sat by Pulse Oximetry 100 05/22/20 07:21 Intake & Output: Intake & Output 05/19/20 05/20/20 05/21/20 05/22/20 11:59 11:59 11:59 11:59 Intake Total 480 Output Total 3150 Balance -2670 Weight 76 kg - Lab Result Diagrams: 05/22/20 04:42 Lab Results-Last 24 Hrs: Lab Results-Last 24 Hours 05/21/20 05/21/20 05/21/20 Range/Units 18:55 18:55 23:46 Potassium 2.5 L* (3.5-5.1) mmol/L POC Glucometer (74 to 106) mg/dL Magnesium 1.1 L (1.6-2.3) mg/dL Troponin I < 0.012 < 0.012 (0.000-0.034) ng/mL 05/22/20 05/22/20 05/22/20 Range/Units 02:06 04:42 04:42 Potassium 2.7 L* (3.5-5.1) mmol/L POC Glucometer (74 to 106) mg/dL Magnesium 1.9 (1.6-2.3) mg/dL Troponin I 0.014 < 0.012 (0.000-0.034) ng/mL 05/22/20 05/22/20 Range/Units 07:16 10:58 Potassium (3.5-5.1) mmol/L POC Glucometer 106 108 H (74 to 106) mg/dL Magnesium (1.6-2.3) mg/dL Troponin I (0.000-0.034) ng/mL - Procedures and Test Procedures and Tests throughout Hospitalization: Therapy Orders & Screens 05/21/20 19:02 EKG STAT Comment: Diagnosis: HYPOKALEMIA,HYPOMAGNESEMIA - Discharge Disposition: Home, Self-Care Condition: Stable Prescriptions: No Action PANTOPRAZOLE 40 mg Tablet [Protonix 40MG Tablet] 40 mg PO DAILY Metformin HCl 850 mg [Glucophage 850 MG] 850 mg PO BID Apixaban [Eliquis] 5 mg PO BID Lisinopril 20 mg [Zestril 20 MG] 20 mg PO DAILY Follow up with: LYDIA TOVAR [Primary Care Provider] -
[2020-05-22] MEDS ORDERED: Zestril 20 MG PO SCH (12:00)
[2020-05-22] MEDS ORDERED: Protonix 40MG Tablet PO SCH (12:00)
[2020-05-22 12:22] VITALS: BP 134/77; PULSE 75; O2SAT 99
[2020-05-22] MEDS ORDERED: Ativan 1 MG PO SCH (22:00)
== END 2020-05-22 15:15 | disposition home or self-care (01) ==
LOC: MED SURG 18:35
PROVIDERS: ADMIT Family Medicine; ATTEND Family Medicine
DX: E87.6 Hypokalemia (principal); E83.42 Hypomagnesemia; I10 Essential (primary) hypertension; J44.9 Chronic obstructive pulmonary disease, unspecified; R42 Dizziness and giddiness; G20 Parkinson's disease; E78.00 Pure hypercholesterolemia, unspecified; R07.9 Chest pain, unspecified; Z79.899 Other long term (current) drug therapy; R30.0 Dysuria; Z86.711 Personal history of pulmonary embolism; Z79.01 Long term (current) use of anticoagulants
CPT/HCPCS: 36415; 82947; 83735; 84132; 84484; 93005; 93268; G0378; J3475; J3480; A9270-GY

== ENCOUNTER 2020-09-03 15:10 | Observation (INO) | payer OTHER ==
[2020-09-03] MEDS ORDERED: BABY ASPIRIN 81 MG CHEW PO ONE (16:02)
[2020-09-03 16:23] LABS: Appearance CLEAR (CLEAR); Bilirubin NEGATIVE (NEGATIVE); Blood NEGATIVE Ery/ul (0-5); Glucose NEGATIVE (NEGATIVE); Ketones NEGATIVE (NEGATIVE); Leukocyte Esterase NEGATIVE (NEGATIVE); Nitrite NEGATIVE (NEGATIVE); Protein,Urine Dip NEGATIVE (Negative); Specific Gravity 1.001 (1.005-1.025); Urobilinogen NEGATIVE mg/dL (0-1)
[2020-09-03 16:25] LABS: Bacteria NONE SEEN /HPF (NEGATIVE)
[2020-09-03 16:36] LABS: ALBUMIN 4.4 g/dL (3.5-5.0); ALKALINE PHOSPHATASE 136 U/L (38-126); ANION GAP 15.8 MEQ/L (5-15); BLOOD UREA NITROGEN 8 mg/dL (7-17); CHLORIDE 103 mmol/L (98-107); Calcium 8.4 mg/dL (8.4-10.2); Carbon Dioxide 23 mmol/L (22-30); Creatinine 1 0.75 mg/dL (0.52-1.04); EST GLOMERULAR FILTRATION RATE > 60.0 ML/MIN; Glucose 140 mg/dL (74-106); SGOT/AST 20 U/L (14-36); SGPT/ALT 21 U/L (0-35); SODIUM 139 mmol/L (137-145); Total Protein 7.8 g/dL (6.3-8.2)
[2020-09-03] MEDS ORDERED: BABY ASPIRIN 81 MG CHEW ONE (16:38)
[2020-09-03 16:39] LABS: MAGNESIUM 0.7 mg/dL (1.6-2.3); Potassium 2.9 mmol/L (3.5-5.1)
[2020-09-03] MEDS ORDERED: Klor Con 10 MEQ PO ONE ×2 (16:55→17:07)
[2020-09-03] MEDS ORDERED: Sodium Chloride 0.9% 1000 ML 1,000 ML IV SCH (17:00)
--- NOTE | 2020-09-03 17:09 | ERPHSYRPT ---
- History of Present Illness Time Seen by Provider: 09/03/20 15:13 Historian: patient Exam Limitations: no limitations Patient Subjective Stated Complaint: " I got a call from my doctor and they told me to come in because my labs were low. I think it was my potassium. I got it drawn here this morning. I also have been having chest pains and dizziness." Triage Nursing Assessment: Pt presents to ER because of "abnormal labs", pt noted to have potassium level of 2.9 this morning drawn at [facility]. Pt is alert and oriented x 3. Pt complains of chest pain and dizziness that started this morning. Pt is alert and oriented x 3. Appears pleasant and communicable. Pt does walk with a little unsteady gait. Pt also complains of headahce. Respirations are easy and unlabored at this time. Pt denies nausea, vomiting, or diarrhea. Does state she has a dry mouth and is diabetic. FSBS evaluated upon triage and was 131. Physician History: 65 years old female with history of hypertension, hyperlipidemia, multiple strokes with right-sided residual weakness, chronic kidney disease presented in the ER with chief complaint of chest pain since morning and abnormal labs. Patient reports she woke up this morning with dull aching substernal chest pain mild to moderate without any significant aggravating or relieving factors. Vivek es any associated shortness of breath. Patient also had blood work done by nephrology and was found out that her potassium and magnesium were low. Complaining of cramping in the legs and generalized body aches as well. No fever or chills reported. Timing/Duration: today, sudden, worse Activities at Onset: rest Quality: dullness Location: substernal Chest Pain Radiation: no radiation Severity of Pain-Max: moderate Severity of Pain-Current: moderate Modifying Factors: Improves With: nothing Associated Symptoms: denies symptoms Nitro Today/Relief: no nitro taken today Aspirin Treatment Today: no aspirin today Allergies/Adverse Reactions: morphine Allergy (Severe, Verified 01/29/20 16:16) Irregular Heart Beat sulfamethoxazole [From Bactrim] Allergy (Intermediate, Verified 01/29/20 16:16) Hives trimethoprim [From Bactrim] Allergy (Intermediate, Verified 01/29/20 16:16) Hives fluoxetine HCl [From Prozac] Adverse Reaction (Intermediate, Verified 01/29/20 16:16) homicidal thoughts homicidal thoughts Home Medications: Apixaban [Eliquis] 5 mg PO BID 01/18/20 [History] Metformin HCl 850 mg [Glucophage 850 MG] 850 mg PO BID 01/18/20 [History] Lisinopril 20 mg [Zestril 20 MG] 20 mg PO DAILY 05/21/20 [History] Amlodipine Besylate 2.5 mg PO DAILY 09/03/20 [History] Carvedilol [Coreg] 6.25 mg PO BID 09/03/20 [History] Clonidine HCl 0.2 mg PO HS 09/03/20 [History] Omeprazole 20 mg PO DAILY 09/03/20 [History] Spironolactone 1 tab PO DAILY 09/03/20 [History] Hx Tetanus, Diphtheria Vaccination/Date Given: Yes Hx Influenza Vaccination/Date Given: Yes Hx Pneumococcal Vaccination/Date Given: Yes Immunizations Up to Date: Yes Travel Risk - International Travel Have you traveled outside of the country in past 3 weeks: No - Coronavirus Screening Are you exhibiting any of the following symptoms?: No Close contact with a COVID-19 positive Pt in past 14-21 Days: No - Vaccine Status Have you recieved a Covid-19 vaccination: Yes Autopsy Assistant: Moderna - Vaccination Dates Date of 2cond Vaccination (if applicable): 08/27/20 - Review of Systems Constitutional: No Symptoms Eyes: No Symptoms Ears, Nose, & Throat: No Symptoms Respiratory: No Symptoms Cardiac: Chest Pain Abdominal/Gastrointestinal: No Symptoms Genitourinary Symptoms: No Symptoms Musculoskeletal: Arthralgias, Myalgias Skin: No Symptoms Neurological: No Dizziness, No Headache, No Speech Changes Psychological: Anxiety Endocrine: No Symptoms Hematologic/Lymphatic: No Symptoms Immunological/Allergic: No Symptoms - Past Medical History Pertinent Past Medical History: Yes Neurological History: Peripheral Neuropathy, Stroke, TIA ENT History: No Pertinent History Cardiac History: Angina, Coronary Artery Disease, High Cholesterol, Hypertension Respiratory History: Asthma, COPD, Pulmonary Embolism Endocrine Medical History: Diabetes Type II, Other Musculoskeletal History: Arthritis, Other GI Medical History: Ulcer, Other History: No Pertinent History Psycho-Social History: Anxiety, Depression Female Reproductive Disorders: Ovarian Cancer, Uterine Cancer Other Medical History: hx of bleeding ulcer and ileus, Kienbocks disease, stroke in september 2019 (right sided weakness). . pt states TMJ. early onset Parkinsons disease, right hip fx - Past Surgical History Past Surgical History: Yes Neuro Surgical History: No Pertinent History Cardiac: Cardiac Catheterization Respiratory: No Pertinent History Gastrointestinal: Appendectomy, Bowel Surgery, Cholecystectomy, Hernia Repair Genitourinary: No Pertinent History Musculoskeletal: Orthopedic Surgery Female Surgical History: Hysterectomy, Tubal Ligation Other Surgical History: bone auto graft to wrist, collar bone surgery, heart cath 06/2019. bowel obstruction 01/2020 - Social History Smoking Status: Former smoker How long have you smoked: years Exposure to second hand smoke: No Drug Use: none Patient Lives Alone: No - Nursing Vital Signs Nursing Vital Signs: Initial Vital Signs Temperature 99.0 F 09/03/20 15:50 Pulse Rate 67 09/03/20 15:50 Respiratory Rate 18 09/03/20 15:50 Blood Pressure 137/69 09/03/20 15:50 O2 Sat by Pulse Oximetry 97 09/03/20 15:50 Pain Scale Pain Intensity 8 - Physical Exam General Appearance: no apparent distress, alert, anxiety Eye Exam: PERRL/EOMI, eyes nml inspection Ears, Nose, Throat Exam: normal ENT inspection, TMs normal, pharynx normal Neck Exam: normal inspection, non-tender, supple, full range of motion Respiratory Exam: normal breath sounds, chest tenderness, lungs clear Cardiovascular Exam: regular rate/rhythm, normal heart sounds Gastrointestinal/Abdomen Exam: soft, normal bowel sounds, No tenderness Back Exam: normal inspection, No CVA tenderness Extremity Exam: normal inspection, normal range of motion, pelvis stable Neurologic Exam: alert, oriented x 3, cooperative, changeover operator II-XII nml as tested Skin Exam: normal color SpO2 Interpretation: normal SpO2: 97 O2 Delivery: Room Air - Course EKG Interpreted by Me: RATE (63), Sinus Rhythm, NORMAL AXIS, NORMAL INTERVALS, NORMAL QRS Ordered Tests: Active Orders 24 hr Category Date Time Status EKG-ER Only STAT Care 09/03/20 16:01 Active IV Insertion STAT Care 09/03/20 16:01 Active House Regular Diet Diet 09/03/20 Dinner Active CHEST 1 VIEW (PORTABLE) Stat Exams 09/03/20 16:02 Taken CMP Stat Lab 09/03/20 16:19 Completed MAGNESIUM Stat Lab 09/03/20 16:19 Completed POCT GLUCOSE Stat Lab 09/03/20 15:53 Completed TROPONIN Q3H Lab 09/03/20 16:19 Completed TROPONIN Q3H Lab 09/03/20 19:15 Ordered TROPONIN Q3H Lab 09/03/20 22:15 Ordered TROPONIN Q3H Lab 09/04/20 01:15 Ordered TROPONIN Q3H Lab 09/04/20 04:15 Ordered UA W/RFX UR CULTURE Stat Lab 09/03/20 16:19 Completed Transfer Order Routine Transfer 09/03/20 Ordered Medication Summary Generic Name Dose Route Start Last Admin Trade Name Chaz PRN Reason Stop Dose Admin Magnesium Sulfate/Dextrose 100 mls @ 100 mls/hr 09/03/20 17:00 09/03/20 17:25 Magnesium 1 Gm / 100 Ml D5w IV 09/03/20 18:59 100 mls/hr Q1H BRADY Administration Potassium Chloride 20 meq in 100 mls @ 50 mls/hr 09/03/20 17:00 09/03/20 17:25 Potassium Chloride 20 Meq In Water 100ml IV 09/03/20 20:59 50 mls/hr Q2H BRADY Administration Sodium Chloride 1,000 mls @ 50 mls/hr 09/03/20 17:00 09/03/20 17:25 Sodium Chloride 0.9% 1000 Ml IV 10/03/20 16:59 50 mls/hr .Q20H BRADY Administration Discontinued Medications Generic Name Dose Route Start Last Admin Trade Name Chaz PRN Reason Stop Dose Admin Aspirin 324 mg 09/03/20 16:02 09/03/20 16:39 Baby Aspirin 81 Mg Chew PO 09/03/20 16:03 324 mg STAT ONE Administration Aspirin Confirm 09/03/20 16:38 Baby Aspirin 81 Mg Chew Administered 09/03/20 16:39 Dose 324 mg .ROUTE .STK-MED ONE Oxycodone/Acetaminophen 1 tab 09/03/20 17:38 09/03/20 17:41 Percocet Tablet 5/325mg PO 09/03/20 17:39 1 tab STAT STA Administration Oxycodone/Acetaminophen Confirm 09/03/20 17:40 Percocet Tablet 5/325mg Administered 09/03/20 17:41 Dose 1 tab .ROUTE .STK-MED ONE Potassium Chloride 40 meq 09/03/20 16:55 09/03/20 17:25 Klor Con 10 Meq PO 09/03/20 16:56 40 meq STAT ONE Administration Potassium Chloride Confirm 09/03/20 17:07 Klor Con 10 Meq Administered 09/03/20 17:08 Dose 40 meq PO .STK-MED ONE Lab/Rad Data: Laboratory Result Diagrams 09/03/20 16:19 Laboratory Results 09/03/20 09/03/20 09/03/20 Range/Units 16:19 16:19 16:19 Sodium 139 (137-145) mmol/L Potassium 2.9 L* (3.5-5.1) mmol/L Chloride 103 (98-107) mmol/L Carbon Dioxide 23 (22-30) mmol/L Anion Gap 15.8 H (5-15) MEQ/L BUN 8 (7-17) mg/dL Creatinine 0.75 (0.52-1.04) mg/dL Estimated GFR > 60.0 ML/MIN Glucose 140 H (74-106) mg/dL POC Glucometer (74 to 106) mg/dL Calcium 8.4 (8.4-10.2) mg/dL Magnesium 0.7 L* (1.6-2.3) mg/dL Total Bilirubin 0.40 (0.2-1.3) mg/dL AST 20 (14-36) U/L ALT 21 (0-35) U/L Alkaline Phosphatase 136 H (38-126) U/L Troponin I 0.014 (0.000-0.034) ng/mL Serum Total Protein 7.8 (6.3-8.2) g/dL Albumin 4.4 (3.5-5.0) g/dL Urine Color COLORLESS (YELLOW) Urine Appearance CLEAR (CLEAR) Urine pH 7.0 (5-6) Ur Specific [place] 1.001 (1.005-1.025) Urine Protein NEGATIVE (Negative) Urine Ketones NEGATIVE (NEGATIVE) Urine Blood NEGATIVE (0-5) Parviz/ul Urine Nitrite NEGATIVE (NEGATIVE) Urine Bilirubin NEGATIVE (NEGATIVE) Urine Urobilinogen NEGATIVE (0-1) mg/dL Ur Leukocyte Esterase NEGATIVE (NEGATIVE) Urine WBC (Auto) NONE (0-5) /HPF Urine RBC (Auto) NONE (0-2) /HPF U Epithel Cells (Auto) NONE (FEW) /HPF Urine Bacteria (Auto) NONE SEEN (NEGATIVE) /HPF Urine Culture Reflexed NO (NO) Urine Glucose NEGATIVE (NEGATIVE) mg/dL 09/03/20 Range/Units 15:53 Sodium (137-145) mmol/L Potassium (3.5-5.1) mmol/L Chloride (98-107) mmol/L Carbon Dioxide (22-30) mmol/L Anion Gap (5-15) MEQ/L BUN (7-17) mg/dL Creatinine (0.52-1.04) mg/dL Estimated GFR ML/MIN Glucose (74-106) mg/dL POC Glucometer 130 H (74 to 106) mg/dL Calcium (8.4-10.2) mg/dL Magnesium (1.6-2.3) mg/dL Total Bilirubin (0.2-1.3) mg/dL AST (14-36) U/L ALT (0-35) U/L Alkaline Phosphatase (38-126) U/L Troponin I (0.000-0.034) ng/mL Serum Total Protein (6.3-8.2) g/dL Albumin (3.5-5.0) g/dL Urine Color (YELLOW) Urine Appearance (CLEAR) Urine pH (5-6) Ur Specific [place] (1.005-1.025) Urine Protein (Negative) Urine Ketones (NEGATIVE) Urine Blood (0-5) Parviz/ul Urine Nitrite (NEGATIVE) Urine Bilirubin (NEGATIVE) Urine Urobilinogen (0-1) mg/dL Ur Leukocyte Esterase (NEGATIVE) Urine WBC (Auto) (0-5) /HPF Urine RBC (Auto) (0-2) /HPF U Epithel Cells (Auto) (FEW) /HPF Urine Bacteria (Auto) (NEGATIVE) /HPF Urine Culture Reflexed (NO) Urine Glucose (NEGATIVE) mg/dL - Progress Progress: improved Air Movement: good Progress Note: 09/03/20 17:09 65 years old is evaluated for abnormal electrolytes and chest pain. EKG did not show any acute ST elevations. Negative initial troponin. I have repeated chemistries and potassium 2.9, magnesium 0.7. Started on replacement for both. Chest x-ray negative for any acute cardiopulmonary findings. Discussed with Dr. Tovar, reviewed history, work-up and current plan of care, agreed with observation admission for electrolyte replacement and trending of cardiac enzymes. Blood Culture(s) Obtained: No Antibiotics given: No Discussed with : Harish Will see patient in: hospital (observation) Counseled pt/family regarding: lab results, diagnosis, rad results - Departure Departure Disposition: Observation Clinical Impression: Chest pain, rule out acute myocardial infarction, Hypokalemia, Hypomagnesemia Condition: Stable Critical Care Time: No Referrals: LYDIA TOVAR [Primary Care Provider] -
[2020-09-03] MEDS: POTASSIUM CHLORIDE 20 mEq IN WATER 100ML 20 MEQ/100 ML BAG IV SCH ×2 (17:25→20:56)
[2020-09-03] MEDS: Magnesium 1 Gm / 100 Ml D5W*** 100 ML IV SCH ×2 (17:25→18:26)
[2020-09-03] MEDS ORDERED: PERCOCET TABLET 5/325MG PO STA ×2 (17:38→18:55)
[2020-09-03] MEDS ORDERED: PERCOCET TABLET 5/325MG ONE ×2 (17:40→18:58)
[2020-09-03 18:31] LABS: INFLUENZA A NEGATIVE (NEGATIVE); INFLUENZA B NEGATIVE (NEGATIVE); RESPIRATORY SYNCTIAL VIRUS NEGATIVE (Negative)
[2020-09-03] MEDS ORDERED: DUONEB 0.5-3 MG/3 ml Neb IH PRN (19:27)
[2020-09-03] MEDS ORDERED: HUMALOG SQ PRN (19:27)
[2020-09-03] MEDS ORDERED: TYLENOL 325 MG PO PRN (19:27)
--- NOTE | 2020-09-03 22:51 | XRAY ---
Indication: Chest pain. Comparison: January 29, 2020. Portable chest remains clear. Heart and mediastinal structures within normal limits. Bony thorax intact again with mild osteopenia, degenerative changes, old bilateral rib fractures, and old bilateral clavicle fractures. Impression: Nonacute chest with chronic features.
[2020-09-03] MEDS ORDERED: Catapres 0.1 MG ONE (23:04)
[2020-09-03] MEDS: ELIQUIS 2.5 MG TABLET PO SCH (23:07)
[2020-09-03] MEDS: Pepcid 20 MG VIAL IV SCH (23:07)
[2020-09-03] MEDS: Coreg 6.25 MG PO SCH (23:08)
[2020-09-03] MEDS: Catapres 0.1 MG PO SCH (23:09)
[2020-09-04] MEDS: NORCO 7.5/325 MG TAB PO PRN ×5 (00:57→20:53)
[2020-09-04] MEDS: Zofran 4 MG/2 ML VIAL IV PRN ×3 (04:34→20:52)
[2020-09-04 06:03] LABS: Absolute Neutrophil Ct (ANC) 3.54 (1.4-6.9); BASOPHIL % 0.4 % (0.0-0.4); Basophil (Absolute #) 0.03 (0-0.4); Eosinophil % 2.8 % (0.00-5.0); Eosinophil (Absolute #) 0.19 (0-0.5); Hemoglobin 11.6 gm/dl (12.0-16.0); Lymphocyte (Absolute #) 2.46 (1.0-4.6); Lymphocytes % 36.5 % (24.0-44.0); Mean Cell Volume 91.8 fl (78-100); Mean Corpuscular Hgb Concent. 30.5 g/dl (32-36); Mean Platelet Volume 9.3 fl (7.5-11.0); Monocyte (Absolute #) 0.52 (0.0-1.3); Monocytes % 7.7 % (0.0-12.0); Neutrophil % 52.6 % (36.0-66.0); Platelet Count 244 K/mm3 (150-450); Red Blood Count 4.14 M/mm3 (4.1-5.4); Red Cell Distribution Width 14.1 % (11.5-14.0); White Blood Count 6.7 K/mm3 (4.0-10.5)
[2020-09-04 06:59] LABS: ALBUMIN 4.1 g/dL (3.5-5.0); ALKALINE PHOSPHATASE 141 U/L (38-126); ANION GAP 17.1 MEQ/L (5-15); BLOOD UREA NITROGEN 9 mg/dL (7-17); CHLORIDE 112 mmol/L (98-107); Calcium 8.8 mg/dL (8.4-10.2); Creatinine 1 0.67 mg/dL (0.52-1.04); EST GLOMERULAR FILTRATION RATE > 60.0 ML/MIN; Glucose 104 mg/dL (74-106); Potassium 4.1 mmol/L (3.5-5.1); SGOT/AST 23 U/L (14-36); SGPT/ALT 21 U/L (0-35); SODIUM 140 mmol/L (137-145)
[2020-09-04 07:06] LABS: Carbon Dioxide 15 mmol/L (22-30)
[2020-09-04] MEDS: Pepcid 20 MG VIAL IV SCH ×2 (09:55→20:52)
[2020-09-04] MEDS: Glucophage 850 MG PO SCH ×2 (09:55→16:47)
[2020-09-04] MEDS: ELIQUIS 2.5 MG TABLET PO SCH ×2 (09:55→20:52)
[2020-09-04] MEDS: Protonix 40MG Tablet PO SCH (09:55)
[2020-09-04] MEDS ORDERED: NON-FORMULARY ITEM (Omeprazole [Omeprazole] 20 MG) PO SCH (10:00)
[2020-09-04] MEDS ORDERED: Glucophage 850 MG PO SCH (10:00)
[2020-09-04] MEDS ORDERED: NON-FORMULARY ITEM (Amlodipine Besylate [Amlodipine Besylate] 2.5 MG) PO SCH (10:00)
[2020-09-04] MEDS: Coreg 6.25 MG PO SCH ×2 (13:30→20:52)
[2020-09-04] MEDS: Aldactone 25 MG PO SCH (13:31)
[2020-09-04] MEDS: NORVASC 5 MG PO SCH (13:32)
[2020-09-04] MEDS: Zestril 20 MG PO SCH (13:32)
[2020-09-04] MEDS: Tums EX 750 MG PO PRN ×2 (15:35→23:02)
[2020-09-04] MEDS ORDERED: MILK OF MAGNESIA 30 ML PO ONE (16:18)
[2020-09-04] MEDS: Catapres 0.1 MG PO SCH (20:52)
[2020-09-05] MEDS: NORCO 7.5/325 MG TAB PO PRN ×2 (01:42→05:41)
[2020-09-05] MEDS: Zofran 4 MG/2 ML VIAL IV PRN (03:31)
[2020-09-05] MEDS: Tums EX 750 MG PO PRN (05:41)
[2020-09-05 07:01] LABS: ALKALINE PHOSPHATASE 151 U/L (38-126); ANION GAP 10.3 MEQ/L (5-15); BLOOD UREA NITROGEN 6 mg/dL (7-17); CHLORIDE 101 mmol/L (98-107); Calcium 9.4 mg/dL (8.4-10.2); Carbon Dioxide 31 mmol/L (22-30); Creatinine 1 0.69 mg/dL (0.52-1.04); EST GLOMERULAR FILTRATION RATE > 60.0 ML/MIN; Glucose 109 mg/dL (74-106); Potassium 3.5 mmol/L (3.5-5.1); SGOT/AST 22 U/L (14-36); SGPT/ALT 20 U/L (0-35); SODIUM 138 mmol/L (137-145)
[2020-09-05 07:41] VITALS: BP 95/50; PULSE 57; O2SAT 94
[2020-09-05] MEDS: Glucophage 850 MG PO SCH (10:30)
[2020-09-05] MEDS: Aldactone 25 MG PO SCH (10:56)
[2020-09-05] MEDS: Coreg 6.25 MG PO SCH (10:56)
[2020-09-05] MEDS: ELIQUIS 2.5 MG TABLET PO SCH (10:57)
[2020-09-05] MEDS: NORVASC 5 MG PO SCH (11:00)
[2020-09-05] MEDS: Pepcid 20 MG VIAL IV SCH (11:00)
[2020-09-05] MEDS: Protonix 40MG Tablet PO SCH (11:08)
[2020-09-05] MEDS: Zestril 20 MG PO SCH (11:09)
--- NOTE | 2020-09-06 11:33 | HP ---
CHIEF COMPLAINT: Abnormal labs from labs drawn for her cube cutter. HISTORY OF PRESENT ILLNESS: The patient is a 65 year-old white female went to the lab and had labs drawn. She was found to be severely hypokalemic and with also low magnesium levels. She was instructed to go to the emergency room to address this issue. The patient reports that she had been having no problems at this time. She does have follow up appointment to see her cube cutter on Sunday, an appointment to see her director of quality control also coming up I believe she said on Sunday. PAST MEDICAL/SURGICAL HISTORY: Significant CVA. She also has diabetes mellitus type II, chronic obstructive pulmonary disease, previous history also of pulmonary embolism, hypertension, hyperlipidemia, coronary artery disease. She also previously had ovarian and uterine cancer, according to her. HOME MEDICATIONS: Her home medications currently are amlodipine 2.5 mg a day, Eliquis 5 mg b.i.d., carvedilol 6.25 mg b.i.d., clonidine 0.2 mg at night, lisinopril 20 mg daily, Metformin 850 mg b.i.d., omeprazole 20 mg a day, Spironolactone 25 mg once daily. ALLERGIES: MORPHINE. SULFA. TRIMETHOPRIM. FLUOXETINE. PHYSICAL EXAMINATION: VITAL SIGNS: Her vital signs on admission showed her temperature 99.0F, pulse 67, respiratory rate 18, blood pressure 137/69. O2 saturation was 97%. HEENT: Normocephalic, atraumatic. Pupils equal round reactive to light. Extraocular movements intact. Oropharynx is pink and moist. NECK: Supple without lymphadenopathy, thyromegaly or JVD. CHEST: Clear to auscultation. HEART: Regular rate and rhythm. She did complain of some chest discomfort earlier. ABDOMEN: Soft. No palpable masses. EXTREMITIES: Without cyanosis, clubbing or edema. NEUROLOGIC: The patient has a mild expressive aphasia. Otherwise, her extremities show no focal deficits. LAB DATA AND TESTS: The patient's laboratory studies in the emergency room initially showed urine showing specific gravity 1.001 and otherwise appeared to be normal. Metabolic panel showed a glucose of 140, BUN 8, creatinine 0.75, potassium 2.9. Sodium was normal. Chloride and CO2 were normal. Her calcium was 8.4, magnesium 0.7. She had normal liver enzymes. Her COVID, influenza and RSV were negative. Troponin was 0.014 and the second one less than 0.012 on two separate occasions. After the patient had been treated with magnesium and potassium riders, her potassium came back at 4.0 although the saline she has been getting with the chloride in it, her chloride has risen to 112 and subsequent reduction in her CO2 to 15 as a compensatory mechanism. ASSESSMENT: The patient needs a recheck on her magnesium and once she is in the normal range there she may be discharged home. She will have a follow up CMP done in 48 hours, to see her cube cutter in three days. She is currently otherwise sitting on the side of the bed and ready to have a nice breakfast and is having no other problems at this time.
--- NOTE | 2020-09-07 13:29 | DS ---
DISCHARGE DIAGNOSES: 1) HYPOKALEMIA. 2) LOW MAGNESIUM LEVEL. 3) CONSTIPATION. 4) HYPERTENSION. 5) HISTORY OF CEREBROVASCULAR ACCIDENT. HOSPITAL COURSE: The patient is a 65 year-old white female who presented to the emergency room after having found out that her labs showed a very low magnesium and potassium levels from a lab ordered by her street superintendent. The patient was seen in the emergency room, admitted to the hospital and given bolus of IV's of potassium and magnesium which did correct the imbalance. However the patient's bicarb dropped with all the sodium chloride she was getting. The patient was somewhat reluctant to go home on 09/04/2020, complained of abdominal discomfort. She was given Milk Of Magnesia and Fleet's enema during her stay and did have a good bowel movement afterwards. The patient confesses that she was just scared to go home yesterday but this morning her labs are essentially back to normal. She did show some variation in her blood pressures from 94/[address] up 176/82. She is to continue her usual home medications. At this point ready to discharge home. She will see the dry cans operator tomorrow and has an appointment to see her street superintendent on Sunday. She will continue her usual medications otherwise as previously which include: Amlodipine 2.5 mg a day, Eliquis 5 mg b.i.d., carvedilol 6.25 mg twice a day, clonidine 0.2 mg at night, lisinopril 20 mg daily, Metformin 850 b.i.d. and omeprazole 20 mg daily, spironolactone 25 mg daily.
== END 2020-09-05 10:57 | disposition home or self-care (01) ==
LOC: ED 15:10 → MED SURG 19:23
PROVIDERS: ADMIT Family Medicine; ATTEND Family Medicine
DX: E87.6 Hypokalemia (principal); E83.42 Hypomagnesemia; K59.00 Constipation, unspecified; I10 Essential (primary) hypertension; Z86.73 Personal history of transient ischemic attack (TIA), and cerebral infarction without residual deficits; E11.9 Type 2 diabetes mellitus without complications; J44.9 Chronic obstructive pulmonary disease, unspecified; R51.9 Headache, unspecified; R07.9 Chest pain, unspecified; Z86.711 Personal history of pulmonary embolism; Z20.828 Contact with and (suspected) exposure to other viral communicable diseases; E78.5 Hyperlipidemia, unspecified; Z79.899 Other long term (current) drug therapy; Z79.01 Long term (current) use of anticoagulants; E78.00 Pure hypercholesterolemia, unspecified
CPT/HCPCS: 0241U; 36000; 36415; 71045; 80053; 81001; 82947; 83735; 84132; 84484; 85025; 93005; 93268; 94760; 96365; 96366; 96367; 99285; G0378; J2405; J3475; J3480; A9270-GY

== ENCOUNTER 2020-10-07 16:16 | Inpatient (IN) | payer OTHER ==
[2020-10-07] MEDS ORDERED: PHARMACY DOSING REQUIRED: VANCOMYCIN IV STA (17:15)
[2020-10-07] MEDS ORDERED: NORCO 5/325 MG PO PRN (17:15)
[2020-10-07 17:34] LABS: Absolute Neutrophil Ct (ANC) 9.86 (1.4-6.9); BASOPHIL % 0.2 % (0.0-0.4); Basophil (Absolute #) 0.03 (0-0.4); Eosinophil % 1.2 % (0.00-5.0); Eosinophil (Absolute #) 0.17 (0-0.5); Hemoglobin 12.8 gm/dl (12.0-16.0); Lymphocyte (Absolute #) 2.51 (1.0-4.6); Lymphocytes % 17.7 % (24.0-44.0); Mean Cell Volume 89.9 fl (78-100); Mean Corpuscular Hemoglobin 28.8 pg (26-32); Monocyte (Absolute #) 1.62 (0.0-1.3); Monocytes % 11.4 % (0.0-12.0); Neutrophil % 69.5 % (36.0-66.0); Platelet Count 410 K/mm3 (150-450); Red Blood Count 4.45 M/mm3 (4.1-5.4); Red Cell Distribution Width 13.9 % (11.5-14.0); White Blood Count 14.2 K/mm3 (4.0-10.5)
[2020-10-07] MEDS: SODIUM CHLORIDE 0.45% W/ 20 mEq KCL 1,000 ML IV SCH (17:55)
[2020-10-07 17:56] LABS: ALBUMIN 4.5 g/dL (3.5-5.0); ALKALINE PHOSPHATASE 168 U/L (38-126); ANION GAP 16.8 MEQ/L (5-15); BLOOD UREA NITROGEN 13 mg/dL (7-17); CHLORIDE 97 mmol/L (98-107); Calcium 9.7 mg/dL (8.4-10.2); Carbon Dioxide 25 mmol/L (22-30); Creatinine 1 0.77 mg/dL (0.52-1.04); EST GLOMERULAR FILTRATION RATE > 60.0 ML/MIN; Glucose 106 mg/dL (74-106); Potassium 4.3 mmol/L (3.5-5.1); SGOT/AST 20 U/L (14-36); SGPT/ALT 20 U/L (0-35); SODIUM 134 mmol/L (137-145); Total Protein 7.7 g/dL (6.3-8.2)
[2020-10-07] MEDS: VANCOMYCIN 1.25 GM/250 ML BAG 1.25 GM/250 ML PIGGYBACK IV SCH (18:48)
[2020-10-07] MEDS ORDERED: OXYCODONE-ACETAMINOPHEN 10-325 PO PRN (18:55)
[2020-10-07 20:29] LABS: Slide Review 1 YES
[2020-10-07] MEDS: Glucophage 850 MG PO SCH (20:33)
[2020-10-07] MEDS: Merrem 1 GM 1 G in Sodium Chloride 100ML MINI-BAG PLUS 100 ML IV SCH (21:03)
[2020-10-07] MEDS: ZOCOR 20MG PO SCH (21:04)
[2020-10-07] MEDS: Catapres 0.1 MG PO SCH (21:04)
[2020-10-07] MEDS: Klor Con 10 MEQ PO SCH (21:04)
[2020-10-07] MEDS: ELAVIL 25 MG PO SCH (21:05)
[2020-10-07] MEDS: ELIQUIS 2.5 MG TABLET PO SCH (21:05)
[2020-10-07] MEDS: Coreg 6.25 MG PO SCH (21:05)
[2020-10-07] MEDS ORDERED: NON-FORMULARY ITEM (Atorvastatin Calcium [Lipitor] 80 MG) PO SCH (22:00)
[2020-10-07] MEDS ORDERED: CLONIDINE HCL 0.2 MG PO SCH (22:00)
[2020-10-07] MEDS ORDERED: NON-FORMULARY ITEM (Apixaban [Eliquis] 5 MG) PO SCH (22:00)
[2020-10-07] MEDS: OXYCODONE-ACETAMINOPHEN 10-325 PO PRN (22:52)
[2020-10-08] MEDS: OXYCODONE-ACETAMINOPHEN 10-325 PO PRN ×2 (02:55→07:40)
[2020-10-08] MEDS: Merrem 1 GM 1 G in Sodium Chloride 100ML MINI-BAG PLUS 100 ML IV SCH ×3 (05:35→21:09)
[2020-10-08] MEDS: SODIUM CHLORIDE 0.45% W/ 20 mEq KCL 1,000 ML IV SCH ×3 (05:35→23:30)
[2020-10-08 05:38] LABS: Absolute Neutrophil Ct (ANC) 5.28 (1.4-6.9); BASOPHIL % 0.5 % (0.0-0.4); Basophil (Absolute #) 0.04 (0-0.4); Eosinophil (Absolute #) 0.17 (0-0.5); Hematocrit 35.9 % (35-47); Hemoglobin 11.2 gm/dl (12.0-16.0); Lymphocyte (Absolute #) 1.98 (1.0-4.6); Lymphocytes % 23.8 % (24.0-44.0); Mean Cell Volume 91.6 fl (78-100); Mean Corpuscular Hemoglobin 28.6 pg (26-32); Mean Corpuscular Hgb Concent. 31.2 g/dl (32-36); Mean Platelet Volume 8.9 fl (7.5-11.0); Monocyte (Absolute #) 0.85 (0.0-1.3); Monocytes % 10.2 % (0.0-12.0); Neutrophil % 63.5 % (36.0-66.0); Platelet Count 323 K/mm3 (150-450); Red Blood Count 3.92 M/mm3 (4.1-5.4); Red Cell Distribution Width 13.7 % (11.5-14.0); White Blood Count 8.3 K/mm3 (4.0-10.5)
[2020-10-08 06:00] LABS: ALKALINE PHOSPHATASE 136 U/L (38-126); BLOOD UREA NITROGEN 12 mg/dL (7-17); CHLORIDE 97 mmol/L (98-107); Calcium 9.3 mg/dL (8.4-10.2); Carbon Dioxide 24 mmol/L (22-30); Creatinine 1 0.81 mg/dL (0.52-1.04); EST GLOMERULAR FILTRATION RATE > 60.0 ML/MIN; Glucose 114 mg/dL (74-106); Potassium 4.5 mmol/L (3.5-5.1); SGOT/AST 22 U/L (14-36); SGPT/ALT 18 U/L (0-35); SODIUM 131 mmol/L (137-145)
[2020-10-08] MEDS ORDERED: HUMALOG SQ PRN (06:56)
[2020-10-08] MEDS: Glucophage 850 MG PO SCH (08:54)
[2020-10-08] MEDS: Klor Con 10 MEQ PO SCH ×2 (09:29→21:10)
[2020-10-08] MEDS: Aldactone 25 MG PO SCH (09:30)
[2020-10-08] MEDS: Coreg 6.25 MG PO SCH ×2 (09:30→21:09)
[2020-10-08] MEDS: HOLD METFORMIN PRODUCTS FOR 48 HOURS MC SCH (09:30)
[2020-10-08] MEDS: NORVASC 5 MG PO SCH (09:30)
[2020-10-08] MEDS: Protonix 40MG Tablet PO SCH (09:30)
[2020-10-08] MEDS: ELIQUIS 2.5 MG TABLET PO SCH ×2 (09:30→21:10)
[2020-10-08] MEDS: Zestril 20 MG PO SCH (09:30)
--- NOTE | 2020-10-08 09:39 | HP ---
CHIEF COMPLAINT: Right-sided jaw pain. HISTORY OF PRESENT ILLNESS: The patient is a 65 y/o WF who reports that she had an insect bite on her right jaw area and it has become much more swollen and tender and unable to chew on that side without extreme pain. The patient was seen 2 days ago and started on Clindamycin, but the pain has not resolved. She did have a similar episode a year or so ago that was with the jaw swelling. She saw an ENT that felt it was not a tumor and just infection. The patient was seen on the and by different providers. I saw her on the evening of the . PAST MEDICAL HISTORY: The patient's past medical history is significant for previous minor strokes. She has a mild aphasia, but otherwise is fluent. She has chronic obstructive pulmonary disease, hypertension, insomnia, osteoarthritis, panic attacks, and previously pulmonary embolism. HOME MEDICATIONS: Her current medications at the office include amitriptyline 100 mg at night and 25 mg during the day, amlodipine 2.5 mg daily, atorvastatin 80 mg q d, Bisacodyl tablets, carvedilol 6.25 mg bid, Clindamycin recently 300 mg q 6 h, Clonidine 0.2 mg HS, Eliquis 5 mg bid, gabapentin 300 tid, Lisinopril 20 mg bid, she takes magnesium oxide tablets, metformin 850 mg bid, omeprazole 20 mg q d, potassium 10 mEq q d, spironolactone 25 mg once a day. ALLERGIES: SHE REPORTS ALLERGIES TO BACTRAM, FLUOXETINE, LATEX, MORPHINE, AND PROZAC. PHYSICAL EXAMINATION: The patient was seen by Dr. Mcgill and admitted to the hospital for further evaluation and management. Her vital signs at the time showed her temperature to be 98.8. She had a BP of 126/74, respiratory rate 16. HEENT: Does reveal the swelling over the right carotid gland which does appear to be very tender, but not significantly warm or red. Otherwise, HEENT is normocephalic and atraumatic. Pupils equal, round, and reactive to light. EOM intact. Oropharynx is slightly dry. NECK: Supple without lymphadenopathy, thyromegaly, or JVD. CHEST: Clear to auscultation. HEART: Regular rate and rhythm without murmurs, rubs, or gallops. ABDOMEN: Soft. No palpable masses. EXTREMITIES: Without cyanosis, clubbing, or edema. NEURO: The patient is alert and oriented X 3. Somewhat tearful on examination. LABORATORY DATA: The patient had laboratory studies drawn which showed an elevation in her WBC at 14,200, Hgb 12.8, platelet count 410,000, and there did appear to be immature forms in the granulocytes as well. Her Hgb A1C was 6.73. She had a glucose of 106, BUN 13, creatinine 0.77. Electrolytes were fairly normal as were her liver enzymes. Alkaline phosphatase was slightly elevated at 168. COVID-19 test was negative. Her calcitonin was high normal at 0.068. The patient had a CT scan showing inflammation, but no abscess nor any mention of any neoplastic process. ASSESSMENT AND PLAN: 1. PATIENT WITH PAROTIDITIS. We are checking her IgM and IgG for mumps, but she will also be placed on Merrem and Vancomycin for what appears to be a developing abscess in her right jaw area. She will be placed on sliding scale coverage. Due to the contrast with dye, she will not be able to take her metformin for a couple of days. She will continue on her usual home medications otherwise.
--- NOTE | 2020-10-08 09:59 | XRAY ---
Exam: CT of the neck with IV contrast from 10/07/2020. CTDI: 15.13 mGy Comparison: Ultrasound of the soft tissues of the neck on the right side from 03/01/2020. Indication: 65-year-old female with asymmetric soft tissue swelling within the upper right jaw for the past 3 1/2 days. This area is very tender to touch. She has elevated white blood cell count of 14,200. Technique: Post-IV contrast axial images were obtained from just above the level of the takeoff of the great vessels of the aortic arch up through the frontal sinuses during automated injection of 80 ML's of Isovue 370 contrast material. Reconstructed coronal and sagittal images were created and reviewed. Findings: There is asymmetric soft tissue swelling and mild increased density and stranding within the right parotid gland as compared to the left parotid gland. A distinct mass within the right parotid gland is not seen. This is most suggestive of right-sided parotitis. An abscess is not seen. There is some surrounding increased soft tissue attenuation consistent with inflammation/induration. On sagittal image #29, there is a 3.7 mm oval-shaped calcification which may possibly represent a stone within Stensen's duct. This stone can also be seen on coronal image #32. It is not as well-seen on axial images, perhaps due to volume averaging. I note some scattered mildly prominent lymph nodes within the right submandibular area, the largest measuring about 1.5 cm x 1.0 cm in cross section on axial image #32. A bit more inferiorly, there is a 1.5 cm x 0.7 cm mildly enlarged lymph node on coronal image #63. Other subcentimeter lymph nodes are seen within the adjacent region. These are believed to represent reactive lymph nodes due to the right parotitis. No other pathological cervical lymphadenopathy is seen. Significant vascular calcification is seen within both carotid bifurcations. I again note occlusion of the proximal left ICA. Some vascular calcification is seen within the distal right vertebral artery on axial image #43. The submandibular glands appear unremarkable. No other neck mass is seen. The thyroid gland appears grossly unremarkable. The visualized lung apices are clear. The visualized paranasal sinuses and mastoid air cells are clear without air-fluid levels. The orbits appear grossly unremarkable. The posterior pharynx, hypopharynx, aryepiglottic folds, and subglottic airway appear unremarkable. I see no evidence of fracture or bone destruction. Impression: 1. Findings consistent with right parotitis with adjacent subcutaneous soft tissue swelling/induration and scattered prominent probable reactive lymph nodes within the right submandibular projection and upper right side of the neck. In addition, there is a 3.7 mm calcification within the medial soft tissues of the right side of the face which may represent a stone within Stensen's duct which may be the cause of the patient's right parotitis. See above. 2. Significant bilateral carotid bulb vascular calcification with proximal left ICA occlusion are again seen.
[2020-10-08] MEDS ORDERED: NON-FORMULARY ITEM (Amlodipine Besylate [Amlodipine Besylate] 2.5 MG) PO SCH (10:00)
[2020-10-08] MEDS ORDERED: NON-FORMULARY ITEM (Omeprazole [Omeprazole] 20 MG) PO SCH (10:00)
[2020-10-08] MEDS: BENADRYL 25 MG CAPSULE PO PRN ×2 (10:19→18:25)
[2020-10-08] MEDS: NORCO 5/325 MG PO PRN ×3 (11:37→19:27)
[2020-10-08] MEDS: VANCOMYCIN 1.25 GM/250 ML BAG 1.25 GM/250 ML PIGGYBACK IV SCH (11:38)
[2020-10-08] MEDS: Miralax Powder 17GM PACKET PO PRN (15:28)
[2020-10-08] MEDS: Catapres 0.1 MG PO SCH (21:09)
[2020-10-08] MEDS: ELAVIL 25 MG PO SCH (21:10)
[2020-10-08] MEDS: ZOCOR 20MG PO SCH (21:10)
[2020-10-09] MEDS ORDERED: TROUGH DRUG LEVELS IJ ONE (05:30)
[2020-10-09] MEDS: Merrem 1 GM 1 G in Sodium Chloride 100ML MINI-BAG PLUS 100 ML IV SCH ×3 (05:56→20:11)
[2020-10-09 06:08] LABS: Absolute Neutrophil Ct (ANC) 2.73 (1.4-6.9); BASOPHIL % 0.5 % (0.0-0.4); Basophil (Absolute #) 0.03 (0-0.4); Eosinophil % 3.6 % (0.00-5.0); Hematocrit 32.7 % (35-47); Hemoglobin 10.2 gm/dl (12.0-16.0); Lymphocyte (Absolute #) 1.94 (1.0-4.6); Lymphocytes % 34.8 % (24.0-44.0); Mean Cell Volume 92.1 fl (78-100); Mean Corpuscular Hemoglobin 28.7 pg (26-32); Mean Corpuscular Hgb Concent. 31.2 g/dl (32-36); Monocyte (Absolute #) 0.67 (0.0-1.3); Neutrophil % 49.1 % (36.0-66.0); Platelet Count 295 K/mm3 (150-450); Red Blood Count 3.55 M/mm3 (4.1-5.4); Red Cell Distribution Width 13.6 % (11.5-14.0); White Blood Count 5.6 K/mm3 (4.0-10.5)
[2020-10-09] MEDS: NORCO 5/325 MG PO PRN ×4 (06:45→21:14)
[2020-10-09] MEDS: VANCOMYCIN 1.25 GM/250 ML BAG 1.25 GM/250 ML PIGGYBACK IV SCH ×2 (06:45→23:58)
[2020-10-09] MEDS: Glucophage 850 MG PO SCH ×2 (08:12→17:04)
[2020-10-09] MEDS: Miralax Powder 17GM PACKET PO PRN (09:34)
[2020-10-09] MEDS: ELIQUIS 2.5 MG TABLET PO SCH ×2 (09:34→20:08)
[2020-10-09] MEDS: Protonix 40MG Tablet PO SCH (09:35)
[2020-10-09] MEDS: Klor Con 10 MEQ PO SCH ×2 (09:35→20:08)
[2020-10-09] MEDS: Zestril 20 MG PO SCH (09:35)
[2020-10-09] MEDS: HOLD METFORMIN PRODUCTS FOR 48 HOURS MC SCH (09:36)
[2020-10-09] MEDS: Aldactone 25 MG PO SCH (09:36)
[2020-10-09] MEDS: Coreg 6.25 MG PO SCH ×2 (09:36→20:09)
[2020-10-09] MEDS: NORVASC 5 MG PO SCH (09:37)
[2020-10-09] MEDS: SODIUM CHLORIDE 0.45% W/ 20 mEq KCL 1,000 ML IV SCH (17:05)
[2020-10-09] MEDS: ELAVIL 25 MG PO SCH (20:08)
[2020-10-09] MEDS: ZOCOR 20MG PO SCH (20:08)
[2020-10-09] MEDS: BENADRYL 25 MG CAPSULE PO PRN (21:14)
[2020-10-09] MEDS ORDERED: Hydromorphone 1 mg/ml Injection IV ONE (22:50)
[2020-10-09] MEDS ORDERED: VANCOMYCIN 1.5 GRAM/300 ML BAG 1.5 GM/300 ML PIGGYBACK IV ONE (23:48)
[2020-10-10 03:07] LABS: Mumps Abs, IgG >300.0 AU/mL (Immune >10.9)
[2020-10-10] MEDS: NORCO 5/325 MG PO PRN ×5 (04:57→21:36)
[2020-10-10] MEDS: Merrem 1 GM 1 G in Sodium Chloride 100ML MINI-BAG PLUS 100 ML IV SCH ×3 (05:01→21:40)
[2020-10-10 06:25] LABS: Absolute Neutrophil Ct (ANC) 3.28 (1.4-6.9); BASOPHIL % 0.5 % (0.0-0.4); Basophil (Absolute #) 0.03 (0-0.4); Eosinophil % 3.6 % (0.00-5.0); Eosinophil (Absolute #) 0.24 (0-0.5); Hematocrit 32.6 % (35-47); Hemoglobin 10.3 gm/dl (12.0-16.0); Lymphocyte (Absolute #) 2.32 (1.0-4.6); Lymphocytes % 34.9 % (24.0-44.0); Mean Cell Volume 92.1 fl (78-100); Mean Corpuscular Hemoglobin 29.1 pg (26-32); Mean Corpuscular Hgb Concent. 31.6 g/dl (32-36); Mean Platelet Volume 8.9 fl (7.5-11.0); Monocyte (Absolute #) 0.77 (0.0-1.3); Monocytes % 11.6 % (0.0-12.0); Neutrophil % 49.4 % (36.0-66.0); Platelet Count 329 K/mm3 (150-450); Red Blood Count 3.54 M/mm3 (4.1-5.4); Red Cell Distribution Width 13.4 % (11.5-14.0); White Blood Count 6.6 K/mm3 (4.0-10.5)
[2020-10-10 06:27] LABS: ANION GAP 13.7 MEQ/L (5-15); BLOOD UREA NITROGEN 9 mg/dL (7-17); CHLORIDE 108 mmol/L (98-107); Calcium 9.1 mg/dL (8.4-10.2); Carbon Dioxide 21 mmol/L (22-30); Creatinine 1 0.67 mg/dL (0.52-1.04); EST GLOMERULAR FILTRATION RATE > 60.0 ML/MIN; Glucose 91 mg/dL (74-106); Potassium 3.8 mmol/L (3.5-5.1); SODIUM 138 mmol/L (137-145)
[2020-10-10] MEDS: Glucophage 850 MG PO SCH ×2 (08:13→16:48)
[2020-10-10] MEDS: Miralax Powder 17GM PACKET PO PRN (09:55)
[2020-10-10] MEDS: NORVASC 5 MG PO SCH (09:55)
[2020-10-10] MEDS: Zestril 20 MG PO SCH (09:56)
[2020-10-10] MEDS: ELIQUIS 2.5 MG TABLET PO SCH ×2 (09:56→21:37)
[2020-10-10] MEDS: Coreg 6.25 MG PO SCH ×2 (09:56→21:36)
[2020-10-10] MEDS: Aldactone 25 MG PO SCH (09:56)
[2020-10-10] MEDS: Klor Con 10 MEQ PO SCH ×2 (09:56→21:37)
[2020-10-10] MEDS: Protonix 40MG Tablet PO SCH (09:56)
[2020-10-10] MEDS: SODIUM CHLORIDE 0.45% W/ 20 mEq KCL 1,000 ML IV SCH (13:55)
[2020-10-10] MEDS: VANCOMYCIN 1.25 GM/250 ML BAG 1.25 GM/250 ML PIGGYBACK IV SCH (17:58)
[2020-10-10] MEDS ORDERED: MAALOX ES 30 ML UNIT DOSE PO PRN (19:42)
[2020-10-10] MEDS: ZOCOR 20MG PO SCH (21:37)
[2020-10-10] MEDS: ELAVIL 25 MG PO SCH (21:37)
[2020-10-10] MEDS: BENADRYL 25 MG CAPSULE PO PRN (21:37)
[2020-10-11] MEDS: Merrem 1 GM 1 G in Sodium Chloride 100ML MINI-BAG PLUS 100 ML IV SCH (05:19)
[2020-10-11] MEDS: NORCO 5/325 MG PO PRN (05:20)
[2020-10-11 07:12] VITALS: BP 134/66; PULSE 65; O2SAT 95
[2020-10-11] MEDS: Aldactone 25 MG PO SCH (09:23)
[2020-10-11] MEDS: ELIQUIS 2.5 MG TABLET PO SCH (09:23)
[2020-10-11] MEDS: Coreg 6.25 MG PO SCH (09:23)
[2020-10-11] MEDS: Glucophage 850 MG PO SCH (09:24)
[2020-10-11] MEDS: Klor Con 10 MEQ PO SCH (09:24)
[2020-10-11] MEDS: Zestril 20 MG PO SCH (09:24)
[2020-10-11] MEDS: Protonix 40MG Tablet PO SCH (09:24)
[2020-10-11] MEDS: NORVASC 5 MG PO SCH (09:27)
[2020-10-12 06:58] LABS: Mumps Antibodies, IgM 0.87 AU (0.00-0.79)
--- NOTE | 2020-10-12 14:12 | DS ---
DISCHARGE DIAGNOSIS: PAROTIDITIS IN THE RIGHT PAROTID GLAND AND PROBABLE STONE IN MARY ELLEN'S DUCT. HOSPITAL COURSE: The patient is a 65 year-old white female who was seen in the office on sequential days. Dr. Mcgill admitted the patient with right parotiditis. I saw her when she arrived and was given IV vancomycin and Merrem for what was thought to be a right parotiditis. The patient had CT scan which did show apparent 3.7 mm calcification within the soft tissues of the right side of the face which may represent stone in the Mary Ellen's duct. This does make sense when how the patient has responded and by day four she was finally feeling well and had the swelling had diminished enough that we thought she could discharge home. The patient will be discharged home on Augmentin 875 mg twice a day to complete the antibiotic therapy. She will be given an appointment to see one of the ENT doctors in [place] per her request for follow up on the probable stone in the Mary Ellen's duct creating her parotiditis. The patient will continue her usual home medications otherwise as she had prior to admission. She will be given an appointment to see us in the office in one week for follow up. The patient verbalized her understanding and will be looking forward to seeing ENT doctor in [place].
== END 2020-10-11 09:50 | disposition home or self-care (01) | DRG 155 ==
LOC: MED SURG 16:17 → OBSVTOIN 10-09 05:35
PROVIDERS: ADMIT Family Medicine; ATTEND Family Medicine
DX: K11.20 Sialoadenitis, unspecified (principal); R47.01 Aphasia; Z86.73 Personal history of transient ischemic attack (TIA), and cerebral infarction without residual deficits; J44.9 Chronic obstructive pulmonary disease, unspecified; I10 Essential (primary) hypertension; Z86.711 Personal history of pulmonary embolism; Z79.899 Other long term (current) drug therapy; Z20.828 Contact with and (suspected) exposure to other viral communicable diseases
CPT/HCPCS: 36415; 70491; 80048; 80053; 80202; 82947; 83036; 84145; 85025; 86735; G0378; J1170; U0003; A9270-GY; J3370

== ENCOUNTER 2021-04-18 18:24 | Observation (INO) | payer OTHER ==
[2021-04-18 19:22] LABS: INFLUENZA A NEGATIVE (NEGATIVE); INFLUENZA B NEGATIVE (NEGATIVE); RESPIRATORY SYNCTIAL VIRUS NEGATIVE (Negative); SARS-CoV-2 Xpert Express NEGATIVE (NEGATIVE)
[2021-04-18] MEDS: ELIQUIS 2.5 MG TABLET PO SCH (21:18)
[2021-04-18] MEDS: Klor Con 10 MEQ PO SCH (21:18)
[2021-04-18] MEDS: Coreg 6.25 MG PO SCH (21:18)
[2021-04-18] MEDS: Glucophage 850 MG PO SCH (21:19)
[2021-04-18] MEDS ORDERED: Catapres 0.1 MG PO SCH (22:00)
[2021-04-18] MEDS ORDERED: ELAVIL 25 MG PO SCH (22:00)
[2021-04-18] MEDS: SODIUM CHLORIDE 0.45% W/ 20 mEq KCL 1,000 ML IV SCH (22:32)
[2021-04-18] MEDS: Magnesium 1 Gm / 100 Ml D5W*** 100 ML IV SCH ×2 (22:36→23:18)
[2021-04-18] MEDS: POTASSIUM CHLORIDE 20 mEq IN WATER 100ML 20 MEQ/100 ML BAG IV SCH (22:40)
[2021-04-18] MEDS: TYLENOL 325 MG PO PRN (22:52)
[2021-04-19] MEDS: POTASSIUM CHLORIDE 20 mEq IN WATER 100ML 20 MEQ/100 ML BAG IV SCH ×3 (01:00→09:35)
[2021-04-19 05:33] LABS: ANION GAP 9.5 MEQ/L (5-15); BLOOD UREA NITROGEN 11 mg/dL (7-17); CHLORIDE 99 mmol/L (98-107); Calcium 7.5 mg/dL (8.4-10.2); Carbon Dioxide 29 mmol/L (22-30); Creatinine 1 0.85 mg/dL (0.52-1.04); EST GLOMERULAR FILTRATION RATE > 60.0 ML/MIN; Glucose 97 mg/dL (74-106); MAGNESIUM 1.3 mg/dL (1.6-2.3); SODIUM 135 mmol/L (137-145)
[2021-04-19 05:35] LABS: Potassium 2.5 mmol/L (3.5-5.1)
[2021-04-19] MEDS: SODIUM CHLORIDE 0.45% W/ 20 mEq KCL 1,000 ML IV SCH (07:39)
[2021-04-19] MEDS: TYLENOL 325 MG PO PRN (07:39)
[2021-04-19] MEDS: ELIQUIS 2.5 MG TABLET PO SCH (09:33)
[2021-04-19] MEDS: Glucophage 850 MG PO SCH (09:33)
[2021-04-19] MEDS: Coreg 6.25 MG PO SCH (09:33)
[2021-04-19] MEDS: Klor Con 10 MEQ PO SCH ×2 (09:33→15:00)
[2021-04-19] MEDS ORDERED: Aldactone 25 MG PO SCH (10:00)
[2021-04-19] MEDS: Magnesium 1 Gm / 100 Ml D5W*** 100 ML IV SCH ×2 (11:19→11:52)
[2021-04-19 12:46] VITALS: O2SAT 93
[2021-04-19 16:25] VITALS: BP 175/103; PULSE 79
== END 2021-04-19 16:25 | disposition home or self-care (01) ==
LOC: MED SURG 18:24
PROVIDERS: ADMIT Family Medicine; ATTEND Family Medicine
DX: E87.6 Hypokalemia (principal); R19.7 Diarrhea, unspecified; R25.2 Cramp and spasm; Z20.828 Contact with and (suspected) exposure to other viral communicable diseases
CPT/HCPCS: 0241U; 36415; 80048; 82947; 83735; 84132; 87045; 87046; G0378; J3475; J3480; A9270-GY

== ENCOUNTER 2021-06-06 17:37 | Observation (INO) | payer OTHER ==
[2021-06-06] MEDS ORDERED: Klor Con 10 MEQ PO ONE (18:09)
[2021-06-06] MEDS ORDERED: Dextrose 5% -0.45 NaCl 1000 ML 1,000 ML IV SCH (18:15)
[2021-06-06] MEDS ORDERED: PHARMACY DOSING REQUEST MC ONE (18:20)
[2021-06-06] MEDS: POTASSIUM CHLORIDE 20 mEq IN WATER 100ML 20 MEQ/100 ML BAG IV SCH ×2 (18:35→20:53)
[2021-06-06 19:02] LABS: INFLUENZA A NEGATIVE (NEGATIVE); INFLUENZA B NEGATIVE (NEGATIVE); RESPIRATORY SYNCTIAL VIRUS NEGATIVE (Negative); SARS-CoV-2 Xpert Express NEGATIVE (NEGATIVE)
[2021-06-06] MEDS: Magnesium 1 Gm / 100 Ml D5W*** 100 ML IV SCH ×2 (19:49→20:49)
[2021-06-06] MEDS ORDERED: ATARAX 25 MG PO PRN (20:54)
[2021-06-06] MEDS: COREG 12.5 MG PO SCH (21:29)
[2021-06-06] MEDS: Zestril 20 MG PO SCH (21:29)
[2021-06-06] MEDS: ELIQUIS 2.5 MG TABLET PO SCH (21:29)
[2021-06-06] MEDS: Coreg 6.25 MG PO SCH (21:29)
[2021-06-06] MEDS: Klor Con 10 MEQ PO SCH (21:30)
[2021-06-06] MEDS: Glucophage 850 MG PO SCH (21:30)
[2021-06-06] MEDS ORDERED: ELAVIL 25 MG PO SCH (22:00)
[2021-06-06] MEDS: TYLENOL 325 MG PO PRN (23:10)
[2021-06-07 05:50] LABS: ALBUMIN 3.9 g/dL (3.5-5.0); ALKALINE PHOSPHATASE 123 U/L (38-126); BLOOD UREA NITROGEN 9 mg/dL (7-17); CHLORIDE 106 mmol/L (98-107); Calcium 8.1 mg/dL (8.4-10.2); Carbon Dioxide 23 mmol/L (22-30); Creatinine 1 0.84 mg/dL (0.52-1.04); EST GLOMERULAR FILTRATION RATE > 60.0 ML/MIN; Glucose 124 mg/dL (74-106); Potassium 3.2 mmol/L (3.5-5.1); SGOT/AST 17 U/L (14-36); SGPT/ALT 16 U/L (0-35); SODIUM 140 mmol/L (137-145); Total Protein 6.8 g/dL (6.3-8.2)
[2021-06-07] MEDS ORDERED: PHARMACY DOSING REQUEST MC ONE (07:20)
[2021-06-07] MEDS: TYLENOL 325 MG PO PRN (07:35)
[2021-06-07] MEDS: Glucophage 850 MG PO SCH (07:35)
[2021-06-07 07:47] VITALS: BP 128/74; PULSE 70; O2SAT 94
[2021-06-07] MEDS: Magnesium 1 Gm / 100 Ml D5W*** 100 ML IV SCH ×2 (08:19→09:08)
[2021-06-07] MEDS: ELIQUIS 2.5 MG TABLET PO SCH (09:05)
[2021-06-07] MEDS: Klor Con 10 MEQ PO SCH (09:06)
[2021-06-07] MEDS: COREG 12.5 MG PO SCH (09:06)
[2021-06-07] MEDS: Coreg 6.25 MG PO SCH (09:06)
[2021-06-07] MEDS: Zestril 20 MG PO SCH (09:06)
--- NOTE | 2021-06-07 09:58 | SSS ---
DISCHARGE DIAGNOSES: 1) HYPOKALEMIA. 2) HYPOMAGNESIUM. HISTORY: The patient is a 65-year-old white female who was seen in my office for routine checkup when she was complaining about significant cramping she had developed in her leg especially at nighttime. We checked her labs and found her to have severe hypomagnesemia and hypokalemia with potassium 2.7 and the magnesium level of 0.6. The patient was felt the need to come in for fluid hydration and repletion of her potassium and magnesium through IV. PAST MEDICAL/SURGICAL HISTORY: The patient's medical history is otherwise significant for previous pulmonary embolism. She has hyperlipidemia. She has hypertension, coronary artery disease, diabetes mellitus type II, gastroesophageal reflux disease. HOME MEDICATIONS: Amitriptyline 25 mg two tablets at night for sleep, amlodipine 5 mg daily, Eliquis 5 mg b.i.d., atorvastatin 80 mg daily, carvedilol 12.5 mg with an additional 6.25 mg twice a day, hydroxyzine 25 mg t.i.d. PRN anxiety, lisinopril 20 mg, metformin 850 mg twice a day, omeprazole 20 mg a day. She takes Spironolactone 25 mg daily, MiraLAX. ALLERGIES: MORPHINE. SULFA. TRIMETHOPRIM. FLUOXETINE. PHYSICAL EXAMINATION: The patient's vital signs showed her to be afebrile. Her pulse was 74, respiratory rate 16, blood pressure ranging between 166/72 on admission to 108/59 at 0400 hours. Her O2 saturations remained good throughout the day on room air. The patient's physical examination at this time reveals a well-nourished, well-developed white female at 65 years of age in no distress. HEENT: Normocephalic, atraumatic. Pupils equal round reactive to light. Extraocular movements intact. Oropharynx is pink and moist. NECK: Supple without lymphadenopathy, thyromegaly or JVD. CHEST: Clear to auscultation. HEART: Regular rate and rhythm without murmurs, rubs or gallops. ABDOMEN: Soft. No palpable masses. EXTREMITIES: Without significant cyanosis, clubbing or edema. NEUROLOGIC: She is alert and oriented x3 with no focal deficits. LAB DATA AND TESTS: The patient tested negative for influenza, respiratory syncytial virus and COVID per repeat test. Labs showed her potassium to be 3.2 by the morning of 06/07/2021. Her magnesium level is still pending at this time. We will place the patient on potassium three times a day and supplemental magnesium as recommended by pharmacy. She will be seen again in our office in three days to recheck her levels once again. She was instructed to call if she has any problems in the interim particularly if she has more cramping like she had earlier which she currently has none. HOSPITAL COURSE: The patient is felt to be ready for discharge home today on her current medications with increasing her potassium to two times a day and additional magnesium as recommended by pharmacy.
[2021-06-07] MEDS ORDERED: NON-FORMULARY ITEM (Omeprazole [Omeprazole] 20 MG Capsule.Dr) PO SCH (10:00)
[2021-06-07] MEDS ORDERED: Protonix 40MG Tablet PO SCH (10:00)
[2021-06-07] MEDS ORDERED: NORVASC 5 MG PO SCH (10:00)
[2021-06-07] MEDS ORDERED: Miralax Powder 17GM PACKET PO SCH (10:00)
[2021-06-07] MEDS ORDERED: Aldactone 25 MG PO SCH (10:00)
[2021-06-07] MEDS ORDERED: NON-FORMULARY ITEM (Atorvastatin Calcium [Lipitor] 80 MG Tablet) PO SCH (10:00)
[2021-06-07] MEDS ORDERED: ZOCOR 20MG PO SCH (10:00)
[2021-06-07] MEDS ORDERED: MAG-OX 400 PO SCH (22:00)
== END 2021-06-07 10:48 | disposition home or self-care (01) ==
LOC: MED SURG 17:42
PROVIDERS: ADMIT Family Medicine; ATTEND Family Medicine
DX: E87.6 Hypokalemia (principal); E83.42 Hypomagnesemia; E78.5 Hyperlipidemia, unspecified; I10 Essential (primary) hypertension; I25.10 Atherosclerotic heart disease of native coronary artery without angina pectoris; E11.9 Type 2 diabetes mellitus without complications; K21.9 Gastro-esophageal reflux disease without esophagitis; Z79.01 Long term (current) use of anticoagulants; Z79.899 Other long term (current) drug therapy; Z20.828 Contact with and (suspected) exposure to other viral communicable diseases
CPT/HCPCS: 0241U; 36415; 80053; 82947; 83735; 84132; 93268; G0378; J3475; J3480; A9270-GY

== ENCOUNTER 2021-10-06 20:32 | Emergency (ER) | payer MEDICARE ==
[2021-10-06] MEDS ORDERED: SUBLIMAZE 100 MCG/2 ML IM ONE (21:03)
[2021-10-06] MEDS ORDERED: SUBLIMAZE 100 MCG/2 ML ONE (21:12)
--- NOTE | 2021-10-06 21:29 | ERPHSYRPT ---
- History of Present Illness Time Seen by Provider: 10/06/21 20:40 Source: patient Exam Limitations: no limitations Patient Subjective Stated Complaint: pt states "I lost my balance and fell into my arm. I heard a pop." Triage Nursing Assessment: pt ambulated into the er; pt is axo x4; c/o rt arm pain; pt states 9/10 pain to RUE; pt has good cap refill to RUE; strong rt radial pulse; deformity to rt collar bone; tenderness to RUE; tachycardic Physician History: 66-year-old female baseline issue with balance presented in the ER after she lost her balance and hit her right arm against the wall and heard a popping so und and since then is having moderate to severe sharp pain in the right shoulder/upper arm and in the clavicle area. She does have history of previous right clavicle fracture with repair. Denies any chest pain palpitations or shortness of breath. No injury anywhere else. Occurred: this evening Method of Injury: fell Quality: sharpness Severity of Pain-Max: severe Severity of Pain-Current: severe Extremities Pain Location: shoulder: right, arm: right Modifying Factors: Improves With: immobilization. Worsens With: movement Associated Symptoms: none Allergies/Adverse Reactions: morphine Allergy (Severe, Verified 10/06/21 20:39) Irregular Heart Beat sulfamethoxazole [From Bactrim] Allergy (Intermediate, Verified 10/06/21 20:39) Hives trimethoprim [From Bactrim] Allergy (Intermediate, Verified 10/06/21 20:39) Hives fluoxetine HCl [From Prozac] Adverse Reaction (Intermediate, Verified 10/06/21 20:39) homicidal thoughts homicidal thoughts Home Medications: Apixaban [Eliquis] 5 mg PO BID 01/18/20 [History] Metformin HCl 850 mg [Glucophage 850 MG] 850 mg PO BID 01/18/20 [History] Lisinopril 20 mg [Zestril 20 MG] 20 mg PO BID 05/21/20 [History] Omeprazole 20 mg PO DAILY 09/03/20 [History] Spironolactone 25 tab PO DAILY 09/03/20 [History] carvediloL [Coreg] 6.25 mg PO BID 09/03/20 [History] Amitriptyline HCl 25 mg [Amitriptyline 25 mg Tablet] 50 mg PO HS 10/07/20 [History] Atorvastatin Calcium [Lipitor] 80 mg PO DAILY 10/07/20 [History] Amlodipine Besylate 5 mg [Norvasc 5 mg] 5 mg PO DAILY 06/06/21 [History] Carvedilol 12.5 mg [Coreg 12.5 mg] 12.5 mg PO BID 06/06/21 [History] Hydroxyzine HCl 25 mg [Atarax 25 mg] 25 mg PO TIDPRN PRN 06/06/21 [History] Polyethylene Glycol 3350 17 gm [Miralax Powder 17GM PACKET] 17 gm PO DAILY 06/06/21 [History] Potassium Chloride [Klor-Con M20] 20 meq PO BID 06/06/21 [History] Hx Tetanus, Diphtheria Vaccination/Date Given: Yes Hx Influenza Vaccination/Date Given: Yes Hx Pneumococcal Vaccination/Date Given: Yes Travel Risk - International Travel Have you traveled outside of the country in past 3 weeks: No - Coronavirus Screening Are you exhibiting any of the following symptoms?: No Close contact with a COVID-19 positive Pt in past 14-21 Days: No - Vaccine Status Have you recieved a Covid-19 vaccination: Yes Swim Instructor: Moderna - Vaccination Dates Date of 2cond Vaccination (if applicable): 08/2019 Comment: BOOSTER IN 03/2020 - Review of Systems Constitutional: No Symptoms Ears, Nose, & Throat: No Symptoms Respiratory: No Symptoms Cardiac: No Symptoms Abdominal/Gastrointestinal: No Symptoms Musculoskeletal: Fall, Injury Skin: No Symptoms Neurological: No Symptoms Psychological: No Symptoms Endocrine: No Symptoms Hematologic/Lymphatic: No Symptoms Immunological/Allergic: No Symptoms - Past Medical History Pertinent Past Medical History: Yes Neurological History: Peripheral Neuropathy, Stroke, TIA ENT History: No Pertinent History Cardiac History: Angina, Coronary Artery Disease, High Cholesterol, Hypertension Respiratory History: Asthma, COPD, Pulmonary Embolism Endocrine Medical History: Diabetes Type II, Other Musculoskeletal History: Arthritis, Other GI Medical History: Ulcer, Other History: No Pertinent History Psycho-Social History: Anxiety Female Reproductive Disorders: Ovarian Cancer, Uterine Cancer Other Medical History: hx of bleeding ulcer and ileus, Kienbocks disease, stroke in september 2019 (right sided weakness). BOWEL OBSTRUCTION. pt states TMJ. early onset Parkinsons disease, right hip fx. broken both collar bones. bowel obstruction x3 - Past Surgical History Past Surgical History: Yes Neuro Surgical History: No Pertinent History Cardiac: Cardiac Catheterization Respiratory: No Pertinent History Gastrointestinal: Appendectomy, Bowel Surgery, Cholecystectomy, Hernia Repair Genitourinary: No Pertinent History Musculoskeletal: No Pertinent History Female Surgical History: Hysterectomy, Tubal Ligation Other Surgical History: bone auto graft to wrist, collar bone surgery, heart cath 06/2019. bowel obstruction 01/2020 - Social History Smoking Status: Former smoker How long have you smoked: years Exposure to second hand smoke: No Drug Use: none Patient Lives Alone: No - Nursing Vital Signs Nursing Vital Signs: Initial Vital Signs Temperature 97.8 F 10/06/21 20:39 Pulse Rate 78 10/06/21 20:39 Respiratory Rate 18 10/06/21 20:39 Blood Pressure 149/62 10/06/21 20:39 O2 Sat by Pulse Oximetry 97 10/06/21 20:39 Pain Scale Pain Intensity 5 - Physical Exam General Appearance: no apparent distress, alert Eyes, Ears, Nose, Throat Exam: normal ENT inspection Neck Exam: normal inspection, non-tender, supple, full range of motion Cardiovascular/Respiratory Exam: normal breath sounds, regular rate/rhythm, wheezing (Right clavicle or deformity with some tenderness.) Back Exam: normal inspection, normal range of motion Shoulder Exam: bone tenderness (Upper humerus), limited ROM (Right shoulder), soft tissue tenderness Elbow/Forearm Exam: normal inspection, non-tender, no evidence of injury, normal ROM Wrist Exam: normal inspection, non-tender, no evidence of injury Hand Exam: normal inspection, non-tender, no evidence of injury Neuro/Tendon Exam: normal sensation 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, oriented x 3, cooperative Skin Exam: normal color SpO2 Interpretation: normal SpO2: 97 O2 Delivery: Room Air Ordered Tests: Medication Summary Discontinued Medications Generic Name Dose Route Start Last Admin Trade Name Freq PRN Reason Stop Dose Admin Hydrocodone Bitart/Acetaminophen 2 tab 10/06/21 22:17 10/06/21 22:24 Hydrocodone/Apap 5/325 Mg Tablet PO 10/06/21 22:18 2 tab SENT HOME W/ PATIENT ONE Administration Hydrocodone Bitart/Acetaminophen Confirm 10/06/21 22:24 Hydrocodone/Apap 5/325 Mg Tablet Administered 10/06/21 22:25 Dose 1 tab .ROUTE .STK-MED ONE Hydrocodone Bitart/Acetaminophen Confirm 10/06/21 22:24 Hydrocodone/Apap 5/325 Mg Tablet Administered 10/06/21 22:25 Dose 1 tab .ROUTE .STK-MED ONE Fentanyl Citrate 75 mcg 10/06/21 21:03 10/06/21 21:17 Fentanyl Citrate 100 Mcg/2 Ml* Vial IM 10/06/21 21:04 75 mcg STAT ONE Administration Fentanyl Citrate Confirm 10/06/21 21:12 Fentanyl Citrate 100 Mcg/2 Ml* Vial Administered 10/06/21 21:13 Dose 100 mcg .ROUTE .STK-MED ONE - Progress Progress: improved Progress Note: 10/06/21 22:15 She is given symptomatic treatment for pain. X-rays reviewed by me did not reveal any obvious humeral fracture/dislocation of the shoulder. She has ORIF right clavicle but did not appreciate any obvious fracture. Official report is pending. She is placed in a sling and outpatient orthopedic surgery follow-up in the morning recommended. Counseled pt/family regarding: diagnosis, need for follow-up, rad results - Departure Departure Disposition: Home Clinical Impression: Acute shoulder pain Condition: Stable Critical Care Time: No Referrals: LYDIA WHITFIELD [Primary Care Provider] - Follow up/PCP as directed (1-2 days for reevaluation) R[facility] - ISAIAH FOSTER NP [NON-STAFF PHY W/O PRIVILEGES] - Follow up/PCP as directed (Tomorrow morning for reevaluation) Instructions: Shoulder Pain (DC) Additional Instructions: Take pain medications as needed. Follow-up with orthopedic surgery for reevaluation in the morning. Return to ER for any worsening pain, numbness tingling weakness/difficulty breathing etc. Prescriptions: Hydrocodone/Acetaminophen [Hydrocodone-Acetamin 5-325 mg] 1 tab PO Q6HPRN PRN 3 Days #7 tablet MDD 4 PRN Reason: Pain
[2021-10-06 22:08] VITALS: BP 141/79
[2021-10-06] MEDS ORDERED: NORCO 5/325 MG PO ONE (22:17)
[2021-10-06] MEDS ORDERED: NORCO 5/325 MG ONE ×2 (22:24)
[2021-10-06 22:28] VITALS: PULSE 71
--- NOTE | 2021-10-07 08:47 | XRAY ---
Indication: Pain following fall. Comparison: February 24, 2019. 2 view right clavicle demonstrates old clavicle shaft fracture with interval ORIF and intact fixation hardware. There remains osteopenia and degenerative changes throughout visualized spine. New left carotid calcifications. No other bony, articular, or soft tissue abnormalities.
--- NOTE | 2021-10-07 08:49 | XRAY ---
Indication: Pain following fall. Comparison: None 2 view right humerus demonstrates old clavicle fracture with intact hardware, old right 6 rib fracture, and age-related osteopenia. No other bony, articular, or soft tissue abnormalities.
[2021-10-09 13:08] VITALS: O2SAT 97
== END 2021-10-06 22:34 | disposition home or self-care (01) ==
LOC: ED 20:32
DX: M25.511 Pain in right shoulder (principal); W22.01XA Walked into wall, initial encounter; M79.621 Pain in right upper arm; E78.5 Hyperlipidemia, unspecified; I10 Essential (primary) hypertension; J44.9 Chronic obstructive pulmonary disease, unspecified; E11.42 Type 2 diabetes mellitus with diabetic polyneuropathy; Z79.01 Long term (current) use of anticoagulants; Z79.84 Long term (current) use of oral hypoglycemic drugs; Z79.899 Other long term (current) drug therapy; Z79.891 Long term (current) use of opiate analgesic
CPT/HCPCS: 73000; 73060; 96372; 99284; J3010; A9270-GY

== ENCOUNTER 2021-12-02 01:06 | Emergency (ER) | payer MEDICARE ==
[2011-11-29 13:59] VITALS: BP 148/93
[2021-12-02] MEDS ORDERED: NITRO-BID 2% UD PACKETS ONE (01:26)
[2021-12-02] MEDS ORDERED: BABY ASPIRIN 81 MG CHEW ONE (01:26)
[2021-12-02] MEDS ORDERED: Zofran 4 MG/2 ML VIAL ONE ×3 (01:26→07:46)
[2021-12-02] MEDS ORDERED: Hydromorphone 1 mg/ml Injection ONE ×2 (01:27→02:19)
[2021-12-02] MEDS ORDERED: SUBLIMAZE 100 MCG/2 ML ONE ×3 (03:36→07:47)
[2021-12-02] MEDS ORDERED: Magnesium 1 Gm / 100 Ml D5W*** 200 ML IV ONE (04:26)
[2021-12-02 04:32] LABS: BLOOD UREA NITROGEN 8 mg/dL (7-17); CHLORIDE 106 mmol/L (98-107); Calcium 9.9 mg/dL (8.4-10.2); Carbon Dioxide 21 mmol/L (22-30); Creatinine 1 0.81 mg/dL (0.52-1.04); EST GLOMERULAR FILTRATION RATE > 60.0 ML/MIN; Glucose 159 mg/dL (74-106); Potassium 4.1 mmol/L (3.5-5.1); SODIUM 141 mmol/L (137-145)
[2021-12-02 04:33] LABS: ALBUMIN 4.9 g/dL (3.5-5.0); ALKALINE PHOSPHATASE 134 U/L (38-126); MAGNESIUM 1.2 mg/dL (1.6-2.3); SGOT/AST 25 U/L (14-36); SGPT/ALT 19 U/L (0-35); Total Protein 8.2 g/dL (6.3-8.2)
[2021-12-02 04:34] LABS: ANION GAP 18.1 MEQ/L (5-15); NT PRO BNP 341 pg/mL (0-900); TROPONIN 0.598 ng/mL (0.000-0.034)
[2021-12-02 04:35] LABS: Hematocrit 38.3 % (35-47); Hemoglobin 12.2 g/dL (12.0-16.0); Mean Cell Volume 86.5 fL (78-100); Mean Corpuscular Hemoglobin 27.5 pg (26-32); Mean Corpuscular Hgb Concent. 31.9 g/dL (32-36); Mean Platelet Volume 9.1 fL (7.5-11.0); Platelet Count 392 x10^3/uL (150-450); Red Blood Count 4.43 x10^6/uL (4.1-5.4); White Blood Count 12.2 x10^3/uL (4.0-10.5)
[2021-12-02 04:36] LABS: Eosinophil % 2.1 % (0.00-5.0); Lymphocytes % 26.5 % (24.0-44.0); Monocytes % 8.4 % (0.0-12.0); Neutrophil % 62.3 % (36.0-66.0)
[2021-12-02] MEDS ORDERED: Sodium Chloride 0.9% 1000 ML 1,000 ML ONE (05:42)
[2021-12-02] MEDS ORDERED: Ntg 0.2MG/Ml in D5W GLASS*** 250 ML IV ONE (06:58)
--- NOTE | 2021-12-02 08:55 | XRAY ---
Indication: Chest pain. Comparison: September 03, 2020 Portable chest remains clear again with a few incidental tiny calcified granulomas. Heart not enlarged. Bony thorax intact again with osteopenia, degenerative changes, old left rib fractures, and old bilateral clavicle fractures. No new/acute findings.
[2021-12-02] MEDS ORDERED: ELIQUIS 2.5 MG TABLET PO ONE (09:10)
== END 2021-12-02 10:10 | disposition short-term general hospital (02) ==
LOC: ED 01:06
DX: I21.4 Non-ST elevation (NSTEMI) myocardial infarction (principal); E83.42 Hypomagnesemia; R07.9 Chest pain, unspecified; E11.9 Type 2 diabetes mellitus without complications; I10 Essential (primary) hypertension; E78.5 Hyperlipidemia, unspecified; Z79.01 Long term (current) use of anticoagulants
CPT/HCPCS: 36000; 36415; 71045; 80053; 83735; 83880; 84484; 85025; 96365; 96374; 96375; 96376; 99284; 99291; J1170; J2405; J3010; J3475; A9270-GY

== ENCOUNTER 2022-08-01 07:04 | Day surgery (SDC) | payer MEDICARE ==
[~2022-08-01 07:04] MED LIST: Ak-Dilate OPHTHALMIC*** 1.065 ML, Cyclogyl 1% OPHTH SOL 1.065 ML, GATIFLOXACIN 0.5% OPH... OP ONE; BETADINE 5% OPHTHALMIC 30 ML OP ONE; Lactated Ringers 1,000 ML IV SCH; NON-FORMULARY ITEM OP ONE; TETRACAINE 0.5% STERI-UNIT SOL OP ONE; cefUROXime sodium 0.005 GM in Sodium Chloride Flush 30 ML*** 0.5 ML IJ ONE
[2022-08-01] MEDS ORDERED: Epinephrine Preservative Free 1 MG/ML IJ ONE (07:05)
[2022-08-01] MEDS ORDERED: Lactated Ringers 1,000 ML IV ONE (07:26)
[2022-08-01 07:43] VITALS: O2SAT 96
[2022-08-01] MEDS ORDERED: Zofran 4 MG/2 ML VIAL IV PRN (09:00)
[2022-08-01] MEDS ORDERED: DEXMEDETOMIDINE 80 MCG/20ML-NS IV ONE (10:16)
[2022-08-01] MEDS ORDERED: DIPRIVAN 200 MG/20 ML IV ONE ×2 (10:16→10:28)
[2022-08-01 11:28] VITALS: BP 109/73; PULSE 61
== END 2022-08-01 11:20 | disposition home or self-care (01) ==
LOC: SDC 07:04
PROVIDERS: ATTEND Ophthalmology
DX: H25.811 Combined forms of age-related cataract, right eye (principal); E11.9 Type 2 diabetes mellitus without complications
CPT/HCPCS: 82947; C1780; J0171; J2704; A9270-GY

== ENCOUNTER 2022-12-08 08:25 | Day surgery (SDC) | payer MEDICARE ==
[2022-12-08] MEDS ORDERED: Xylocaine 1% Vial 30 ML PF IJ ONE (08:39)
[2022-12-08] MEDS ORDERED: Marcaine Mpf 0.5% Vial 30 Ml ONE (08:39)
[2022-12-08 08:55] VITALS: RESP 16
[2022-12-08] MEDS ORDERED: Lactated Ringers 1,000 ML IV SCH (09:00)
[2022-12-08] MEDS ORDERED: CEFAZOLIN 2 GM-D5W BAG** 2 GM/50 ML ML IV SCH (09:00)
[2022-12-08 09:12] LABS: Hematocrit 33.1 % (35-47); Hemoglobin 10.3 g/dL (12.0-16.0); Mean Cell Volume 85.3 fL (78-100); Mean Corpuscular Hemoglobin 26.5 pg (26-32); Mean Corpuscular Hgb Concent. 31.1 g/dL (32-36); Mean Platelet Volume 8.8 fL (7.5-11.0); Platelet Count 386 x10^3/uL (150-450); Red Blood Count 3.88 x10^6/uL (4.1-5.4); Red Cell Distribution Width 14.1 % (11.5-14.0); White Blood Count 6.6 x10^3/uL (4.0-10.5)
[2022-12-08 09:25] LABS: ALBUMIN 4.3 g/dL (3.5-5.0); BILIRUBIN,TOTAL 0.3 mg/dL (0.2-1.3); Creatinine 1 1.09 mg/dL (0.52-1.04); EST GLOMERULAR FILTRATION RATE 53.4 ML/MIN; Total Protein 7.1 g/dL (6.3-8.2)
[2022-12-08 09:27] LABS: INR 1.02 (0.8-3.0); PROTIME 11.1 SECONDS (9.4-12.5)
[2022-12-08] MEDS ORDERED: SUBLIMAZE 100 MCG/2 ML ONE (09:37)
[2022-12-08] MEDS ORDERED: Xylocaine-Mpf 2% 5 Ml Vial ONE (09:37)
[2022-12-08] MEDS ORDERED: Zemuron 100 MG/10 ML ONE (09:37)
[2022-12-08] MEDS ORDERED: Amidate 20 MG/10 ML IV ONE (09:37)
[2022-12-08] MEDS ORDERED: Versed 2 MG/2 ML Injection ONE ×2 (10:21→10:26)
[2022-12-08] MEDS ORDERED: PHENYLEPHRINE HCL ONE (10:51)
[2022-12-08] MEDS ORDERED: BRIDION 200MG/2ML IV ONE (11:29)
[2022-12-08] MEDS ORDERED: BREVIBLOC 100 MG/10 ML IV ONE (11:43)
--- NOTE | 2022-12-08 11:45 | XRAY ---
Indication: Right 1st metatarsal arthrodesis. Intraoperative fluoroscopy provided for 1 minute 2 seconds. 15 digital spot images submitted for interpretation ultimately demonstrates 1st MTP arthrodesis with intact fixation plate/screws. Correlate with intraoperative findings/report.
[2022-12-08 12:53] VITALS: BP 129/66; PULSE 67; TEMP 97.2; O2SAT 94
--- NOTE | 2022-12-08 12:53 | XRAY ---
1 minute and 2 seconds of fluoroscopy was used in surgery for a 1st metatarsal arthrodesis of the right foot.
--- NOTE | 2022-12-08 15:48 | OP ---
SURGERY DATE: 12/08/2022 SURGERY TIME: 1025 PREOPERATIVE DIAGNOSIS: 1. PAIN RIGHT FOOT. 2. OSTEOARTHRITIS 1ST METATARSOPHALANGEAL JOINT. 3. HALLUX ABDUCTOVALGUS RIGHT FOOT. POSTOPERATIVE DIAGNOSIS: 1. PAIN RIGHT FOOT. 2. OSTEOARTHRITIS 1ST METATARSOPHALANGEAL JOINT. 3. HALLUX ABDUCTOVALGUS RIGHT FOOT. PROCEDURE: 1. Arthrodesis 1st metatarsophalangeal joint right foot. SURGEON: Mac Houston D.P.M. [employer] MEMBER: None. ANESTHESIA: General. HEMOSTASIS: An ankle tourniquet set to 250 mm Hg for approximately 40 total tourniquet minutes. ESTIMATED BLOOD LOSS: Minimal. INJECTABLES: 20 cc of a 1:1 mixture of 1% Lidocaine plain and 0.5% Bupivicaine plain injected in a Dacosta-block type fashion in the right foot. INDICATIONS FOR PROCEDURE: Melani is a very pleasant 67 year-old female who presented to my office with a significant amount of pain secondary to arthritis at the 1st metatarsophalangeal joint. The patient had this pain for a long time and was treated by multiple providers before she could get relief of her symptomatology. At this time, options were discussed and given that patient has exhausted all conservative management for this issue, she would like to proceed with surgical intervention. All risks, complications, and benefits of surgical intervention were discussed at length with the patient prior to deciding to proceed with surgical intervention and once again, once we had made the decision to proceed, the patient understands all these risks and wishes to proceed with surgical intervention. Risks were included, but not limited to, infection; hematoma; seroma; possibility of delayed wound healing, non-wound healing; possible need for surgical intervention at a later date. No guarantees were provided as to the outcome of surgical intervention. Plenty of time was allowed for the patient to ask questions which were answered to her apparent satisfaction. It is with that, we decided to proceed. DESCRIPTION OF PROCEDURE: The patient was brought into the OR. Placed on the OR table in the supine position. At this time, general anesthesia was administered until the patient was sedated. At this time, a well-padded ankle tourniquet was applied and the tourniquet was set to 250 mm Hg. The right lower extremity was prepped and draped in the typical sterile fashion and lowered onto the surgical field. At this time, a linear incision was made over the dorsal aspect of the 1st metatarsophalangeal joint in line with the extensor hallucis longus. Careful dissection was carried out being careful not to damage any neurovascular structures. The extensor hallucis longus tendon was retracted laterally. The 1st metatarsophalangeal joint was encountered. A significant osteo joint mouse was identified and removed at the dorsal aspect of the joint. Following this, J strokes were carried out releasing the medial lateral ligament. Inspection of the joint demonstrated a significant amount of osteoarthritis within the joint with limited range of motion reduction. At this time, a cup and conical reamer was used resecting all the remaining cartilage from the joint until the subchondral plate was identified. Copious amounts of sterile saline were utilized to flush the surgical site of any remaining cartilage. 2 mm drill was utilized to fenestrate the surface for vascular ingrowth. Then, a curette and Rongeur were utilized to break through the subchondral plate. Following this, a Jamel ALPS 0 degree and TJ plate for the leg was introduced at the dorsal aspect. This was checked under multiple views and deemed to be in an adequate position. Following this, distal screws were introduced securing the plate to the bone. Following this, the eccentric screw was placed in the center slot and engaged approximately 90% of the way to hold the position appropriately. The 3.4 X 32 mm VPC screw was then introduced from a distal medial to proximal lateral orientation and compression was carried out alternating between these 2 sites. Following this, the remaining screw holes were placed utilizing a combination of locking and nonlocking screws. From that standpoint, final x-rays were taken demonstrating adequate fixation as well as opposition of the joint surfaces. A dressing consisting of Betadine, Adaptic, 4 X 4, Kerlix, and Wayne was applied to the patient's right lower extremity. The patient was then reversed from anesthesia and returned to the PACU with vital signs stable and vascular status intact. The patient handled the anesthesia as well as the procedure without significant complication. Postoperative orders as indicated in the patient's discharge chart.
== END 2022-12-08 13:06 | disposition home or self-care (01) ==
LOC: SDC 08:25
PROVIDERS: ATTEND Podiatrist Foot & Ankle Surgery
DX: M19.071 Primary osteoarthritis, right ankle and foot (principal); M79.671 Pain in right foot; M20.11 Hallux valgus (acquired), right foot
CPT/HCPCS: 28750; 36415; 73630; 76000; 80053; 85027; 85610; 85730; C1713; J0690; J2001; J2250; J2371; J3010

== ENCOUNTER 2023-03-28 07:58 | Day surgery (SDC) | payer MEDICARE ==
[2011-11-29 13:59] VITALS: BP 148/93
[2023-03-28] MEDS ORDERED: Depo-Medrol 40 MG/ML IM ONE (07:59)
[2023-03-28] MEDS ORDERED: BUPIVACAINE 0.5% VIAL IJ ONE (07:59)
[2023-03-28] MEDS ORDERED: Versed 2 MG/2 ML Injection ONE (09:21)
[2023-03-28] MEDS ORDERED: DIPRIVAN 200 MG/20 ML IV ONE (09:49)
[2023-03-28] MEDS ORDERED: Xylocaine-Mpf 2% 5 Ml Vial ONE (09:50)
--- NOTE | 2023-03-28 11:44 | XRAY ---
Indication: Bilateral SI joint injection. Intraoperative fluoroscopy provided for 14 seconds. 4 digital spot images submitted for interpretation demonstrates posterior needle tip projecting over the left and right SI joint. Correlate with intraoperative findings/report.
--- NOTE | 2023-03-28 12:20 | XRAY ---
14 seconds of fluoroscopy was used in surgery for a bilateral sacroiliac joint injection.
[2023-03-28] MEDS ORDERED: Lactated Ringers 1,000 ML IV ONE (15:29)
== END 2023-03-28 10:24 | disposition home or self-care (01) ==
LOC: SDC-PAIN 07:58
PROVIDERS: ATTEND Psychiatry & Neurology Pain Medicine
DX: M46.1 Sacroiliitis, not elsewhere classified (principal); E11.9 Type 2 diabetes mellitus without complications; Z79.899 Other long term (current) drug therapy
CPT/HCPCS: 01992; 27096; 72202; 77002; 82947; 93005; G0260; J1030; J2250; J2704

== ENCOUNTER 2023-04-03 10:42 | Emergency (ER) | payer MEDICARE ==
[2023-04-03 11:00] VITALS: TEMP 98.4
[2023-04-03] MEDS ORDERED: Sodium Chloride 0.9% 1000 ML 1,000 ML IV SCH (11:00)
--- NOTE | 2023-04-03 11:05 | ERPHSYRPT ---
- History of Present Illness Time Seen by Provider: 04/03/23 10:58 Source: patient Exam Limitations: no limitations Patient Subjective Stated Complaint: PT states "I was at therapy and my blood pressure was going down and they brought me here." Triage Nursing Assessment: Pt presented alert and oriented x 3, skin wpd. pt able to speak in clear full sentences pt resting comfortably on the bed. pt in no apparent respiratory distress. Physician History: Patient is a 67-year-old female presents to our ED from physical therapy for evaluation of low blood pressure. Patient receiving physical therapy for low back pain. Patient had an episode in the past where she had therapy her blood pressure bottomed out and she passed out shortly thereafter. Patient was brought here to avoid a similar situation. Patient states she felt may be "a little" dizzy. However patient's blood pressure upon arrival to our ED was normal. Patient asymptomatic. No dizziness no chest pain or shortness of breath. No nausea vomiting or diaphoresis. Patient currently has no complaints at this time. Patient voices no other complaints or concerns at this time. Portions of this note were created with voice recognition technology. There may be grammatical, spelling, punctuation or sound alike errors Timing/Duration: today Severity: moderate Modifying Factors: Improves With: nothing Associated Symptoms: other (dizzy) Allergies/Adverse Reactions: morphine Allergy (Severe, Verified 12/08/22 08:43) Irregular Heart Beat Sulfa (Sulfonamide Antibiotics) Allergy (Intermediate, Verified 12/08/22 08:43) Hives sulfamethoxazole [From Bactrim] Allergy (Intermediate, Verified 12/08/22 08:43) Hives trimethoprim [From Bactrim] Allergy (Intermediate, Verified 12/08/22 08:43) Hives fluoxetine HCl [From Prozac] Adverse Reaction (Intermediate, Verified 12/08/22 08:43) homicidal thoughts homicidal thoughts Home Medications: Apixaban [Eliquis] 5 mg PO BID 01/18/20 [History] Metformin HCl 850 mg [Glucophage 850 MG] 850 mg PO BID 01/18/20 [History] Spironolactone 25 tab PO DAILY 09/03/20 [History] Amitriptyline HCl 25 mg [Amitriptyline 25 mg Tablet] 50 mg PO HS 10/07/20 [History] Omeprazole 20 mg PO DAILY 08/01/22 [History] glyBURIDE [Glyburide] 2.5 mg PO DAILY 08/01/22 [History] Isosorbide Dinitrate 10 mg PO UD 11/16/22 [History] Pravastatin Sodium 10 mg PO DAILY 11/16/22 [History] Sacubitril/Valsartan [Entresto 24 mg-26 mg Tablet] 1 tab PO DAILY 11/16/22 [ History] Hx Tetanus, Diphtheria Vaccination/Date Given: Yes Hx Influenza Vaccination/Date Given: Yes Hx Pneumococcal Vaccination/Date Given: Yes Immunizations Up to Date: Yes Travel Risk - International Travel Have you traveled outside of the country in past 3 weeks: No - Coronavirus Screening Are you exhibiting any of the following symptoms?: No Close contact with a COVID-19 positive Pt in past 14-21 Days: No - Vaccine Status Have you recieved a Covid-19 vaccination: Yes [employer]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 - Vaccination Dates Date of 2cond Vaccination (if applicable): 08/2019 - Review of Systems Constitutional: No Symptoms, No Fever, No Chills Eyes: No Symptoms Ears, Nose, & Throat: No Symptoms Respiratory: No Symptoms, No Cough, No Dyspnea Cardiac: No Symptoms, No Chest Pain, No Edema, No Syncope Abdominal/Gastrointestinal: No Symptoms, No Abdominal Pain, No Nausea, No Vomiting, No Diarrhea Genitourinary Symptoms: No Symptoms, No Dysuria Musculoskeletal: No Symptoms, No Back Pain, No Neck Pain Skin: No Symptoms, No Rash Neurological: No Symptoms, No Dizziness, No Focal Weakness, No Sensory Changes Psychological: No Symptoms Endocrine: No Symptoms Hematologic/Lymphatic: No Symptoms Immunological/Allergic: No Symptoms All Other Systems: Reviewed and Negative - Past Medical History Pertinent Past Medical History: Yes Neurological History: Stroke ENT History: No Pertinent History Cardiac History: Coronary Artery Disease, Hypertension, Myocardial Infarction (OR) Respiratory History: Asthma, COPD Endocrine Medical History: Diabetes Type II Musculoskeletal History: Arthritis, Fibromyalgia, Osteoporosis GI Medical History: Ulcer, Other History: No Pertinent History Psycho-Social History: Anxiety, Panic Disorder Female Reproductive Disorders: Ovarian Cancer, Uterine Cancer Other Medical History: PATIENT REPORTS 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 SHE REPORTS SHE WAS DX'D WITH [facility] BY ~2 YEARS AGO. HOWEVER, PATIENT STATES HER PD MEDICATIONS WERE STOPPED AFTER HER 2ND CVA AND SHE HAS NOT BEEN BACK TO NEUROLOGIST TO DISCUSS MEDICATIONS. ANXIETY, PVD, GERD, HX OF CATARACTS REMOVED, [place]'S DISEASE WITH BONE REMOVAL IN R ARM, 3 BOWEL BLOCKAGES WITH LAST ONE IN 2019 REQUIRING REMOVAL OF PARTIAL SMALL INTESTINE AND LARGE INSTESTINE, HYSTERECTOMY. APPENDICITIS, GALL BLADDER REMOVAL, T&A REMOVAL. SHE REPORTS IN 2018 SHE FELL AND BROKE HER R HIP WITH CONSERVATIVE MEASURES AND MARCH 2019 SHE FELL AND BROKE HER R COLLAR BONE (7 PINS) REQUIRING SX. - Past Surgical History Past Surgical History: Yes Neuro Surgical History: No Pertinent History Cardiac: Cardiac Catheterization Respiratory: No Pertinent History Gastrointestinal: Appendectomy, Bowel Surgery, Cholecystectomy, Hernia Repair Genitourinary: No Pertinent History Musculoskeletal: No Pertinent History Female Surgical History: Hysterectomy, Tubal Ligation Other Surgical History: bone auto graft to wrist, collar bone surgery, heart cath 06/2019. bowel obstruction x3 HX OF BLOOD TRANSFUSIONS - Social History Smoking Status: Former smoker How long have you smoked: years Exposure to second hand smoke: No Drug Use: none Patient Lives Alone: No - Nursing Vital Signs Nursing Vital Signs: Initial Vital Signs Temperature 98.4 F 04/03/23 10:54 Pulse Rate 71 04/03/23 10:54 Respiratory Rate 20 04/03/23 10:54 Blood Pressure 118/73 04/03/23 10:54 O2 Sat by Pulse Oximetry 97 04/03/23 10:54 Pain Scale Pain Intensity 0 - Physical Exam General Appearance: no apparent distress, alert Eye Exam: PERRL/EOMI, eyes nml inspection Ears, Nose, Throat Exam: normal ENT inspection, TMs normal, pharynx normal, moist mucous membranes Neck Exam: normal inspection, non-tender, supple, full range of motion Respiratory Exam: normal breath sounds, lungs clear, airway intact, No respiratory distress Cardiovascular Exam: regular rate/rhythm, normal heart sounds, normal peripheral pulses Gastrointestinal/Abdomen Exam: soft, normal bowel sounds, No tenderness, No mass Back Exam: normal inspection, normal range of motion, No CVA tenderness, No vertebral tenderness Extremity Exam: normal inspection, normal range of motion, pelvis stable Neurologic Exam: alert, oriented x 3, cooperative, normal mood/affect, nml cerebellar function, nml station & gait, sensation nml, No motor deficits Skin Exam: normal color, warm, dry, No rash Lymphatic Exam: No adenopathy SpO2 Interpretation: normal SpO2: 97 O2 Delivery: Room Air - Course Nursing assessment & vital signs reviewed: Yes Ordered Tests: Active Orders 24 hr Category Date Time Status Aircraft Instrument Tester STAT Care 04/03/23 10:54 Active EKG-ER Only STAT Care 04/03/23 10:52 Active IV Insertion STAT Care 04/03/23 10:52 Active Pulse Oximetry (ED) STAT Care 04/03/23 10:52 Active Telemetry q4h Care 04/03/23 12:01 Active CBC W DIFF Stat Lab 04/03/23 10:52 Completed CMP Stat Lab 04/03/23 11:05 Completed NT PRO BNPII Stat Lab 04/03/23 11:05 Completed TROPONIN Q4H Lab 04/03/23 11:05 Completed TROPONIN Q4H Lab 04/03/23 15:00 Ordered TROPONIN Q4H Lab 04/03/23 19:00 Ordered Medication Summary Generic Name Dose Route Start Last Admin Trade Name Freq PRN Reason Stop Dose Admin Sodium Chloride 1,000 mls @ 100 mls/hr 04/03/23 11:00 04/03/23 11:10 Sodium Chloride 0.9% 1000 Ml IV 05/03/23 10:59 100 mls/hr .Q10H BRADY Administration Potassium Chloride 20 meq in 100 mls @ 50 mls/hr 04/03/23 12:00 Potassium Chloride 20 Meq In Water 100ml IV 04/03/23 15:59 Q2H BRADY Magnesium Sulfate/Water 2 gm in 50 mls @ 100 mls/hr 04/03/23 12:02 Magnesium Sulf 2 G/50 Ml Bag IV 04/03/23 12:31 ONCE ONE Discontinued Medications Generic Name Dose Route Start Last Admin Trade Name Freq PRN Reason Stop Dose Admin Magnesium Sulfate/Water Confirm 04/03/23 12:05 Magnesium Sulf 2 G/50 Ml Bag Administered 04/03/23 12:06 Dose 2 gm in 50 mls @ ud IV .STK-MED ONE Potassium Chloride 60 meq 04/03/23 12:00 Potassium Chloride Tab 10 Meq Tab PO 04/03/23 12:01 STAT ONE Potassium Chloride Confirm 04/03/23 12:05 Potassium Chloride Tab 10 Meq Tab Administered 04/03/23 12:06 Dose 60 meq PO .STK-MED ONE Lab/Rad Data: Laboratory Result Diagrams 04/03/23 10:52 04/03/23 11:05 Laboratory Results 04/03/23 04/03/23 04/03/23 Range/Units 11:05 11:05 10:52 WBC 9.0 (4.0-10.5) x10^3/uL RBC 4.48 (4.1-5.4) x10^6/uL Hgb 11.8 L (12.0-16.0) g/dL Hct 38.6 (35-47) % MCV 86.2 (78-100) fL MCH 26.3 (26-32) pg MCHC 30.6 L (32-36) g/dL RDW 14.8 H (11.5-14.0) % Plt Count 451 H (150-450) x10^3/uL MPV 9.1 (7.5-11.0) fL Gran % 64.4 (36.0-66.0) % Immature Gran % (Auto) 0.3 (0.00-0.4) % Nucleat RBC Rel Count 0.0 (0.00-0.1) % Eos # (Auto) 0.09 (0-0.5) x10^3/uL Immature Gran # (Auto) 0.03 (0.00-0.03) x10^3u/L Absolute Lymphs (auto) 2.38 (1.0-4.6) x10^3/uL Absolute Monos (auto) 0.68 (0.0-1.3) x10^3/uL Absolute Nucleated RBC 0.00 (0.00-0.01) x10^3u/L Lymphocytes % 26.4 (24.0-44.0) % Monocytes % 7.5 (0.0-12.0) % Eosinophils % 1.0 (0.00-5.0) % Basophils % 0.4 (0.0-0.4) % Absolute Granulocytes 5.79 (1.4-6.9) x10^3/uL Basophils # 0.04 (0-0.4) x10^3/uL Sodium 140 (137-145) mmol/L Potassium 2.8 L* (3.5-5.1) mmol/L Chloride 103 (98-107) mmol/L Carbon Dioxide 23 (22-30) mmol/L Anion Gap 16.3 H (5-15) MEQ/L BUN 22 H (7-17) mg/dL Creatinine 0.98 (0.52-1.04) mg/dL Estimated GFR 63.7 ML/MIN Glucose 128 H (74-106) mg/dL Calcium 9.7 (8.4-10.2) mg/dL Total Bilirubin 0.30 (0.2-1.3) mg/dL AST 25 (14-36) U/L ALT 36 H (0-35) U/L Alkaline Phosphatase 97 (38-126) U/L Troponin I 0.064 H* (0.000-0.034) ng/mL NT-Pro-B Natriuret Pep 1830 (<300) pg/mL Serum Total Protein 8.2 (6.3-8.2) g/dL Albumin 4.6 (3.5-5.0) g/dL - Progress Progress: improved Progress Note: 67-year-old female history of OR last year, diabetes COPD presents to our ED from physical therapy for evaluation of hypotension and dizziness. Upon arrival to our ED hypotension had resolved. Blood pressure within normal range. Potassium 2.8. Patient currently receiving 40 mill equivalent potassium IV 60 mill equivalent potassium p.o. 2 g magnesium IV. In light of patient's elevated troponin significant cardiac history including OR last year patient will be transferred to [facility] for further evaluation and treatment. 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 Patient currently on Eliquis. We will hold off on heparin. Aspirin administered. Patient has no chest pain or shortness of breath. Man[place] exam within normal limits. Chest x-ray not ordered. 04/03/23 12:14 Case discussed with ER physician Dr. Bergman. Dr. Saeed again accepts transfer at 12:16 PM. Plan of care discussed with patient. She agrees to admission at [facility] for further evaluation and treatment. Complexity problem addressed is high, severe exacerbation with threat to bodily function as patient has an elevated cardiac troponin and a critically low potassium No critical care time Complexity of data reviewed and analyzed is extensive. Test ordered test reviewed. Results analyzed and correlated clinically. Management discussed with ER physician at [facility] who accepts transfer. Risk of complication and or risk of morbidity/mortality of patient management is high. Patient requires hospitalization/transfer to higher level of care. Time spent to transfer patient is approximately 20 minutes. Plan of care established for shared decision making. Vital stable. No social determinants of health present impede follow-up. Portions of this note were created with voice recognition technology. There may be grammatical, spelling, punctuation or sound alike errors 04/03/23 12:1 Counseled pt/family regarding: lab results, diagnosis - Departure Departure Disposition: Transfer Clinical Impression: Dizziness, Elevated troponin I level, Hypokalemia, NSTEMI (non-ST elevated myocardial infarction) Condition: Stable Critical Care Time: No Referrals: LYDIA WHITFIELD [Primary Care Provider] - Follow up/PCP as directed
[2023-04-03] MEDS ORDERED: Sodium Chloride 0.9% 1000 ML 1,000 ML ONE (11:09)
[2023-04-03 11:11] LABS: Absolute Neutrophil Ct (ANC) 5.79 x10^3/uL (1.4-6.9); BASOPHIL % 0.4 % (0.0-0.4); Basophil (Absolute #) 0.04 x10^3/uL (0-0.4); Eosinophil (Absolute #) 0.09 x10^3/uL (0-0.5); Hematocrit 38.6 % (35-47); Hemoglobin 11.8 g/dL (12.0-16.0); IMMATURE GRAN # 0.03 x10^3u/L (0.00-0.03); IMMATURE GRAN % 0.3 % (0.00-0.4); Lymphocyte (Absolute #) 2.38 x10^3/uL (1.0-4.6); Lymphocytes % 26.4 % (24.0-44.0); Mean Cell Volume 86.2 fL (78-100); Mean Corpuscular Hemoglobin 26.3 pg (26-32); Mean Corpuscular Hgb Concent. 30.6 g/dL (32-36); Mean Platelet Volume 9.1 fL (7.5-11.0); Monocyte (Absolute #) 0.68 x10^3/uL (0.0-1.3); Monocytes % 7.5 % (0.0-12.0); Neutrophil % 64.4 % (36.0-66.0); Platelet Count 451 x10^3/uL (150-450); Red Blood Count 4.48 x10^6/uL (4.1-5.4); Red Cell Distribution Width 14.8 % (11.5-14.0)
[2023-04-03 11:36] LABS: ALBUMIN 4.6 g/dL (3.5-5.0); ANION GAP 16.3 MEQ/L (5-15); BILIRUBIN,TOTAL 0.3 mg/dL (0.2-1.3); Calcium 9.7 mg/dL (8.4-10.2); Creatinine 1 0.98 mg/dL (0.52-1.04); EST GLOMERULAR FILTRATION RATE 63.7 ML/MIN; Total Protein 8.2 g/dL (6.3-8.2)
[2023-04-03 11:37] LABS: Potassium 2.8 mmol/L (3.5-5.1)
[2023-04-03] MEDS ORDERED: POTASSIUM CHLORIDE 20 mEq IN WATER 100ML 20 MEQ/100 ML BAG IV SCH (12:00)
[2023-04-03] MEDS ORDERED: Klor Con PO ONE ×2 (12:00→12:05)
[2023-04-03] MEDS ORDERED: MAGNESIUM SULF 2 G/50 ML BAG 2 GM/50 ML PIGGYBACK IV ONE ×2 (12:02→12:05)
[2023-04-03] MEDS ORDERED: POTASSIUM CHLORIDE 20 mEq IN WATER 100ML 100 ML IV ONE (12:06)
[2023-04-03] MEDS ORDERED: BABY ASPIRIN 81 MG CHEW PO ONE (12:18)
[2023-04-03] MEDS ORDERED: BABY ASPIRIN 81 MG CHEW ONE (12:49)
[2023-04-03 13:04] VITALS: BP 136/61; PULSE 58; RESP 22; O2SAT 97
== END 2023-04-03 13:15 | disposition short-term general hospital (02) ==
LOC: ED 10:42
DX: I21.4 Non-ST elevation (NSTEMI) myocardial infarction (principal); R42 Dizziness and giddiness; R77.8 Other specified abnormalities of plasma proteins; E87.6 Hypokalemia; I10 Essential (primary) hypertension; E11.9 Type 2 diabetes mellitus without complications; Z79.01 Long term (current) use of anticoagulants; Z79.84 Long term (current) use of oral hypoglycemic drugs; Z79.899 Other long term (current) drug therapy
CPT/HCPCS: 36000; 36415; 80053; 83880; 84484; 85025; 93005; 93041; 94760; 96365; 99285; J3480; A9270-GY; J3475

== ENCOUNTER 2023-05-23 08:02 | Day surgery (SDC) | payer MEDICARE ==
[2011-11-29 13:59] VITALS: BP 148/93
[2023-05-23] MEDS ORDERED: Depo-Medrol 40 MG/ML IM ONE (08:03)
[2023-05-23] MEDS ORDERED: LIDOCAINE HCL 2% 100 MG/5 ML IJ ONE (08:03)
[2023-05-23] MEDS ORDERED: Versed 2 MG/2 ML Injection ONE (09:21)
[2023-05-23] MEDS ORDERED: DIPRIVAN 200 MG/20 ML IV ONE ×3 (10:07→10:25)
[2023-05-23] MEDS ORDERED: PHENYLEPHRINE HCL ONE (10:49)
[2023-05-23 11:36] LABS: ANION GAP 11.5 MEQ/L (5-15); Calcium 9.1 mg/dL (8.4-10.2); Creatinine 1 0.79 mg/dL (0.52-1.04); EST GLOMERULAR FILTRATION RATE 82.5 ML/MIN
--- NOTE | 2023-05-23 11:54 | XRAY ---
Indication: Bilateral L4-S1 MBB. Intraoperative fluoroscopy provided for 7 seconds. Single digital spot image submitted for interpretation demonstrates posterior needle tips projecting over the expected left and right L4-S1 nerve roots. Correlate with intraoperative findings/report.
[2023-05-23] MEDS ORDERED: Lactated Ringers 1,000 ML IV ONE (13:37)
--- NOTE | 2023-05-23 13:46 | XRAY ---
7 seconds of fluoroscopy was used in surgery for a bilateral L4-S1 MBB.
== END 2023-05-23 11:46 | disposition home or self-care (01) ==
LOC: SDC-PAIN 08:02
PROVIDERS: ATTEND Psychiatry & Neurology Pain Medicine
DX: M47.816 Spondylosis without myelopathy or radiculopathy, lumbar region (principal); E11.9 Type 2 diabetes mellitus without complications
CPT/HCPCS: 36415; 64493; 64494; 72020; 77002; 80048; 82947; J1030; J2250; J2371; J2704

== ENCOUNTER 2023-06-20 08:49 | Day surgery (SDC) | payer MEDICARE ==
[2011-11-29 13:59] VITALS: BP 148/93
[2023-06-20] MEDS ORDERED: BUPIVACAINE 0.5% VIAL IJ ONE (08:50)
[2023-06-20] MEDS ORDERED: Depo-Medrol 40 MG/ML IM ONE (08:50)
[2023-06-20] MEDS ORDERED: Versed 2 MG/2 ML Injection ONE (10:36)
[2023-06-20] MEDS ORDERED: DIPRIVAN 200 MG/20 ML IV ONE (11:21)
[2023-06-20] MEDS ORDERED: Lactated Ringers 1,000 ML IV ONE (12:26)
--- NOTE | 2023-06-20 12:52 | XRAY ---
Indication: Bilateral L4-S1 MBB. Intraoperative fluoroscopy provided for 5 seconds. Single digital spot image submitted for interpretation demonstrate posterior needle tips projecting over the expected left and right L4-S1 nerve roots. Correlate with intraoperative findings/report.
--- NOTE | 2023-06-20 12:59 | XRAY ---
5 seconds of fluoroscopy was used in surgery for a bilateral L4-S1 MBB.
== END 2023-06-20 11:50 | disposition home or self-care (01) ==
LOC: SDC-PAIN 08:49
PROVIDERS: ATTEND Psychiatry & Neurology Pain Medicine
DX: M47.816 Spondylosis without myelopathy or radiculopathy, lumbar region (principal); E11.9 Type 2 diabetes mellitus without complications
CPT/HCPCS: 64493; 64494; 72020; 77002; 82947; J1030; J2250; J2704

== ENCOUNTER 2023-08-08 07:48 | Day surgery (SDC) | payer MEDICARE ==
[2011-11-29 13:59] VITALS: BP 148/93
[2023-08-08] MEDS ORDERED: LIDOCAINE HCL 1% 50 MG/5 ML VL PF IJ ONE (07:49)
[2023-08-08] MEDS ORDERED: BUPIVACAINE 0.5% VIAL IJ ONE (07:49)
[2023-08-08] MEDS ORDERED: Depo-Medrol 40 MG/ML IM ONE (07:49)
[2023-08-08] MEDS ORDERED: DIPRIVAN 200 MG/20 ML IV ONE (09:55)
[2023-08-08] MEDS ORDERED: Lactated Ringers 1,000 ML IV ONE (10:57)
--- NOTE | 2023-08-08 11:58 | XRAY ---
Indication: Right L4-S1 RFA. Intraoperative fluoroscopy provided for 16 seconds. 4 digital spot image submitted for interpretation demonstrates posterior needle tips projecting over expected right L4-S1 nerve roots. Correlate with intraoperative findings/report.
--- NOTE | 2023-08-08 12:39 | XRAY ---
16 seconds of fluoroscopy was used in surgery for a right L4-S1 RFA.
== END 2023-08-08 10:58 | disposition home or self-care (01) ==
LOC: SDC-PAIN 07:48
PROVIDERS: ATTEND Psychiatry & Neurology Pain Medicine
DX: M47.816 Spondylosis without myelopathy or radiculopathy, lumbar region (principal); E11.9 Type 2 diabetes mellitus without complications
CPT/HCPCS: 64635; 64636; 72100; 77002; 82947; J1010; J2001; J2704

== ENCOUNTER 2023-08-22 08:48 | Emergency (ER) | payer MEDICARE ==
--- NOTE | 2023-08-22 09:14 | ERPHSYRPT ---
- History of Present Illness Time Seen by Provider: 08/22/23 08:54 Source: patient Exam Limitations: no limitations Physician History: Since about 1 hour ago pt has had nausea and constant sharp 8/10 mid chest pain; since 24 minutes ago a 10/10 global headache, numbness in her left hand and changed sensation in the soles of her feet. Pt also c/o chronic shortness of air for years. Pt states she came to [facility] this morning for an injection in her lower back but her blood pressure was elevated and she was sent down to ER for evaluation. Allergies/Adverse Reactions: morphine Allergy (Severe, Verified 08/22/23 08:53) Irregular Heart Beat Sulfa (Sulfonamide Antibiotics) Allergy (Intermediate, Verified 08/22/23 08:53) Hives sulfamethoxazole [From Bactrim] Allergy (Intermediate, Verified 08/22/23 08:53) Hives trimethoprim [From Bactrim] Allergy (Intermediate, Verified 08/22/23 08:53) Hives fluoxetine HCl [From Prozac] Adverse Reaction (Intermediate, Verified 08/22/23 08:53) homicidal thoughts homicidal thoughts Home Medications: Apixaban [Eliquis] 5 mg PO BID 01/18/20 [History] Metformin HCl 850 mg [Glucophage 850 MG] 850 mg PO BID 01/18/20 [History] Spironolactone 25 tab PO DAILY 09/03/20 [History] Amitriptyline HCl 25 mg [Amitriptyline 25 mg Tablet] 50 mg PO HS 10/07/20 [History] Omeprazole 20 mg PO DAILY 08/01/22 [History] glyBURIDE [Glyburide] 2.5 mg PO DAILY 08/01/22 [History] Isosorbide Dinitrate 10 mg PO UD 11/16/22 [History] Pravastatin Sodium 10 mg PO DAILY 11/16/22 [History] Sacubitril/Valsartan [Entresto 24 mg-26 mg Tablet] 1 tab PO DAILY 11/16/22 [History] Hx Tetanus, Diphtheria Vaccination/Date Given: Yes Hx Influenza Vaccination/Date Given: Yes Hx Pneumococcal Vaccination/Date Given: Yes Travel Risk - International Travel Have you traveled outside of the country in past 3 weeks: No If Yes, where;: N - Review of Systems Respiratory: Dyspnea Cardiac: Chest Pain Abdominal/Gastrointestinal: Nausea, No Vomiting Neurological: Headache, Sensory Changes - Past Medical History Pertinent Past Medical History: Yes Neurological History: Stroke ENT History: No Pertinent History Cardiac History: Coronary Artery Disease, Hypertension, Myocardial Infarction ([place]) Respiratory History: Asthma, COPD Endocrine Medical History: Diabetes Type II Musculoskeletal History: Arthritis, Fibromyalgia, Osteoporosis GI Medical History: Ulcer, Other History: No Pertinent History Psycho-Social History: Anxiety, Panic Disorder Female Reproductive Disorders: Ovarian Cancer, Uterine Cancer Other Medical History: PATIENT REPORTS 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 SHE REPORTS SHE WAS DX'D WITH [facility] BY ~2 YEARS AGO. HOWEVER, PATIENT STATES HER PD MEDICATIONS WERE STOPPED AFTER HER 2ND CVA AND SHE HAS NOT BEEN BACK TO NEUROLOGIST TO DISCUSS MEDICATIONS. ANXIETY, PVD, GERD, HX OF CATARACTS REMOVED, [place]'S DISEASE WITH BONE REMOVAL IN R ARM, 3 BOWEL BLOCKAGES WITH LAST ONE IN 2018 REQUIRING REMOVAL OF PARTIAL SMALL INTESTINE AND LARGE INSTESTINE, HYSTERECTOMY. APPENDICITIS, GALL BLADDER REMOVAL, T&A REMOVAL. SHE REPORTS IN 2019 SHE FELL AND BROKE HER R HIP WITH CONSERVATIVE MEASURES AND MARCH 2019 SHE FELL AND BROKE HER R COLLAR BONE (7 PINS) REQUIRING SX. - Past Surgical History Past Surgical History: Yes Neuro Surgical History: No Pertinent History Cardiac: Cardiac Catheterization Respiratory: No Pertinent History Gastrointestinal: Appendectomy, Bowel Surgery, Cholecystectomy, Hernia Repair Genitourinary: No Pertinent History Musculoskeletal: No Pertinent History Female Surgical History: Hysterectomy, Tubal Ligation Other Surgical History: bone auto graft to wrist, collar bone surgery, heart cath 06/2019. bowel obstruction x3 HX OF BLOOD TRANSFUSIONS - Social History Smoking Status: Former smoker How long have you smoked: years Exposure to second hand smoke: No Drug Use: none Patient Lives Alone: No - Nursing Vital Signs Nursing Vital Signs: Initial Vital Signs Pulse Rate 92 H 08/22/23 08:59 Respiratory Rate 29 H 08/22/23 08:59 Blood Pressure 231/107 08/22/23 08:59 Pain Scale Pain Intensity 9 - Physical Exam General Appearance: alert, anxiety Eye Exam: PERRL/EOMI Ears, Nose, Throat Exam: TMs normal, pharynx normal Neck Exam: normal inspection Respiratory Exam: lungs clear, airway intact Cardiovascular Exam: normal heart sounds Gastrointestinal/Abdominal Exam: normal bowel sounds Extremity Exam: other (no ankle ederma) 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, 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 No acute intracranial abnormalities.) Ordered Tests: Active Orders 24 hr Category Date Time Status EKG-ER Only STAT Care 08/22/23 09:05 Active IV Insertion STAT Care 08/22/23 09:05 Active CHEST 2 VIEWS (PA AND LAT) Stat Exams 08/22/23 09:06 Completed HEAD WITHOUT CONTRAST [CT] Stat Exams 08/22/23 09:07 Completed AMYLASE Stat Lab 08/22/23 08:58 Completed CBC W DIFF Stat Lab 08/22/23 08:58 Completed CMP Stat Lab 08/22/23 08:58 Completed CULTURE,URINE Stat Lab 08/22/23 10:05 Received LIPASE Stat Lab 08/22/23 08:58 Completed MAGNESIUM Stat Lab 08/22/23 08:58 Completed POCT GLUCOSE Stat Lab 08/22/23 08:24 Completed PROTIME WITH INR Stat Lab 08/22/23 08:58 Completed PTT Stat Lab 08/22/23 08:58 Completed TROPONIN Q4H Lab 08/22/23 08:58 Completed TROPONIN Q4H Lab 08/22/23 13:15 Ordered TROPONIN Q4H Lab 08/22/23 17:15 Ordered UA W/RFX UR CULTURE Stat Lab 08/22/23 10:05 Completed Medication Summary Generic Name Dose Route Start Last Admin Trade Name Freq PRN Reason Stop Dose Admin Sodium Chloride 1,000 mls @ 100 mls/hr 08/22/23 09:15 08/22/23 09:23 Sodium Chloride 0.9% 1000 Ml IV 09/21/23 09:14 100 mls/hr .Q10H BRADY Administration Discontinued Medications Generic Name Dose Route Start Last Admin Trade Name Freq PRN Reason Stop Dose Admin Magnesium Sulfate/Dextrose 100 mls @ 200 mls/hr 08/22/23 10:36 08/22/23 10:46 Magnesium 1 Gm / 100 Ml D5w IV 08/22/23 11:05 200 mls/hr STAT ONE Administration Magnesium Sulfate/Dextrose Confirm 08/22/23 10:45 Magnesium 1 Gm / 100 Ml D5w Administered 08/22/23 10:46 Dose 100 mls @ ud IV .STK-MED ONE Ketorolac Tromethamine 30 mg 08/22/23 10:51 08/22/23 10:55 Ketorolac Tromethamine 30 Mg/Ml Inj IV 08/22/23 10:52 30 mg STAT ONE Administration Ketorolac Tromethamine Confirm 08/22/23 10:52 Ketorolac Tromethamine 30 Mg/Ml Inj Administered 08/22/23 10:53 Dose 30 mg .ROUTE .STK-MED ONE Labetalol HCl 10 mg 08/22/23 09:07 08/22/23 09:22 Labetalol Hcl 20 Mg/4 Ml Disp.Syringe IV 08/22/23 09:08 10 mg STAT ONE Administration Labetalol HCl Confirm 08/22/23 09:22 Labetalol Hcl 20 Mg/4 Ml Disp.Syringe Administered 08/22/23 09:23 Dose 20 mg IV .STK-MED ONE Labetalol HCl 10 mg 08/22/23 09:51 08/22/23 10:07 Labetalol Hcl 20 Mg/4 Ml Disp.Syringe IV 08/22/23 09:52 10 mg STAT ONE Administration Labetalol HCl Confirm 08/22/23 10:06 Labetalol Hcl 20 Mg/4 Ml Disp.Syringe Administered 08/22/23 10:07 Dose 20 mg IV .STK-MED ONE Lorazepam 1 mg 08/22/23 09:52 08/22/23 10:07 Lorazepam 1 Mg Tablet PO 08/22/23 09:53 1 mg STAT ONE Administration Lorazepam Confirm 08/22/23 10:06 Lorazepam 1 Mg Tablet Administered 08/22/23 10:07 Dose 1 mg .ROUTE .STK-MED ONE Lab/Rad Data: Laboratory Result Diagrams 08/22/23 08:58 08/22/23 08:58 Laboratory Results 05/08/24 05/08/24 05/08/24 Range/Units 10:05 08:58 08:58 WBC (4.0-10.5) x10^3/uL RBC (4.1-5.4) x10^6/uL Hgb (12.0-16.0) g/dL Hct (35-47) % MCV (78-100) fL MCH (26-32) pg MCHC (32-36) g/dL RDW (11.5-14.0) % Plt Count (150-450) x10^3/uL MPV (7.5-11.0) fL Gran % (36.0-66.0) % Immature Gran % (Auto) (0.00-0.4) % Nucleat RBC Rel Count (0.00-0.1) % Eos # (Auto) (0-0.5) x10^3/uL Immature Gran # (Auto) (0.00-0.03) x10^3u/L Absolute Lymphs (auto) (1.0-4.6) x10^3/uL Absolute Monos (auto) (0.0-1.3) x10^3/uL Absolute Nucleated RBC (0.00-0.01) x10^3u/L Lymphocytes % (24.0-44.0) % Monocytes % (0.0-12.0) % Eosinophils % (0.00-5.0) % Basophils % (0.0-0.4) % Absolute Granulocytes (1.4-6.9) x10^3/uL Basophils # (0-0.4) x10^3/uL PT 10.3 (9.4-12.5) SECONDS INR 0.94 (0.8-3.0) APTT 32.9 (25.1-36.5) SECONDS Sodium (135-145) mmol/L Potassium (3.5-5.1) mmol/L Chloride (98-107) mmol/L Carbon Dioxide (22-30) mmol/L Anion Gap (5-15) MEQ/L BUN (7-17) mg/dL Creatinine (0.52-1.04) mg/dL Estimated GFR ML/MIN Glucose (74-106) mg/dL POC Glucometer (74 to 106) mg/dL Calcium (8.4-10.2) mg/dL Magnesium (1.6-2.3) mg/dL Total Bilirubin (0.2-1.3) mg/dL AST (14-36) U/L ALT (0-35) U/L Alkaline Phosphatase (38-126) U/L Troponin I < 0.012 (0.000-0.033) ng/mL Serum Total Protein (6.3-8.2) g/dL Albumin (3.5-5.0) g/dL Amylase (30-110) U/L Lipase (23-300) U/L Urine Color Yellow (Yellow) Urine Appearance Clear (Clear) Urine pH 5.5 (4.6-8.0) Ur Specific [place] 1.010 (1.005-1.030) Urine Protein 30 (Negative) Urine Glucose (UA) Negative (Negative) mg/dL Urine Ketones Negative (Negative) Urine Blood Negative (Negative) Urine Nitrite Negative (Negative) Urine Bilirubin Negative (Negative) Urine Urobilinogen 0.2 (0.2) mg/dL Ur Leukocyte Esterase Moderate A (Negative) U Hyaline Cast (Auto) NONE SEEN (0-2) /LPF Urine Microscopic RBC 0-2 (0-5) /HPF Urine Microscopic WBC 11-20 A (0-5) /HPF Ur Epithelial Cells None Seen (None Seen) /HPF Urine Bacteria None Seen (None Seen) /HPF Urine Culture Reflexed YES (NO) 08/22/23 08/22/23 08/22/23 Range/Units 08:58 08:58 08:24 WBC 8.6 (4.0-10.5) x10^3/uL RBC 4.72 (4.1-5.4) x10^6/uL Hgb 12.3 (12.0-16.0) g/dL Hct 39.2 (35-47) % MCV 83.1 (78-100) fL MCH 26.1 (26-32) pg MCHC 31.4 L (32-36) g/dL RDW 14.6 H (11.5-14.0) % Plt Count 388 (150-450) x10^3/uL MPV 9.2 (7.5-11.0) fL Gran % 67.6 H (36.0-66.0) % Immature Gran % (Auto) 0.2 (0.00-0.4) % Nucleat RBC Rel Count 0.0 (0.00-0.1) % Eos # (Auto) 0.07 (0-0.5) x10^3/uL Immature Gran # (Auto) 0.02 (0.00-0.03) x10^3u/L Absolute Lymphs (auto) 1.97 (1.0-4.6) x10^3/uL Absolute Monos (auto) 0.66 (0.0-1.3) x10^3/uL Absolute Nucleated RBC 0.00 (0.00-0.01) x10^3u/L Lymphocytes % 23.0 L (24.0-44.0) % Monocytes % 7.7 (0.0-12.0) % Eosinophils % 0.8 (0.00-5.0) % Basophils % 0.7 (0.0-0.4) % Absolute Granulocytes 5.80 (1.4-6.9) x10^3/uL Basophils # 0.06 (0-0.4) x10^3/uL PT (9.4-12.5) SECONDS INR (0.8-3.0) APTT (25.1-36.5) SECONDS Sodium 144 (135-145) mmol/L Potassium 3.7 (3.5-5.1) mmol/L Chloride 111 H (98-107) mmol/L Carbon Dioxide 20 L (22-30) mmol/L Anion Gap 17.3 H (5-15) MEQ/L BUN 13 (7-17) mg/dL Creatinine 0.89 (0.52-1.04) mg/dL Estimated GFR 71.0 ML/MIN Glucose 122 H (74-106) mg/dL POC Glucometer 102 (74 to 106) mg/dL Calcium 9.9 (8.4-10.2) mg/dL Magnesium 1.4 L (1.6-2.3) mg/dL Total Bilirubin 0.40 (0.2-1.3) mg/dL AST 21 (14-36) U/L ALT 24 (0-35) U/L Alkaline Phosphatase 99 (38-126) U/L Troponin I (0.000-0.033) ng/mL Serum Total Protein 8.3 H (6.3-8.2) g/dL Albumin 4.6 (3.5-5.0) g/dL Amylase 50 (30-110) U/L Lipase 80 (23-300) U/L Urine Color (Yellow) Urine Appearance (Clear) Urine pH (4.6-8.0) Ur Specific [place] (1.005-1.030) Urine Protein (Negative) Urine Glucose (UA) (Negative) mg/dL Urine Ketones (Negative) Urine Blood (Negative) Urine Nitrite (Negative) Urine Bilirubin (Negative) Urine Urobilinogen (0.2) mg/dL Ur Leukocyte Esterase (Negative) U Hyaline Cast (Auto) (0-2) /LPF Urine Microscopic RBC (0-5) /HPF Urine Microscopic WBC (0-5) /HPF Ur Epithelial Cells (None Seen) /HPF Urine Bacteria (None Seen) /HPF Urine Culture Reflexed (NO) - Progress Progress: improved Progress Note: 08/22/23 11:31 Pt states feeling is coming back in left hand & feet feel normal. Counseled pt/family regarding: lab results, diagnosis, need for follow-up, rad results Medical Desision Making - Diagnostic Testing Diagnostic test were ordered, analyzed, and reviewed by me: Yes Radiological Interpretation: Discussed w/ radiologist - Departure Departure Disposition: Home Clinical Impression: Chest pain, HTN (hypertension), UTI (urinary tract infection), Headache, TIA (transient ischemic attack) Condition: Stable Critical Care Time: No Referrals: LYDIA WHITFIELD [Primary Care Provider] - Follow up/PCP as directed Instructions: Malignant Hypertension (DC), Urinary Tract Infection, Adult (DC) Additional Instructions: Per pain management staff: Make sure to restart your xarelto today once you return home from the hospital. Call pain management to reschedule your procedure once your B/P has been regulated. Follow up with private doctor today. Prescriptions: Nitrofurantoin Macro 100 mg [Macrobid 100MG Capsule] 100 mg PO BID #14 cap
[2023-08-22 09:20] VITALS: TEMP 97.9
[2023-08-22] MEDS ORDERED: Sodium Chloride 0.9% 1000 ML 1,000 ML ONE (09:22)
[2023-08-22] MEDS ORDERED: TRANDATE 20 MG/4 ML SYRINGE IV ONE ×2 (09:22→10:06)
[2023-08-22] MEDS: TRANDATE 20 MG/4 ML SYRINGE IV ONE ×2 (09:22→10:07)
[2023-08-22] MEDS: Sodium Chloride 0.9% 1000 ML 1,000 ML IV SCH (09:23)
[2023-08-22 09:35] LABS: BASOPHIL % 0.7 % (0.0-0.4); Basophil (Absolute #) 0.06 x10^3/uL (0-0.4); Eosinophil % 0.8 % (0.00-5.0); Eosinophil (Absolute #) 0.07 x10^3/uL (0-0.5); Hematocrit 39.2 % (35-47); Hemoglobin 12.3 g/dL (12.0-16.0); IMMATURE GRAN # 0.02 x10^3u/L (0.00-0.03); IMMATURE GRAN % 0.2 % (0.00-0.4); Lymphocyte (Absolute #) 1.97 x10^3/uL (1.0-4.6); Mean Cell Volume 83.1 fL (78-100); Mean Corpuscular Hemoglobin 26.1 pg (26-32); Mean Corpuscular Hgb Concent. 31.4 g/dL (32-36); Mean Platelet Volume 9.2 fL (7.5-11.0); Monocyte (Absolute #) 0.66 x10^3/uL (0.0-1.3); Monocytes % 7.7 % (0.0-12.0); Neutrophil % 67.6 % (36.0-66.0); Platelet Count 388 x10^3/uL (150-450); Red Blood Count 4.72 x10^6/uL (4.1-5.4); Red Cell Distribution Width 14.6 % (11.5-14.0); White Blood Count 8.6 x10^3/uL (4.0-10.5)
[2023-08-22 09:49] LABS: INR 0.94 (0.8-3.0); PROTIME 10.3 SECONDS (9.4-12.5); PTT 32.9 SECONDS (25.1-36.5)
[2023-08-22 09:51] LABS: ALBUMIN 4.6 g/dL (3.5-5.0); ANION GAP 17.3 MEQ/L (5-15); BILIRUBIN,TOTAL 0.4 mg/dL (0.2-1.3); Calcium 9.9 mg/dL (8.4-10.2); Creatinine 1 0.89 mg/dL (0.52-1.04); MAGNESIUM 1.4 mg/dL (1.6-2.3); Potassium 3.7 mmol/L (3.5-5.1); Total Protein 8.3 g/dL (6.3-8.2)
--- NOTE | 2023-08-22 09:52 | XRAY ---
Indication: Headache. Multiple contiguous axial images obtained through the head without contrast. Comparison: October 09, 2019 Again age-appropriate global atrophy, old left occipital infarct, and tiny bilateral basal ganglia lacunar infarcts. New remote-appearing lacunar infarct anterior to left frontal horn. No acute intracranial hemorrhage, abnormal extra-axial fluid collection, or mass effect. Fourth ventricle is midline without hydrocephalus. Steinberg-white matter differentiation preserved. Bony calvarium intact. Visualized paranasal sinuses and mastoid air cells are clear. Impression: Again chronic findings including atrophy, old left occipital lobe infarct, and old bilateral lacunar infarcts. No acute intracranial abnormalities.
--- NOTE | 2023-08-22 09:54 | XRAY ---
Indication: Chest pain. Comparison: December 02, 2021 PA/lateral chest remains hyperinflated again with a few tiny calcified granulomas and minimal left lung base subsegmental atelectasis/scarring. No focal infiltrate, consolidation, or large effusion. Heart not enlarged. Bony thorax intact again with osteopenia, degenerative changes, old left rib fractures, and old bilateral clavicle fractures. Impression: Continued nonacute chest with chronic features.
[2023-08-22] MEDS ORDERED: Ativan 1 MG ONE (10:06)
[2023-08-22] MEDS: Ativan 1 MG PO ONE (10:07)
[2023-08-22 10:37] VITALS: BP 183/86; PULSE 72; RESP 17; O2SAT 92
[2023-08-22] MEDS ORDERED: Magnesium 1 Gm / 100 Ml D5W*** 100 ML IV ONE (10:45)
[2023-08-22] MEDS: Magnesium 1 Gm / 100 Ml D5W*** 100 ML IV ONE (10:46)
[2023-08-22] MEDS ORDERED: TORAdol 30 mg Injection ONE (10:52)
[2023-08-22] MEDS: TORAdol 30 mg Injection IV ONE (10:55)
[2023-08-22 10:58] LABS: Appearance Clear (Clear); Bacteria None Seen /HPF (None Seen); Bilirubin Negative (Negative); Blood Negative (Negative); Epithelial Cells None Seen /HPF (None Seen); Glucose, Urine Negative (Negative); Hyaline Casts NONE SEEN /LPF (0-2); Ketones Negative (Negative); Leukocyte Esterase Moderate (Negative); Nitrite Negative (Negative); Ph 5.5 (4.6-8.0); Protein,Urine Dip 30 (Negative); RBC 0-2 /HPF (0-5); Urobilinogen 0.2 mg/dL (0.2)
[2023-08-22 10:59] LABS: ADD URINE CULTURE? YES (NO)
[2023-08-22] MEDS ORDERED: Macrobid 100MG Capsule ONE (11:27)
[2023-08-22] MEDS: Macrobid 100MG Capsule PO ONE (11:28)
== END 2023-08-22 11:59 | disposition home or self-care (01) ==
LOC: EDSTATUS 08:48 → ED 08:48
DX: G45.9 Transient cerebral ischemic attack, unspecified (principal); N39.0 Urinary tract infection, site not specified; R07.9 Chest pain, unspecified; I10 Essential (primary) hypertension; R51.9 Headache, unspecified; R11.0 Nausea; R20.2 Paresthesia of skin; R06.02 Shortness of breath; E11.9 Type 2 diabetes mellitus without complications; Z79.01 Long term (current) use of anticoagulants; Z79.84 Long term (current) use of oral hypoglycemic drugs; Z79.899 Other long term (current) drug therapy
CPT/HCPCS: 36000; 36415; 70450; 71046; 80053; 81001; 82150; 82947; 83690; 83735; 84484; 85025; 85610; 85730; 87086; 93005; 96374; 96375; 96376; 99284; J1885; J3475; A9270-GY

== ENCOUNTER 2023-08-28 23:44 | Emergency (ER) | payer MEDICARE ==
--- NOTE | 2023-08-29 00:17 | ERPHSYRPT ---
- History of Present Illness Time Seen by Provider: 08/29/23 00:11 Source: patient Exam Limitations: no limitations Physician History: Send 8-year-old female presents to emergency department for evaluation of inadvertent overdose of metoprolol. Patient took (3)25 mg tabs instead of her usual 25 mg tab. Ingestion occurred approximately 40 minutes prior to arrival. Patient currently asymptomatic. No chest pain or shortness of breath. No nausea vomiting or diaphoresis. Patient states she is very worried of effects. Portions of this note were created with voice recognition technology. There may be grammatical, spelling, punctuation or sound alike errors Timing/Duration: today Severity: mild Modifying Factors: Improves With: nothing Associated Symptoms: denies symptoms Allergies/Adverse Reactions: morphine Allergy (Severe, Verified 08/28/23 23:52) Irregular Heart Beat Sulfa (Sulfonamide Antibiotics) Allergy (Intermediate, Verified 08/28/23 23:52) Hives sulfamethoxazole [From Bactrim] Allergy (Intermediate, Verified 08/28/23 23:52) Hives trimethoprim [From Bactrim] Allergy (Intermediate, Verified 08/28/23 23:52) Hives fluoxetine HCl [From Prozac] Adverse Reaction (Intermediate, Verified 08/28/23 23:52) homicidal thoughts homicidal thoughts Home Medications: Apixaban [Eliquis] 5 mg PO BID 01/18/20 [History] Metformin HCl 850 mg [Glucophage 850 MG] 850 mg PO BID 01/18/20 [History] Spironolactone 25 tab PO DAILY 09/03/20 [History] Omeprazole 20 mg PO DAILY 08/01/22 [History] Sacubitril/Valsartan [Entresto 24 mg-26 mg Tablet] 1 tab PO DAILY 11/16/22 [History] Clonidine HCl 0.1 mg [Clonidine 0.1 mg Tablet] 0.2 mg PO HS 08/28/23 [History] Glipizide 5 mg [Glucotrol 5 MG] 5 mg PO DAILY 08/28/23 [History] Hydroxyzine HCl 25 mg [Atarax 25 mg] 25 mg PO TID 08/28/23 [History] Metoprolol Succinate 25 mg PO DAILY 08/28/23 [History] Ranolazine 500 MG [Ranexa 500 MG] 500 mg PO BID 08/28/23 [History] carvediloL [Coreg] 6.25 mg PO DAILY 08/28/23 [History] Hx Tetanus, Diphtheria Vaccination/Date Given: Yes Hx Influenza Vaccination/Date Given: Yes Hx Pneumococcal Vaccination/Date Given: Yes Travel Risk - Emerging Infectious Disease Are you exhibiting symptoms associated with any current EIDs: No - Review of Systems Constitutional: No Symptoms, No Fever, No Chills Eyes: No Symptoms Ears, Nose, & Throat: No Symptoms Respiratory: No Symptoms, No Cough, No Dyspnea Cardiac: No Symptoms, No Chest Pain, No Edema, No Syncope Abdominal/Gastrointestinal: No Symptoms, No Abdominal Pain, No Nausea, No Vomiting, No Diarrhea Genitourinary Symptoms: No Symptoms, No Dysuria Musculoskeletal: No Symptoms, No Back Pain, No Neck Pain Skin: No Symptoms, No Rash Neurological: No Symptoms, No Dizziness, No Focal Weakness, No Sensory Changes Psychological: No Symptoms Endocrine: No Symptoms Hematologic/Lymphatic: No Symptoms Immunological/Allergic: No Symptoms All Other Systems: Reviewed and Negative - Past Medical History Pertinent Past Medical History: Yes Neurological History: Stroke ENT History: No Pertinent History Cardiac History: Coronary Artery Disease, Hypertension, Myocardial Infarction ([place]) Respiratory History: Asthma, COPD Endocrine Medical History: Diabetes Type II Musculoskeletal History: Arthritis, Fibromyalgia, Osteoporosis GI Medical History: Ulcer, Other History: No Pertinent History Psycho-Social History: Anxiety, Panic Disorder Female Reproductive Disorders: Ovarian Cancer, Uterine Cancer Other Medical History: PATIENT REPORTS 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 SHE REPORTS SHE WAS DX'D WITH [facility] BY ~2 YEARS AGO. HOWEVER, PATIENT STATES HER PD MEDICATIONS WERE STOPPED AFTER HER 2ND CVA AND SHE HAS NOT BEEN BACK TO NEUROLOGIST TO DISCUSS MEDICATIONS. ANXIETY, PVD, GERD, HX OF CATARACTS REMOVED, [place]'S DISEASE WITH BONE REMOVAL IN R ARM, 3 BOWEL BLOCKAGES WITH LAST ONE IN 2019 REQUIRING REMOVAL OF PARTIAL SMALL INTESTINE AND LARGE INSTESTINE, HYSTERECTOMY. APPENDICITIS, GALL BLADDER REMOVAL, T&A REMOVAL. SHE REPORTS IN 2019 SHE FELL AND BROKE HER R HIP WITH CONSERVATIVE MEASURES AND MARCH 2019 SHE FELL AND BROKE HER R COLLAR BONE (7 PINS) REQUIRING SX. - Past Surgical History Past Surgical History: Yes Neuro Surgical History: No Pertinent History Cardiac: Cardiac Catheterization Respiratory: No Pertinent History Gastrointestinal: Appendectomy, Bowel Surgery, Cholecystectomy, Hernia Repair Genitourinary: No Pertinent History Musculoskeletal: No Pertinent History Female Surgical History: Hysterectomy, Tubal Ligation Other Surgical History: bone auto graft to wrist, collar bone surgery, heart cath 06/2019. bowel obstruction x3 HX OF BLOOD TRANSFUSIONS - Social History Smoking Status: Former smoker How long have you smoked: years Exposure to second hand smoke: No Drug Use: none Patient Lives Alone: No - Nursing Vital Signs Nursing Vital Signs: Initial Vital Signs Temperature 99 F 08/28/23 23:46 Pulse Rate 101 H 08/28/23 23:46 Respiratory Rate 16 08/28/23 23:46 Blood Pressure 160/11 08/28/23 23:46 O2 Sat by Pulse Oximetry 97 08/28/23 23:46 Pain Scale Pain Intensity 4 - Physical Exam General Appearance: no apparent distress, alert Eye Exam: PERRL/EOMI, eyes nml inspection Ears, Nose, Throat Exam: normal ENT inspection, TMs normal, pharynx normal, moist mucous membranes Neck Exam: normal inspection, non-tender, supple, full range of motion Respiratory Exam: normal breath sounds, lungs clear, No respiratory distress Cardiovascular Exam: regular rate/rhythm, normal heart sounds, normal peripheral pulses Gastrointestinal/Abdomen Exam: soft, normal bowel sounds, No tenderness, No mass Back Exam: normal inspection, normal range of motion, No CVA tenderness, No vertebral tenderness Extremity Exam: normal inspection, normal range of motion, pelvis stable Neurologic Exam: alert, oriented x 3, cooperative, normal mood/affect, nml cerebellar function, nml station & gait, sensation nml, No motor deficits Skin Exam: normal color, warm, dry, No rash Lymphatic Exam: No adenopathy SpO2 Interpretation: normal SpO2: 98 O2 Delivery: Room Air - Course Nursing assessment & vital signs reviewed: Yes EKG Interpreted by Me: RATE (101), Sinus Tach, Left [place] Deviation, NORMAL INTERVALS, NORMAL QRS Ordered Tests: Active Orders 24 hr Category Date Time Status Gsa Coordinator STAT Care 08/29/23 00:05 Active EKG-ER Only STAT Care 08/29/23 00:05 Active IV Insertion STAT Care 08/29/23 00:05 Active ACETAMINOPHEN Stat Lab 08/29/23 00:47 Completed CBC W DIFF Stat Lab 08/29/23 00:47 Completed CMP Stat Lab 08/29/23 00:47 Completed ETHYL ALCOHOL Stat Lab 08/29/23 00:47 Completed SALICYLATE Stat Lab 08/29/23 00:47 Completed TROPONIN Stat Lab 08/29/23 00:25 Completed UA W/RFX UR CULTURE Stat Lab 08/29/23 01:28 Completed Urine Triage Profile Stat Lab 08/29/23 01:28 Completed Medication Summary Discontinued Medications Generic Name Dose Route Start Last Admin Trade Name Chaz PRN Reason Stop Dose Admin Sodium Chloride 1,000 mls @ 999 mls/hr 08/29/23 00:05 08/29/23 02:03 Sodium Chloride 0.9% 1000 Ml IV 08/29/23 01:05 Infused .Q1H1M STA Infusion Sodium Chloride Confirm 08/29/23 00:58 Sodium Chloride 0.9% 1000 Ml Administered 08/29/23 00:59 Dose 1,000 mls @ ud .ROUTE .STK-MED ONE Lab/Rad Data: Laboratory Result Diagrams 08/29/23 00:47 Laboratory Results 08/29/23 08/29/23 08/29/23 Range/Units 01:28 01:28 00:47 WBC (4.0-10.5) x10^3/uL RBC (4.1-5.4) x10^6/uL Hgb (12.0-16.0) g/dL Hct (35-47) % MCV (78-100) fL MCH (26-32) pg MCHC (32-36) g/dL RDW (11.5-14.0) % Plt Count (150-450) x10^3/uL MPV (7.5-11.0) fL Gran % (36.0-66.0) % Immature Gran % (Auto) (0.00-0.4) % Nucleat RBC Rel Count (0.00-0.1) % Eos # (Auto) (0-0.5) x10^3/uL Immature Gran # (Auto) (0.00-0.03) x10^3u/L Absolute Lymphs (auto) (1.0-4.6) x10^3/uL Absolute Monos (auto) (0.0-1.3) x10^3/uL Absolute Nucleated RBC (0.00-0.01) x10^3u/L Lymphocytes % (24.0-44.0) % Monocytes % (0.0-12.0) % Eosinophils % (0.00-5.0) % Basophils % (0.0-0.4) % Absolute Granulocytes (1.4-6.9) x10^3/uL Basophils # (0-0.4) x10^3/uL Glucose [employer]ATION ENGINEER Troponin I (0.000-0.033) ng/mL Urine Color Yellow (Yellow) Urine Appearance Clear (Clear) Urine pH 5.5 (4.6-8.0) Ur Specific [place] <=1.005 (1.005-1.030) Urine Protein Negative (Negative) Urine Glucose (UA) Negative (Negative) mg/dL Urine Ketones Negative (Negative) Urine Blood Negative (Negative) Urine Nitrite Negative (Negative) Urine Bilirubin Negative (Negative) Urine Urobilinogen 0.2 (0.2) mg/dL Ur Leukocyte Esterase Trace A (Negative) U Hyaline Cast (Auto) NONE SEEN (0-2) /LPF Urine Microscopic RBC 0-2 (0-5) /HPF Urine Microscopic WBC 0-2 (0-5) /HPF Ur Epithelial Cells None Seen (None Seen) /HPF Urine Bacteria None Seen (None Seen) /HPF Urine Culture Reflexed NO (NO) Urine Opiates Level NEGATIVE (NEGATIVE) Ur Methadone NEGATIVE (NEGATIVE) Urine Barbiturates NEGATIVE (NEGATIVE) Ur Phencyclidine (PCP) NEGATIVE (NEGATIVE) Urine Amphetamine NEGATIVE (NEGATIVE) U Benzodiazepine Level NEGATIVE (NEGATIVE) Urine Cocaine NEGATIVE (NEGATIVE) Urine Marijuana (THC) NEGATIVE (NEGATIVE) 08/29/23 08/29/23 Range/Units 00:47 00:25 WBC 9.6 (4.0-10.5) x10^3/uL RBC 4.63 (4.1-5.4) x10^6/uL Hgb 12.3 (12.0-16.0) g/dL Hct 39.2 (35-47) % MCV 84.7 (78-100) fL MCH 26.6 (26-32) pg MCHC 31.4 L (32-36) g/dL RDW 14.6 H (11.5-14.0) % Plt Count 394 (150-450) x10^3/uL MPV 9.3 (7.5-11.0) fL Gran % 63.2 (36.0-66.0) % Immature Gran % (Auto) 0.2 (0.00-0.4) % Nucleat RBC Rel Count 0.0 (0.00-0.1) % Eos # (Auto) 0.11 (0-0.5) x10^3/uL Immature Gran # (Auto) 0.02 (0.00-0.03) x10^3u/L Absolute Lymphs (auto) 2.72 (1.0-4.6) x10^3/uL Absolute Monos (auto) 0.65 (0.0-1.3) x10^3/uL Absolute Nucleated RBC 0.00 (0.00-0.01) x10^3u/L Lymphocytes % 28.2 (24.0-44.0) % Monocytes % 6.7 (0.0-12.0) % Eosinophils % 1.1 (0.00-5.0) % Basophils % 0.6 (0.0-0.4) % Absolute Granulocytes 6.08 (1.4-6.9) x10^3/uL Basophils # 0.06 (0-0.4) x10^3/uL Glucose Troponin I 0.015 (0.000-0.033) ng/mL Urine Color (Yellow) Urine Appearance (Clear) Urine pH (4.6-8.0) Ur Specific [place] (1.005-1.030) Urine Protein (Negative) Urine Glucose (UA) (Negative) mg/dL Urine Ketones (Negative) Urine Blood (Negative) Urine Nitrite (Negative) Urine Bilirubin (Negative) Urine Urobilinogen (0.2) mg/dL Ur Leukocyte Esterase (Negative) U Hyaline Cast (Auto) (0-2) /LPF Urine Microscopic RBC (0-5) /HPF Urine Microscopic WBC (0-5) /HPF Ur Epithelial Cells (None Seen) /HPF Urine Bacteria (None Seen) /HPF Urine Culture Reflexed (NO) Urine Opiates Level (NEGATIVE) Ur Methadone (NEGATIVE) Urine Barbiturates (NEGATIVE) Ur Phencyclidine (PCP) (NEGATIVE) Urine Amphetamine (NEGATIVE) U Benzodiazepine Level (NEGATIVE) Urine Cocaine (NEGATIVE) Urine Marijuana (THC) (NEGATIVE) - Progress Progress: improved Progress Note: 68-year-old female presents to our ED for evaluation post accidental overdose. Patient unintentionally took (3) 25 mg of metoprolol. Patient presented to our ED with concerns of overdose. Physical exam essentially nonremarkable. We contacted poison control at 04 25. They advised observation till 7 AM. Labs obtained. Workup essentially nonremarkable. Patient observed until 7 AM per poison control's recommendations. Patient remained asymptomatic. No change in vitals. Patient stable throughout the night. Patient reassessed. She remains asymptomatic. Patient feels well and states she is ready for discharge. No indication for further workup will discharge home. Initial EKG showed a sinus tachycardia 101. Otherwise no ischemic changes. No profound bradycardia. No indication for further workup at this time. Will discharge home. Patient voices no other complaints or concerns at this time. Portions of this note were created with voice recognition technology. There may be grammatical, spelling, punctuation or sound alike errors Complexity problem addressed is moderate acute complicated. No critical care time. Complex of data reviewed and analyzed is extensive. Test ordered test reviewed results analyzed and correlated clinically with history and physical exam. Management discussed with poison control on several occasions. Risk of complication and or risk of morbidity/mortality of patient management is low. Vital stable. Time spent discharge patient is approximately 15 minutes. Plan of care established for shared decision making. No social determinants of health present impede follow-up. Portions of this note were created with voice recognition technology. There may be grammatical, spelling, punctuation or sound alike errors 08/29/23 06:36 Counseled pt/family regarding: lab results, diagnosis, need for follow-up - Departure Departure Disposition: Home Clinical Impression: Accidental overdose Condition: Stable Critical Care Time: No Referrals: LYDIA WHITFIELD [Primary Care Provider] - Follow up/PCP as directed Additional Instructions: Discharge/Care Plan JULIO HOLLY DANIEL was seen on 08/29/23 in the Emergency Room. The patient was counseled regarding Diagnosis,Lab results, Imaging studies, need for follow up and when to return to the Emergency Room. Prescriptions given: Discharge Note I have spoken with the patient and/or caregivers. I have explained the patient's condition, diagnosis and treatment plan based on the information available to me at this time. I have answered the patient's and/or caregiver's questions and addressed any concerns. The patient and/or caregivers have as good understanding of the patient's diagnosis, condition and treatment plan as can be expected at this point. The vital signs have been stable. The patient's condition is stable and appropriate for discharge from the emergency department. The patient will pursue further outpatient evaluation with the primary care physician or other designated or consulting physician as outlined in the discharge instructions. The patient and/or caregivers are agreeable to this plan of care and follow-up instructions have been explained in detail. The patient and/or caregivers have received these instruction. The patient/and or caregivers are aware that any significant change in condition or worsening of symptoms should prompt an immediate return to this or the closest emergency department or call 911.
[2023-08-29 00:21] VITALS: TEMP 99
[2023-08-29 00:52] LABS: Absolute Neutrophil Ct (ANC) 6.08 x10^3/uL (1.4-6.9); BASOPHIL % 0.6 % (0.0-0.4); Basophil (Absolute #) 0.06 x10^3/uL (0-0.4); Eosinophil % 1.1 % (0.00-5.0); Eosinophil (Absolute #) 0.11 x10^3/uL (0-0.5); Hematocrit 39.2 % (35-47); Hemoglobin 12.3 g/dL (12.0-16.0); IMMATURE GRAN # 0.02 x10^3u/L (0.00-0.03); IMMATURE GRAN % 0.2 % (0.00-0.4); Lymphocyte (Absolute #) 2.72 x10^3/uL (1.0-4.6); Lymphocytes % 28.2 % (24.0-44.0); Mean Cell Volume 84.7 fL (78-100); Mean Corpuscular Hemoglobin 26.6 pg (26-32); Mean Corpuscular Hgb Concent. 31.4 g/dL (32-36); Mean Platelet Volume 9.3 fL (7.5-11.0); Monocyte (Absolute #) 0.65 x10^3/uL (0.0-1.3); Monocytes % 6.7 % (0.0-12.0); Neutrophil % 63.2 % (36.0-66.0); Platelet Count 394 x10^3/uL (150-450); Red Blood Count 4.63 x10^6/uL (4.1-5.4); Red Cell Distribution Width 14.6 % (11.5-14.0); White Blood Count 9.6 x10^3/uL (4.0-10.5)
[2023-08-29] MEDS ORDERED: Sodium Chloride 0.9% 1000 ML 1,000 ML ONE (00:58)
[2023-08-29] MEDS: Sodium Chloride 0.9% 1000 ML 1,000 ML IV STA (01:02)
[2023-08-29 01:39] LABS: Appearance Clear (Clear); Bacteria None Seen /HPF (None Seen); Bilirubin Negative (Negative); Blood Negative (Negative); Epithelial Cells None Seen /HPF (None Seen); Glucose, Urine Negative (Negative); Hyaline Casts NONE SEEN /LPF (0-2); Ketones Negative (Negative); Leukocyte Esterase Trace (Negative); Nitrite Negative (Negative); Ph 5.5 (4.6-8.0); Protein,Urine Dip Negative (Negative); RBC 0-2 /HPF (0-5); Specific Gravity <=1.005 (1.005-1.030); Urobilinogen 0.2 mg/dL (0.2); WBC 0-2 /HPF (0-5)
[2023-08-29 01:40] LABS: ADD URINE CULTURE? NO (NO)
[2023-08-29 01:49] LABS: Amphetamine,Urine NEGATIVE (NEGATIVE); Barbiturate,Urine NEGATIVE (NEGATIVE); Benzodiazepine,Urine NEGATIVE (NEGATIVE); Cocaine,Urine NEGATIVE (NEGATIVE); Methadone,Urine NEGATIVE (NEGATIVE); Opiate,Urine NEGATIVE (NEGATIVE); PCP,Urine NEGATIVE (NEGATIVE); THC,Urine NEGATIVE (NEGATIVE)
[2023-08-29 06:34] VITALS: BP 179/104; PULSE 88; RESP 22
[2023-08-29 06:35] VITALS: O2SAT 98
== END 2023-08-29 06:38 | disposition home or self-care (01) ==
LOC: ED 23:44
DX: T44.7X1A Poisoning by beta-adrenoreceptor antagonists, accidental (unintentional), initial encounter (principal); E78.5 Hyperlipidemia, unspecified; E11.9 Type 2 diabetes mellitus without complications; Z79.84 Long term (current) use of oral hypoglycemic drugs; Z79.899 Other long term (current) drug therapy
CPT/HCPCS: 36000; 36415; 80053; 80143; 80179; 80307; 81001; 82077; 84484; 85025; 93005; 93041; 96360; 99284

== ENCOUNTER 2023-09-26 09:18 | Day surgery (SDC) | payer MEDICARE ==
[2011-11-29 13:59] VITALS: BP 148/93
[2023-09-26] MEDS ORDERED: XYLOCAINE-MPF 1% 5ML SDV IJ ONE (09:19)
[2023-09-26] MEDS ORDERED: BUPIVACAINE 0.5% VIAL IJ ONE (09:19)
[2023-09-26] MEDS ORDERED: Depo-Medrol 40 MG/ML IM ONE (09:19)
[2023-09-26] MEDS ORDERED: DIPRIVAN 200 MG/20 ML IV ONE (10:59)
[2023-09-26] MEDS ORDERED: Xylocaine-Mpf 2% 5 Ml Vial ONE (11:02)
--- NOTE | 2023-09-26 12:06 | XRAY ---
Indication: Left L4-S1 RFA. Intraoperative fluoroscopy provided for 15 seconds. 3 digital spot images submitted for interpretation demonstrates posterior needle tips projecting over the expected left L4-S1 nerve roots. Correlate with intraoperative findings/report.
--- NOTE | 2023-09-26 13:15 | XRAY ---
15 seconds of fluoroscopy was used in surgery for a left L4-S1 RFA.
[2023-09-26] MEDS ORDERED: Lactated Ringers 1,000 ML IV ONE (15:04)
== END 2023-09-26 11:38 | disposition home or self-care (01) ==
LOC: SDC-PAIN 09:18
PROVIDERS: ATTEND Psychiatry & Neurology Pain Medicine
DX: M47.816 Spondylosis without myelopathy or radiculopathy, lumbar region (principal); E11.9 Type 2 diabetes mellitus without complications
CPT/HCPCS: 64635; 64636; 72100; 77002; 82947; J1010; J2704

== ENCOUNTER 2023-10-21 22:21 | Emergency (ER) | payer MEDICARE ==
[2023-10-21 22:31] VITALS: TEMP 98.8
--- NOTE | 2023-10-21 22:42 | ERPHSYRPT ---
- History of Present Illness Time Seen by Provider: 10/21/23 22:30 Source: patient Exam Limitations: no limitations Patient Subjective Stated Complaint: hypertension, headache since this am Triage Nursing Assessment: pt presents to ED via SCAT 1, pt alert and oriented x3, skin pwd, pt c/o headache 10/10 with high blood pressure, pt hypertensive u nayely arrival, pt states pain is constant, pt states she did take her bp medication this am Physician History: For the past 21.5 hours pt has had a constant global headache 10/10 in severity with nausea and urinary frequency. Pt states her BP was elevated 4.5 hours ago at ~ 200/114. Pt denies chest pain, shortness of air, vomiting, abdominal pain, fever. Allergies/Adverse Reactions: morphine Allergy (Severe, Verified 10/21/23 22:25) Irregular Heart Beat Sulfa (Sulfonamide Antibiotics) Allergy (Intermediate, Verified 10/21/23 22:25) Hives sulfamethoxazole [From Bactrim] Allergy (Intermediate, Verified 10/21/23 22:25) Hives trimethoprim [From Bactrim] Allergy (Intermediate, Verified 10/21/23 22:25) Hives fluoxetine HCl [From Prozac] Adverse Reaction (Intermediate, Verified 10/21/23 22:25) homicidal thoughts homicidal thoughts Home Medications: Apixaban [Eliquis] 5 mg PO BID 01/18/20 [History] Metformin HCl 850 mg [Glucophage 850 MG] 850 mg PO BID 01/18/20 [History] Spironolactone 25 tab PO DAILY 09/03/20 [History] Omeprazole 20 mg PO DAILY 08/01/22 [History] Sacubitril/Valsartan [Entresto 24 mg-26 mg Tablet] 1 tab PO DAILY 11/16/22 [History] Clonidine HCl 0.1 mg [Clonidine 0.1 mg Tablet] 0.2 mg PO HS 08/28/23 [History] Glipizide 5 mg [Glucotrol 5 MG] 5 mg PO DAILY 08/28/23 [History] Hydroxyzine HCl 25 mg [Atarax 25 mg] 25 mg PO TID 08/28/23 [History] Metoprolol Succinate 25 mg PO DAILY 08/28/23 [History] Ranolazine 500 MG [Ranexa 500 MG] 500 mg PO BID 08/28/23 [History] carvediloL [Coreg] 6.25 mg PO DAILY 08/28/23 [History] Hx Tetanus, Diphtheria Vaccination/Date Given: Yes Hx Influenza Vaccination/Date Given: No Hx Pneumococcal Vaccination/Date Given: Yes Immunizations Up to Date: Yes Travel Risk - International Travel Have you traveled outside of the country in past 3 weeks: No - Emerging Infectious Disease Are you exhibiting symptoms associated with any current EIDs: Yes Symptoms: Headaches/Body Aches/ - Review of Systems Constitutional: No Fever Respiratory: No Dyspnea Cardiac: No Chest Pain Abdominal/Gastrointestinal: Nausea, No Abdominal Pain, No Vomiting, No Diarrhea Genitourinary Symptoms: Frequency Neurological: Headache - Past Medical History Pertinent Past Medical History: Yes Neurological History: Stroke ENT History: No Pertinent History Cardiac History: Coronary Artery Disease, Hypertension, Myocardial Infarction (DE) Respiratory History: Asthma, COPD Endocrine Medical History: Diabetes Type II Musculoskeletal History: Arthritis, Fibromyalgia, Osteoporosis GI Medical History: Ulcer, Other History: No Pertinent History Psycho-Social History: Anxiety, Panic Disorder Female Reproductive Disorders: Ovarian Cancer, Uterine Cancer Other Medical History: PATIENT REPORTS 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 SHE REPORTS SHE WAS DX'D WITH [facility] BY ~2 YEARS AGO. HOWEVER, PATIENT STATES HER PD MEDICATIONS WERE STOPPED AFTER HER 2ND CVA AND SHE HAS NOT BEEN BACK TO NEUROLOGIST TO DISCUSS MEDICATIONS. ANXIETY, PVD, GERD, HX OF CATARACTS REMOVED, [place]'S DISEASE WITH BONE RE MOVAL IN R ARM, 3 BOWEL BLOCKAGES WITH LAST ONE IN 2019 REQUIRING REMOVAL OF PARTIAL SMALL INTESTINE AND LARGE INSTESTINE, HYSTERECTOMY. APPENDICITIS, GALL BLADDER REMOVAL, T&A REMOVAL. SHE REPORTS IN 2019 SHE FELL AND BROKE HER R HIP WITH CONSERVATIVE MEASURES AND MARCH 2019 SHE FELL AND BROKE HER R COLLAR BONE (7 PINS) REQUIRING SX. - Past Surgical History Past Surgical History: Yes Neuro Surgical History: No Pertinent History Cardiac: Cardiac Catheterization Respiratory: No Pertinent History Gastrointestinal: Appendectomy, Bowel Surgery, Cholecystectomy, Hernia Repair Genitourinary: No Pertinent History Musculoskeletal: No Pertinent History Female Surgical History: Hysterectomy, Tubal Ligation Other Surgical History: bone auto graft to wrist, collar bone surgery, heart cath. bowel obstruction x3 HX OF BLOOD TRANSFUSIONS - Social History Smoking Status: Former smoker How long have you smoked: years Exposure to second hand smoke: No Drug Use: none Patient Lives Alone: No - Social Determinants of Health Will the patient participate in the screening: Yes Do you worry about a steady place to live?: No Do you have any problems with any of the following?: No known problems In the past 12 months,have you had to go without utilities?: No Transportation Issues: No Has anyone in your support network made you feel unsafe?: No Have you or anyone in your house had to go without enough: No - Nursing Vital Signs Nursing Vital Signs: Initial Vital Signs Temperature 98.8 F 10/21/23 22:25 Pulse Rate 81 10/21/23 22:25 Respiratory Rate 12 10/21/23 22:25 Blood Pressure 190/121 10/21/23 22:25 O2 Sat by Pulse Oximetry 96 10/21/23 22:25 Pain Scale Pain Intensity 8 - Physical Exam General Appearance: alert Eye Exam: PERRL/EOMI Ears, Nose, Throat Exam: TMs normal, pharynx normal Neck Exam: normal inspection Respiratory Exam: lungs clear Cardiovascular Exam: normal heart sounds Gastrointestinal/Abdominal Exam: normal bowel sounds Extremity Exam: normal range of motion 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 Mild right maxillary sinusitis. See rest of report.) Ordered Tests: Active Orders 24 hr Category Date Time Status EKG-ER Only STAT Care 10/21/23 22:47 Active IV Insertion STAT Care 10/21/23 22:47 Active CHEST 2 VIEWS (PA AND LAT) Stat Exams 10/21/23 22:48 Taken HEAD WITHOUT CONTRAST [CT] Stat Exams 10/21/23 22:49 Completed AMYLASE Stat Lab 10/21/23 23:03 Completed CBC W DIFF Stat Lab 10/21/23 23:03 Completed CMP Stat Lab 10/21/23 23:03 Completed LIPASE Stat Lab 10/21/23 23:03 Completed MAGNESIUM Stat Lab 10/22/23 00:00 Completed TROPONIN Q4H Lab 10/21/23 23:03 Completed TROPONIN Q4H Lab 10/22/23 03:00 Ordered TROPONIN Q4H Lab 10/22/23 07:00 Ordered UA W/RFX UR CULTURE Stat Lab 10/21/23 23:27 Completed Medication Summary Generic Name Dose Route Start Last Admin Trade Name Freq PRN Reason Stop Dose Admin Sodium Chloride 1,000 mls @ 100 mls/hr 10/21/23 23:00 10/21/23 23:00 Sodium Chloride 0.9% 1000 Ml IV 11/20/23 22:59 100 mls/hr .Q10H BRADY Administration Discontinued Medications Generic Name Dose Route Start Last Admin Trade Name Freq PRN Reason Stop Dose Admin Al Hydrox/Mg Hydrox/Simethicone Confirm 10/22/23 01:25 Mag Hydrox/Al Hydrox/Simeth 30 Ml Udcup Administered 10/22/23 01:26 Dose 30 ml .ROUTE .STK-MED ONE Hydromorphone HCl 1 mg 10/21/23 22:47 10/21/23 23:02 Hydromorphone 1 Mg/1ml Inj IV 10/21/23 22:48 1 mg STAT ONE Administration Hydromorphone HCl Confirm 10/21/23 22:53 Hydromorphone 1 Mg/1ml Inj Administered 10/21/23 22:54 Dose 1 mg .ROUTE .STK-MED ONE Hydromorphone HCl 1 mg 10/22/23 01:49 Hydromorphone 1 Mg/1ml Inj IV 10/22/23 01:50 STAT ONE Ceftriaxone Sodium 1 gm in 100 mls @ 200 mls/hr 10/22/23 01:19 10/22/23 01:38 Rocephin 1 Gm / 100 Ml Nacl IV 10/22/23 01:48 200 ml/hr STAT ONE 200 mls/hr Administration Ceftriaxone Sodium Confirm 10/22/23 01:25 Rocephin 1 Gm / 100 Ml Nacl Administered 10/22/23 01:26 Dose 1 gm in 100 mls @ ud IV .STK-MED ONE Labetalol HCl 10 mg 10/21/23 23:26 10/21/23 23:47 Labetalol Hcl 20 Mg/4 Ml Disp.Syringe IV 10/21/23 23:27 10 mg STAT ONE Administration Labetalol HCl Confirm 10/21/23 23:46 Labetalol Hcl 20 Mg/4 Ml Disp.Syringe Administered 10/21/23 23:47 Dose 20 mg IV .STK-MED ONE Labetalol HCl 10 mg 10/22/23 00:45 10/22/23 00:50 Labetalol Hcl 20 Mg/4 Ml Disp.Syringe IV 10/22/23 00:46 10 mg STAT ONE Administration Lidocaine HCl Confirm 10/22/23 01:25 Lidocaine Hcl 2% Viscous 15 Ml Udcup Administered 10/22/23 01:26 Dose 15 ml .ROUTE .STK-MED ONE Magnesium Hydroxide 45 ml 10/22/23 01:12 10/22/23 01:34 Mag Hydrx/Alum Hyd/Simeth/Lido 45 Ml Bottle PO 10/22/23 01:13 45 ml STAT ONE Administration Nitroglycerin 0.4 mg 10/22/23 01:13 10/22/23 01:26 Nitroglycerin 0.4 Mg (Ed) 0.4 Mg Tab.Subl SL 10/22/23 01:14 0.4 mg STAT ONE Administration Nitroglycerin Confirm 10/22/23 01:24 Nitroglycerin 0.4 Mg (Ed) 0.4 Mg Tab.Subl Administered 10/22/23 01:25 Dose 0.4 mg SL .STK-MED ONE Ondansetron HCl 4 mg 10/21/23 22:47 10/21/23 23:01 Ondansetron Hcl 4 Mg/2 Ml Vial IV 10/21/23 22:48 4 mg STAT ONE Administration Ondansetron HCl Confirm 10/21/23 22:53 Ondansetron Hcl 4 Mg/2 Ml Vial Administered 10/21/23 22:54 Dose 4 mg .ROUTE .STK-MED ONE Lab/Rad Data: Laboratory Result Diagrams 10/21/23 23:03 10/21/23 23:03 Laboratory Results 10/22/23 10/21/23 10/21/23 Range/Units 00:00 23:27 23:03 WBC (3.98-10.04) x10^3/uL RBC (3.93-5.22) x10^6/uL Hgb (11.2-15.7) g/dL Hct (34.1-44.9) % MCV (79.4-94.8) fL MCH (25.6-32.2) pg MCHC (32.2-35.5) g/dL RDW (11.7-14.4) % Plt Count (182-369) x10^3/uL MPV (9.4-12.3) fL Gran % (34.0-71.1) % Immature Gran % (Auto) (0.001-0.429) % Nucleat RBC Rel Count (0.00-0.2) % Eos # (Auto) (0.04-0.36) x10^3/uL Immature Gran # (Auto) (0.001-0.031) x10^3u/L Absolute Lymphs (auto) (1.18-3.74) x10^3/uL Absolute Monos (auto) (0.24-0.86) x10^3/uL Absolute Nucleated RBC (0.00-0.012) x10^3u/L Lymphocytes % (19.3-51.7) % Monocytes % (4.7-12.5) % Eosinophils % (0.7-5.8) % Basophils % (0.1-1.2) % Absolute Granulocytes (1.56-6.13) x10^3/uL Basophils # (0.01-0.08) x10^3/uL Sodium (135-145) mmol/L Potassium (3.5-5.1) mmol/L Chloride (98-107) mmol/L Carbon Dioxide (22-30) mmol/L Anion Gap (5-15) MEQ/L BUN (7-17) mg/dL Creatinine (0.52-1.04) mg/dL Estimated GFR ML/MIN Glucose (74-106) mg/dL Calcium (8.4-10.2) mg/dL Magnesium 1.6 (1.6-2.3) mg/dL Total Bilirubin (0.2-1.3) mg/dL AST (14-36) U/L ALT (0-35) U/L Alkaline Phosphatase (38-126) U/L Troponin I < 0.012 (0.000-0.033) ng/mL Serum Total Protein (6.3-8.2) g/dL Albumin (3.5-5.0) g/dL Amylase (30-110) U/L Lipase (23-300) U/L Urine Color Yellow (Yellow) Urine Appearance Clear (Clear) Urine pH 6.5 (4.6-8.0) Ur Specific Sneads 1.010 (1.005-1.030) Urine Protein 300 A (Negative) Urine Glucose (UA) Negative (Negative) mg/dL Urine Ketones Trace A (Negative) Urine Blood Negative (Negative) Urine Nitrite Negative (Negative) Urine Bilirubin Negative (Negative) Urine Urobilinogen 0.2 (0.2) mg/dL Ur Leukocyte Esterase Negative (Negative) U Hyaline Cast (Auto) NONE SEEN (0-2) /LPF Urine Microscopic RBC 0-2 (0-5) /HPF Urine Microscopic WBC 0-2 (0-5) /HPF Ur Epithelial Cells None Seen (None Seen) /HPF Urine Bacteria None Seen (None Seen) /HPF Urine Culture Reflexed NO (NO) 10/21/23 10/21/23 Range/Units 23:03 23:03 WBC 12.6 H (3.98-10.04) x10^3/uL RBC 4.68 (3.93-5.22) x10^6/uL Hgb 12.5 (11.2-15.7) g/dL Hct 38.6 (34.1-44.9) % MCV 82.5 (79.4-94.8) fL MCH 26.7 (25.6-32.2) pg MCHC 32.4 (32.2-35.5) g/dL RDW 14.2 (11.7-14.4) % Plt Count 416 H (182-369) x10^3/uL MPV 8.9 L (9.4-12.3) fL Gran % 81.0 H (34.0-71.1) % Immature Gran % (Auto) 0.4 (0.001-0.429) % Nucleat RBC Rel Count 0.0 (0.00-0.2) % Eos # (Auto) 0.07 (0.04-0.36) x10^3/uL Immature Gran # (Auto) 0.05 H (0.001-0.031) x10^3u/L Absolute Lymphs (auto) 1.46 (1.18-3.74) x10^3/uL Absolute Monos (auto) 0.73 (0.24-0.86) x10^3/uL Absolute Nucleated RBC 0.00 (0.00-0.012) x10^3u/L Lymphocytes % 11.6 L (19.3-51.7) % Monocytes % 5.8 (4.7-12.5) % Eosinophils % 0.6 L (0.7-5.8) % Basophils % 0.6 (0.1-1.2) % Absolute Granulocytes 10.25 H (1.56-6.13) x10^3/uL Basophils # 0.07 (0.01-0.08) x10^3/uL Sodium 140 (135-145) mmol/L Potassium 3.6 (3.5-5.1) mmol/L Chloride 107 (98-107) mmol/L Carbon Dioxide 17 L (22-30) mmol/L Anion Gap 19.1 H (5-15) MEQ/L BUN 11 (7-17) mg/dL Creatinine 0.78 (0.52-1.04) mg/dL Estimated GFR 83.2 ML/MIN Glucose 147 H (74-106) mg/dL Calcium 10.4 H (8.4-10.2) mg/dL Magnesium (1.6-2.3) mg/dL Total Bilirubin 0.50 (0.2-1.3) mg/dL AST 19 (14-36) U/L ALT 16 (0-35) U/L Alkaline Phosphatase 105 (38-126) U/L Troponin I (0.000-0.033) ng/mL Serum Total Protein 7.7 (6.3-8.2) g/dL Albumin 4.6 (3.5-5.0) g/dL Amylase 46 (30-110) U/L Lipase 90 (23-300) U/L Urine Color (Yellow) Urine Appearance (Clear) Urine pH (4.6-8.0) Ur Specific Sneads (1.005-1.030) Urine Protein (Negative) Urine Glucose (UA) (Negative) mg/dL Urine Ketones (Negative) Urine Blood (Negative) Urine Nitrite (Negative) Urine Bilirubin (Negative) Urine Urobilinogen (0.2) mg/dL Ur Leukocyte Esterase (Negative) U Hyaline Cast (Auto) (0-2) /LPF Urine Microscopic RBC (0-5) /HPF Urine Microscopic WBC (0-5) /HPF Ur Epithelial Cells (None Seen) /HPF Urine Bacteria (None Seen) /HPF Urine Culture Reflexed (NO) - Progress Progress: improved Counseled pt/family regarding: lab results, diagnosis, need for follow-up, rad results Medical Desision Making - Diagnostic Testing Diagnostic test were ordered, analyzed, and reviewed by me: Yes Radiological Interpretation: Teleradiologist Report - Departure Departure Disposition: Home Clinical Impression: Headache, Maxillary sinusitis, HTN (hypertension) Condition: Stable Critical Care Time: No Referrals: LYDIA WHITFIELD [Primary Care Provider] - Follow up/PCP as directed Instructions: Sinusitis in adults, Malignant Hypertension (DC) Additional Instructions: Follow up with private doctor tomorrow. Prescriptions: Cefpodoxime Proxetil 200 mg [Vantin 200 mg] 200 mg PO BID #20 tablet
[2023-10-21] MEDS ORDERED: Sodium Chloride 0.9% 1000 ML 1,000 ML ONE (22:53)
[2023-10-21] MEDS ORDERED: Hydromorphone 1 mg/ml Injection ONE (22:53)
[2023-10-21] MEDS ORDERED: Zofran 4 MG/2 ML VIAL ONE (22:53)
[2023-10-21] MEDS: Sodium Chloride 0.9% 1000 ML 1,000 ML IV SCH (23:00)
[2023-10-21] MEDS: Zofran 4 MG/2 ML VIAL IV ONE (23:01)
[2023-10-21] MEDS: Hydromorphone 1 mg/ml Injection IV ONE (23:02)
[2023-10-21 23:06] LABS: Absolute Neutrophil Ct (ANC) 10.25 x10^3/uL (1.56-6.13); BASOPHIL % 0.6 % (0.1-1.2); Basophil (Absolute #) 0.07 x10^3/uL (0.01-0.08); Eosinophil % 0.6 % (0.7-5.8); Eosinophil (Absolute #) 0.07 x10^3/uL (0.04-0.36); Hematocrit 38.6 % (34.1-44.9); Hemoglobin 12.5 g/dL (11.2-15.7); IMMATURE GRAN # 0.05 x10^3u/L (0.001-0.031); IMMATURE GRAN % 0.4 % (0.001-0.429); Lymphocyte (Absolute #) 1.46 x10^3/uL (1.18-3.74); Lymphocytes % 11.6 % (19.3-51.7); Mean Cell Volume 82.5 fL (79.4-94.8); Mean Corpuscular Hemoglobin 26.7 pg (25.6-32.2); Mean Corpuscular Hgb Concent. 32.4 g/dL (32.2-35.5); Mean Platelet Volume 8.9 fL (9.4-12.3); Monocyte (Absolute #) 0.73 x10^3/uL (0.24-0.86); Monocytes % 5.8 % (4.7-12.5); Platelet Count 416 x10^3/uL (182-369); Red Blood Count 4.68 x10^6/uL (3.93-5.22); Red Cell Distribution Width 14.2 % (11.7-14.4); White Blood Count 12.6 x10^3/uL (3.98-10.04)
[2023-10-21 23:19] LABS: ALBUMIN 4.6 g/dL (3.5-5.0); ANION GAP 19.1 MEQ/L (5-15); BILIRUBIN,TOTAL 0.5 mg/dL (0.2-1.3); Calcium 10.4 mg/dL (8.4-10.2); Creatinine 1 0.78 mg/dL (0.52-1.04); EST GLOMERULAR FILTRATION RATE 83.2 ML/MIN; Potassium 3.6 mmol/L (3.5-5.1); Total Protein 7.7 g/dL (6.3-8.2)
[2023-10-21 23:36] LABS: Appearance Clear (Clear); Bacteria None Seen /HPF (None Seen); Bilirubin Negative (Negative); Blood Negative (Negative); Epithelial Cells None Seen /HPF (None Seen); Glucose, Urine Negative (Negative); Hyaline Casts NONE SEEN /LPF (0-2); Ketones Trace (Negative); Leukocyte Esterase Negative (Negative); Nitrite Negative (Negative); Ph 6.5 (4.6-8.0); Protein,Urine Dip 300 (Negative); RBC 0-2 /HPF (0-5); Urobilinogen 0.2 mg/dL (0.2); WBC 0-2 /HPF (0-5)
[2023-10-21] MEDS ORDERED: TRANDATE 20 MG/4 ML SYRINGE IV ONE (23:46)
[2023-10-21] MEDS: TRANDATE 20 MG/4 ML SYRINGE IV ONE (23:47)
[2023-10-21 23:51] LABS: ADD URINE CULTURE? NO (NO)
--- NOTE | 2023-10-22 00:15 | XRAY ---
CLINICAL HISTORY: headache COMPARISON: None TECHNIQUE: Multiple axial images are obtained from the skull base to the vertex without contrast. CT scan was performed according to ALARA (as low as reasonably achievable). FINDINGS: Chronic infarct with gliosis noted in left parieto-occipital region. Severe atheromatous calcifications noted in right vertebral artery , moderate calcifications in cavernous internal cerebral arteries. There is cerebral atrophy. No evidence of space occupying lesion, hemorrhage, edema, mass effect, midline shift, extra axial collection, or hydrocephalus is noted. Basal cisterns are symmetric and normal in size and configuration. There are scattered periventricular hypodensities as can be seen with chronic microvascular ischemic changes. Mild mucosal thickening in right maxillary sinus. Rest of the visualized paranasal sinuses and mastoid air cells are well aerated. Orbital contents are within normal limits. Bony structures are intact. IMPRESSION: 1. No acute intra cranial abnormality. 2. Chronic infarct with gliosis in left parieto-occipital region. 3. Chronic microvascular ischemic changes. 4. Cerebral atrophy. 5. Severe atheromatous calcifications noted in right vertebral artery , moderate calcifications in cavernous internal cerebral arteries. 6. Mild right maxillary sinusitis. Electronically Signed by: Markel Holbrook MD. (10/22/2023 00:10:34 EDT)
[2023-10-22] MEDS: TRANDATE 20 MG/4 ML SYRINGE IV ONE (00:50)
[2023-10-22] MEDS ORDERED: Nitrostat 0.4 MG (ED) SL ONE (01:24)
[2023-10-22] MEDS ORDERED: ROCEPHIN 1 GM / 100 ML NaCl 1 GM/100 ML IVPB IV ONE (01:25)
[2023-10-22] MEDS ORDERED: XYLOCAINE VISCOUS 2% 15 ML CUP ONE (01:25)
[2023-10-22] MEDS ORDERED: MAALOX ES 30 ML UNIT DOSE ONE (01:25)
[2023-10-22] MEDS: Nitrostat 0.4 MG (ED) SL ONE (01:26)
[2023-10-22] MEDS: GI COCKTAIL 45 ML (Maalox/Lidocaine) PO ONE (01:34)
[2023-10-22] MEDS: ROCEPHIN 1 GM / 100 ML NaCl 1 GM/100 ML IVPB IV ONE (01:38)
[2023-10-22] MEDS: Hydromorphone 1 mg/ml Injection IV ONE (02:16)
[2023-10-22] MEDS ORDERED: Hydromorphone 1 mg/ml Injection ONE (02:16)
[2023-10-22 02:34] VITALS: BP 146/75; PULSE 73; RESP 25; O2SAT 95
--- NOTE | 2023-10-22 08:38 | XRAY ---
Indication: Hypertension. Comparison: August 22, 2023 PA/lateral chest again hyperinflated with a few tiny calcified granulomas and minimal right middle lobe subsegmental atelectasis/scarring. Heart not enlarged. Bony thorax intact again with osteopenia, degenerative changes, old left rib fractures, and old right clavicle fracture with intact hardware. Impression: Continued nonacute chest with chronic features.
== END 2023-10-22 02:49 | disposition home or self-care (01) ==
LOC: ED 22:21
DX: R51.9 Headache, unspecified (principal); J32.0 Chronic maxillary sinusitis; I10 Essential (primary) hypertension; R11.0 Nausea; R35.0 Frequency of micturition; E11.9 Type 2 diabetes mellitus without complications; Z79.01 Long term (current) use of anticoagulants; Z79.84 Long term (current) use of oral hypoglycemic drugs; Z79.899 Other long term (current) drug therapy
CPT/HCPCS: 36000; 36415; 70450; 71046; 80053; 81001; 82150; 83690; 83735; 84484; 85025; 93005; 96365; 96374; 96375; 96376; 99284; J0696; J1170; J2405; A9270-GY

== ENCOUNTER 2023-10-22 11:00 | Observation (INO) | payer MEDICARE ==
--- NOTE | 2023-10-22 11:14 | ERPHSYRPT ---
- History of Present Illness Time Seen by Provider: 10/22/23 11:13 Source: patient Exam Limitations: no limitations Physician History: This is a 68-year-old white female patient of Dr. Tovar who returns to the emergency department with hypertension and severe headache. Patient was seen in the emergency department here at [facility] on 10/21/2023. This was less than 24 hours ago. She had a CT scan of the head at that time which showed no acute intracranial abnormality and mild right maxillary sinusitis. This morning, she awoke with significant headache and took hydrocodone pain medicine but did not take her antihypertensive medication. Patient arrived with a systolic blood pressure of 170s. She did vomit at home she states. Patient is extremely anxious. Patient has a history of CVA in the past with some residual right-sided weakness. She has a history of diabetes, gastroesophageal reflux disease, hypertension, coronary artery disease, asthma, COPD, arthritis and fibromyalgia. She has no chest pain or shortness of breath at this time. Timing/Duration: today Severity: moderate Modifying Factors: Improves With: nothing Associated Symptoms: nausea, vomiting, headaches, No shortness of breath, No chest pain Allergies/Adverse Reactions: morphine Allergy (Severe, Verified 10/22/23 11:24) Irregular Heart Beat Sulfa (Sulfonamide Antibiotics) Allergy (Intermediate, Verified 10/22/23 11:24) Hives sulfamethoxazole [From Bactrim] Allergy (Intermediate, Verified 10/22/23 11:24) Hives trimethoprim [From Bactrim] Allergy (Intermediate, Verified 10/22/23 11:24) Hives fluoxetine HCl [From Prozac] Adverse Reaction (Intermediate, Verified 10/22/23 11:24) homicidal thoughts homicidal thoughts Home Medications: Metformin HCl 850 mg [Glucophage 850 MG] 850 mg PO BID 01/18/20 [History] Spironolactone 25 tab PO DAILY 09/03/20 [History] Omeprazole 20 mg PO DAILY 08/01/22 [History] Glipizide 5 mg [Glucotrol 5 MG] 5 mg PO DAILY 08/28/23 [History] Metoprolol Succinate 25 mg PO DAILY 08/28/23 [History] Ranolazine 500 MG [Ranexa 500 MG] 500 mg PO BID 08/28/23 [History] Carvedilol 3.125 mg [Coreg 3.125 MG] 3.125 mg PO BID 10/22/23 [History] Oxycodone/APAP 5 mg/325 mg [Percocet Tablet 5/325Mg] 1 tab PO TID PRN 10/22/23 [History] Rivaroxaban [Xarelto] 20 mg PO DAILY 10/22/23 [History] Sacubitril/Valsartan [Entresto 24 mg-26 mg Tablet] 1 tab PO BID 10/22/23 [History] Hx Tetanus, Diphtheria Vaccination/Date Given: Yes Hx Influenza Vaccination/Date Given: No Hx Pneumococcal Vaccination/Date Given: Yes Travel Risk - International Travel Have you traveled outside of the country in past 3 weeks: No - Emerging Infectious Disease Are you exhibiting symptoms associated with any current EIDs: Yes Symptoms: Headaches/Body Aches/ - Review of Systems Constitutional: No Symptoms Eyes: No Symptoms Ears, Nose, & Throat: No Symptoms Respiratory: No Symptoms Cardiac: No Symptoms Abdominal/Gastrointestinal: Nausea, Vomiting, No Abdominal Pain, No Diarrhea Genitourinary Symptoms: No Symptoms Musculoskeletal: No Symptoms Skin: No Symptoms Neurological: No Symptoms Psychological: No Symptoms Endocrine: No Symptoms Hematologic/Lymphatic: No Symptoms Immunological/Allergic: No Symptoms All Other Systems: Reviewed and Negative - Past Medical History Pertinent Past Medical History: Yes Neurological History: Stroke ENT History: No Pertinent History Cardiac History: Coronary Artery Disease, Hypertension, Myocardial Infarction ([place]) Respiratory History: Asthma, COPD Endocrine Medical History: Diabetes Type II Musculoskeletal History: Arthritis, Fibromyalgia, Osteoporosis GI Medical History: Ulcer, Other History: No Pertinent History Psycho-Social History: Anxiety, Panic Disorder Female Reproductive Disorders: Ovarian Cancer, Uterine Cancer Other Medical History: PATIENT REPORTS 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 SHE REPORTS SHE WAS DX'D WITH [facility] BY ~2 YEARS AGO. HOWEVER, PATIENT STATES HER PD MEDICATIONS WERE STOPPED AFTER HER 2ND CVA AND SHE HAS NOT BEEN BACK TO NEUROLOGIST TO DISCUSS MEDICATIONS. ANXIETY, PVD, GERD, HX OF CATARACTS REMOVED, [place]'S DISEASE WITH BONE REMOVAL IN R ARM, 3 BOWEL BLOCKAGES WITH LAST ONE IN 2019 REQUIRING REMOVAL OF PARTIAL SMALL INTESTINE AND LARGE INSTESTINE, HYSTERECTOMY. APPENDICITIS, GALL BLADDER REMOVAL, T&A REMOVAL. SHE REPORTS IN 2019 SHE FELL AND BROKE HER R HIP WITH CONSERVATIVE MEASURES AND MARCH 2019 SHE FELL AND BROKE HER R COLLAR BONE (7 PINS) REQUIRING SX. - Past Surgical History Past Surgical History: Yes Neuro Surgical History: No Pertinent History Cardiac: Cardiac Catheterization Respiratory: No Pertinent History Gastrointestinal: Appendectomy, Bowel Surgery, Cholecystectomy, Hernia Repair Genitourinary: No Pertinent History Musculoskeletal: No Pertinent History Female Surgical History: Hysterectomy, Tubal Ligation Other Surgical History: bone auto graft to wrist, collar bone surgery, heart cath. bowel obstruction x3 HX OF BLOOD TRANSFUSIONS - Social History Smoking Status: Former smoker How long have you smoked: years Exposure to second hand smoke: No Drug Use: none Patient Lives Alone: No - Social Determinants of Health Will the patient participate in the screening: Yes Do you worry about a steady place to live?: No In the past 12 months,have you had to go without utilities?: No Transportation Issues: No Has anyone in your support network made you feel unsafe?: No Have you or anyone in your house had to go without enough: No - Nursing Vital Signs Nursing Vital Signs: Initial Vital Signs Temperature 98.5 F 10/22/23 11:20 Pulse Rate 84 10/22/23 11:20 Respiratory Rate 22 10/22/23 11:20 Blood Pressure 176/107 10/22/23 11:20 O2 Sat by Pulse Oximetry 92 L 10/22/23 11:20 Pain Scale Pain Intensity 10 - Physical Exam General Appearance: mild distress, alert, anxiety Eye Exam: PERRL/EOMI, eyes nml inspection Ears, Nose, Throat Exam: normal ENT inspection, moist mucous membranes Neck Exam: normal inspection, non-tender, supple, full range of motion Respiratory Exam: normal breath sounds, lungs clear, airway intact, No chest tenderness, No respiratory distress Cardiovascular Exam: regular rate/rhythm, normal heart sounds, No normal peripheral pulses Gastrointestinal/Abdomen Exam: soft, normal bowel sounds, No tenderness Pelvic Exam: not done Rectal Exam: not done Back Exam: normal inspection, normal range of motion, No CVA tenderness, No vertebral tenderness Extremity Exam: normal inspection, normal range of motion, pelvis stable Neurologic Exam: alert, oriented x 3, cooperative, corrections corporal II-XII nml as tested, sensation nml Skin Exam: normal color, warm, dry Lymphatic Exam: No adenopathy SpO2 Interpretation: normal O2 Delivery: Room Air - Course Nursing assessment & vital signs reviewed: Yes EKG Interpreted by Me: RATE (81), Sinus Rhythm, NORMAL AXIS, NORMAL INTERVALS, NORMAL QRS, Non-specific ST Changes, Other (Acute ischemic changes on today's twelve-lead EKG. Her QTc is 455) Ordered Tests: Active Orders 24 hr Category Date Time Status Wind Project Manager STAT Care 10/22/23 11:45 Active EKG-ER Only STAT Care 10/22/23 11:45 Active IV Insertion STAT Care 10/22/23 11:45 Active NPO (ED) STAT Care 10/22/23 11:45 Active HEAD WITHOUT CONTRAST [CT] Stat Exams 10/22/23 11:45 Completed CBC W DIFF Stat Lab 10/22/23 12:04 Completed CMP Stat Lab 10/22/23 12:04 Completed MAGNESIUM Stat Lab 10/22/23 12:04 Completed TROPONIN Q4H Lab 10/22/23 12:04 Completed TROPONIN Q4H Lab 10/22/23 16:00 Ordered TROPONIN Q4H Lab 10/22/23 20:00 Ordered Medication Summary Discontinued Medications Generic Name Dose Route Start Last Admin Trade Name Freq PRN Reason Stop Dose Admin Hydromorphone HCl 0.5 mg 10/22/23 12:04 10/22/23 12:34 Hydromorphone 1 Mg/1ml Inj IV 10/22/23 12:05 0.5 mg STAT ONE Administration Hydromorphone HCl Confirm 10/22/23 12:26 Hydromorphone 1 Mg/1ml Inj Administered 10/22/23 12:27 Dose 1 mg .ROUTE .STK-MED ONE Labetalol HCl 5 mg 10/22/23 12:27 10/22/23 13:11 Labetalol Hcl 20 Mg/4 Ml Disp.Syringe IV 10/22/23 12:28 5 mg STAT ONE Administration Labetalol HCl Confirm 10/22/23 13:10 Labetalol Hcl 20 Mg/4 Ml Disp.Syringe Administered 10/22/23 13:11 Dose 20 mg IV .STK-MED ONE Lorazepam 0.5 mg 10/22/23 12:05 10/22/23 12:27 Lorazepam 2 Mg/1 Ml 2 Mg Vial IV 10/22/23 12:06 0.5 mg STAT ONE Administration Lorazepam Confirm 10/22/23 12:25 Lorazepam 2 Mg/1 Ml 2 Mg Vial Administered 10/22/23 12:26 Dose 2 mg .ROUTE .STK-MED ONE Ondansetron HCl 4 mg 10/22/23 12:04 10/22/23 12:20 Ondansetron Hcl 4 Mg/2 Ml Vial IV 10/22/23 12:05 4 mg STAT ONE Administration Ondansetron HCl Confirm 10/22/23 12:20 Ondansetron Hcl 4 Mg/2 Ml Vial Administered 10/22/23 12:21 Dose 4 mg .ROUTE .STK-MED ONE Lab/Rad Data: Laboratory Result Diagrams 10/22/23 12:04 10/22/23 12:04 Laboratory Results 10/22/23 10/22/23 10/22/23 Range/Units 12:04 12:04 12:04 WBC 11.0 H (3.98-10.04) x10^3/uL RBC 4.46 (3.93-5.22) x10^6/uL Hgb 12.0 (11.2-15.7) g/dL Hct 36.2 (34.1-44.9) % MCV 81.2 (79.4-94.8) fL MCH 26.9 (25.6-32.2) pg MCHC 33.1 (32.2-35.5) g/dL RDW 14.4 (11.7-14.4) % Plt Count 402 H (182-369) x10^3/uL MPV 8.8 L (9.4-12.3) fL Gran % 83.5 H (34.0-71.1) % Immature Gran % (Auto) 0.4 (0.001-0.429) % Nucleat RBC Rel Count 0.0 (0.00-0.2) % Eos # (Auto) 0 L (0.04-0.36) x10^3/uL Immature Gran # (Auto) 0.04 H (0.001-0.031) x10^3u/L Absolute Lymphs (auto) 0.81 L (1.18-3.74) x10^3/uL Absolute Monos (auto) 0.92 H (0.24-0.86) x10^3/uL Absolute Nucleated RBC 0.00 (0.00-0.012) x10^3u/L Lymphocytes % 7.4 L (19.3-51.7) % Monocytes % 8.4 (4.7-12.5) % Eosinophils % 0.0 L (0.7-5.8) % Basophils % 0.3 (0.1-1.2) % Absolute Granulocytes 9.21 H (1.56-6.13) x10^3/uL Basophils # 0.03 (0.01-0.08) x10^3/uL Sodium 140 (135-145) mmol/L Potassium 3.4 L (3.5-5.1) mmol/L Chloride 102 (98-107) mmol/L Carbon Dioxide 24 (22-30) mmol/L Anion Gap 17.0 H (5-15) MEQ/L BUN 11 (7-17) mg/dL Creatinine 0.96 (0.52-1.04) mg/dL Estimated GFR 64.9 ML/MIN Glucose 159 H (74-106) mg/dL Calcium 10.0 (8.4-10.2) mg/dL Magnesium 1.6 (1.6-2.3) mg/dL Total Bilirubin 0.50 (0.2-1.3) mg/dL AST 18 (14-36) U/L ALT 17 (0-35) U/L Alkaline Phosphatase 92 (38-126) U/L Troponin I 0.029 (0.000-0.033) ng/mL Serum Total Protein 8.4 H (6.3-8.2) g/dL Albumin 4.6 (3.5-5.0) g/dL - Progress Progress: improved, re-examined Progress Note: 10/22/23 12:30 My medical decision making and the assignment of moderate to high complexity in this patient workup is based on review of the patient's past medical history, review of the patient's recent emergency room visit (labs, EKG and radiographic study results), review of the patient's medication list, review patient drug allergy list, history present illness and physical findings on examination. The workup in this patient includes placement of intravenous line, CT scan of the head without contrast, CBC, CMP, twelve-lead EKG, magnesium level and providing intravenous dosing of Dilaudid (patient tolerated this well yesterday), Zofran and Ativan. Differential diagnosis includes but is not limited to intractable headache, hypertension, anxiety, electrolyte abnormalities, arrhythmia 10/22/23 13:20 I interpreted the patient's laboratory data results. There is no evidence of any acute, emergent medical issue based on the laboratory results. CT scan of the head without contrast was interpreted by the radiologist and I reviewed the impression. There is no change from the comparison study dated 10/21/2023. There are chronic findings including atrophy, old occipital lobe infarct and old bilateral basal ganglia lacunar infarcts. There is minimal paranasal sinus disease 10/22/23 14:[address] Alejandro, our telehospitalist on at this time. I reviewed the patient presenting complaint, physical findings on examination and the workup results. We both agree that the patient would benefit from placing her in observation. Counseled pt/family regarding: lab results, diagnosis, rad results Medical Desision Making - Independent Historian Additional History obtained from: Spouse - Discussion of managment Care discussed with:: hospitalist Reviewed:: Test results, Need for additional workup Agreed on:: place in obs Will see patient: in hospital - Diagnostic Testing Diagnostic test were ordered, analyzed, and reviewed by me: Yes Radiological Interpretation: Reviewed by me, Teleradiologist Report - Risk of complications The pt has a high risk of morbidity or mortality based on: Decision regarding hospitilization or escalation of hosp level of care - Departure Departure Disposition: Observation Clinical Impression: High blood pressure, Intractable headache Condition: Fair Critical Care Time: Yes Critical Care Time(excluding separately billable procedures): Critical 30-74 mins (35) Referrals: LYDIA TOVAR [Primary Care Provider] - Follow up/PCP as directed
[2023-10-22 12:11] LABS: Absolute Neutrophil Ct (ANC) 9.21 x10^3/uL (1.56-6.13); BASOPHIL % 0.3 % (0.1-1.2); Basophil (Absolute #) 0.03 x10^3/uL (0.01-0.08); Eosinophil (Absolute #) 0 x10^3/uL (0.04-0.36); Hematocrit 36.2 % (34.1-44.9); IMMATURE GRAN # 0.04 x10^3u/L (0.001-0.031); IMMATURE GRAN % 0.4 % (0.001-0.429); Lymphocyte (Absolute #) 0.81 x10^3/uL (1.18-3.74); Lymphocytes % 7.4 % (19.3-51.7); Mean Cell Volume 81.2 fL (79.4-94.8); Mean Corpuscular Hemoglobin 26.9 pg (25.6-32.2); Mean Corpuscular Hgb Concent. 33.1 g/dL (32.2-35.5); Mean Platelet Volume 8.8 fL (9.4-12.3); Monocyte (Absolute #) 0.92 x10^3/uL (0.24-0.86); Monocytes % 8.4 % (4.7-12.5); Neutrophil % 83.5 % (34.0-71.1); Platelet Count 402 x10^3/uL (182-369); Red Blood Count 4.46 x10^6/uL (3.93-5.22); Red Cell Distribution Width 14.4 % (11.7-14.4)
[2023-10-22] MEDS: Zofran 4 MG/2 ML VIAL IV ONE (12:20)
[2023-10-22] MEDS ORDERED: Zofran 4 MG/2 ML VIAL ONE (12:20)
[2023-10-22] MEDS ORDERED: Ativan 2 MG/1 ML VIAL ONE (12:25)
[2023-10-22] MEDS ORDERED: Hydromorphone 1 mg/ml Injection ONE (12:26)
[2023-10-22] MEDS: Ativan 2 MG/1 ML VIAL IV ONE (12:27)
[2023-10-22 12:31] LABS: ALBUMIN 4.6 g/dL (3.5-5.0); BILIRUBIN,TOTAL 0.5 mg/dL (0.2-1.3); Creatinine 1 0.96 mg/dL (0.52-1.04); EST GLOMERULAR FILTRATION RATE 64.9 ML/MIN; MAGNESIUM 1.6 mg/dL (1.6-2.3); Potassium 3.4 mmol/L (3.5-5.1); Total Protein 8.4 g/dL (6.3-8.2)
[2023-10-22] MEDS: Hydromorphone 1 mg/ml Injection IV ONE (12:34)
--- NOTE | 2023-10-22 12:57 | XRAY ---
Indication: Headache. Hypertension. Multiple contiguous axial images obtained through the head without contrast. Comparison: October 21, 2023 Stable age-appropriate global atrophy, small focus old infarct left occipital lobe, and tiny bilateral basal ganglia old lacunar infarcts. No acute intracranial hemorrhage, abnormal extra-axial fluid collection, or mass effect. Fourth ventricle is midline without hydrocephalus. Steinberg-white matter differentiation preserved. Bony calvarium intact. Again minimal mucosal thickening right ethmoid/right maxillary sinuses with tiny fluid leveling. Remaining paranasal sinuses and mastoid air cells are clear. Impression: No change compared ER CT exam one day ago. Again minimal paranasal sinus disease. Chronic findings including atrophy, old left occipital lobe infarct, and old bilateral basal ganglia lacunar infarcts.
[2023-10-22] MEDS ORDERED: TRANDATE 20 MG/4 ML SYRINGE IV ONE (13:10)
[2023-10-22] MEDS: TRANDATE 20 MG/4 ML SYRINGE IV ONE (13:11)
[2023-10-22 14:51] LABS: INFLUENZA A NEGATIVE (NEGATIVE); INFLUENZA B NEGATIVE (NEGATIVE); RESPIRATORY SYNCTIAL VIRUS NEGATIVE (NEGATIVE)
[2023-10-22 14:56] LABS: SARS-CoV-2 Xpert Express POSITIVE (NEGATIVE)
--- NOTE | 2023-10-22 15:53 | PCM.HP ---
<BAO ROSS - Last Filed: 10/22/23 16:23> History of Present Illness - Chief Complaint Chief Complaint: Hypertensive urgency/COVID/Intractable headache Date: 10/22/23 History of Present Illness: MS. Ballard is a 68 year old female with a pmhx of CVA (right-sided residual weakness), CAD (Dr. Hale), HTN, [place], COPD (RA at baseline), DM, fibromyalgia, anxiety/panic disorder, and OP who presented to [facility] ED 10/22/23 with complaints of a severe headache and elevated blood pressure. Onset of symptoms yesterday. Patient also reports shortness of breath, nasal congestion, non-productive cough, nausea, and dysuria. Headache is fronal and at the base of her skull radiating down her neck. Pain is constant and throbbing/pressure-like in characteristic. Aggravating factors is movement/coughing. Patient rates pain 10/10 on numerical pain scale. Diluadid received in ED almost resolved [place]. Of note patient was evaluated in ED 10/21/23 with similar complaints and diagnosed with maxillary sinusitis and prescribed cefpodoxime which she has not started yet. No fevers or recent sick contacts. Upon arrival, patient hypertensive with BP 173/97. CT head unchanged from previous imaging the day prior demonstrating minimal paranasal sinus disease. Chronic findings including atrophy, old left occipital lobe infarct, and old bilateral basal ganglia lacunar infarcts. Lab findings remarkable for leukocytosis with wbc at 11.0 and hypokalemia at 3.4. COVID positive. Patient given Diluadid/ativan, zofran and labetalol. Admit for intractable headache, COVID, and hypertensive urgency. Plan to start remdesivir, resume home anti- hypertensives with prn hydralazine, and pain control. - Review of Systems Constitutional: Weakness Eyes: No Symptoms Ears, Nose, & Throat: Nose Congestion Respiratory: Cough, Short Of Breath Cardiac: Edema (BLE 2+ pitting edema) Abdominal/Gastrointestinal: Nausea, Constipation Genitourinary Symptoms: Dysuria Musculoskeletal: No Symptoms Skin: No Symptoms Neurological: No Symptoms Psychological: No Symptoms Endocrine: No Symptoms Hematologic/Lymphatic: No Symptoms Immunological/Allergic: No Symptoms Medications & Allergies Home Medications: Home Medication List Metformin HCl 850 mg [Glucophage 850 MG] 850 mg PO BID 01/18/20 [History Confirmed 10/22/23] Omeprazole 20 mg PO DAILY 08/01/22 [History Confirmed 10/22/23] Glipizide 5 mg [Glucotrol 5 MG] 5 mg PO DAILY 08/28/23 [History Confirmed 10/22/23] Metoprolol Succinate 25 mg PO DAILY 08/28/23 [History Confirmed 10/22/23] Carvedilol 3.125 mg [Coreg 3.125 MG] 3.125 mg PO BID 10/22/23 [History Confirmed 10/22/23] Cefpodoxime Proxetil 200 mg [Vantin 200 mg] 200 mg PO BID 10/22/23 [History Confirmed 10/22/23] Furosemide 20 mg [Lasix 20 mg] 20 mg PO DAILY 10/22/23 [History Confirmed 10/22/23] Hydroxyzine HCl 25 mg [Atarax 25 mg] 25 mg PO TIDPRN PRN 10/22/23 [History Confirmed 10/22/23] Oxycodone/APAP 5 mg/325 mg [Percocet Tablet 5/325Mg] 1 tab PO TID PRN 10/22/23 [History Confirmed 10/22/23] Rivaroxaban [Xarelto] 20 mg PO DAILY 10/22/23 [History Confirmed 10/22/23] Sacubitril/Valsartan [Entresto 24 mg-26 mg Tablet] 1 tab PO QAM 10/22/23 [History Confirmed 10/22/23] cloNIDine HCL [Clonidine HCl] 0.2 mg PO HS 10/22/23 [History Confirmed 10/22/23] Allergies/Adverse Reactions: Allergies Allergy/AdvReac Type Severity Reaction Status Date / Time morphine Allergy Severe Irregular Verified 10/22/23 11:24 Heart Beat Sulfa (Sulfonamide Allergy Intermediate Hives Verified 10/22/23 11:24 Antibiotics) sulfamethoxazole Allergy Intermediate Hives Verified 10/22/23 11:24 [From Bactrim] trimethoprim [From Bactrim] Allergy Intermediate Hives Verified 10/22/23 11:24 fluoxetine HCl [From Prozac] AdvReac Intermediate homicidal Verified 10/22/23 11:24 thoughts - Past Medical History Past Medical History: Yes Neurological History: Stroke ENT History: No Pertinent History Cardiac History: Coronary Artery Disease, Hypertension, Myocardial Infarction ([place]) Respiratory History: Asthma, COPD Endocrine Medical History: Diabetes Type II Musculoskelatal History: Arthritis, Fibromyalgia, Osteoporosis GI Medical History: Ulcer, Other History: No Pertinent History Pyscho-Social History: Anxiety, Panic Disorder Reproductive Disorders: Ovarian Cancer, Uterine Cancer Comment: PATIENT REPORTS 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 SHE REPORTS SHE WAS DX'D WITH [facility] BY ~2 YEARS AGO. HOWEVER, PATIENT STATES HER PD MEDICATIONS WERE STOPPED AFTER HER 2ND CVA AND SHE HAS NOT BEEN BACK TO NEUROLOGIST TO DISCUSS MEDICATIONS. ANXIETY, PVD, GERD, HX OF CATARACTS REMOVED, [place]'S DISEASE WITH BONE REMOVAL IN R ARM, 3 BOWEL BLOCKAGES WITH LAST ONE IN 2019 REQUIRING REMOVAL OF PARTIAL SMALL INTESTINE AND LARGE INSTESTINE, HYSTERECTOMY. APPENDICITIS, GALL BLADDER REMOVAL, T&A REMOVAL. SHE REPORTS IN 2019 SHE FELL AND BROKE HER R HIP WITH CONSERVATIVE MEASURES AND MARCH 2019 SHE FELL AND BROKE HER R COLLAR BONE (7 PINS) REQUIRING SX. - Past Surgical History Past Surgical History: Yes Neuro Surgical History: No Pertinent History Cardiac History: Cardiac Catheterization Respiratory Surgery: No Pertinent History GI Surgical History: Appendectomy, Bowel Surgery, Cholecystectomy, Hernia Repair Genitourinary Surgical Hx: No Pertinent History Musculskeletal Surgical Hx: No Pertinent History Female Surgical History: Hysterectomy, Tubal Ligation Other Surgical History: bone auto graft to wrist, collar bone surgery, heart cath. bowel obstruction x3 HX OF BLOOD TRANSFUSIONS - Social History Smoking Status: Former smoker How long have you smoked: years Exposure to second hand smoke: No Alcohol: None Drug Use: none - Social Determinants of Health Will the patient participate in the screening: Yes Do you worry about a steady place to live?: No Do you have any problems with any of the following?: No known problems In the past 12 months,have you had to go without utilities?: No Have you or anyone in your house had to go without enough: No Transportation Issues: No Has anyone in your support network made you feel unsafe?: No - Physical Exam Vital Signs: Vital Signs - 24 hr Temp Pulse Resp BP BP Pulse Ox 10/22/23 15:15 75 18 180/93 10/22/23 15:01 77 24 181/80 10/22/23 14:45 78 20 165/85 93 L 10/22/23 14:31 73 28 H 163/79 92 L 10/22/23 14:16 72 20 145/73 94 L 10/22/23 14:00 67 18 145/65 94 L 10/22/23 13:45 65 15 137/119 92 L 10/22/23 13:30 139/81 10/22/23 13:16 64 15 141/56 95 10/22/23 13:01 66 19 145/107 95 10/22/23 12:45 67 17 142/76 10/22/23 12:36 70 15 165/78 91 L 10/22/23 12:10 181/100 10/22/23 12:02 82 23 95 10/22/23 11:45 83 21 178/122 93 L 10/22/23 11:30 77 19 180/92 91 L 10/22/23 11:20 98.5 F 84 22 176/107 92 L General Appearance: no apparent distress Neurologic Exam: alert, oriented x 3, cooperative Eye Exam: PERRL/EOMI Ears, Nose, Throat Exam: normal ENT inspection Neck Exam: normal inspection Respiratory Exam: normal breath sounds, lungs clear Cardiovascular Exam: regular rate/rhythm, normal heart sounds Pelvic Exam: not done Rectal Exam: deferred Back Exam: normal inspection Extremity Exam: other (BLE +2 pitting edema) Skin Exam: normal color Results - Labs Lab/Micro Results: Lab Results-Last 24 Hours 10/22/23 10/22/23 10/22/23 Range/Units 12:04 12:04 12:04 WBC 11.0 H (3.98-10.04) x10^3/uL RBC 4.46 (3.93-5.22) x10^6/uL Hgb 12.0 (11.2-15.7) g/dL Hct 36.2 (34.1-44.9) % MCV 81.2 (79.4-94.8) fL MCH 26.9 (25.6-32.2) pg MCHC 33.1 (32.2-35.5) g/dL RDW 14.4 (11.7-14.4) % Plt Count 402 H (182-369) x10^3/uL MPV 8.8 L (9.4-12.3) fL Gran % 83.5 H (34.0-71.1) % Immature Gran % (Auto) 0.4 (0.001-0.429) % Nucleat RBC Rel Count 0.0 (0.00-0.2) % Eos # (Auto) 0 L (0.04-0.36) x10^3/uL Immature Gran # (Auto) 0.04 H (0.001-0.031) x10^3u/L Absolute Lymphs (auto) 0.81 L (1.18-3.74) x10^3/uL Absolute Monos (auto) 0.92 H (0.24-0.86) x10^3/uL Absolute Nucleated RBC 0.00 (0.00-0.012) x10^3u/L Lymphocytes % 7.4 L (19.3-51.7) % Monocytes % 8.4 (4.7-12.5) % Eosinophils % 0.0 L (0.7-5.8) % Basophils % 0.3 (0.1-1.2) % Absolute Granulocytes 9.21 H (1.56-6.13) x10^3/uL Basophils # 0.03 (0.01-0.08) x10^3/uL Sodium 140 (135-145) mmol/L Potassium 3.4 L (3.5-5.1) mmol/L Chloride 102 (98-107) mmol/L Carbon Dioxide 24 (22-30) mmol/L Anion Gap 17.0 H (5-15) MEQ/L BUN 11 (7-17) mg/dL Creatinine 0.96 (0.52-1.04) mg/dL Estimated GFR 64.9 ML/MIN Glucose 159 H (74-106) mg/dL Calcium 10.0 (8.4-10.2) mg/dL Magnesium 1.6 (1.6-2.3) mg/dL Total Bilirubin 0.50 (0.2-1.3) mg/dL AST 18 (14-36) U/L ALT 17 (0-35) U/L Alkaline Phosphatase 92 (38-126) U/L Troponin I 0.029 (0.000-0.033) ng/mL Serum Total Protein 8.4 H (6.3-8.2) g/dL Albumin 4.6 (3.5-5.0) g/dL Influenza Type A Ag (NEGATIVE) Influenza Type B Ag (NEGATIVE) RSV (PCR) (NEGATIVE) SARS-CoV-2 (PCR) (NEGATIVE) 10/22/23 Range/Units 14:00 WBC (3.98-10.04) x10^3/uL RBC (3.93-5.22) x10^6/uL Hgb (11.2-15.7) g/dL Hct (34.1-44.9) % MCV (79.4-94.8) fL MCH (25.6-32.2) pg MCHC (32.2-35.5) g/dL RDW (11.7-14.4) % Plt Count (182-369) x10^3/uL MPV (9.4-12.3) fL Gran % (34.0-71.1) % Immature Gran % (Auto) (0.001-0.429) % Nucleat RBC Rel Count (0.00-0.2) % Eos # (Auto) (0.04-0.36) x10^3/uL Immature Gran # (Auto) (0.001-0.031) x10^3u/L Absolute Lymphs (auto) (1.18-3.74) x10^3/uL Absolute Monos (auto) (0.24-0.86) x10^3/uL Absolute Nucleated RBC (0.00-0.012) x10^3u/L Lymphocytes % (19.3-51.7) % Monocytes % (4.7-12.5) % Eosinophils % (0.7-5.8) % Basophils % (0.1-1.2) % Absolute Granulocytes (1.56-6.13) x10^3/uL Basophils # (0.01-0.08) x10^3/uL Sodium (135-145) mmol/L Potassium (3.5-5.1) mmol/L Chloride (98-107) mmol/L Carbon Dioxide (22-30) mmol/L Anion Gap (5-15) MEQ/L BUN (7-17) mg/dL Creatinine (0.52-1.04) mg/dL Estimated GFR ML/MIN Glucose (74-106) mg/dL Calcium (8.4-10.2) mg/dL Magnesium (1.6-2.3) mg/dL Total Bilirubin (0.2-1.3) mg/dL AST (14-36) U/L ALT (0-35) U/L Alkaline Phosphatase (38-126) U/L Troponin I (0.000-0.033) ng/mL Serum Total Protein (6.3-8.2) g/dL Albumin (3.5-5.0) g/dL Influenza Type A Ag NEGATIVE (NEGATIVE) Influenza Type B Ag NEGATIVE (NEGATIVE) RSV (PCR) NEGATIVE (NEGATIVE) SARS-CoV-2 (PCR) POSITIVE A (NEGATIVE) - Radiology Impressions Radiology Exams & Impressions: Radiology Procedures Category Date Time Status HEAD WITHOUT CONTRAST [CT] Stat Exams 10/22/23 11:45 Completed - Other Procedures and Tests Respiratory Therapy 10/22/23 15:37 EKG REPEAT IN AM Assessment/Plan (1) COVID Current Visit: Yes Status: Acute Assessment & Plan: -Remdesivir -Supplemental oxygen with spo2 goal >92% -Patient on RA, no need for dexamethasone/anticoagulated with xarelto - will continue Code(s): U07.1 - COVID-19 (2) Hypertensive urgency Current Visit: Yes Status: Acute Assessment & Plan: -Continue home anti-hypertensive with hydralazine prn for SBP >180, DBP >100 Code(s): I16.0 - HYPERTENSIVE URGENCY (3) Type 2 diabetes mellitus Current Visit: Yes Status: Acute Assessment & Plan: -ADA diet -Hold metformin -SSI A1c (4) Intractable headache Current Visit: Yes Status: Acute Assessment & Plan: -? secondary to COVID -CT demonstrating minimal paranasal sinus disease. Chronic findings including atrophy, old left occipital lobe infarct, and old bilateral basal ganglia lacunar infarcts -Pain control Code(s): R51.9 - HEADACHE, UNSPECIFIED (5) Hypokalemia Current Visit: No Status: Acute Assessment & Plan: -tele -potassium replenishment per protocol -Monitor renal/lytes daily Code(s): E87.6 - HYPOKALEMIA (6) Maxillary sinusitis Current Visit: No Status: Acute Assessment & Plan: -continue cefpodoxime prescribed by ED Code(s): 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 (7) CAD (coronary artery disease) Current Visit: No Status: Chronic Assessment & Plan: -continue home meds Code(s): I25.10 - ATHSCL HEART DISEASE OF [place] CORONARY ARTERY W/O ANG PCTRS (8) History of CVA (cerebrovascular accident) Current Visit: Yes Status: Acute Assessment & Plan: -noted, with residual right sided weakness -No new/acute findings on CT head VTE: xarelto Code status: Full code Dispo 2-3 days Diet: ADA Code(s): Z86.73 - PRSNL HX OF TIA (TIA), AND CEREB INFRC W/O RESID DEFICITS Telemedicine Encounter - Telemedicine Encounter Telemedicine Encounter: "The entirety of this encounter was performed via Telemedicine" This visit was performed using real-time audio and video connection between my location and thepatients locationwith the assistance of a surrogateat the patients location. Written or verbal consent was obtained from the patient/guardian to perform this visit [facility] technology. Any patient questions regarding the telemedicine interaction were answered. <MANISH AMAYA - Last Filed: 10/22/23 21:53> History of Present Illness - Chief Complaint History of Present Illness: is a 68 year old female. - Physical Exam Vital Signs: Vital Signs - 24 hr Temp Pulse Resp BP BP Pulse Ox 10/22/23 20:00 96.6 F 101 H 16 178/79 93 L 10/22/23 19:33 80 20 93 L 10/22/23 18:22 98.9 F 81 26 H 173/85 91 L 10/22/23 15:57 72 18 93 L 10/22/23 15:15 75 18 180/93 10/22/23 15:01 77 24 181/80 10/22/23 14:45 78 20 165/85 93 L 10/22/23 14:31 73 28 H 163/79 92 L 10/22/23 14:16 72 20 145/73 94 L 10/22/23 14:00 67 18 145/65 94 L 10/22/23 13:45 65 15 137/119 92 L 10/22/23 13:30 139/81 07/08/24 13:16 64 15 141/56 95 10/22/23 13:01 66 19 145/107 95 10/22/23 12:45 67 17 142/76 10/22/23 12:36 70 15 165/78 91 L 10/22/23 12:10 181/100 10/22/23 12:02 82 23 95 10/22/23 11:45 83 21 178/122 93 L 10/22/23 11:30 77 19 180/92 91 L 10/22/23 11:20 98.5 F 84 22 176/107 92 L Results - Labs Lab/Micro Results: Lab Results-Last 24 Hours 10/22/23 10/22/23 10/22/23 Range/Units 12:04 12:04 12:04 WBC 11.0 H (3.98-10.04) x10^3/uL RBC 4.46 (3.93-5.22) x10^6/uL Hgb 12.0 (11.2-15.7) g/dL Hct 36.2 (34.1-44.9) % MCV 81.2 (79.4-94.8) fL MCH 26.9 (25.6-32.2) pg MCHC 33.1 (32.2-35.5) g/dL RDW 14.4 (11.7-14.4) % Plt Count 402 H (182-369) x10^3/uL MPV 8.8 L (9.4-12.3) fL Gran % 83.5 H (34.0-71.1) % Immature Gran % (Auto) 0.4 (0.001-0.429) % Nucleat RBC Rel Count 0.0 (0.00-0.2) % Eos # (Auto) 0 L (0.04-0.36) x10^3/uL Immature Gran # (Auto) 0.04 H (0.001-0.031) x10^3u/L Absolute Lymphs (auto) 0.81 L (1.18-3.74) x10^3/uL Absolute Monos (auto) 0.92 H (0.24-0.86) x10^3/uL Absolute Nucleated RBC 0.00 (0.00-0.012) x10^3u/L Lymphocytes % 7.4 L (19.3-51.7) % Monocytes % 8.4 (4.7-12.5) % Eosinophils % 0.0 L (0.7-5.8) % Basophils % 0.3 (0.1-1.2) % Absolute Granulocytes 9.21 H (1.56-6.13) x10^3/uL Basophils # 0.03 (0.01-0.08) x10^3/uL D-Dimer (0.0-0.50) mg/L Sodium 140 (135-145) mmol/L Potassium 3.4 L (3.5-5.1) mmol/L Chloride 102 (98-107) mmol/L Carbon Dioxide 24 (22-30) mmol/L Anion Gap 17.0 H (5-15) MEQ/L BUN 11 (7-17) mg/dL Creatinine 0.96 (0.52-1.04) mg/dL Estimated GFR 64.9 ML/MIN Glucose 159 H (74-106) mg/dL POC Glucometer (74 to 106) mg/dL Calcium 10.0 (8.4-10.2) mg/dL Magnesium 1.6 (1.6-2.3) mg/dL Total Bilirubin 0.50 (0.2-1.3) mg/dL AST 18 (14-36) U/L ALT 17 (0-35) U/L Alkaline Phosphatase 92 (38-126) U/L Troponin I 0.029 (0.000-0.033) ng/mL Serum Total Protein 8.4 H (6.3-8.2) g/dL Albumin 4.6 (3.5-5.0) g/dL Procalcitonin (0.030-0.080) ng/mL Influenza Type A Ag (NEGATIVE) Influenza Type B Ag (NEGATIVE) RSV (PCR) (NEGATIVE) SARS-CoV-2 (PCR) (NEGATIVE) 10/22/23 10/22/23 10/22/23 Range/Units 14:00 15:58 16:15 WBC (3.98-10.04) x10^3/uL RBC (3.93-5.22) x10^6/uL Hgb (11.2-15.7) g/dL Hct (34.1-44.9) % MCV (79.4-94.8) fL MCH (25.6-32.2) pg MCHC (32.2-35.5) g/dL RDW (11.7-14.4) % Plt Count (182-369) x10^3/uL MPV (9.4-12.3) fL Gran % (34.0-71.1) % Immature Gran % (Auto) (0.001-0.429) % Nucleat RBC Rel Count (0.00-0.2) % Eos # (Auto) (0.04-0.36) x10^3/uL Immature Gran # (Auto) (0.001-0.031) x10^3u/L Absolute Lymphs (auto) (1.18-3.74) x10^3/uL Absolute Monos (auto) (0.24-0.86) x10^3/uL Absolute Nucleated RBC (0.00-0.012) x10^3u/L Lymphocytes % (19.3-51.7) % Monocytes % (4.7-12.5) % Eosinophils % (0.7-5.8) % Basophils % (0.1-1.2) % Absolute Granulocytes (1.56-6.13) x10^3/uL Basophils # (0.01-0.08) x10^3/uL D-Dimer (0.0-0.50) mg/L Sodium (135-145) mmol/L Potassium (3.5-5.1) mmol/L Chloride (98-107) mmol/L Carbon Dioxide (22-30) mmol/L Anion Gap (5-15) MEQ/L BUN (7-17) mg/dL Creatinine (0.52-1.04) mg/dL Estimated GFR ML/MIN Glucose (74-106) mg/dL POC Glucometer (74 to 106) mg/dL Calcium (8.4-10.2) mg/dL Magnesium 1.9 (1.6-2.3) mg/dL Total Bilirubin (0.2-1.3) mg/dL AST (14-36) U/L ALT (0-35) U/L Alkaline Phosphatase (38-126) U/L Troponin I 0.019 (0.000-0.033) ng/mL Serum Total Protein (6.3-8.2) g/dL Albumin (3.5-5.0) g/dL Procalcitonin (0.030-0.080) ng/mL Influenza Type A Ag NEGATIVE (NEGATIVE) Influenza Type B Ag NEGATIVE (NEGATIVE) RSV (PCR) NEGATIVE (NEGATIVE) SARS-CoV-2 (PCR) POSITIVE A (NEGATIVE) 10/22/23 10/22/23 10/22/23 Range/Units 16:45 16:45 17:53 WBC (3.98-10.04) x10^3/uL RBC (3.93-5.22) x10^6/uL Hgb (11.2-15.7) g/dL Hct (34.1-44.9) % MCV (79.4-94.8) fL MCH (25.6-32.2) pg MCHC (32.2-35.5) g/dL RDW (11.7-14.4) % Plt Count (182-369) x10^3/uL MPV (9.4-12.3) fL Gran % (34.0-71.1) % Immature Gran % (Auto) (0.001-0.429) % Nucleat RBC Rel Count (0.00-0.2) % Eos # (Auto) (0.04-0.36) x10^3/uL Immature Gran # (Auto) (0.001-0.031) x10^3u/L Absolute Lymphs (auto) (1.18-3.74) x10^3/uL Absolute Monos (auto) (0.24-0.86) x10^3/uL Absolute Nucleated RBC (0.00-0.012) x10^3u/L Lymphocytes % (19.3-51.7) % Monocytes % (4.7-12.5) % Eosinophils % (0.7-5.8) % Basophils % (0.1-1.2) % Absolute Granulocytes (1.56-6.13) x10^3/uL Basophils # (0.01-0.08) x10^3/uL D-Dimer 0.47 (0.0-0.50) mg/L Sodium (135-145) mmol/L Potassium (3.5-5.1) mmol/L Chloride (98-107) mmol/L Carbon Dioxide (22-30) mmol/L Anion Gap (5-15) MEQ/L BUN (7-17) mg/dL Creatinine (0.52-1.04) mg/dL Estimated GFR ML/MIN Glucose (74-106) mg/dL POC Glucometer 129 H (74 to 106) mg/dL Calcium (8.4-10.2) mg/dL Magnesium (1.6-2.3) mg/dL Total Bilirubin (0.2-1.3) mg/dL AST (14-36) U/L ALT (0-35) U/L Alkaline Phosphatase (38-126) U/L Troponin I (0.000-0.033) ng/mL Serum Total Protein (6.3-8.2) g/dL Albumin (3.5-5.0) g/dL Procalcitonin 0.098 H (0.030-0.080) ng/mL Influenza Type A Ag (NEGATIVE) Influenza Type B Ag (NEGATIVE) RSV (PCR) (NEGATIVE) SARS-CoV-2 (PCR) (NEGATIVE) 10/22/23 10/22/23 10/22/23 Range/Units 20:30 20:30 21:27 WBC (3.98-10.04) x10^3/uL RBC (3.93-5.22) x10^6/uL Hgb (11.2-15.7) g/dL Hct (34.1-44.9) % MCV (79.4-94.8) fL MCH (25.6-32.2) pg MCHC (32.2-35.5) g/dL RDW (11.7-14.4) % Plt Count (182-369) x10^3/uL MPV (9.4-12.3) fL Gran % (34.0-71.1) % Immature Gran % (Auto) (0.001-0.429) % Nucleat RBC Rel Count (0.00-0.2) % Eos # (Auto) (0.04-0.36) x10^3/uL Immature Gran # (Auto) (0.001-0.031) x10^3u/L Absolute Lymphs (auto) (1.18-3.74) x10^3/uL Absolute Monos (auto) (0.24-0.86) x10^3/uL Absolute Nucleated RBC (0.00-0.012) x10^3u/L Lymphocytes % (19.3-51.7) % Monocytes % (4.7-12.5) % Eosinophils % (0.7-5.8) % Basophils % (0.1-1.2) % Absolute Granulocytes (1.56-6.13) x10^3/uL Basophils # (0.01-0.08) x10^3/uL D-Dimer (0.0-0.50) mg/L Sodium (135-145) mmol/L Potassium 3.4 L (3.5-5.1) mmol/L Chloride (98-107) mmol/L Carbon Dioxide (22-30) mmol/L Anion Gap (5-15) MEQ/L BUN (7-17) mg/dL Creatinine (0.52-1.04) mg/dL Estimated GFR ML/MIN Glucose (74-106) mg/dL POC Glucometer 154 H (74 to 106) mg/dL Calcium (8.4-10.2) mg/dL Magnesium (1.6-2.3) mg/dL Total Bilirubin (0.2-1.3) mg/dL AST (14-36) U/L ALT (0-35) U/L Alkaline Phosphatase (38-126) U/L Troponin I 0.022 (0.000-0.033) ng/mL Serum Total Protein (6.3-8.2) g/dL Albumin (3.5-5.0) g/dL Procalcitonin (0.030-0.080) ng/mL Influenza Type A Ag (NEGATIVE) Influenza Type B Ag (NEGATIVE) RSV (PCR) (NEGATIVE) SARS-CoV-2 (PCR) (NEGATIVE) - Radiology Impressions Radiology Exams & Impressions: Radiology Procedures Category Date Time Status HEAD WITHOUT CONTRAST [CT] Stat Exams 10/22/23 11:45 Completed - Other Procedures and Tests Respiratory Therapy 10/22/23 15:37 EKG REPEAT IN AM 10/22/23 19:33 Respiratory Therapy Assessment UD Telemedicine Encounter - Telemedicine Encounter Telemedicine Encounter: "The entirety of this encounter was performed via Telemedicine" This visit was performed using real-time audio and video connection between my location and thepatients locationwith the assistance of a surrogateat the patients location. Written or verbal consent was obtained from the patient/guardian to perform this visit usingDigitour MedialeDevoliacine technology. Any patient questions regarding the telemedicine interaction were answered. MICHELE Encounter - MICHELE Encounter Attestation MICHELE Encounter Attestation: "JULIO Sanchez andtuiscussed pertinent aspects of their care with Bao Ross and agree with the history, physical exam (any modifications based on my personal exam will be noted below), assessment, and plan as outlined in original note. Please see immediately below for my summary of findings and additional assessment and plan along with any meaningful corrections/explanations to the Subjective/Objective portions of the MICHELE note will be noted." My portion of the encounter took place via telemedicine. -Patient's intractable headache likely due to a combination of elevated blood pressure and COVID. Patient says she does not take all of her antihypertensives every day, instead takes them according to her blood pressure. Will need to clarify when patient able to provide more history. Agree with starting Remsdesivir given comorbidities and age greater than 65.
[2023-10-22] MEDS ORDERED: HUMALOG SQ PRN (15:57)
[2023-10-22] MEDS: Sodium Chloride 0.9% 1000 ML 1,000 ML IV SCH (15:59)
[2023-10-22] MEDS ORDERED: APRESOLINE 20 MG/ML INJ IV PRN (16:18)
[2023-10-22] MEDS: ULTRAM 50 MG PO PRN (16:41)
[2023-10-22] MEDS: REMDESIVIR 200 MG in Sodium Chloride 0.9% 250 ML 250 ML IV ONE (16:44)
[2023-10-22] MEDS: Hydromorphone 1 mg/ml Injection IV PRN (18:03)
[2023-10-22] MEDS: Zofran 4 MG/2 ML VIAL IV PRN (18:46)
[2023-10-22] MEDS: Klor Con PO SCH (18:46)
[2023-10-22] MEDS ORDERED: Ranexa 500 MG PO SCH (22:00)
[2023-10-22] MEDS ORDERED: NON-FORMULARY ITEM (Sacubitril/Valsartan [Entresto 24 Mg-26 Mg Tablet] 1 EACH Tablet) PO SCH (22:00)
[2023-10-22] MEDS: Augmentin 875-125 Tablet PO SCH (22:42)
[2023-10-22] MEDS: Coreg 3.125 MG PO SCH (22:43)
[2023-10-22] MEDS: CLONIDINE 0.1 MG TABLET PO SCH (22:43)
[2023-10-22] MEDS: NON-FORMULARY ITEM (Cefpodoxime Proxetil 200 Mg** 200 MG Tablet) PO SCH (22:43)
[2023-10-23] MEDS: TYLENOL 325 MG PO PRN (04:32)
[2023-10-23 04:49] LABS: Absolute Neutrophil Ct (ANC) 4.34 x10^3/uL (1.56-6.13); BASOPHIL % 0.3 % (0.1-1.2); Basophil (Absolute #) 0.02 x10^3/uL (0.01-0.08); Eosinophil (Absolute #) 0 x10^3/uL (0.04-0.36); Hematocrit 34.9 % (34.1-44.9); Hemoglobin 11.3 g/dL (11.2-15.7); IMMATURE GRAN # 0.02 x10^3u/L (0.001-0.031); IMMATURE GRAN % 0.3 % (0.001-0.429); Lymphocyte (Absolute #) 0.82 x10^3/uL (1.18-3.74); Lymphocytes % 13.7 % (19.3-51.7); Mean Cell Volume 82.1 fL (79.4-94.8); Mean Corpuscular Hemoglobin 26.6 pg (25.6-32.2); Mean Corpuscular Hgb Concent. 32.4 g/dL (32.2-35.5); Mean Platelet Volume 8.7 fL (9.4-12.3); Monocyte (Absolute #) 0.77 x10^3/uL (0.24-0.86); Monocytes % 12.9 % (4.7-12.5); Neutrophil % 72.8 % (34.0-71.1); Platelet Count 347 x10^3/uL (182-369); Red Blood Count 4.25 x10^6/uL (3.93-5.22); Red Cell Distribution Width 14.7 % (11.7-14.4)
[2023-10-23 05:27] LABS: ALBUMIN 3.9 g/dL (3.5-5.0); ANION GAP 12.1 MEQ/L (5-15); BILIRUBIN,TOTAL 0.3 mg/dL (0.2-1.3); Calcium 9.9 mg/dL (8.4-10.2); Creatinine 1 0.97 mg/dL (0.52-1.04); EST GLOMERULAR FILTRATION RATE 64.1 ML/MIN; Potassium 4.4 mmol/L (3.5-5.1)
--- NOTE | 2023-10-23 05:28 | PCM.NOTE ---
Date and Time: 10/23/23 0527 Subjective Assessment: HPI: MS. Ballard is a 68 year old female with a pmhx of CVA (right-sided residual weakness), CAD (Dr. Hale), HTN, CO, COPD (RA at baseline), DM, fibromyalgia, anxiety/panic disorder, and OP who presented to [facility] ED 10/22/23 with complaints of a severe headache and elevated blood pressure. Onset of symptoms yesterday. Patient also reports shortness of breath, nasal congestion, non-productive cough, nausea, and dysuria. Headache is fronal and at the base of her skull radiating down her neck. Pain is constant and throbbing/pressure-like in characteristic. Aggravating factors is movement/coughing. Patient rates pain 10/10 on numerical pain scale. Diluadid received in ED almost resolved [place]. Of note patient was evaluated in ED 10/21/23 with similar complaints and diagnosed with maxillary sinusitis and prescribed cefpodoxime which she has not started yet. No fevers or recent sick contacts. Upon arrival, patient hypertensive with BP 173/97. CT head unchanged from previous imaging the day prior demonstrating minimal paranasal sinus disease. Chronic findings including atrophy, old left occipital lobe infarct, and old bilateral basal ganglia lacunar infarcts. Lab findings remarkable for leukocytosis with wbc at 11.0 and hypokalemia at 3.4. COVID positive. Patient given Diluadid/ativan, zofran and labetalol. Admit for intractable headache, COVID, and hypertensive urgency. Plan to start remdesivir, resume home anti-hypertensives with prn hydralazine, and pain control. 10/23/23: Met with patient bedside. Endorses some improvement in headache, but still rating pain at 8-9/10 on numerical pain scale. It is likely the headache is multifactoral with COVID/elevated BP. She does have a non-productive cough and some nausea. She is able to tolerate a diet. Plan to continue remdesivir and pain control for headache. Blood pressure is now stable with most recent reading at 118/72 after resuming her home meds. Per patient report she had not taken her meds in several days. Denies fever,cp, abdominal pain, dizziness, N/V/D. - Review of Systems Constitutional: Fatigue Eyes: No Symptoms Ears, Nose, & Throat: No Symptoms Respiratory: Cough, Short Of Breath Cardiac: No Symptoms Abdominal/Gastrointestinal: Nausea Genitourinary Symptoms: No Symptoms Musculoskeletal: No Symptoms Skin: No Symptoms Neurological: No Symptoms, Headache Psychological: No Symptoms Endocrine: No Symptoms Hematologic/Lymphatic: No Symptoms Immunological/Allergic: No Symptoms Objective Exam General Appearance: no apparent distress Neurologic Exam: alert, oriented x 3, cooperative Eye Exam: PERRL Ears, Nose, Throat Exam: normal ENT inspection Neck Exam: normal inspection Respiratory Exam: crackles/rales Cardiovascular Exam: regular rate/rhythm, normal heart sounds Gastrointestinal/Abdomen Exam: soft, normal bowel sounds Extremity Exam: normal inspection Back Exam: normal inspection Pelvic Exam: deferred Rectal Exam: deferred Objective Data Vital Signs: Vital Signs - 24 hr Temp Pulse Resp BP BP Pulse Ox 10/23/23 04:00 96.7 F 78 15 128/75 94 L 10/23/23 02:00 18 10/23/23 00:00 91 H 16 10/22/23 22:00 16 10/22/23 20:00 96.6 F 101 H 16 178/79 93 L 10/22/23 19:33 80 20 93 L 10/22/23 18:22 98.9 F 81 26 H 173/85 91 L 10/22/23 15:57 72 18 93 L 10/22/23 15:15 75 18 180/93 10/22/23 15:01 77 24 181/80 10/22/23 14:45 78 20 165/85 93 L 10/22/23 14:31 73 28 H 163/79 92 L 10/22/23 14:16 72 20 145/73 94 L 10/22/23 14:00 67 18 145/65 94 L 10/22/23 13:45 65 15 137/119 92 L 10/22/23 13:30 139/81 10/22/23 13:16 64 15 141/56 95 10/22/23 13:01 66 19 145/107 95 10/22/23 12:45 67 17 142/76 10/22/23 12:36 70 15 165/78 91 L 10/22/23 12:10 181/100 10/22/23 12:02 82 23 95 10/22/23 11:45 83 21 178/122 93 L 10/22/23 11:30 77 19 180/92 91 L 10/22/23 11:20 98.5 F 84 22 176/107 92 L Pain Assessment - Last Documented Pain Intensity 8 Pain Scale Used 0-10 Pain Scale Intake and Output: Intake & Output 10/20/23 10/21/23 10/22/23 10/23/23 11:59 11:59 11:59 11:59 Intake Total 60 Balance 60 Weight 71.2 kg 68.8 kg Lab Results: Lab Results-Last 24 Hours 10/22/23 10/22/23 10/22/23 Range/Units 12:04 12:04 12:04 WBC 11.0 H (3.98-10.04) x10^3/uL RBC 4.46 (3.93-5.22) x10^6/uL Hgb 12.0 (11.2-15.7) g/dL Hct 36.2 (34.1-44.9) % MCV 81.2 (79.4-94.8) fL MCH 26.9 (25.6-32.2) pg MCHC 33.1 (32.2-35.5) g/dL RDW 14.4 (11.7-14.4) % Plt Count 402 H (182-369) x10^3/uL MPV 8.8 L (9.4-12.3) fL Gran % 83.5 H (34.0-71.1) % Immature Gran % (Auto) 0.4 (0.001-0.429) % Nucleat RBC Rel Count 0.0 (0.00-0.2) % Eos # (Auto) 0 L (0.04-0.36) x10^3/uL Immature Gran # (Auto) 0.04 H (0.001-0.031) x10^3u/L Absolute Lymphs (auto) 0.81 L (1.18-3.74) x10^3/uL Absolute Monos (auto) 0.92 H (0.24-0.86) x10^3/uL Absolute Nucleated RBC 0.00 (0.00-0.012) x10^3u/L Lymphocytes % 7.4 L (19.3-51.7) % Monocytes % 8.4 (4.7-12.5) % Eosinophils % 0.0 L (0.7-5.8) % Basophils % 0.3 (0.1-1.2) % Absolute Granulocytes 9.21 H (1.56-6.13) x10^3/uL Basophils # 0.03 (0.01-0.08) x10^3/uL D-Dimer (0.0-0.50) mg/L Sodium 140 (135-145) mmol/L Potassium 3.4 L (3.5-5.1) mmol/L Chloride 102 (98-107) mmol/L Carbon Dioxide 24 (22-30) mmol/L Anion Gap 17.0 H (5-15) MEQ/L BUN 11 (7-17) mg/dL Creatinine 0.96 (0.52-1.04) mg/dL Estimated GFR 64.9 ML/MIN Glucose 159 H (74-106) mg/dL POC Glucometer (74 to 106) mg/dL Calcium 10.0 (8.4-10.2) mg/dL Magnesium 1.6 (1.6-2.3) mg/dL Total Bilirubin 0.50 (0.2-1.3) mg/dL AST 18 (14-36) U/L ALT 17 (0-35) U/L Alkaline Phosphatase 92 (38-126) U/L Troponin I 0.029 (0.000-0.033) ng/mL Serum Total Protein 8.4 H (6.3-8.2) g/dL Albumin 4.6 (3.5-5.0) g/dL Procalcitonin (0.030-0.080) ng/mL Influenza Type A Ag (NEGATIVE) Influenza Type B Ag (NEGATIVE) RSV (PCR) (NEGATIVE) SARS-CoV-2 (PCR) (NEGATIVE) 10/22/23 10/22/23 10/22/23 Range/Units 14:00 15:58 16:15 WBC (3.98-10.04) x10^3/uL RBC (3.93-5.22) x10^6/uL Hgb (11.2-15.7) g/dL Hct (34.1-44.9) % MCV (79.4-94.8) fL MCH (25.6-32.2) pg MCHC (32.2-35.5) g/dL RDW (11.7-14.4) % Plt Count (182-369) x10^3/uL MPV (9.4-12.3) fL Gran % (34.0-71.1) % Immature Gran % (Auto) (0.001-0.429) % Nucleat RBC Rel Count (0.00-0.2) % Eos # (Auto) (0.04-0.36) x10^3/uL Immature Gran # (Auto) (0.001-0.031) x10^3u/L Absolute Lymphs (auto) (1.18-3.74) x10^3/uL Absolute Monos (auto) (0.24-0.86) x10^3/uL Absolute Nucleated RBC (0.00-0.012) x10^3u/L Lymphocytes % (19.3-51.7) % Monocytes % (4.7-12.5) % Eosinophils % (0.7-5.8) % Basophils % (0.1-1.2) % Absolute Granulocytes (1.56-6.13) x10^3/uL Basophils # (0.01-0.08) x10^3/uL D-Dimer (0.0-0.50) mg/L Sodium (135-145) mmol/L Potassium (3.5-5.1) mmol/L Chloride (98-107) mmol/L Carbon Dioxide (22-30) mmol/L Anion Gap (5-15) MEQ/L BUN (7-17) mg/dL Creatinine (0.52-1.04) mg/dL Estimated GFR ML/MIN Glucose (74-106) mg/dL POC Glucometer (74 to 106) mg/dL Calcium (8.4-10.2) mg/dL Magnesium 1.9 (1.6-2.3) mg/dL Total Bilirubin (0.2-1.3) mg/dL AST (14-36) U/L ALT (0-35) U/L Alkaline Phosphatase (38-126) U/L Troponin I 0.019 (0.000-0.033) ng/mL Serum Total Protein (6.3-8.2) g/dL Albumin (3.5-5.0) g/dL Procalcitonin (0.030-0.080) ng/mL Influenza Type A Ag NEGATIVE (NEGATIVE) Influenza Type B Ag NEGATIVE (NEGATIVE) RSV (PCR) NEGATIVE (NEGATIVE) SARS-CoV-2 (PCR) POSITIVE A (NEGATIVE) 10/22/23 10/22/23 10/22/23 Range/Units 16:45 16:45 17:53 WBC (3.98-10.04) x10^3/uL RBC (3.93-5.22) x10^6/uL Hgb (11.2-15.7) g/dL Hct (34.1-44.9) % MCV (79.4-94.8) fL MCH (25.6-32.2) pg MCHC (32.2-35.5) g/dL RDW (11.7-14.4) % Plt Count (182-369) x10^3/uL MPV (9.4-12.3) fL Gran % (34.0-71.1) % Immature Gran % (Auto) (0.001-0.429) % Nucleat RBC Rel Count (0.00-0.2) % Eos # (Auto) (0.04-0.36) x10^3/uL Immature Gran # (Auto) (0.001-0.031) x10^3u/L Absolute Lymphs (auto) (1.18-3.74) x10^3/uL Absolute Monos (auto) (0.24-0.86) x10^3/uL Absolute Nucleated RBC (0.00-0.012) x10^3u/L Lymphocytes % (19.3-51.7) % Monocytes % (4.7-12.5) % Eosinophils % (0.7-5.8) % Basophils % (0.1-1.2) % Absolute Granulocytes (1.56-6.13) x10^3/uL Basophils # (0.01-0.08) x10^3/uL D-Dimer 0.47 (0.0-0.50) mg/L Sodium (135-145) mmol/L Potassium (3.5-5.1) mmol/L Chloride (98-107) mmol/L Carbon Dioxide (22-30) mmol/L Anion Gap (5-15) MEQ/L BUN (7-17) mg/dL Creatinine (0.52-1.04) mg/dL Estimated GFR ML/MIN Glucose (74-106) mg/dL POC Glucometer 129 H (74 to 106) mg/dL Calcium (8.4-10.2) mg/dL Magnesium (1.6-2.3) mg/dL Total Bilirubin (0.2-1.3) mg/dL AST (14-36) U/L ALT (0-35) U/L Alkaline Phosphatase (38-126) U/L Troponin I (0.000-0.033) ng/mL Serum Total Protein (6.3-8.2) g/dL Albumin (3.5-5.0) g/dL Procalcitonin 0.098 H (0.030-0.080) ng/mL Influenza Type A Ag (NEGATIVE) Influenza Type B Ag (NEGATIVE) RSV (PCR) (NEGATIVE) SARS-CoV-2 (PCR) (NEGATIVE) 10/22/23 10/22/23 10/22/23 Range/Units 20:30 20:30 21:27 WBC (3.98-10.04) x10^3/uL RBC (3.93-5.22) x10^6/uL Hgb (11.2-15.7) g/dL Hct (34.1-44.9) % MCV (79.4-94.8) fL MCH (25.6-32.2) pg MCHC (32.2-35.5) g/dL RDW (11.7-14.4) % Plt Count (182-369) x10^3/uL MPV (9.4-12.3) fL Gran % (34.0-71.1) % Immature Gran % (Auto) (0.001-0.429) % Nucleat RBC Rel Count (0.00-0.2) % Eos # (Auto) (0.04-0.36) x10^3/uL Immature Gran # (Auto) (0.001-0.031) x10^3u/L Absolute Lymphs (auto) (1.18-3.74) x10^3/uL Absolute Monos (auto) (0.24-0.86) x10^3/uL Absolute Nucleated RBC (0.00-0.012) x10^3u/L Lymphocytes % (19.3-51.7) % Monocytes % (4.7-12.5) % Eosinophils % (0.7-5.8) % Basophils % (0.1-1.2) % Absolute Granulocytes (1.56-6.13) x10^3/uL Basophils # (0.01-0.08) x10^3/uL D-Dimer (0.0-0.50) mg/L Sodium (135-145) mmol/L Potassium 3.4 L (3.5-5.1) mmol/L Chloride (98-107) mmol/L Carbon Dioxide (22-30) mmol/L Anion Gap (5-15) MEQ/L BUN (7-17) mg/dL Creatinine (0.52-1.04) mg/dL Estimated GFR ML/MIN Glucose (74-106) mg/dL POC Glucometer 154 H (74 to 106) mg/dL Calcium (8.4-10.2) mg/dL Magnesium (1.6-2.3) mg/dL Total Bilirubin (0.2-1.3) mg/dL AST (14-36) U/L ALT (0-35) U/L Alkaline Phosphatase (38-126) U/L Troponin I 0.022 (0.000-0.033) ng/mL Serum Total Protein (6.3-8.2) g/dL Albumin (3.5-5.0) g/dL Procalcitonin (0.030-0.080) ng/mL Influenza Type A Ag (NEGATIVE) Influenza Type B Ag (NEGATIVE) RSV (PCR) (NEGATIVE) SARS-CoV-2 (PCR) (NEGATIVE) 10/23/23 Range/Units 00:35 WBC (3.98-10.04) x10^3/uL RBC (3.93-5.22) x10^6/uL Hgb (11.2-15.7) g/dL Hct (34.1-44.9) % MCV (79.4-94.8) fL MCH (25.6-32.2) pg MCHC (32.2-35.5) g/dL RDW (11.7-14.4) % Plt Count (182-369) x10^3/uL MPV (9.4-12.3) fL Gran % (34.0-71.1) % Immature Gran % (Auto) (0.001-0.429) % Nucleat RBC Rel Count (0.00-0.2) % Eos # (Auto) (0.04-0.36) x10^3/uL Immature Gran # (Auto) (0.001-0.031) x10^3u/L Absolute Lymphs (auto) (1.18-3.74) x10^3/uL Absolute Monos (auto) (0.24-0.86) x10^3/uL Absolute Nucleated RBC (0.00-0.012) x10^3u/L Lymphocytes % (19.3-51.7) % Monocytes % (4.7-12.5) % Eosinophils % (0.7-5.8) % Basophils % (0.1-1.2) % Absolute Granulocytes (1.56-6.13) x10^3/uL Basophils # (0.01-0.08) x10^3/uL D-Dimer (0.0-0.50) mg/L Sodium (135-145) mmol/L Potassium 3.9 (3.5-5.1) mmol/L Chloride (98-107) mmol/L Carbon Dioxide (22-30) mmol/L Anion Gap (5-15) MEQ/L BUN (7-17) mg/dL Creatinine (0.52-1.04) mg/dL Estimated GFR ML/MIN Glucose (74-106) mg/dL POC Glucometer (74 to 106) mg/dL Calcium (8.4-10.2) mg/dL Magnesium (1.6-2.3) mg/dL Total Bilirubin (0.2-1.3) mg/dL AST (14-36) U/L ALT (0-35) U/L Alkaline Phosphatase (38-126) U/L Troponin I (0.000-0.033) ng/mL Serum Total Protein (6.3-8.2) g/dL Albumin (3.5-5.0) g/dL Procalcitonin (0.030-0.080) ng/mL Influenza Type A Ag (NEGATIVE) Influenza Type B Ag (NEGATIVE) RSV (PCR) (NEGATIVE) SARS-CoV-2 (PCR) (NEGATIVE) Radiology Exams: Radiology Procedures Category Date Time Status HEAD WITHOUT CONTRAST [CT] Stat Exams 10/22/23 11:45 Completed Assessment/Plan (1) COVID Current Visit: Yes Status: Acute Assessment & Plan: -Remdesivir -Supplemental oxygen with spo2 goal >92% -Patient on RA, no need for dexamethasone/anticoagulated with xarelto - will continue 10/22: -continue remdesivir, add mucinex Code(s): U07.1 - COVID-19 (2) Hypertensive urgency Current Visit: Yes Status: Acute Assessment & Plan: -Continue home anti-hypertensive with hydralazine prn for SBP >180, DBP >100 10/22: -resolved with the resumption of home medications Code(s): I16.0 - HYPERTENSIVE URGENCY (3) Type 2 diabetes mellitus Current Visit: Yes Status: Acute Assessment & Plan: -ADA diet -Hold metformin -SSI A1c (4) Intractable headache Current Visit: Yes Status: Acute Assessment & Plan: -? secondary to COVID -CT demonstrating minimal paranasal sinus disease. Chronic findings including atrophy, old left occipital lobe infarct, and old bilateral basal ganglia lacunar infarcts -Pain control 10/22: -Improving, continue oral pain meds for now, try to hold off on IV pain meds Code(s): R51.9 - HEADACHE, UNSPECIFIED (5) Hypokalemia Current Visit: No Status: Acute Assessment & Plan: -tele -potassium replenishment per protocol -Monitor renal/lytes daily 10/22: -resolved Code(s): E87.6 - HYPOKALEMIA (6) Maxillary sinusitis Current Visit: No Status: Acute Assessment & Plan: -continue cefpodoxime prescribed by ED 10/22: -cefpodoxime not available, will continue with augmentin Code(s): 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 (7) CAD (coronary artery disease) Current Visit: No Status: Chronic Assessment & Plan: -continue home meds Code(s): I25.10 - ATHSCL HEART DISEASE OF [place] CORONARY ARTERY W/O ANG PCTRS (8) History of CVA (cerebrovascular accident) Current Visit: Yes Status: Acute Assessment & Plan: -noted, with residual right sided weakness -No new/acute findings on CT head VTE: xarelto Code status: Full code Dispo 2-3 days Diet: ADA Code(s): Z86.73 - PRSNL HX OF TIA (TIA), AND CEREB INFRC W/O RESID DEFICITS Code(s): U07.1 - COVID-19 (2) Hypertensive urgency Current Visit: Yes Status: Acute Code(s): I16.0 - HYPERTENSIVE URGENCY (3) Type 2 diabetes mellitus Current Visit: Yes Status: Acute (4) Intractable headache Current Visit: Yes Status: Acute Code(s): R51.9 - HEADACHE, UNSPECIFIED (5) Hypokalemia Current Visit: No Status: Acute Code(s): E87.6 - HYPOKALEMIA (6) Maxillary sinusitis Current Visit: No Status: Acute Code(s): 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
[2023-10-23] MEDS: ATARAX 25 MG PO PRN (08:09)
[2023-10-23] MEDS: PERCOCET TABLET 5/325MG PO PRN (08:09)
[2023-10-23] MEDS: LASIX 20 MG PO SCH (09:26)
[2023-10-23] MEDS: ENTRESTO 49 MG-51 MG TABLET PO SCH (09:26)
[2023-10-23] MEDS: XARELTO 10 MG TABLET PO SCH (09:26)
[2023-10-23] MEDS: Protonix 40MG Tablet PO SCH (09:26)
[2023-10-23] MEDS: Toprol-Xl 25MG Tablets PO SCH (09:26)
[2023-10-23] MEDS ORDERED: Aldactone 25 MG PO SCH (10:00)
[2023-10-23] MEDS ORDERED: NON-FORMULARY ITEM (Sacubitril/Valsartan [Entresto 24 Mg-26 Mg Tablet] 1 TAB) PO SCH (10:00)
[2023-10-23] MEDS ORDERED: NON-FORMULARY ITEM (Rivaroxaban [Xarelto] 20 MG Tablet) PO SCH (10:00)
[2023-10-23] MEDS ORDERED: NON-FORMULARY ITEM (Metoprolol Succinate 25 MG Tab.Er.24h) PO SCH (10:00)
[2023-10-23] MEDS ORDERED: NON-FORMULARY ITEM (Omeprazole [Omeprazole] 20 MG Tablet.Dr) PO SCH (10:00)
[2023-10-23] MEDS: REMDESIVIR 100 MG in Sodium Chloride 100ML MINI-BAG PLUS 100 ML IV SCH (15:54)
[2023-10-23 16:50] LABS: Appearance Clear (Clear); Bacteria None Seen /HPF (None Seen); Bilirubin Negative (Negative); Blood Negative (Negative); Epithelial Cells None Seen /HPF (None Seen); Glucose, Urine Negative (Negative); Hyaline Casts NONE SEEN /LPF (0-2); Ketones Negative (Negative); Leukocyte Esterase Negative (Negative); Nitrite Negative (Negative); Ph 5.5 (4.6-8.0); Protein,Urine Dip Negative (Negative); RBC 0-2 /HPF (0-5); Urobilinogen 0.2 mg/dL (0.2); WBC 0-2 /HPF (0-5)
[2023-10-23 17:04] LABS: ADD URINE CULTURE? NO (NO)
[2023-10-24 05:15] LABS: Absolute Neutrophil Ct (ANC) 1.54 x10^3/uL (1.56-6.13); Basophil (Absolute #) 0.04 x10^3/uL (0.01-0.08); Eosinophil (Absolute #) 0.04 x10^3/uL (0.04-0.36); Hematocrit 32.9 % (34.1-44.9); Hemoglobin 10.3 g/dL (11.2-15.7); IMMATURE GRAN # 0.01 x10^3u/L (0.001-0.031); IMMATURE GRAN % 0.2 % (0.001-0.429); Lymphocyte (Absolute #) 1.82 x10^3/uL (1.18-3.74); Lymphocytes % 43.5 % (19.3-51.7); Mean Cell Volume 84.4 fL (79.4-94.8); Mean Corpuscular Hemoglobin 26.4 pg (25.6-32.2); Mean Corpuscular Hgb Concent. 31.3 g/dL (32.2-35.5); Monocyte (Absolute #) 0.73 x10^3/uL (0.24-0.86); Monocytes % 17.5 % (4.7-12.5); Neutrophil % 36.8 % (34.0-71.1); Platelet Count 316 x10^3/uL (182-369); Red Cell Distribution Width 14.9 % (11.7-14.4); White Blood Count 4.2 x10^3/uL (3.98-10.04)
--- NOTE | 2023-10-24 05:20 | PCM.DS ---
Discharge Summary Date of Admission: 10/22/23 15:32 Date of Discharge: 10/24/23 Admitting Physician: MANISH AMAYA MD Primary Care Provider: LYDIA WHITFIELD Allergies Allergies morphine Allergy (Severe, Verified 10/22/23 11:24) Irregular Heart Beat Sulfa (Sulfonamide Antibiotics) Allergy (Intermediate, Verified 10/22/23 11:24) Hives sulfamethoxazole [From Bactrim] Allergy (Intermediate, Verified 10/22/23 11:24) Hives trimethoprim [From Bactrim] Allergy (Intermediate, Verified 10/22/23 11:24) Hives fluoxetine HCl [From Prozac] Adverse Reaction (Intermediate, Verified 10/22/23 11:24) homicidal thoughts homicidal thoughts Hospital Summary - Hospital Course Hospital Course: MS. Ballard is a 68 year old female with a pmhx of CVA (right-sided residual weakness), CAD (Dr. Hale), HTN, DE, COPD (RA at baseline), DM, fibromyalgia, anxiety/panic disorder, and OP admitted 10/22/23 with COVID and hypertensive urgency after experiencing a severe headache and elevated blood pressure. Of note patient was evaluated in ED 10/21/23 with similar complaints and diagnosed with maxillary sinusitis and prescribed cefpodoxime which she has not started yet. No fevers or recent sick contacts. Upon arrival, patient hypertensive with BP 173/97. CT head unchanged from previous imaging the day prior demonstrating minimal paranasal sinus disease. Chronic findings including atrophy, old left occipital lobe infarct, and old bilateral basal ganglia lacunar infarcts. Lab findings remarkable for leukocytosis with wbc at 11.0 and hypokalemia at 3.4. COVID positive. Patient given Diluadid/ativan, zofran and labetalol. Admit for intractable headache, COVID, and hypertensive urgency. Blood pressure has remained stable with the initiation of home regimen. Patient has received remdesivir and remained on RA. Stable for discharge after last dose of remdes ivir. Discharge Note New Diagnosis: COVID/Hypertensive urgency/Headache New Medications: Percocet Follow Up: pcp Latest Assessment & Plan -Remdesivir -Supplemental oxygen with spo2 goal >92% -Patient on RA, no need for dexamethasone/anticoagulated with xarelto - will continue 10/22: -continue remdesivir, add mucinex Code(s): U07.1 - COVID-19 (2) Hypertensive urgency Current Visit: Yes Status: Acute Assessment & Plan: -Continue home anti-hypertensive with hydralazine prn for SBP >180, DBP >100 10/22: -resolved with the resumption of home medications Code(s): I16.0 - HYPERTENSIVE URGENCY (3) Type 2 diabetes mellitus Current Visit: Yes Status: Acute Assessment & Plan: -ADA diet -Hold metformin -SSI A1c (4) Intractable headache Current Visit: Yes Status: Acute Assessment & Plan: -? secondary to COVID -CT demonstrating minimal paranasal sinus disease. Chronic findings including atrophy, old left occipital lobe infarct, and old bilateral basal ganglia lacunar infarcts -Pain control 10/22: -Improving, continue oral pain meds for now, try to hold off on IV pain meds Code(s): R51.9 - HEADACHE, UNSPECIFIED (5) Hypokalemia Current Visit: No Status: Acute Assessment & Plan: -tele -potassium replenishment per protocol -Monitor renal/lytes daily 10/22: -resolved Code(s): E87.6 - HYPOKALEMIA (6) Maxillary sinusitis Current Visit: No Status: Acute Assessment & Plan: -continue cefpodoxime prescribed by ED 10/22: -cefpodoxime not available, will continue with augmentin Code(s): 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 (7) CAD (coronary artery disease) Current Visit: No Status: Chronic Assessment & Plan: -continue home meds Code(s): I25.10 - ATHSCL HEART DISEASE OF [place] CORONARY ARTERY W/O ANG PCTRS (8) History of CVA (cerebrovascular accident) Current Visit: Yes Status: Acute Assessment & Plan: -noted, with residual right sided weakness -No new/acute findings on CT head VTE: xarelto Code status: Full code Dispo 2-3 days Diet: ADA Code(s): Z86.73 - PRSNL HX OF TIA (TIA), AND CEREB INFRC W/O RESID DEFICITS I spent 35 minutes [id number] with the patient on the day of discharge p erforming discharge exam, discussing hospital stay and discharge instructions with patient and caregivers, preparation of discharge records, prescriptions & referral forms and addressing any questions/concerns the patient had as documented above. - Vitals & Intake/Output Vital Signs: Vital Signs Temperature 97.0 F 10/24/23 03:00 Pulse Rate 55 L 10/24/23 03:00 Respiratory Rate 16 10/24/23 04:00 Blood Pressure 128/58 10/24/23 03:00 O2 Sat by Pulse Oximetry 95 10/24/23 03:00 Intake & Output: Intake & Output 10/21/23 10/22/23 10/23/23 10/24/23 11:59 11:59 11:59 11:59 Intake Total 640 1120 Output Total 1050 Balance 640 70 Weight 71.2 kg 68.8 kg - Lab Result Diagrams: 10/24/23 04:40 10/24/23 04:40 Lab Results-Last 24 Hrs: Lab Results-Last 24 Hours 10/23/23 10/23/23 10/23/23 Range/Units 04:27 04:27 07:19 WBC 6.0 (3.98-10.04) x10^3/uL RBC 4.25 (3.93-5.22) x10^6/uL Hgb 11.3 (11.2-15.7) g/dL Hct 34.9 (34.1-44.9) % MCV 82.1 (79.4-94.8) fL MCH 26.6 (25.6-32.2) pg MCHC 32.4 (32.2-35.5) g/dL RDW 14.7 H (11.7-14.4) % Plt Count 347 (182-369) x10^3/uL MPV 8.7 L (9.4-12.3) fL Gran % 72.8 H (34.0-71.1) % Immature Gran % (Auto) 0.3 (0.001-0.429) % Nucleat RBC Rel Count 0.0 (0.00-0.2) % Eos # (Auto) 0 L (0.04-0.36) x10^3/uL Immature Gran # (Auto) 0.02 (0.001-0.031) x10^3u/L Absolute Lymphs (auto) 0.82 L (1.18-3.74) x10^3/uL Absolute Monos (auto) 0.77 (0.24-0.86) x10^3/uL Absolute Nucleated RBC 0.00 (0.00-0.012) x10^3u/L Lymphocytes % 13.7 L (19.3-51.7) % Monocytes % 12.9 H (4.7-12.5) % Eosinophils % 0.0 L (0.7-5.8) % Basophils % 0.3 (0.1-1.2) % Absolute Granulocytes 4.34 (1.56-6.13) x10^3/uL Basophils # 0.02 (0.01-0.08) x10^3/uL Sodium 138 (135-145) mmol/L Potassium 4.4 (3.5-5.1) mmol/L Chloride 107 (98-107) mmol/L Carbon Dioxide 24 (22-30) mmol/L Anion Gap 12.1 (5-15) MEQ/L BUN 14 (7-17) mg/dL Creatinine 0.97 (0.52-1.04) mg/dL Estimated GFR 64.1 ML/MIN Glucose 125 H (74-106) mg/dL POC Glucometer 124 H (74 to 106) mg/dL Calcium 9.9 (8.4-10.2) mg/dL Total Bilirubin 0.30 (0.2-1.3) mg/dL AST 17 (14-36) U/L ALT 15 (0-35) U/L Alkaline Phosphatase 74 (38-126) U/L Serum Total Protein 7.0 (6.3-8.2) g/dL Albumin 3.9 (3.5-5.0) g/dL Urine Color (Yellow) Urine Appearance (Clear) Urine pH (4.6-8.0) Ur Specific [place] (1.005-1.030) Urine Protein (Negative) Urine Glucose (UA) (Negative) mg/dL Urine Ketones (Negative) Urine Blood (Negative) Urine Nitrite (Negative) Urine Bilirubin (Negative) Urine Urobilinogen (0.2) mg/dL Ur Leukocyte Esterase (Negative) U Hyaline Cast (Auto) (0-2) /LPF Urine Microscopic RBC (0-5) /HPF Urine Microscopic WBC (0-5) /HPF Ur Epithelial Cells (None Seen) /HPF Urine Bacteria (None Seen) /HPF Urine Culture Reflexed (NO) 10/23/23 10/23/23 10/23/23 Range/Units 12:08 16:44 16:44 WBC (3.98-10.04) x10^3/uL RBC (3.93-5.22) x10^6/uL Hgb (11.2-15.7) g/dL Hct (34.1-44.9) % MCV (79.4-94.8) fL MCH (25.6-32.2) pg MCHC (32.2-35.5) g/dL RDW (11.7-14.4) % Plt Count (182-369) x10^3/uL MPV (9.4-12.3) fL Gran % (34.0-71.1) % Immature Gran % (Auto) (0.001-0.429) % Nucleat RBC Rel Count (0.00-0.2) % Eos # (Auto) (0.04-0.36) x10^3/uL Immature Gran # (Auto) (0.001-0.031) x10^3u/L Absolute Lymphs (auto) (1.18-3.74) x10^3/uL Absolute Monos (auto) (0.24-0.86) x10^3/uL Absolute Nucleated RBC (0.00-0.012) x10^3u/L Lymphocytes % (19.3-51.7) % Monocytes % (4.7-12.5) % Eosinophils % (0.7-5.8) % Basophils % (0.1-1.2) % Absolute Granulocytes (1.56-6.13) x10^3/uL Basophils # (0.01-0.08) x10^3/uL Sodium (135-145) mmol/L Potassium (3.5-5.1) mmol/L Chloride (98-107) mmol/L Carbon Dioxide (22-30) mmol/L Anion Gap (5-15) MEQ/L BUN (7-17) mg/dL Creatinine (0.52-1.04) mg/dL Estimated GFR ML/MIN Glucose (74-106) mg/dL POC Glucometer 118 H 91 (74 to 106) mg/dL Calcium (8.4-10.2) mg/dL Total Bilirubin (0.2-1.3) mg/dL AST (14-36) U/L ALT (0-35) U/L Alkaline Phosphatase (38-126) U/L Serum Total Protein (6.3-8.2) g/dL Albumin (3.5-5.0) g/dL Urine Color Yellow (Yellow) Urine Appearance Clear (Clear) Urine pH 5.5 (4.6-8.0) Ur Specific [place] 1.010 (1.005-1.030) Urine Protein Negative (Negative) Urine Glucose (UA) Negative (Negative) mg/dL Urine Ketones Negative (Negative) Urine Blood Negative (Negative) Urine Nitrite Negative (Negative) Urine Bilirubin Negative (Negative) Urine Urobilinogen 0.2 (0.2) mg/dL Ur Leukocyte Esterase Negative (Negative) U Hyaline Cast (Auto) NONE SEEN (0-2) /LPF Urine Microscopic RBC 0-2 (0-5) /HPF Urine Microscopic WBC 0-2 (0-5) /HPF Ur Epithelial Cells None Seen (None Seen) /HPF Urine Bacteria None Seen (None Seen) /HPF Urine Culture Reflexed NO (NO) 10/23/23 Range/Units 21:11 WBC (3.98-10.04) x10^3/uL RBC (3.93-5.22) x10^6/uL Hgb (11.2-15.7) g/dL Hct (34.1-44.9) % MCV (79.4-94.8) fL MCH (25.6-32.2) pg MCHC (32.2-35.5) g/dL RDW (11.7-14.4) % Plt Count (182-369) x10^3/uL MPV (9.4-12.3) fL Gran % (34.0-71.1) % Immature Gran % (Auto) (0.001-0.429) % Nucleat RBC Rel Count (0.00-0.2) % Eos # (Auto) (0.04-0.36) x10^3/uL Immature Gran # (Auto) (0.001-0.031) x10^3u/L Absolute Lymphs (auto) (1.18-3.74) x10^3/uL Absolute Monos (auto) (0.24-0.86) x10^3/uL Absolute Nucleated RBC (0.00-0.012) x10^3u/L Lymphocytes % (19.3-51.7) % Monocytes % (4.7-12.5) % Eosinophils % (0.7-5.8) % Basophils % (0.1-1.2) % Absolute Granulocytes (1.56-6.13) x10^3/uL Basophils # (0.01-0.08) x10^3/uL Sodium (135-145) mmol/L Potassium (3.5-5.1) mmol/L Chloride (98-107) mmol/L Carbon Dioxide (22-30) mmol/L Anion Gap (5-15) MEQ/L BUN (7-17) mg/dL Creatinine (0.52-1.04) mg/dL Estimated GFR ML/MIN Glucose (74-106) mg/dL POC Glucometer 139 H (74 to 106) mg/dL Calcium (8.4-10.2) mg/dL Total Bilirubin (0.2-1.3) mg/dL AST (14-36) U/L ALT (0-35) U/L Alkaline Phosphatase (38-126) U/L Serum Total Protein (6.3-8.2) g/dL Albumin (3.5-5.0) g/dL Urine Color (Yellow) Urine Appearance (Clear) Urine pH (4.6-8.0) Ur Specific [place] (1.005-1.030) Urine Protein (Negative) Urine Glucose (UA) (Negative) mg/dL Urine Ketones (Negative) Urine Blood (Negative) Urine Nitrite (Negative) Urine Bilirubin (Negative) Urine Urobilinogen (0.2) mg/dL Ur Leukocyte Esterase (Negative) U Hyaline Cast (Auto) (0-2) /LPF Urine Microscopic RBC (0-5) /HPF Urine Microscopic WBC (0-5) /HPF Ur Epithelial Cells (None Seen) /HPF Urine Bacteria (None Seen) /HPF Urine Culture Reflexed (NO) Micro Results-Entire Visit: Accuchecks Date 10/23/23 Date 10/23/23 Date 10/23/23 Date 10/23/23 Date 10/23/23 Time 21:00 Time 16:48 Time 12:34 Time 07:50 - Radiology Exams Ordered Rad Exams-Entire Visit: Radiology Procedures Category Date Time Status HEAD WITHOUT CONTRAST [CT] Stat Exams 10/22/23 11:45 Completed - Procedures and Test Procedures and Tests throughout Hospitalization: Therapy Orders & Screens 10/22/23 15:37 EKG REPEAT IN AM Comment: 10/22/23 15:57 Respiratory Therapy Consult ONCE Comment: Reason For Exam: Diagnosis: Hypertensive urgency/COVID/Intractable headache 10/22/23 18:37 RT Screen per Nursing Assess ONCE Comment: Protocol Order Physician Instructions: Greater than 3 points order RT Admission Screen Reason For Exam: Triggered on Admission Diagnosis: Hypertensive urgency/COVID/Intractable headache Diagnosis: Hypertensive urgency/COVID/Intractable headache Pneumonia: No Home O2: No Asthma: Yes CHF: No Home CPAP/BIPAP: No Home Nebs/MDI: Yes Total Points: 9 10/22/23 19:33 Respiratory Therapy Assessment UD Comment: Diagnosis: Hypertensive urgency/COVID/Intractable headache Discharge Exam General Appearance: no apparent distress Neurologic Exam: alert, oriented x 3, cooperative Eye Exam: PERRL Ears, Nose, Throat Exam: normal ENT inspection Neck Exam: normal inspection Respiratory Exam: normal breath sounds, lungs clear Cardiovascular Exam: regular rate/rhythm, normal heart sounds Gastrointestinal/Abdomen Exam: soft, normal bowel sounds Pelvic Exam: deferred Rectal Exam: deferred Back Exam: normal inspection Extremity Exam: normal inspection Final Diagnosis/Problem List - Final Discharge Diagnosis/Problem (1) COVID Current Visit: Yes Status: Acute Code(s): U07.1 - COVID-19 (2) Hypertensive urgency Current Visit: Yes Status: Resolved Code(s): I16.0 - HYPERTENSIVE URGENCY (3) Type 2 diabetes mellitus Current Visit: Yes Status: Resolved (4) Intractable headache Current Visit: Yes Status: Acute Code(s): R51.9 - HEADACHE, UNSPECIFIED (5) Hypokalemia Current Visit: No Status: Resolved Code(s): E87.6 - HYPOKALEMIA (6) Maxillary sinusitis Current Visit: No Status: Acute Code(s): 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 (7) CAD (coronary artery disease) Current Visit: No Status: Chronic Code(s): I25.10 - ATHSCL HEART DISEASE OF [place] CORONARY ARTERY W/O ANG PCTRS (8) History of CVA (cerebrovascular accident) Current Visit: Yes Status: Chronic Code(s): Z86.73 - PRSNL HX OF TIA (TIA), AND CEREB INFRC W/O RESID DEFICITS - Discharge Disposition: Home, Self-Care Condition: Fair Prescriptions: New Amox Tr/Potass Clav. 875 mg [Augmentin 875-125 Tablet] 875 mg PO Q12H 5 Days #10 tablet Continue Metformin HCl 850 mg [Glucophage 850 MG] 850 mg PO BID Omeprazole 20 mg PO DAILY Metoprolol Succinate 25 mg PO DAILY Glipizide 5 mg [Glucotrol 5 MG] 5 mg PO DAILY Rivaroxaban [Xarelto] 20 mg PO DAILY Oxycodone/APAP 5 mg/325 mg [Percocet Tablet 5/325Mg] 1 tab PO TID PRN PRN Reason: Pain Sacubitril/Valsartan [Entresto 24 mg-26 mg Tablet] 1 tab PO QAM Carvedilol 3.125 mg [Coreg 3.125 MG] 3.125 mg PO BID Hydroxyzine HCl 25 mg [Atarax 25 mg] 25 mg PO TIDPRN PRN PRN Reason: Anxiety Furosemide 20 mg [Lasix 20 mg] 20 mg PO DAILY Cefpodoxime Proxetil 200 mg [Vantin 200 mg] 200 mg PO BID cloNIDine HCL [Clonidine HCl] 0.2 mg PO HS Follow up with: LYDIA WHITFIELD [Primary Care Provider] - 11/06/23 9:00 am
[2023-10-24 05:54] LABS: ALBUMIN 3.7 g/dL (3.5-5.0); ANION GAP 11.5 MEQ/L (5-15); BILIRUBIN,TOTAL 0.2 mg/dL (0.2-1.3); Calcium 9.3 mg/dL (8.4-10.2); Creatinine 1 1.11 mg/dL (0.52-1.04); EST GLOMERULAR FILTRATION RATE 54.5 ML/MIN; Potassium 3.6 mmol/L (3.5-5.1); Total Protein 6.5 g/dL (6.3-8.2)
[2023-10-24 12:14] VITALS: BP 114/65; PULSE 57; RESP 18; TEMP 96.4; O2SAT 94
== END 2023-10-24 12:53 | disposition home or self-care (01) ==
LOC: ED 11:00 → MED SURG 15:32
PROVIDERS: ADMIT Internal Medicine; ATTEND Internal Medicine
DX: U07.1 COVID-19 (principal); I16.0 Hypertensive urgency; Z86.73 Personal history of transient ischemic attack (TIA), and cerebral infarction without residual deficits; I25.10 Atherosclerotic heart disease of native coronary artery without angina pectoris; I10 Essential (primary) hypertension; I25.2 Old myocardial infarction; E11.9 Type 2 diabetes mellitus without complications; F41.9 Anxiety disorder, unspecified; E87.6 Hypokalemia; R51.9 Headache, unspecified; J32.0 Chronic maxillary sinusitis; Z79.01 Long term (current) use of anticoagulants; Z79.899 Other long term (current) drug therapy
CPT/HCPCS: 0241U; 36000; 36415; 70450; 80053; 81001; 82947; 83735; 84132; 84145; 84484; 85025; 85379; 93005; 93041; 94762; 96374; 96375; 99285; 99291; Q3014; 93268; J0248; J1170; J2060; J2405; A9270-GY; G0378

== ENCOUNTER 2024-02-14 08:25 | Day surgery (SDC) | payer MEDICARE ==
[2011-11-29 13:59] VITALS: BP 148/93
[2024-02-14] MEDS ORDERED: Depo-Medrol 40 MG/ML IM ONE (08:26)
[2024-02-14] MEDS ORDERED: BUPIVACAINE 0.5% VIAL IJ ONE (08:26)
[2024-02-14] MEDS ORDERED: Versed 2 MG/2 ML Injection ONE (09:23)
[2024-02-14] MEDS ORDERED: DIPRIVAN 200 MG/20 ML IV ONE (09:45)
--- NOTE | 2024-02-14 11:48 | XRAY ---
Indication: Left hip injection. Intraoperative fluoroscopy provided for 9 seconds. Single digital spot image submitted for interpretation demonstrates needle tip projecting lateral to left femur neck. Small amount of contrast injected for needle tip placement. Correlate with intraoperative findings/report.
--- NOTE | 2024-02-14 11:54 | XRAY ---
9 seconds of fluoroscopy was used in surgery for a left intra-articular hip injection.
== END 2024-02-14 10:12 | disposition home or self-care (01) ==
LOC: SDC-PAIN 08:25
PROVIDERS: ATTEND Psychiatry & Neurology Pain Medicine
DX: M16.12 Unilateral primary osteoarthritis, left hip (principal); E11.9 Type 2 diabetes mellitus without complications
CPT/HCPCS: 20610; 73501; 77002; 82947; J2250; J2704; Q9966

== ENCOUNTER 2024-02-17 14:52 | Emergency (ER) | payer MEDICARE ==
--- NOTE | 2024-02-17 15:10 | ERPHSYRPT ---
- History of Present Illness Time Seen by Provider: 02/17/24 15:10 Source: patient Exam Limitations: no limitations Physician History: The patient presented with persistent pain in the outside of left hip area following a recent procedure performed by Dr. Ritchie, which involved a left intraarticular hip injection. The patient reported that the pain has been ongoing since the procedure. Prior to the consultation, the patient had taken a pain pill about an hour and a half ago to manage the discomfort. Timing/Duration: yesterday Method of Injury: unknown Quality: sharp, stabbing Severity of Pain-Max: severe Severity of Pain-Current: severe Modifying Factors: Improves With: nothing. Worsens With: movement Associated Symptoms: denies symptoms Previous symptoms: same symptoms as today Allergies/Adverse Reactions: morphine Allergy (Severe, Verified 02/17/24 14:57) Irregular Heart Beat Sulfa (Sulfonamide Antibiotics) Allergy (Intermediate, Verified 02/17/24 14:57) Hives sulfamethoxazole [From Bactrim] Allergy (Intermediate, Verified 02/17/24 14:57) Hives trimethoprim [From Bactrim] Allergy (Intermediate, Verified 02/17/24 14:57) Hives fluoxetine HCl [From Prozac] Adverse Reaction (Intermediate, Verified 02/17/24 14:57) homicidal thoughts homicidal thoughts Home Medications: Metformin HCl 850 mg [Glucophage 850 MG] 850 mg PO BID 01/18/20 [History] Omeprazole 20 mg PO DAILY 08/01/22 [History] Glipizide 5 mg [Glucotrol 5 MG] 5 mg PO DAILY 08/28/23 [History] Metoprolol Succinate 25 mg PO DAILY 08/28/23 [History] Carvedilol 3.125 mg [Coreg 3.125 MG] 3.125 mg PO BID 10/22/23 [History] Furosemide 20 mg [Lasix 20 mg] 20 mg PO DAILY 10/22/23 [History] Hydroxyzine HCl 25 mg [Atarax 25 mg] 25 mg PO TIDPRN PRN 10/22/23 [History] Oxycodone/APAP 5 mg/325 mg [Percocet Tablet 5/325Mg] 1 tab PO TID PRN 10/22/23 [History] Rivaroxaban [Xarelto] 20 mg PO DAILY 10/22/23 [History] Sacubitril/Valsartan [Entresto 24 mg-26 mg Tablet] 1 tab PO QAM 10/22/23 [History] cloNIDine HCL [Clonidine HCl] 0.2 mg PO HS 10/22/23 [History] Hx Tetanus, Diphtheria Vaccination/Date Given: Yes Hx Influenza Vaccination/Date Given: No Hx Pneumococcal Vaccination/Date Given: Yes Travel Risk - Emerging Infectious Disease Are you exhibiting symptoms associated with any current EIDs: Yes Symptoms: Headaches/Body Aches/ - Review of Systems All Other Systems: Reviewed and Negative - Past Medical History Pertinent Past Medical History: Yes Neurological History: Stroke ENT History: No Pertinent History Cardiac History: Coronary Artery Disease, Hypertension, Myocardial Infarction ([place]) Respiratory History: Asthma, COPD Endocrine Medical History: Diabetes Type II Musculoskeletal History: Arthritis, Fibromyalgia, Osteoporosis GI Medical History: Ulcer, Other History: No Pertinent History Psycho-Social History: Anxiety, Panic Disorder Female Reproductive Disorders: Ovarian Cancer, Uterine Cancer Other Medical History: PATIENT REPORTS 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 SHE REPORTS SHE WAS DX'D WITH [facility] BY ~2 YEARS AGO. HOWEVER, PATIENT STATES HER PD MEDICATIONS WERE STOPPED AFTER HER 2ND CVA AND SHE HAS NOT BEEN BACK TO NEUROLOGIST TO DISCUSS MEDICATIONS. ANXIETY, PVD, GERD, HX OF CATARACTS REMOVED, [place]'S DISEASE WITH BONE REMOVAL IN R ARM, 3 BOWEL BLOCKAGES WITH LAST ONE IN 2019 REQUIRING REMOVAL OF PARTIAL SMALL INTESTINE AND LARGE INSTESTINE, HYSTERECTOMY. APPENDICITIS, GALL BLADDER REMOVAL, T&A REMOVAL. SHE REPORTS IN 2019 SHE FELL AND BROKE HER R HIP WITH CONSERVATIVE MEASURES AND MARCH 2019 SHE FELL AND BROKE HER R COLLAR BONE (7 PINS) REQUIRING SX. - Past Surgical History Past Surgical History: Yes Neuro Surgical History: No Pertinent History Cardiac: Cardiac Catheterization Respiratory: No Pertinent History Gastrointestinal: Appendectomy, Bowel Surgery, Cholecystectomy, Hernia Repair Genitourinary: No Pertinent History Musculoskeletal: No Pertinent History Female Surgical History: Hysterectomy, Tubal Ligation Other Surgical History: bone auto graft to wrist, collar bone surgery, heart cath. bowel obstruction x3 HX OF BLOOD TRANSFUSIONS - Social History Smoking Status: Former smoker How long have you smoked: "22 years" Exposure to second hand smoke: No Drug Use: none Patient Lives Alone: No - Social Determinants of Health Will the patient participate in the screening: Yes Do you worry about a steady place to live?: No In the past 12 months,have you had to go without utilities?: No Transportation Issues: No Has anyone in your support network made you feel unsafe?: No Have you or anyone in your house had to go without enough: No - Nursing Vital Signs Nursing Vital Signs: Initial Vital Signs Temperature 98 F 02/17/24 15:00 Pulse Rate 64 02/17/24 15:00 Respiratory Rate 18 02/17/24 15:00 Blood Pressure 193/93 02/17/24 15:00 O2 Sat by Pulse Oximetry 97 02/17/24 15:00 Pain Scale Pain Intensity 10 - Physical Exam General Appearance: mild distress Extremity Exam: other Neurologic Exam: alert, oriented x 3, cooperative SpO2 Interpretation: normal O2 Delivery: Room Air Comments: Left hip + TTP greater trochanter 4/5 abduction with pain Neg scour Neg [place] + [place] Procedures - Additional Procedures Progress: Left subgluteal bursa injection Ultrasound guidance used to perform left gluteal bursa corticosteroid injection. Area prepped with alcohol and 30-gauge 5/8 inch needle was used anesthetize the skin with approximately 1 cc of 2% lidocaine. Following this a 22-gauge 1- 1/2 inch needle was used with 2% lidocaine and numbing medicine applied in a layer by layer technique to the subgluteal bursa. Once I located the needle tip in position that was needed I changed out into a 5 cc solution containing 40 mg of Kenalog and 4 cc of 2% lidocaine. This was injected in the subgluteal bursa without difficulty. Needle was removed and a bandage was placed over the area. - Course Nursing assessment & vital signs reviewed: Yes - Progress Progress: improved Progress Note: 02/17/24 15:41 Left subgluteal bursa corticosteroid injection was performed. Patient had quick relief. Home exercises were given in discharge paperwork, but recommended formal physical therapy been ordered by her primary physician. Counseled pt/family regarding: diagnosis, need for follow-up Medical Desision Making - Diagnostic Testing Diagnostic test were ordered, analyzed, and reviewed by me: No - Risk of complications The pt has a mod risk of morbidity or mortality based on: Need for prescription drug management - Departure Departure Disposition: Home Clinical Impression: Tendinopathy of left gluteus medius Condition: Good Critical Care Time: No Referrals: LYDIA WHITFIELD [Primary Care Provider] - Follow up/PCP as directed Instructions: Hip Bursitis Exercises
[2024-02-17 15:11] VITALS: RESP 18; TEMP 98; O2SAT 97
[2024-02-17] MEDS ORDERED: XYLOCAINE 2% HCL 20 ML MDV ONE (15:18)
[2024-02-17] MEDS ORDERED: Kenalog-40 ONE (15:18)
[2024-02-17] MEDS: Kenalog-40 IM ONE (15:28)
[2024-02-17] MEDS: XYLOCAINE 2% HCL 20 ML MDV IJ ONE (15:29)
[2024-02-17 15:39] VITALS: BP 187/78; PULSE 80
== END 2024-02-17 15:51 | disposition home or self-care (01) ==
LOC: ED 14:52
DX: M76.02 Gluteal tendinitis, left hip (principal); I10 Essential (primary) hypertension; E11.9 Type 2 diabetes mellitus without complications; Z79.84 Long term (current) use of oral hypoglycemic drugs; Z79.01 Long term (current) use of anticoagulants; Z79.899 Other long term (current) drug therapy
CPT/HCPCS: 20610; 96372; 99283; 99284; J3301

== ENCOUNTER 2024-02-28 14:10 | Observation (INO) | payer MEDICARE ==
[2024-02-28 14:47] LABS: Hematocrit 37.4 % (34.1-44.9); Mean Corpuscular Hgb Concent. 32.1 g/dL (32.2-35.5); Mean Platelet Volume 8.9 fL (9.4-12.3); Platelet Count 415 x10^3/uL (182-369); Red Blood Count 4.45 x10^6/uL (3.93-5.22); Red Cell Distribution Width 13.7 % (11.7-14.4); White Blood Count 9.4 x10^3/uL (3.98-10.04)
--- NOTE | 2024-02-28 15:02 | XRAY ---
Indication: Infusion. TIA. Multiple contiguous axial images obtained through the head without contrast. Comparison: October 20 and October 22, 2023. Stable age-appropriate global atrophy, small focus old infarct left occipital lobe, tiny old infarct adjacent to left frontal horn, and bilateral basal ganglia old lacunar infarcts. No acute intracranial hemorrhage, abnormal extra-axial fluid collection, or mass effect. Fourth ventricle is midline without hydrocephalus. Stein[place]-white matter differentiation preserved. Bony calvarium intact. Visualized paranasal sinuses and mastoid air cells are clear. Impression: Chronic findings including atrophy, old left occipital/left frontal lobe infarcts, and old bilateral basal ganglia lacunar infarcts. No new/acute intracranial abnormalities.
[2024-02-28 15:26] LABS: ALBUMIN 4.4 g/dL (3.5-5.0); ANION GAP 18.3 MEQ/L (5-15); BILIRUBIN,TOTAL 0.2 mg/dL (0.2-1.3); Calcium 9.5 mg/dL (8.4-10.2); Creatinine 1 1.07 mg/dL (0.52-1.04); EST GLOMERULAR FILTRATION RATE 56.9 ML/MIN; MAGNESIUM 1.5 mg/dL (1.6-2.3); Potassium 3.2 mmol/L (3.5-5.1); Total Protein 7.4 g/dL (6.3-8.2)
[2024-02-28 15:29] LABS: Basophil 1 % (0.1-1.2); Lymphocytes 17 % (19.3-51.7); Monocyte 6 % (4.7-12.5); Neutrophils 76 % (34.0-71.1); Total Cells Counted 100
[2024-02-28 15:30] LABS: Platelet Estimate NORMAL (NORMAL)
[2024-02-28 15:53] LABS: Appearance Clear (Clear); Bacteria None Seen /HPF (None Seen); Bilirubin Negative (Negative); Blood Negative (Negative); Epithelial Cells None Seen /HPF (None Seen); Glucose, Urine Negative (Negative); Hyaline Casts NONE SEEN /LPF (0-2); Ketones Negative (Negative); Leukocyte Esterase Negative (Negative); Nitrite Negative (Negative); Protein,Urine Dip Trace (Negative); RBC 0-2 /HPF (0-5); Specific Gravity <=1.005 (1.005-1.030); Urobilinogen 0.2 mg/dL (0.2); WBC 0-2 /HPF (0-5)
[2024-02-28] MEDS ORDERED: Ativan 1 MG ONE (16:33)
[2024-02-28] MEDS: Ativan 1 MG PO ONE (16:33)
--- NOTE | 2024-02-28 16:47 | ERPHSYRPT ---
- History of Present Illness Time Seen by Provider: 02/28/24 14:31 Source: patient Exam Limitations: no limitations Patient Subjective Stated Complaint: Pt became confused while at [facility] Triage Nursing Assessment: Pt brought in via ambulance, pt states she isn't in pain other than a headache, vitals abnormal, pt disoriented and anxious, blood sugar of 100 reported by EMS staff, pt has history of recent stroke, pt taken for head CT immediately after arrival, pulses normal, skin n/w/d, negative on stroke screen Physician History: 68-year-old female with history of hypertension, hyperlipidemia, multiple TIAs/stroke with no residual weakness on Xarelto, diabetes mellitus presented to the ER by EMS after she was at a local restaurant with strokelike symptoms. Patient reports she got out of the car, was stumbling, went to the restaurant and dropped her car keys and dropped glass from her hand. She was also not acting herself. Patient blood sugar was 100. Denies any chest pain palpitations or shortness of breath before or after. It lasted for few minutes and on presentation patient is reporting no numbness tingling or focal weakness. No visual disturbance or difficulty speech. She is very anxious though. Allergies/Adverse Reactions: morphine Allergy (Severe, Verified 02/17/24 14:57) Irregular Heart Beat Sulfa (Sulfonamide Antibiotics) Allergy (Intermediate, Verified 02/17/24 14:57) Hives sulfamethoxazole [From Bactrim] Allergy (Intermediate, Verified 02/17/24 14:57) Hives trimethoprim [From Bactrim] Allergy (Intermediate, Verified 02/17/24 14:57) Hives fluoxetine HCl [From Prozac] Adverse Reaction (Intermediate, Verified 02/17/24 14:57) homicidal thoughts homicidal thoughts Home Medications: Metformin HCl 850 mg [Glucophage 850 MG] 850 mg PO BID 01/18/20 [History] Omeprazole 20 mg PO DAILY 08/01/22 [History] Glipizide 5 mg [Glucotrol 5 MG] 5 mg PO DAILY 08/28/23 [History] Carvedilol 3.125 mg [Coreg 3.125 MG] 3.125 mg PO BID 10/22/23 [History] Furosemide 20 mg [Lasix 20 mg] 20 mg PO DAILY 10/22/23 [History] Hydroxyzine HCl 25 mg [Atarax 25 mg] 25 mg PO TIDPRN PRN 10/22/23 [History] Oxycodone/APAP 5 mg/325 mg [Percocet Tablet 5/325Mg] 1 tab PO TID PRN 10/22/23 [History] Rivaroxaban [Xarelto] 20 mg PO DAILY 10/22/23 [History] cloNIDine HCL [Clonidine HCl] 0.2 mg PO HS 10/22/23 [History] Spironolactone 25 mg [Aldactone 25 MG] 25 mg PO DAILY 02/29/24 [History] Hx Tetanus, Diphtheria Vaccination/Date Given: Yes Hx Influenza Vaccination/Date Given: No Hx Pneumococcal Vaccination/Date Given: Yes Travel Risk - International Travel Have you traveled outside of the country in past 3 weeks: No - Emerging Infectious Disease Are you exhibiting symptoms associated with any current EIDs: Yes Symptoms: Headaches/Body Aches/ - Review of Systems Constitutional: Weakness Eyes: No Symptoms Ears, Nose, & Throat: No Symptoms Respiratory: No Symptoms Cardiac: No Symptoms Abdominal/Gastrointestinal: No Symptoms Genitourinary Symptoms: No Symptoms Musculoskeletal: No Symptoms Neurological: Focal Weakness, Gait Changes Psychological: Anxiety Endocrine: No Symptoms Hematologic/Lymphatic: No Symptoms Immunological/Allergic: No Symptoms - Past Medical History Pertinent Past Medical History: Yes Neurological History: Stroke ENT History: No Pertinent History Cardiac History: Coronary Artery Disease, Hypertension, Myocardial Infarction ([place]) Respiratory History: Asthma, COPD Endocrine Medical History: Diabetes Type II Musculoskeletal History: Arthritis, Fibromyalgia, Osteoporosis GI Medical History: Ulcer, Other History: No Pertinent History Psycho-Social History: Anxiety, Panic Disorder Female Reproductive Disorders: Ovarian Cancer, Uterine Cancer Other Medical History: PATIENT REPORTS 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 SHE REPORTS SHE WAS DX'D WITH [facility] BY ~2 YEARS AGO. HOWEVER, PATIENT STATES HER PD MEDICATIONS WERE STOPPED AFTER HER 2ND CVA AND SHE HAS NOT BEEN BACK TO NEUROLOGIST TO DISCUSS MEDICATIONS. ANXIETY, PVD, GERD, HX OF CATARACTS REMOVED, [place]'S DISEASE WITH BONE REMOVAL IN R ARM, 3 BOWEL BLOCKAGES WITH LAST ONE IN 2019 REQUIRING REMOVAL OF PARTIAL SMALL INTESTINE AND LARGE INSTESTINE, HYSTERECTOMY. APPENDICITIS, GALL BLADDER REMOVAL, T&A REMOVAL. SHE REPORTS IN 2019 SHE FELL AND BROKE HER R HIP WITH CONSERVATIVE MEASURES AND MARCH 2019 SHE FELL AND BROKE HER R COLLAR BONE (7 PINS) REQUIRING SX. - Past Surgical History Past Surgical History: Yes Neuro Surgical History: No Pertinent History Cardiac: Cardiac Catheterization Respiratory: No Pertinent History Gastrointestinal: Appendectomy, Bowel Surgery, Cholecystectomy, Hernia Repair Genitourinary: No Pertinent History Musculoskeletal: No Pertinent History Female Surgical History: Hysterectomy, Tubal Ligation Other Surgical History: bone auto graft to wrist, collar bone surgery, heart cath. bowel obstruction x3 HX OF BLOOD TRANSFUSIONS - Social History Smoking Status: Former smoker How long have you smoked: "22 years" Exposure to second hand smoke: No Drug Use: none Patient Lives Alone: No - Social Determinants of Health Will the patient participate in the screening: Yes Do you worry about a steady place to live?: No Do you have any problems with any of the following?: No known problems In the past 12 months,have you had to go without utilities?: No Transportation Issues: No Has anyone in your support network made you feel unsafe?: No Have you or anyone in your house had to go without enough: No - Nursing Vital Signs Nursing Vital Signs: Initial Vital Signs Temperature 97.4 F 02/28/24 14:24 Pulse Rate 78 02/28/24 14:24 Blood Pressure 178/100 02/28/24 14:24 O2 Sat by Pulse Oximetry 98 02/28/24 14:24 Pain Scale Pain Intensity 2 - [place] Coma Scale Best Eye Response (Maddie): (4) open spontaneously Best Verbal Response (Maddie): (5) oriented Best Motor Response ([place]): (6) obeys commands Maddie Total: 15 - Physical Exam General Appearance: no apparent distress, alert, anxiety Eye Exam: bilateral eye: normal inspection, PERRL, EOMI Ears, Nose, Throat Exam: normal ENT inspection, TMs normal, pharynx normal, moist mucous membranes Neck Exam: normal inspection, non-tender, supple, full range of motion, No meningismus Respiratory: normal breath sounds, lungs clear Cardiovascular: regular rate/rhythm, normal heart sounds Gastrointestinal: soft, normal bowel sounds, No tenderness Back Exam: normal inspection, normal range of motion Extremity Exam: normal inspection, normal range of motion Mental Status: alert, 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 x 3, 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 Exam: normal hearing, normal speech, PERRL Coordination/Gait: normal finger to nose, normal gait, normal cerebellar function, negative Romberg's sign Motor/Sensory: no motor deficit, no sensory deficit, no pronator drift, negative Babinski's sign DTR: bicep (R): 2+, bicep (L): 2+, knee (R): 2+, knee (L): 2+ Skin Exam: normal color SpO2 Interpretation: normal SpO2: 97 O2 Delivery: Room Air Ordered Tests: Active Orders 24 hr Category Date Time Status Bedrest ROUTINE Activity 02/28/24 19:41 Active Up With Assistance ROUTINE Activity 02/28/24 19:41 Active Call Admit Doctor for Orders ON ADMISSION Care 02/28/24 19:41 Completed Code Status Order ROUTINE Care 02/28/24 19:41 Active Fall Protocol Q1H Care 02/28/24 19:41 Active Neuro Checks Q2H Care 02/28/24 19:41 Active POCT Glucose Check [facility] Care 02/28/24 19:[address] in Observation ROUTINE Care 02/28/24 19:41 Active Telemetry q6h Care 02/28/24 19:41 Active Lactic Acid Stat Lab 02/28/24 16:43 Completed TROPONIN Q3H Lab 02/28/24 18:00 Completed TROPONIN Q3H Lab 02/28/24 20:00 Completed Pulse Oximetry .spot check RT 02/28/24 19:41 Active Respiratory Therapy Consult ONCE RT 02/28/24 19:41 Completed Medication Summary Generic Name Dose Route Start Last Admin Trade Name Freq PRN Reason Stop Dose Admin Atorvastatin Calcium 80 mg 02/29/24 14:07 02/29/24 15:54 Atorvastatin Calcium 40 Mg Tablet PO 03/30/24 14:06 80 mg DAILY BRADY Administration Hydralazine HCl 10 mg 02/28/24 20:46 02/29/24 07:22 Hydralazine Hcl 20 Mg/Ml Vial IV 03/29/24 20:45 10 mg Q4H PRN PRN Administration HYPERTENSION Hydroxyzine HCl 25 mg 02/28/24 20:43 02/29/24 07:18 Hydroxyzine Hcl 25 Mg Tablet PO 03/29/24 20:42 25 mg TIDPRN PRN Administration ANXIETY Insulin Human Lispro 0 unit 02/28/24 20:44 Insulin Lispro 1 Unit SQ 03/29/24 20:43 UD PRN HYPERGLYCEMIA Ondansetron HCl 4 mg 02/29/24 07:55 02/29/24 08:03 Ondansetron Hcl 4 Mg/2 Ml Vial IV 03/30/24 07:54 4 mg Q4H PRN PRN Administration NAUSEA/VOMITING Oxycodone/Acetaminophen 1 tab 02/28/24 20:47 02/29/24 10:41 Oxycodone Hcl/Apap 5 Mg/325 Mg Tablet PO 03/04/24 20:46 1 tab Q6H PRN PRN Administration PAIN Pantoprazole Sodium 40 mg 02/29/24 10:00 02/29/24 10:12 Protonix (Pantoprazole) 40 Mg Tablet PO 03/30/24 09:59 40 mg DAILY BRADY Administration Rivaroxaban 20 mg 02/29/24 10:00 02/29/24 10:12 Rivaroxaban 10 Mg Tablet PO 03/30/24 09:59 20 mg DAILY BRADY Administration Discontinued Medications Generic Name Dose Route Start Last Admin Trade Name Freq PRN Reason Stop Dose Admin Glipizide 5 mg 02/29/24 08:00 Glipizide 5 Mg Tablet PO 03/30/24 07:59 BREAKFAST BRADY Hydralazine HCl 10 mg 02/28/24 18:32 02/28/24 19:03 Hydralazine Hcl 20 Mg/Ml Vial IV 02/28/24 18:33 10 mg STAT ONE Administration Hydralazine HCl Confirm 02/28/24 18:33 Hydralazine Hcl 20 Mg/Ml Vial Administered 02/28/24 18:34 Dose 20 mg .ROUTE .STK-MED ONE Sodium Chloride 1,000 mls @ 100 mls/hr 02/29/24 06:45 02/29/24 08:49 Sodium Chloride 0.9% 1000 Ml IV 03/30/24 06:44 Not Given .Q10H BRADY Insulin Glargine 20 unit 02/29/24 06:34 02/29/24 08:50 Insulin Glargine 1 Unit SQ 03/30/24 06:33 Not Given QAM BRADY Lorazepam 1 mg 02/28/24 16:03 02/28/24 16:33 Lorazepam 1 Mg Tablet PO 02/28/24 16:04 1 mg STAT ONE Administration Lorazepam Confirm 02/28/24 16:33 Lorazepam 1 Mg Tablet Administered 02/28/24 16:34 Dose 1 mg .ROUTE .STK-MED ONE Potassium Chloride 40 meq 02/28/24 20:51 02/28/24 21:30 Potassium Chloride Tab 10 Meq Tab PO 02/28/24 20:52 40 meq STAT ONE Administration Lab/Rad Data: Laboratory Result Diagrams 02/28/24 14:44 02/28/24 14:44 Laboratory Results 02/28/24 02/28/24 02/28/24 Range/Units 18:00 16:43 15:24 WBC (3.98-10.04) x10^3/uL RBC (3.93-5.22) x10^6/uL Hgb (11.2-15.7) g/dL Hct (34.1-44.9) % MCV (79.4-94.8) fL MCH (25.6-32.2) pg MCHC (32.2-35.5) g/dL RDW (11.7-14.4) % Plt Count (182-369) x10^3/uL MPV (9.4-12.3) fL Segmented Neutrophils (34.0-71.1) % Lymphocytes (Manual) (19.3-51.7) % Monocytes (Manual) (4.7-12.5) % Basophils (Manual) (0.1-1.2) % Platelet Estimate (NORMAL) RBC Morphology Sodium (135-145) mmol/L Potassium (3.5-5.1) mmol/L Chloride (98-107) mmol/L Carbon Dioxide (22-30) mmol/L Anion Gap (5-15) MEQ/L BUN (7-17) mg/dL Creatinine (0.52-1.04) mg/dL Estimated GFR ML/MIN Glucose (74-106) mg/dL Lactic Acid 1.9 (0.4-2.0) Calcium (8.4-10.2) mg/dL Magnesium (1.6-2.3) mg/dL Total Bilirubin (0.2-1.3) mg/dL AST (14-36) U/L ALT (0-35) U/L Alkaline Phosphatase (38-126) U/L Troponin I 0.017 (0.000-0.033) ng/mL Serum Total Protein (6.3-8.2) g/dL Albumin (3.5-5.0) g/dL Urine Color Yellow (Yellow) Urine Appearance Clear (Clear) Urine pH 6.0 (4.6-8.0) Ur Specific [place] <=1.005 (1.005-1.030) Urine Protein Trace A (Negative) Urine Glucose (UA) Negative (Negative) mg/dL Urine Ketones Negative (Negative) Urine Blood Negative (Negative) Urine Nitrite Negative (Negative) Urine Bilirubin Negative (Negative) Urine Urobilinogen 0.2 (0.2) mg/dL Ur Leukocyte Esterase Negative (Negative) U Hyaline Cast (Auto) NONE SEEN (0-2) /LPF Urine Microscopic RBC 0-2 (0-5) /HPF Urine Microscopic WBC 0-2 (0-5) /HPF Ur Epithelial Cells None Seen (None Seen) /HPF Urine Bacteria None Seen (None Seen) /HPF Urine Culture Reflexed NO (NO) 02/28/24 02/28/24 02/28/24 Range/Units 14:44 14:44 14:44 WBC 9.4 (3.98-10.04) x10^3/uL RBC 4.45 (3.93-5.22) x10^6/uL Hgb 12.0 (11.2-15.7) g/dL Hct 37.4 (34.1-44.9) % MCV 84.0 (79.4-94.8) fL MCH 27.0 (25.6-32.2) pg MCHC 32.1 L (32.2-35.5) g/dL RDW 13.7 (11.7-14.4) % Plt Count 415 H (182-369) x10^3/uL MPV 8.9 L (9.4-12.3) fL Segmented Neutrophils 76 H (34.0-71.1) % Lymphocytes (Manual) 17 L (19.3-51.7) % Monocytes (Manual) 6 (4.7-12.5) % Basophils (Manual) 1 (0.1-1.2) % Platelet Estimate NORMAL (NORMAL) RBC Morphology NORMAL Sodium 137 (135-145) mmol/L Potassium 3.2 L (3.5-5.1) mmol/L Chloride 102 (98-107) mmol/L Carbon Dioxide 21 L (22-30) mmol/L Anion Gap 18.3 H (5-15) MEQ/L BUN 18 H (7-17) mg/dL Creatinine 1.07 H (0.52-1.04) mg/dL Estimated GFR 56.9 ML/MIN Glucose 133 H (74-106) mg/dL Lactic Acid (0.4-2.0) Calcium 9.5 (8.4-10.2) mg/dL Magnesium 1.5 L (1.6-2.3) mg/dL Total Bilirubin 0.20 (0.2-1.3) mg/dL AST 27 (14-36) U/L ALT 35 (0-35) U/L Alkaline Phosphatase 75 (38-126) U/L Troponin I 0.017 (0.000-0.033) ng/mL Serum Total Protein 7.4 (6.3-8.2) g/dL Albumin 4.4 (3.5-5.0) g/dL Urine Color (Yellow) Urine Appearance (Clear) Urine pH (4.6-8.0) Ur Specific [place] (1.005-1.030) Urine Protein (Negative) Urine Glucose (UA) (Negative) mg/dL Urine Ketones (Negative) Urine Blood (Negative) Urine Nitrite (Negative) Urine Bilirubin (Negative) Urine Urobilinogen (0.2) mg/dL Ur Leukocyte Esterase (Negative) U Hyaline Cast (Auto) (0-2) /LPF Urine Microscopic RBC (0-5) /HPF Urine Microscopic WBC (0-5) /HPF Ur Epithelial Cells (None Seen) /HPF Urine Bacteria (None Seen) /HPF Urine Culture Reflexed (NO) 02/28/24 Range/Units 14:40 WBC (3.98-10.04) x10^3/uL RBC (3.93-5.22) x10^6/uL Hgb (11.2-15.7) g/dL Hct (34.1-44.9) % MCV (79.4-94.8) fL MCH (25.6-32.2) pg MCHC (32.2-35.5) g/dL RDW (11.7-14.4) % Plt Count (182-369) x10^3/uL MPV (9.4-12.3) fL Segmented Neutrophils (34.0-71.1) % Lymphocytes (Manual) (19.3-51.7) % Monocytes (Manual) (4.7-12.5) % Basophils (Manual) (0.1-1.2) % Platelet Estimate (NORMAL) RBC Morphology Sodium (135-145) mmol/L Potassium (3.5-5.1) mmol/L Chloride (98-107) mmol/L Carbon Dioxide (22-30) mmol/L Anion Gap (5-15) MEQ/L BUN (7-17) mg/dL Creatinine (0.52-1.04) mg/dL Estimated GFR ML/MIN Glucose (74-106) mg/dL Lactic Acid 2.3 H (0.4-2.0) Calcium (8.4-10.2) mg/dL Magnesium (1.6-2.3) mg/dL Total Bilirubin (0.2-1.3) mg/dL AST (14-36) U/L ALT (0-35) U/L Alkaline Phosphatase (38-126) U/L Troponin I (0.000-0.033) ng/mL Serum Total Protein (6.3-8.2) g/dL Albumin (3.5-5.0) g/dL Urine Color (Yellow) Urine Appearance (Clear) Urine pH (4.6-8.0) Ur Specific [place] (1.005-1.030) Urine Protein (Negative) Urine Glucose (UA) (Negative) mg/dL Urine Ketones (Negative) Urine Blood (Negative) Urine Nitrite (Negative) Urine Bilirubin (Negative) Urine Urobilinogen (0.2) mg/dL Ur Leukocyte Esterase (Negative) U Hyaline Cast (Auto) (0-2) /LPF Urine Microscopic RBC (0-5) /HPF Urine Microscopic WBC (0-5) /HPF Ur Epithelial Cells (None Seen) /HPF Urine Bacteria (None Seen) /HPF Urine Culture Reflexed (NO) - Progress Progress: improved Progress Note: 02/28/24 18:32 68-year-old is evaluated in the ER for right hand weakness where she dropped her keys and a glass with some confusion earlier at the restaurant which improved on presentation in the ER. Patient does not have any focal neurodeficit on presentation but very anxious. She is made stroke activated, prompt CT head is obtained which is negative. Prompt neurology consult obtained and neurologist do not think patient needs any intervention, recommended obtaining CTAs to make sure she does not have any large vessel occlusion which seems less likely. Her chemistries showed some element of dehydration and mildly low magnesium/potassium but has negative troponin and EKG is no acute ischemic changes or arrhythmias. Patient is also anticoagulated on Xarelto and is not a candidate for any kind of thrombolysis. Discussed with Dr. Forde, reviewed history, workup and agreed with admission, CTAs are pending and hospitalist will follow-up with results.. Counseled pt/family regarding: lab results, diagnosis, rad results Medical Desision Making - Discussion of managment Care discussed with:: hospitalist Reviewed:: Test results Agreed on:: Treatment plan, place in obs Will see patient: in hospital - Diagnostic Testing Diagnostic test were ordered, analyzed, and reviewed by me: Yes Radiological Interpretation: Reviewed by me - Risk of complications The pt has a mod risk of morbidity or mortality based on: Need for prescription drug management The pt has a high risk of morbidity or mortality based on: Decision regarding hospitilization or escalation of hosp level of care - Departure Departure Disposition: Observation Clinical Impression: TIA (transient ischemic attack) Condition: Stable Critical Care Time: No
[2024-02-28] MEDS ORDERED: APRESOLINE 20 MG/ML INJ ONE (18:33)
[2024-02-28] MEDS: APRESOLINE 20 MG/ML INJ IV ONE (18:34)
--- NOTE | 2024-02-28 20:23 | PCM.HP ---
History of Present Illness - Chief Complaint Chief Complaint: TIA Date: 02/28/24 History of Present Illness: 68 years old very pleasant lady with past medical history significant for diabetes mellitus type 2 hypertension hyperlipidemia on Xarelto for 3 years, prior history of PE, prior history of TIA without any residual deficit came to the ER with strokelike symptoms. Patient told me she was doing great until this morning when she went to restaurant to grab food for her . While she was going to restroom she felt extremely weak confused unable to speak and she felt her feet got numb. He told that these type of symptoms she experienced normally when blood sugar goes down but in the restaurant she did not get a chance to check her blood sugar. In the ER the initial blood pressure was 178/100 she was afebrile with pulse of 78 ,Code Stroke initated ,CT head remained totally unremarkable. As far as blood workup concern all came out negative except blood sugar was running very high 415. Potassium 3.2 lactic acid 1.9 troponin unremarkable urine was clear initial lactate was 2.3 urology consult obtained and neurology do not think that patient needs any intervention recommending obtaining CTA to make sure she does not have any large vessel obstruction that seems less likely. She is also admitted to get MRI in the morning. - Review of Systems All Other Systems: Reviewed and Negative (14 systems reviewed and marked ve except mentioned in [facility]) Medications & Allergies Home Medications: Home Medication List Metformin HCl 850 mg [Glucophage 850 MG] 850 mg PO BID 01/18/20 [History Confirmed 02/28/24] Omeprazole 20 mg PO DAILY 08/01/22 [History Confirmed 02/28/24] Glipizide 5 mg [Glucotrol 5 MG] 5 mg PO DAILY 08/28/23 [History Confirmed 02/28/24] Metoprolol Succinate 25 mg PO DAILY 08/28/23 [History Confirmed 02/28/24] Carvedilol 3.125 mg [Coreg 3.125 MG] 3.125 mg PO BID 10/22/23 [History Confirmed 02/28/24] Furosemide 20 mg [Lasix 20 mg] 20 mg PO DAILY 10/22/23 [History Confirmed 02/28/24] Hydroxyzine HCl 25 mg [Atarax 25 mg] 25 mg PO TIDPRN PRN 10/22/23 [History Confirmed 02/28/24] Oxycodone/APAP 5 mg/325 mg [Percocet Tablet 5/325Mg] 1 tab PO TID PRN 10/22/23 [History Confirmed 02/28/24] Rivaroxaban [Xarelto] 20 mg PO DAILY 10/22/23 [History Confirmed 02/28/24] cloNIDine HCL [Clonidine HCl] 0.2 mg PO HS 10/22/23 [History Confirmed 02/28/24] Allergies/Adverse Reactions: Allergies Allergy/AdvReac Type Severity Reaction Status Date / Time morphine Allergy Severe Irregular Verified 02/17/24 14:57 Heart Beat Sulfa (Sulfonamide Allergy Intermediate Hives Verified 02/17/24 14:57 Antibiotics) sulfamethoxazole Allergy Intermediate Hives Verified 02/17/24 14:57 [From Bactrim] trimethoprim [From Bactrim] Allergy Intermediate Hives Verified 02/17/24 14:57 fluoxetine HCl [From Prozac] AdvReac Intermediate homicidal Verified 02/17/24 14:57 thoughts - Past Medical History Past Medical History: Yes Neurological History: Stroke ENT History: No Pertinent History Cardiac History: Coronary Artery Disease, Hypertension, Myocardial Infarction (DE) Respiratory History: Asthma, COPD Endocrine Medical History: Diabetes Type II Musculoskelatal History: Arthritis, Fibromyalgia, Osteoporosis GI Medical History: Ulcer, Other History: No Pertinent History Pyscho-Social History: Anxiety, Panic Disorder Reproductive Disorders: Ovarian Cancer, Uterine Cancer Comment: PATIENT REPORTS 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 SHE REPORTS SHE WAS DX'D WITH [facility] BY ~2 YEARS AGO. HOWEVER, PATIENT STATES HER PD MEDICATIONS WERE STOPPED AFTER HER 2ND CVA AND SHE HAS NOT BEEN BACK TO NEUROLOGIST TO DISCUSS MEDICATIONS. ANXIETY, PVD, GERD, HX OF CATARACTS REMOVED, [place]'S DISEASE WITH BONE REMOVAL IN R ARM, 3 BOWEL BLOCKAGES WITH LAST ONE IN 2019 REQUIRING REMOVAL OF PARTIAL SMALL INTESTINE AND LARGE INSTESTINE, HYSTERECTOMY. APPENDICITIS, GALL BLADDER REMOVAL, T&A REMOVAL. SHE REPORTS IN 2019 SHE FELL AND BROKE HER R HIP WITH CONSERVATIVE MEASURES AND MARCH 2019 SHE FELL AND BROKE HER R COLLAR BONE (7 PINS) REQUIRING SX. - Past Surgical History Past Surgical History: Yes Neuro Surgical History: No Pertinent History Cardiac History: Cardiac Catheterization Respiratory Surgery: No Pertinent History GI Surgical History: Appendectomy, Bowel Surgery, Cholecystectomy, Hernia Repair Genitourinary Surgical Hx: No Pertinent History Musculskeletal Surgical Hx: No Pertinent History Female Surgical History: Hysterectomy, Tubal Ligation Other Surgical History: bone auto graft to wrist, collar bone surgery, heart cath. bowel obstruction x3 HX OF BLOOD TRANSFUSIONS Significant Family History: no pertinent family hx - Social History Smoking Status: Former smoker How long have you smoked: "22 years" Exposure to second hand smoke: No Alcohol: None Drug Use: none - Social Determinants of Health Will the patient participate in the screening: Yes Do you worry about a steady place to live?: No Do you have any problems with any of the following?: No known problems In the past 12 months,have you had to go without utilities?: No Have you or anyone in your house had to go without enough: No Transportation Issues: No Has anyone in your support network made you feel unsafe?: No Does the patient want assistance with any of the above?: No - Physical Exam Vital Signs: Vital Signs - 24 hr Temp Pulse Resp BP BP Pulse Ox 02/28/24 19:51 97.1 F 85 19 188/86 95 02/28/24 19:30 90 25 H 154/99 95 02/28/24 19:13 84 22 191/94 99 02/28/24 18:39 97 02/28/24 18:10 83 24 93 L 02/28/24 18:06 88 02/28/24 17:30 211/94 02/28/24 17:29 188/108 98 02/28/24 17:28 213/100 88 L 02/28/24 17:20 97 02/28/24 17:10 98 02/28/24 17:03 96 02/28/24 16:58 169/96 98 02/28/24 16:00 181/103 98 02/28/24 15:32 75 23 197/99 97 02/28/24 15:02 80 21 189/98 97 02/28/24 14:24 97.4 F 78 178/100 98 Additional Findings: 02/28/24 20:22 HEENT middle aged, average built in no distress NECK Supple,no thyromegaly, CVS S1+S2 + 0, no murmers RESP Bilateral equal air entry without Crepts/Wheezes heard GIT Soft non tender,non distended Skin, No rah, no Bruises LEGS No Edema PSYCH Normal,mood, judgement and insight NEURO AOX3, no focal deficit Results - Labs Lab/Micro Results: Lab Results-Last 24 Hours 02/28/24 02/28/24 02/28/24 Range/Units 14:40 14:44 14:44 WBC 9.4 (3.98-10.04) x10^3/uL RBC 4.45 (3.93-5.22) x10^6/uL Hgb 12.0 (11.2-15.7) g/dL Hct 37.4 (34.1-44.9) % MCV 84.0 (79.4-94.8) fL MCH 27.0 (25.6-32.2) pg MCHC 32.1 L (32.2-35.5) g/dL RDW 13.7 (11.7-14.4) % Plt Count 415 H (182-369) x10^3/uL MPV 8.9 L (9.4-12.3) fL Segmented Neutrophils 76 H (34.0-71.1) % Lymphocytes (Manual) 17 L (19.3-51.7) % Monocytes (Manual) 6 (4.7-12.5) % Basophils (Manual) 1 (0.1-1.2) % Platelet Estimate NORMAL (NORMAL) RBC Morphology NORMAL Sodium 137 (135-145) mmol/L Potassium 3.2 L (3.5-5.1) mmol/L Chloride 102 (98-107) mmol/L Carbon Dioxide 21 L (22-30) mmol/L Anion Gap 18.3 H (5-15) MEQ/L BUN 18 H (7-17) mg/dL Creatinine 1.07 H (0.52-1.04) mg/dL Estimated GFR 56.9 ML/MIN Glucose 133 H (74-106) mg/dL Lactic Acid 2.3 H (0.4-2.0) Calcium 9.5 (8.4-10.2) mg/dL Magnesium 1.5 L (1.6-2.3) mg/dL Total Bilirubin 0.20 (0.2-1.3) mg/dL AST 27 (14-36) U/L ALT 35 (0-35) U/L Alkaline Phosphatase 75 (38-126) U/L Troponin I (0.000-0.033) ng/mL Serum Total Protein 7.4 (6.3-8.2) g/dL Albumin 4.4 (3.5-5.0) g/dL Urine Color (Yellow) Urine Appearance (Clear) Urine pH (4.6-8.0) Ur Specific [place] (1.005-1.030) Urine Protein (Negative) Urine Glucose (UA) (Negative) mg/dL Urine Ketones (Negative) Urine Blood (Negative) Urine Nitrite (Negative) Urine Bilirubin (Negative) Urine Urobilinogen (0.2) mg/dL Ur Leukocyte Esterase (Negative) U Hyaline Cast (Auto) (0-2) /LPF Urine Microscopic RBC (0-5) /HPF Urine Microscopic WBC (0-5) /HPF Ur Epithelial Cells (None Seen) /HPF Urine Bacteria (None Seen) /HPF Urine Culture Reflexed (NO) 02/28/24 02/28/24 02/28/24 Range/Units 14:44 15:24 16:43 WBC (3.98-10.04) x10^3/uL RBC (3.93-5.22) x10^6/uL Hgb (11.2-15.7) g/dL Hct (34.1-44.9) % MCV (79.4-94.8) fL MCH (25.6-32.2) pg MCHC (32.2-35.5) g/dL RDW (11.7-14.4) % Plt Count (182-369) x10^3/uL MPV (9.4-12.3) fL Segmented Neutrophils (34.0-71.1) % Lymphocytes (Manual) (19.3-51.7) % Monocytes (Manual) (4.7-12.5) % Basophils (Manual) (0.1-1.2) % Platelet Estimate (NORMAL) RBC Morphology Sodium (135-145) mmol/L Potassium (3.5-5.1) mmol/L Chloride (98-107) mmol/L Carbon Dioxide (22-30) mmol/L Anion Gap (5-15) MEQ/L BUN (7-17) mg/dL Creatinine (0.52-1.04) mg/dL Estimated GFR ML/MIN Glucose (74-106) mg/dL Lactic Acid 1.9 (0.4-2.0) Calcium (8.4-10.2) mg/dL Magnesium (1.6-2.3) mg/dL Total Bilirubin (0.2-1.3) mg/dL AST (14-36) U/L ALT (0-35) U/L Alkaline Phosphatase (38-126) U/L Troponin I 0.017 (0.000-0.033) ng/mL Serum Total Protein (6.3-8.2) g/dL Albumin (3.5-5.0) g/dL Urine Color Yellow (Yellow) Urine Appearance Clear (Clear) Urine pH 6.0 (4.6-8.0) Ur Specific [place] <=1.005 (1.005-1.030) Urine Protein Trace A (Negative) Urine Glucose (UA) Negative (Negative) mg/dL Urine Ketones Negative (Negative) Urine Blood Negative (Negative) Urine Nitrite Negative (Negative) Urine Bilirubin Negative (Negative) Urine Urobilinogen 0.2 (0.2) mg/dL Ur Leukocyte Esterase Negative (Negative) U Hyaline Cast (Auto) NONE SEEN (0-2) /LPF Urine Microscopic RBC 0-2 (0-5) /HPF Urine Microscopic WBC 0-2 (0-5) /HPF Ur Epithelial Cells None Seen (None Seen) /HPF Urine Bacteria None Seen (None Seen) /HPF Urine Culture Reflexed NO (NO) 02/28/24 Range/Units 18:00 WBC (3.98-10.04) x10^3/uL RBC (3.93-5.22) x10^6/uL Hgb (11.2-15.7) g/dL Hct (34.1-44.9) % MCV (79.4-94.8) fL MCH (25.6-32.2) pg MCHC (32.2-35.5) g/dL RDW (11.7-14.4) % Plt Count (182-369) x10^3/uL MPV (9.4-12.3) fL Segmented Neutrophils (34.0-71.1) % Lymphocytes (Manual) (19.3-51.7) % Monocytes (Manual) (4.7-12.5) % Basophils (Manual) (0.1-1.2) % Platelet Estimate (NORMAL) RBC Morphology Sodium (135-145) mmol/L Potassium (3.5-5.1) mmol/L Chloride (98-107) mmol/L Carbon Dioxide (22-30) mmol/L Anion Gap (5-15) MEQ/L BUN (7-17) mg/dL Creatinine (0.52-1.04) mg/dL Estimated GFR ML/MIN Glucose (74-106) mg/dL Lactic Acid (0.4-2.0) Calcium (8.4-10.2) mg/dL Magnesium (1.6-2.3) mg/dL Total Bilirubin (0.2-1.3) mg/dL AST (14-36) U/L ALT (0-35) U/L Alkaline Phosphatase (38-126) U/L Troponin I 0.017 (0.000-0.033) ng/mL Serum Total Protein (6.3-8.2) g/dL Albumin (3.5-5.0) g/dL Urine Color (Yellow) Urine Appearance (Clear) Urine pH (4.6-8.0) Ur Specific [place] (1.005-1.030) Urine Protein (Negative) Urine Glucose (UA) (Negative) mg/dL Urine Ketones (Negative) Urine Blood (Negative) Urine Nitrite (Negative) Urine Bilirubin (Negative) Urine Urobilinogen (0.2) mg/dL Ur Leukocyte Esterase (Negative) U Hyaline Cast (Auto) (0-2) /LPF Urine Microscopic RBC (0-5) /HPF Urine Microscopic WBC (0-5) /HPF Ur Epithelial Cells (None Seen) /HPF Urine Bacteria (None Seen) /HPF Urine Culture Reflexed (NO) - Radiology Impressions Radiology Exams & Impressions: Radiology Procedures Category Date Time Status CHEST 1 VIEW (PORTABLE) Stat Exams 02/28/24 14:[address] ANGIOGRAPHY NECK [CT] Stat Exams 02/28/24 14:58 Taken CTA HEAD W AND/OR WO CONTRAST [CT] Stat Exams 02/28/24 14:58 Taken HEAD WITHOUT CONTRAST [CT] Stat Exams 02/28/24 14:13 Completed - Other Procedures and Tests Respiratory Therapy 02/28/24 19:41 Respiratory Therapy Consult ONCE Assessment/Plan (1) TIA (transient ischemic attack) Current Visit: Yes Status: Acute Code(s): G45.9 - TRANSIENT CEREBRAL ISCHEMIC ATTACK, UNSPECIFIED (2) Hypertension Current Visit: No Status: Chronic Code(s): I10 - ESSENTIAL (PRIMARY) HYPERTENSION (3) Diabetes Current Visit: No Status: Chronic Code(s): E11.9 - TYPE 2 DIABETES MELLITUS WITHOUT COMPLICATIONS Telemedicine Encounter - Telemedicine Encounter Telemedicine Encounter: The entirety of this encounter was performed via Telemedicine This visit was performed using real-time audio and video connection between my location and thepatients locationwith the assistance of a surrogateat the patients location. Written or verbal consent was obtained from the patient/guardian to perform this visit using[employer] technology. Any patient questions regarding the telemedicine interaction were answered. Acute strokelike symptoms Admitted with sudden onset of speech problem, then feeling extreme weakness CT has been completely unremarkable Recommended to get CT-A and MRI Neurochecks every 4 hrly Continue telemonitoring overnight Hypertension, Initial blood pressure was running around 178/100 in ER I will keep holding her blood pressure meds until ruled out stroke by MRI Diabetes mellitus type 2 with hyperglycemia Increased AG ,will check Beta hydroxybuterate Will give her gentle hydration Continue sliding scale coverage, will add lantus 20 units Will resume home antidiabetics except metformin Chronic anticoagulation Patient is on Xarelto for 3 years Will resume Prior history of TIA Without any residual deficit Will resume home aspirin and statins Panic attacks Will start hydroxyzine 25 mg every 6 hours as per need Will resume home meds History of PE 2 years ago Pt on xarelto DVT prophylaxis SCD/Xarelto CODE STATUS full Discharge planning pending clinical stability but I have reviewed patient lab vitals and imaging in detail all question and concerns were addressed
[2024-02-28] MEDS ORDERED: HUMALOG SQ PRN (20:44)
[2024-02-28 21:02] LABS: ANION GAP 16.2 MEQ/L (5-15); Calcium 9.7 mg/dL (8.4-10.2); Creatinine 1 0.89 mg/dL (0.52-1.04); Potassium 3.2 mmol/L (3.5-5.1)
[2024-02-28] MEDS: ATARAX 25 MG PO PRN (21:30)
[2024-02-28] MEDS: Klor Con PO ONE (21:30)
[2024-02-28] MEDS: PERCOCET TABLET 5/325MG PO PRN (21:30)
--- NOTE | 2024-02-28 22:08 | XRAY ---
Indication: Stroke symptoms. History of stroke. Conventional contrast enhanced CTA neck performed using 80 cc of Isovue-370 contrast. 2-D sagittal and coronal reformatted images obtained. Additional 3-D reformatted images obtained using separate workstation. Comparison: None Visualized aortic arch mildly arteriosclerotic without aneurysm/dissection. Normal branching right brachiocephalic, left common carotid, and left subclavian arteries with minimal calcifications at their origins. Examination left carotid circulation demonstrates minimal eccentric arteriosclerotic calcification mid common carotid artery. Moderate circumferential calcifications at the level of the bulb slightly extending into the origin external carotid artery. Entire internal carotid artery is occluded. Examination right carotid circulation demonstrates widely patent common carotid artery. Carotid bulb demonstrates moderate calcifications extending into origin of internal carotid and external carotid arteries producing less than 50% stenosis. Vertebral arteries are bilaterally patent with the left slightly larger in caliber. Visualized noncontrasted soft tissues are negative for pathologic cervical or supraclavicular lymphadenopathy. Thyroid gland enhances without focal solid nodule. Parotid and submandibular glands are bilaterally symmetric. Supra and infraglottic airway widely patent. Lung apices clear. Osseous structures intact with osteopenia and mild/moderate C3-T1 degenerative spondylosis greatest at C5-C6. Incidental partially visualized old right clavicle fracture with orthopedic hardware. Patient is edentulous. Impression: 1. Left carotid circulation demonstrates minimal calcification in common carotid artery. Moderate calcifications in carotid bulb and origin external carotid artery. Total occlusion internal carotid artery. 2. Right carotid circulation demonstrates microcalcifications in carotid bulb and origin internal carotid/external carotid arteries without critical stenosis/obstruction. 3. Bilaterally patent vertebral arteries with dominant left vertebral artery. 4. Incidental chronic bony findings.
--- NOTE | 2024-02-28 22:13 | XRAY ---
Indication: Stroke symptoms. History of stroke. Conventional contrast enhanced CTA head performed using 80 cc of Isovue-370 contrast. 2-D sagittal and coronal reformatted images obtained. Additional 3-D reformatted images obtained using separate workstation. Comparison: None Distal internal carotid arteries demonstrates total occlusion entire left internal carotid artery. Right internal carotid artery demonstrates mild scattered parasellar calcifications without critical stenosis or obstruction. Normal right carotid terminus with normal branching A1 and M1 segments. Left anterior and left middle cerebral arteries are supplied via patent [place]ocha dehe of [place]. Posterior circulation demonstrates minimal calcifications distal right vertebral artery and widely patent distal left vertebral artery. Normal CTA appearance to the basilar, left/right posterior cerebral, and left/right superior cerebellar arteries. Venous sinus/drainage unremarkable. Brain parenchyma is negative for abnormal enhancing intra or extra-axial mass. Impression: 1. 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 Left anterior and left middle cerebral artery supplied via patent [place] dehe of [place]. 2. Mild scattered arteriosclerotic calcifications in right internal carotid artery without critical stenosis/obstruction. 3. Remaining CTA head with contrast exam is negative.
[2024-02-29 05:07] LABS: Hemoglobin 11.7 g/dL (11.2-15.7); Mean Cell Volume 82.9 fL (79.4-94.8); Mean Corpuscular Hgb Concent. 32.5 g/dL (32.2-35.5); Mean Platelet Volume 8.9 fL (9.4-12.3); Platelet Count 394 x10^3/uL (182-369); Red Blood Count 4.34 x10^6/uL (3.93-5.22); Red Cell Distribution Width 13.9 % (11.7-14.4); White Blood Count 9.1 x10^3/uL (3.98-10.04)
[2024-02-29 05:16] LABS: ANION GAP 14.8 MEQ/L (5-15); Calcium 9.6 mg/dL (8.4-10.2); Creatinine 1 1.02 mg/dL (0.52-1.04); EST GLOMERULAR FILTRATION RATE 60.3 ML/MIN; Potassium 3.7 mmol/L (3.5-5.1)
[2024-02-29] MEDS: APRESOLINE 20 MG/ML INJ IV PRN (07:22)
[2024-02-29] MEDS ORDERED: Glucotrol 5 MG PO SCH (08:00)
[2024-02-29] MEDS: Zofran 4 MG/2 ML VIAL IV PRN (08:03)
[2024-02-29] MEDS: Sodium Chloride 0.9% 1000 ML 1,000 ML IV SCH (08:49)
[2024-02-29] MEDS: Lantus Insulin SQ SCH (08:50)
--- NOTE | 2024-02-29 09:28 | XRAY ---
Indication: Altered mental status. Vane in: October 21, 2023 Portable chest remains hyperinflated and clear. Again chronic elevation right hemidiaphragm. Heart not enlarged. Bony thorax intact again with osteopenia, degenerative changes, old bilateral clavicle fractures, and old left rib fractures. Impression: Continued nonacute chest with chronic features.
[2024-02-29] MEDS: XARELTO 10 MG TABLET PO SCH (10:12)
[2024-02-29] MEDS: Protonix 40MG Tablet PO SCH (10:12)
--- NOTE | 2024-02-29 13:47 | PCM.NOTE ---
Date and Time: 02/29/24 1330 Subjective Assessment: History of Present Illness: 68 years old very pleasant lady with past medical history significant for diab etes mellitus type 2 hypertension hyperlipidemia on Xarelto for 3 years, prior history of PE, prior history of TIA without any residual deficit came to the ER with stroke-like symptoms. Patient told me she was doing great until this morning when she went to restaurant to grab food for her . While she was going to restroom she felt extremely weak confused unable to speak and she felt her feet got numb. Similar symptoms when blood sugar is low. She did not get a chance to check her blood sugar during this time. In the ER the initial blood pressure was 178/100 she was afebrile with pulse of 78 ,Code Stroke initated ,CT head with no acute findings. Lab findings remarkable for plt count at 415, acidosis with co2 at 21 - no resolved, potassium 3.2 - now resolved, lactic acid 2.3 -now normal at 1.9, and magnesium at 1.5. Troponin unremarkable. Urine was clear. Neurology consulted with recommendations for further imaging including CTA H/N and MRI brain. 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 Right carotid negative for significant occlusion/stenosis. CXR with non-acute findings. MRI brain pending. 02/28: Met with patient bedside. RN reported overnight events blood pressure 224/99 this morning. Patient was given hydralazine IV with resultant noted improvement. She endorses headache, nausea, and vomiting this morning. She additionally re ports resolution of confusion and aphasia but states she has bilateral weakness and numbness of her hands and feet. 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 Sensation intact. Denies fever,cough, sob, cp, abdominal pain, vision changes, or dizziness. 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, normal mood/affect, nml station & gait, other (BUE strength 5/5 BLE strength 5/5), No sensory deficit, No motor weakness, No facial droop Skin Exam: pale Eye Exam: PERRL Ears, Nose, Throat Exam: normal ENT inspection Neck Exam: normal inspection Respiratory Exam: normal breath sounds, lungs clear Cardiovascular Exam: regular rate/rhythm, normal heart sounds Gastrointestinal/Abdomen Exam: soft, normal bowel sounds Extremity Exam: normal inspection Back Exam: normal inspection Pelvic Exam: deferred Rectal Exam: deferred Objective Data Vital Signs: Vital Signs - 24 hr Temp Pulse Resp BP BP Pulse Ox 02/29/24 12:00 99.1 F 123 H 18 140/62 94 L 02/29/24 08:00 97.5 F 101 H 22 184/93 97 02/29/24 07:07 97 02/29/24 04:00 88 17 164/92 94 L 02/29/24 00:00 98.1 F 97 H 20 138/70 93 L 02/28/24 21:05 80 16 96 02/28/24 19:51 97.1 F 85 19 188/86 95 02/28/24 19:30 90 25 H 154/99 95 02/28/24 19:13 84 22 191/94 99 02/28/24 18:39 97 02/28/24 18:10 83 24 93 L 02/28/24 18:06 88 02/28/24 17:30 211/94 02/28/24 17:29 188/108 98 02/28/24 17:28 213/100 88 L 02/28/24 17:20 97 02/28/24 17:10 98 02/28/24 17:03 96 02/28/24 16:58 169/96 98 02/28/24 16:00 181/103 98 02/28/24 15:32 75 23 197/99 97 02/28/24 15:02 80 21 189/98 97 02/28/24 14: 97.4 F 78 178/100 98 Pain Assessment - Last Documented Pain Intensity 10 Pain Scale Used 0-10 Pain Scale Intake and Output: Intake & Output 02/27/24 02/28/24 02/29/24 03/01/24 11:59 11:59 11:59 11:59 Intake Total 480 Output Total 800 Balance -320 Weight 70.6 kg Lab Results: Lab Results-Last 24 Hours 02/28/24 02/28/24 02/28/24 Range/Units 14:40 14:44 14:44 WBC 9.4 (3.98-10.04) x10^3/uL RBC 4.45 (3.93-5.22) x10^6/uL Hgb 12.0 (11.2-15.7) g/dL Hct 37.4 (34.1-44.9) % MCV 84.0 (79.4-94.8) fL MCH 27.0 (25.6-32.2) pg MCHC 32.1 L (32.2-35.5) g/dL RDW 13.7 (11.7-14.4) % Plt Count 415 H (182-369) x10^3/uL MPV 8.9 L (9.4-12.3) fL Segmented Neutrophils 76 H (34.0-71.1) % Lymphocytes (Manual) 17 L (19.3-51.7) % Monocytes (Manual) 6 (4.7-12.5) % Basophils (Manual) 1 (0.1-1.2) % Platelet Estimate NORMAL (NORMAL) RBC Morphology NORMAL Sodium 137 (135-145) mmol/L Potassium 3.2 L (3.5-5.1) mmol/L Chloride 102 (98-107) mmol/L Carbon Dioxide 21 L (22-30) mmol/L Anion Gap 18.3 H (5-15) MEQ/L BUN 18 H (7-17) mg/dL Creatinine 1.07 H (0.52-1.04) mg/dL Estimated GFR 56.9 ML/MIN Glucose 133 H (74-106) mg/dL POC Glucometer (74 to 106) mg/dL Lactic Acid 2.3 H (0.4-2.0) Calcium 9.5 (8.4-10.2) mg/dL Magnesium 1.5 L (1.6-2.3) mg/dL Total Bilirubin 0.20 (0.2-1.3) mg/dL AST 27 (14-36) U/L ALT 35 (0-35) U/L Alkaline Phosphatase 75 (38-126) U/L Troponin I (0.000-0.033) ng/mL Serum Total Protein 7.4 (6.3-8.2) g/dL Albumin 4.4 (3.5-5.0) g/dL Urine Color (Yellow) Urine Appearance (Clear) Urine pH (4.6-8.0) Ur Specific Ryan (1.005-1.030) Urine Protein (Negative) Urine Glucose (UA) (Negative) mg/dL Urine Ketones (Negative) Urine Blood (Negative) Urine Nitrite (Negative) Urine Bilirubin (Negative) Urine Urobilinogen (0.2) mg/dL Ur Leukocyte Esterase (Negative) U Hyaline Cast (Auto) (0-2) /LPF Urine Microscopic RBC (0-5) /HPF Urine Microscopic WBC (0-5) /HPF Ur Epithelial Cells (None Seen) /HPF Urine Bacteria (None Seen) /HPF Urine Culture Reflexed (NO) 02/28/24 02/28/24 02/28/24 Range/Units 14:44 15:24 16:43 WBC (3.98-10.04) x10^3/uL RBC (3.93-5.22) x10^6/uL Hgb (11.2-15.7) g/dL Hct (34.1-44.9) % MCV (79.4-94.8) fL MCH (25.6-32.2) pg MCHC (32.2-35.5) g/dL RDW (11.7-14.4) % Plt Count (182-369) x10^3/uL MPV (9.4-12.3) fL Segmented Neutrophils (34.0-71.1) % Lymphocytes (Manual) (19.3-51.7) % Monocytes (Manual) (4.7-12.5) % Basophils (Manual) (0.1-1.2) % Platelet Estimate (NORMAL) RBC Morphology Sodium (135-145) mmol/L Potassium (3.5-5.1) mmol/L Chloride (98-107) mmol/L Carbon Dioxide (22-30) mmol/L Anion Gap (5-15) MEQ/L BUN (7-17) mg/dL Creatinine (0.52-1.04) mg/dL Estimated GFR ML/MIN Glucose (74-106) mg/dL POC Glucometer (74 to 106) mg/dL Lactic Acid 1.9 (0.4-2.0) Calcium (8.4-10.2) mg/dL Magnesium (1.6-2.3) mg/dL Total Bilirubin (0.2-1.3) mg/dL AST (14-36) U/L ALT (0-35) U/L Alkaline Phosphatase (38-126) U/L Troponin I 0.017 (0.000-0.033) ng/mL Serum Total Protein (6.3-8.2) g/dL Albumin (3.5-5.0) g/dL Urine Color Yellow (Yellow) Urine Appearance Clear (Clear) Urine pH 6.0 (4.6-8.0) Ur Specific Ryan <=1.005 (1.005-1.030) Urine Protein Trace A (Negative) Urine Glucose (UA) Negative (Negative) mg/dL Urine Ketones Negative (Negative) Urine Blood Negative (Negative) Urine Nitrite Negative (Negative) Urine Bilirubin Negative (Negative) Urine Urobilinogen 0.2 (0.2) mg/dL Ur Leukocyte Esterase Negative (Negative) U Hyaline Cast (Auto) NONE SEEN (0-2) /LPF Urine Microscopic RBC 0-2 (0-5) /HPF Urine Microscopic WBC 0-2 (0-5) /HPF Ur Epithelial Cells None Seen (None Seen) /HPF Urine Bacteria None Seen (None Seen) /HPF Urine Culture Reflexed NO (NO) 02/28/24 02/28/24 02/28/24 Range/Units 18:00 20:00 20:00 WBC (3.98-10.04) x10^3/uL RBC (3.93-5.22) x10^6/uL Hgb (11.2-15.7) g/dL Hct (34.1-44.9) % MCV (79.4-94.8) fL MCH (25.6-32.2) pg MCHC (32.2-35.5) g/dL RDW (11.7-14.4) % Plt Count (182-369) x10^3/uL MPV (9.4-12.3) fL Segmented Neutrophils (34.0-71.1) % Lymphocytes (Manual) (19.3-51.7) % Monocytes (Manual) (4.7-12.5) % Basophils (Manual) (0.1-1.2) % Platelet Estimate (NORMAL) RBC Morphology Sodium 135 (135-145) mmol/L Potassium 3.2 L (3.5-5.1) mmol/L Chloride 101 (98-107) mmol/L Carbon Dioxide 21 L (22-30) mmol/L Anion Gap 16.2 H (5-15) MEQ/L BUN 16 (7-17) mg/dL Creatinine 0.89 (0.52-1.04) mg/dL Estimated GFR 71.0 ML/MIN Glucose 85 (74-106) mg/dL POC Glucometer (74 to 106) mg/dL Lactic Acid (0.4-2.0) Calcium 9.7 (8.4-10.2) mg/dL Magnesium (1.6-2.3) mg/dL Total Bilirubin (0.2-1.3) mg/dL AST (14-36) U/L ALT (0-35) U/L Alkaline Phosphatase (38-126) U/L Troponin I 0.017 0.018 (0.000-0.033) ng/mL Serum Total Protein (6.3-8.2) g/dL Albumin (3.5-5.0) g/dL Urine Color (Yellow) Urine Appearance (Clear) Urine pH (4.6-8.0) Ur Specific Ryan (1.005-1.030) Urine Protein (Negative) Urine Glucose (UA) (Negative) mg/dL Urine Ketones (Negative) Urine Blood (Negative) Urine Nitrite (Negative) Urine Bilirubin (Negative) Urine Urobilinogen (0.2) mg/dL Ur Leukocyte Esterase (Negative) U Hyaline Cast (Auto) (0-2) /LPF Urine Microscopic RBC (0-5) /HPF Urine Microscopic WBC (0-5) /HPF Ur Epithelial Cells (None Seen) /HPF Urine Bacteria (None Seen) /HPF Urine Culture Reflexed (NO) 02/28/24 02/29/24 02/29/24 Range/Units 22:08 04:50 04:50 WBC 9.1 (3.98-10.04) x10^3/uL RBC 4.34 (3.93-5.22) x10^6/uL Hgb 11.7 (11.2-15.7) g/dL Hct 36.0 (34.1-44.9) % MCV 82.9 (79.4-94.8) fL MCH 27.0 (25.6-32.2) pg MCHC 32.5 (32.2-35.5) g/dL RDW 13.9 (11.7-14.4) % Plt Count 394 H (182-369) x10^3/uL MPV 8.9 L (9.4-12.3) fL Segmented Neutrophils (34.0-71.1) % Lymphocytes (Manual) (19.3-51.7) % Monocytes (Manual) (4.7-12.5) % Basophils (Manual) (0.1-1.2) % Platelet Estimate (NORMAL) RBC Morphology Sodium 139 (135-145) mmol/L Potassium 3.7 (3.5-5.1) mmol/L Chloride 105 (98-107) mmol/L Carbon Dioxide 22 (22-30) mmol/L Anion Gap 14.8 (5-15) MEQ/L BUN 19 H (7-17) mg/dL Creatinine 1.02 (0.52-1.04) mg/dL Estimated GFR 60.3 ML/MIN Glucose 109 H (74-106) mg/dL POC Glucometer 130 H (74 to 106) mg/dL Lactic Acid (0.4-2.0) Calcium 9.6 (8.4-10.2) mg/dL Magnesium (1.6-2.3) mg/dL Total Bilirubin (0.2-1.3) mg/dL AST (14-36) U/L ALT (0-35) U/L Alkaline Phosphatase (38-126) U/L Troponin I (0.000-0.033) ng/mL Serum Total Protein (6.3-8.2) g/dL Albumin (3.5-5.0) g/dL Urine Color (Yellow) Urine Appearance (Clear) Urine pH (4.6-8.0) Ur Specific Ryan (1.005-1.030) Urine Protein (Negative) Urine Glucose (UA) (Negative) mg/dL Urine Ketones (Negative) Urine Blood (Negative) Urine Nitrite (Negative) Urine Bilirubin (Negative) Urine Urobilinogen (0.2) mg/dL Ur Leukocyte Esterase (Negative) U Hyaline Cast (Auto) (0-2) /LPF Urine Microscopic RBC (0-5) /HPF Urine Microscopic WBC (0-5) /HPF Ur Epithelial Cells (None Seen) /HPF Urine Bacteria (None Seen) /HPF Urine Culture Reflexed (NO) 02/29/24 02/29/24 Range/Units 07:42 08:34 WBC (3.98-10.04) x10^3/uL RBC (3.93-5.22) x10^6/uL Hgb (11.2-15.7) g/dL Hct (34.1-44.9) % MCV (79.4-94.8) fL MCH (25.6-32.2) pg MCHC (32.2-35.5) g/dL RDW (11.7-14.4) % Plt Count (182-369) x10^3/uL MPV (9.4-12.3) fL Segmented Neutrophils (34.0-71.1) % Lymphocytes (Manual) (19.3-51.7) % Monocytes (Manual) (4.7-12.5) % Basophils (Manual) (0.1-1.2) % Platelet Estimate (NORMAL) RBC Morphology Sodium (135-145) mmol/L Potassium (3.5-5.1) mmol/L Chloride (98-107) mmol/L Carbon Dioxide (22-30) mmol/L Anion Gap (5-15) MEQ/L BUN (7-17) mg/dL Creatinine (0.52-1.04) mg/dL Estimated GFR ML/MIN Glucose (74-106) mg/dL POC Glucometer 131 H 147 H (74 to 106) mg/dL Lactic Acid (0.4-2.0) Calcium (8.4-10.2) mg/dL Magnesium (1.6-2.3) mg/dL Total Bilirubin (0.2-1.3) mg/dL AST (14-36) U/L ALT (0-35) U/L Alkaline Phosphatase (38-126) U/L Troponin I (0.000-0.033) ng/mL Serum Total Protein (6.3-8.2) g/dL Albumin (3.5-5.0) g/dL Urine Color (Yellow) Urine Appearance (Clear) Urine pH (4.6-8.0) Ur Specific Ryan (1.005-1.030) Urine Protein (Negative) Urine Glucose (UA) (Negative) mg/dL Urine Ketones (Negative) Urine Blood (Negative) Urine Nitrite (Negative) Urine Bilirubin (Negative) Urine Urobilinogen (0.2) mg/dL Ur Leukocyte Esterase (Negative) U Hyaline Cast (Auto) (0-2) /LPF Urine Microscopic RBC (0-5) /HPF Urine Microscopic WBC (0-5) /HPF Ur Epithelial Cells (None Seen) /HPF Urine Bacteria (None Seen) /HPF Urine Culture Reflexed (NO) Radiology Exams: Radiology Procedures Category Date Time Status CHEST 1 VIEW (PORTABLE) Stat Exams 02/28/24 14:[address] ANGIOGRAPHY NECK [CT] Stat Exams 02/28/24 14:58 Completed CTA HEAD W AND/OR WO CONTRAST [CT] Stat Exams 02/28/24 14:58 Completed HEAD WITHOUT CONTRAST [CT] Stat Exams 02/28/24 14:13 Completed MRI BRAIN W/O CONTRAST [MRI] Routine Exams 02/29/24 13:00 Ordered Assessment/Plan (1) Stroke-like symptoms Current Visit: Yes Status: Acute Assessment & Plan: -Neurology consulted, appreciate recs - will obtain MRI -CTA H/N reviewed showing total occlusion of left internal carotid artery. Right carotid negative for significant occlusion/stenosis -CT Head with no acute findings -MRI pending - allow for permissive HTN -treat if SBP > 220 DBP >120 with prn hydralazine - hold bp meds 48-72 hours after admission -pt/ot/st eval -Resume xarelto -lipid panel -neuro checks -tele -further testing pending MRI results -lipid panel -statin Code(s): R29.90 - UNSPECIFIED SYMPTOMS AND SIGNS INVOLVING THE NERVOUS SYSTEM (2) Acidosis Current Visit: Yes Status: Acute Assessment & Plan: -Labs reviewed, co2 level at 21 on arrival - now resolved Code(s): E87.20 - ACIDOSIS, UNSPECIFIED (3) Hypertensive urgency Current Visit: No Status: Resolved Assessment & Plan: -see stroke-like symptoms Code(s): I16.0 - HYPERTENSIVE URGENCY (4) Hypomagnesemia Current Visit: Yes Status: Acute Assessment & Plan: -Mag level reviewed on admission and low at 1.5 - will recheck, replenish as appropriate Code(s): E83.42 - HYPOMAGNESEMIA (5) Hypokalemia Current Visit: Yes Status: Acute Assessment & Plan: -Potassium level reviewed on admission at 3.2, replenished, now resolved -Monitor lytes daily -tele Code(s): E87.6 - HYPOKALEMIA (6) Altered mental status Current Visit: Yes Status: Acute Assessment & Plan: -see stroke-like symptoms Code(s): R41.82 - ALTERED MENTAL STATUS, UNSPECIFIED (7) History of pulmonary embolism Current Visit: Yes Status: Acute Assessment & Plan: -on xarelto x 3years - will continue - patient states she is to start coumadin due to cost of xarelto- has not started rx yet Code(s): Z86.711 - PERSONAL HISTORY OF PULMONARY EMBOLISM (8) Headache Current Visit: No Status: Acute Assessment & Plan: -chronic - worsening today -CT head negative -MRI pending -pain control Code(s): R51.9 - HEADACHE, UNSPECIFIED (9) Hypertension Current Visit: No Status: Chronic Code(s): I10 - ESSENTIAL (PRIMARY) HYPERTENSION (10) Type 2 diabetes mellitus Current Visit: No Status: Resolved Assessment & Plan: -SSI -ADA diet -accuchecks -A1c VTE: xarelto PPI: protonix Dispo: 1-2 days Code Status: Full code
--- NOTE | 2024-02-29 14:17 | XRAY ---
Indication: Stroke. Sagittal, coronal, and axial MRI brain performed without contrast using T1, T2, FLAIR, diffusion, and ADC sequences. Comparison: November 12, 2018 Several images/sequences slightly degraded by motion artifact. Again age-appropriate global atrophy and bilateral basal ganglia remote lacunar infarcts. Progressive worsening mild periventricular degenerative micro-ischemia signal bilaterally. Also progressive maturation previous left occipital lobe infarct. New remote lacunar infarct adjacent to left frontal horn. No acute intracranial hemorrhage, abnormal extra-axial fluid collection, or mass effect. Diffusion images negative for restricted signal. Fourth ventricle is midline without hydrocephalus. 7/8 cranial nerve complex bilaterally symmetric. Again signal in the visualized left internal carotid artery consistent with chronic total occlusion. Normal flow void signal within the remaining major intracerebral circulation. Normal appearing craniocervical junction and sella turcica. Impression: 1. Motion artifact. 2. Atrophy and degenerative micro-ischemia within normal limits. 3. Again remote infarct left occipital lobe. Also remote lacunar infarcts both basal ganglia and adjacent to left frontal horn. 4. Again chronic total occlusion left internal carotid artery. 5. No gross acute intracranial abnormalities or evidence for evolving large vessel territory stroke.
[2024-02-29] MEDS: LIPITOR 40MG PO SCH (15:54)
--- NOTE | 2024-03-01 04:59 | PCM.NOTE ---
Date and Time: 03/01/24 0457 Subjective Assessment: 68 years old very pleasant lady with past medical history significant for diabetes mellitus type 2 hypertension hyperlipidemia on Xarelto for 3 years, prior history of PE, prior history of TIA without any residual deficit came to the ER with stroke-like symptoms. Patient told me she was doing great until this morning when she went to restaurant to grab food for her . While she was going to restroom she felt extremely weak confused unable to speak and she felt her feet got numb. Similar symptoms when blood sugar is low. She did not get a chance to check her blood sugar during this time. In the ER the initial blood pressure was 178/100 she was afebrile with pulse of 78 ,Code Stroke initated ,CT head with no acute findings. Lab findings remarkable for plt count at 415, acidosis with co2 at 21 - no resolved, potassium 3.2 - now resolved, lactic acid 2.3 -now normal at 1.9, and magnesium at 1.5. Troponin unremarkable. Urine was clear. Neurology consulted with recommendations for further imaging including CTA H/N and MRI brain. 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 Right carotid negative for significant occlusion/stenosis. CXR with non-acute findings. MRI brain pending. 02/28: Met with patient bedside. RN reported overnight events blood pressure 224/99 this morning. Patient was given hydralazine IV with resultant noted improvement. She endorses headache, nausea, and vomiting this morning. She additionally reports resolution of confusion and aphasia but states she has bilateral weakness and numbness of her hands and feet. 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 Sensation intact. Denies fever,cough, sob, cp, abdominal pain, vision changes, or dizziness. Objective Data Vital Signs: Vital Signs - 24 hr Temp Pulse Resp BP BP Pulse Ox 03/01/24 03:00 97.7 F 85 17 141/92 95 02/29/24 23:00 97.8 F 74 18 169/83 96 02/29/24 20:00 97.5 F 84 20 173/74 97 02/29/24 19:25 95 02/29/24 16:26 97 02/29/24 16:00 98.2 F 98 H 18 102/56 93 L 02/29/24 12:00 99.1 F 123 H 18 140/62 94 L 02/29/24 08:00 97.5 F 101 H 22 184/93 97 02/29/24 07:07 97 Pain Assessment - Last Documented Pain Intensity 10 Pain Scale Used [facility] Intake and Output: Intake & Output 02/27/24 02/28/24 02/29/24 03/01/24 11:59 11:59 11:59 11:59 Intake Total 480 720 Output Total 800 550 Balance -320 170 Weight 70.6 kg Lab Results: Lab Results-Last 24 Hours 02/28/24 02/29/24 02/29/24 Range/Units 22:08 04:50 04:50 WBC 9.1 (3.98-10.04) x10^3/uL RBC 4.34 (3.93-5.22) x10^6/uL Hgb 11.7 (11.2-15.7) g/dL Hct 36.0 (34.1-44.9) % MCV 82.9 (79.4-94.8) fL MCH 27.0 (25.6-32.2) pg MCHC 32.5 (32.2-35.5) g/dL RDW 13.9 (11.7-14.4) % Plt Count 394 H (182-369) x10^3/uL MPV 8.9 L (9.4-12.3) fL Sodium 139 (135-145) mmol/L Potassium 3.7 (3.5-5.1) mmol/L Chloride 105 (98-107) mmol/L Carbon Dioxide 22 (22-30) mmol/L Anion Gap 14.8 (5-15) MEQ/L BUN 19 H (7-17) mg/dL Creatinine 1.02 (0.52-1.04) mg/dL Estimated GFR 60.3 ML/MIN Glucose 109 H (74-106) mg/dL POC Glucometer 130 H (74 to 106) mg/dL Hemoglobin A1c (4.5-6.0) % Calcium 9.6 (8.4-10.2) mg/dL Magnesium (1.6-2.3) mg/dL Triglycerides (30-150) mg/dL Cholesterol (50-200) mg/dL LDL Cholesterol (30-100) mg/dL HDL Cholesterol (40-60) mg/dL Heart Disease Risk Ratio 02/29/24 02/29/24 02/29/24 Range/Units 04:50 04:50 04:50 WBC (3.98-10.04) x10^3/uL RBC (3.93-5.22) x10^6/uL Hgb (11.2-15.7) g/dL Hct (34.1-44.9) % MCV (79.4-94.8) fL MCH (25.6-32.2) pg MCHC (32.2-35.5) g/dL RDW (11.7-14.4) % Plt Count (182-369) x10^3/uL MPV (9.4-12.3) fL Sodium (135-145) mmol/L Potassium (3.5-5.1) mmol/L Chloride (98-107) mmol/L Carbon Dioxide (22-30) mmol/L Anion Gap (5-15) MEQ/L BUN (7-17) mg/dL Creatinine (0.52-1.04) mg/dL Estimated GFR ML/MIN Glucose (74-106) mg/dL POC Glucometer (74 to 106) mg/dL Hemoglobin A1c 6.03 H (4.5-6.0) % Calcium (8.4-10.2) mg/dL Magnesium 1.8 (1.6-2.3) mg/dL Triglycerides 252 H (30-150) mg/dL Cholesterol 163 (50-200) mg/dL LDL Cholesterol 91 (30-100) mg/dL HDL Cholesterol 39 L (40-60) mg/dL Heart Disease Risk Ratio 4.0 02/29/24 02/29/24 02/29/24 Range/Units 07:42 08:34 15:57 WBC (3.98-10.04) x10^3/uL RBC (3.93-5.22) x10^6/uL Hgb (11.2-15.7) g/dL Hct (34.1-44.9) % MCV (79.4-94.8) fL MCH (25.6-32.2) pg MCHC (32.2-35.5) g/dL RDW (11.7-14.4) % Plt Count (182-369) x10^3/uL MPV (9.4-12.3) fL Sodium (135-145) mmol/L Potassium (3.5-5.1) mmol/L Chloride (98-107) mmol/L Carbon Dioxide (22-30) mmol/L Anion Gap (5-15) MEQ/L BUN (7-17) mg/dL Creatinine (0.52-1.04) mg/dL Estimated GFR ML/MIN Glucose (74-106) mg/dL POC Glucometer 131 H 147 H 202 H (74 to 106) mg/dL Hemoglobin A1c (4.5-6.0) % Calcium (8.4-10.2) mg/dL Magnesium (1.6-2.3) mg/dL Triglycerides (30-150) mg/dL Cholesterol (50-200) mg/dL LDL Cholesterol (30-100) mg/dL HDL Cholesterol (40-60) mg/dL Heart Disease Risk Ratio 02/29/24 Range/Units 22:16 WBC (3.98-10.04) x10^3/uL RBC (3.93-5.22) x10^6/uL Hgb (11.2-15.7) g/dL Hct (34.1-44.9) % MCV (79.4-94.8) fL MCH (25.6-32.2) pg MCHC (32.2-35.5) g/dL RDW (11.7-14.4) % Plt Count (182-369) x10^3/uL MPV (9.4-12.3) fL Sodium (135-145) mmol/L Potassium (3.5-5.1) mmol/L Chloride (98-107) mmol/L Carbon Dioxide (22-30) mmol/L Anion Gap (5-15) MEQ/L BUN (7-17) mg/dL Creatinine (0.52-1.04) mg/dL Estimated GFR ML/MIN Glucose (74-106) mg/dL POC Glucometer 143 H (74 to 106) mg/dL Hemoglobin A1c (4.5-6.0) % Calcium (8.4-10.2) mg/dL Magnesium (1.6-2.3) mg/dL Triglycerides (30-150) mg/dL Cholesterol (50-200) mg/dL LDL Cholesterol (30-100) mg/dL HDL Cholesterol (40-60) mg/dL Heart Disease Risk Ratio Radiology Exams: Radiology Procedures Category Date Time Status CHEST 1 VIEW (PORTABLE) Stat Exams 02/28/24 14:[address] ANGIOGRAPHY NECK [CT] Stat Exams 02/28/24 14:58 Completed CTA HEAD W AND/OR WO CONTRAST [CT] Stat Exams 02/28/24 14:58 Completed HEAD WITHOUT CONTRAST [CT] Stat Exams 02/28/24 14:13 Completed MRI BRAIN W/O CONTRAST [MRI] Routine Exams 02/29/24 13:00 Completed Multi-Disciplinary Progress Notes: Multi-Disciplinary Progress Notes 02/29/24 17:19 Physical Therapy Note by Aleksey(L#[id number])Kezia SPOKE W/ PT. THIS P.M. PT. C/O SEVERE FRONTAL MCKEON. DID HAVE PN MED 20' PRIOR. REPORT SHE IS HAVING NO DIFFICULTY W/ MOBILITY OR WEAKNESS > PRIOR TO ADMISSION. PT. SHOULD MOVE W/ NSG STAFF OVER THE WEEKEND AND THERAPY CAN EVAL IF NEEDED ON SUNDAY. Initialized on 02/29/24 17:19 - END OF NOTE 02/29/24 13:30 Case Management Note by Kendra Garcia PRIMARY RN TO CALL PHARMACY AFTER ANY NEW RX SENT IN TO CHECK PRICING AND BE SURE PATIENT WILL HAVE THE MONEY TO GET MEDICATION. ACO WILL FOLLOW UP WITH PATIENT AFTER DC Initialized on 02/29/24 13:30 - END OF NOTE Assessment/Plan (1) Stroke-like symptoms Current Visit: Yes Status: Acute Assessment & Plan: -Neurology consulted, appreciate recs - will obtain MRI -CTA H/N reviewed showing total occlusion of left internal carotid artery. Right carotid negative for significant occlusion/stenosis -CT Head with no acute findings -MRI pending - allow for permissive HTN -treat if SBP > 220 DBP >120 with prn hydralazine - hold bp meds 48-72 hours after admission -pt/ot/st eval -Resume xarelto -lipid panel -neuro checks -tele -further testing pending MRI results -lipid panel -statin Code(s): R29.90 - UNSPECIFIED SYMPTOMS AND SIGNS INVOLVING THE NERVOUS SYSTEM (2) Acidosis Current Visit: Yes Status: Acute Assessment & Plan: -Labs reviewed, co2 level at 21 on arrival - now resolved Code(s): E87.20 - ACIDOSIS, UNSPECIFIED (3) Hypertensive urgency Current Visit: No Status: Resolved Assessment & Plan: -see stroke-like symptoms Code(s): I16.0 - HYPERTENSIVE URGENCY (4) Hypomagnesemia Current Visit: Yes Status: Acute Assessment & Plan: -Mag level reviewed on admission and low at 1.5 - will recheck, replenish as appropriate Code(s): E83.42 - HYPOMAGNESEMIA (5) Hypokalemia Current Visit: Yes Status: Acute Assessment & Plan: -Potassium level reviewed on admission at 3.2, replenished, now resolved -Monitor lytes daily -tele Code(s): E87.6 - HYPOKALEMIA (6) Altered mental status Current Visit: Yes Status: Acute Assessment & Plan: -see stroke-like symptoms Code(s): R41.82 - ALTERED MENTAL STATUS, UNSPECIFIED (7) History of pulmonary embolism Current Visit: Yes Status: Acute Assessment & Plan: -on xarelto x 3years - will continue - patient states she is to start coumadin due to cost of xarelto- has not started rx yet Code(s): Z86.711 - PERSONAL HISTORY OF PULMONARY EMBOLISM (8) Headache Current Visit: No Status: Acute Assessment & Plan: -chronic - worsening today -CT head negative -MRI pending -pain control Code(s): R51.9 - HEADACHE, UNSPECIFIED (9) Hypertension Current Visit: No Status: Chronic Code(s): I10 - ESSENTIAL (PRIMARY) HYPERTENSION (10) Type 2 diabetes mellitus Current Visit: No Status: Resolved Assessment & Plan: -SSI -ADA diet -accuchecks -A1c VTE: xarelto PPI: protonix Dispo: 1-2 days Code Status: Full code Code(s): R29.90 - UNSPECIFIED SYMPTOMS AND SIGNS INVOLVING THE NERVOUS SYSTEM (2) Acidosis Current Visit: Yes Status: Acute Code(s): E87.20 - ACIDOSIS, UNSPECIFIED (3) Hypertensive urgency Current Visit: No Status: Resolved Code(s): I16.0 - HYPERTENSIVE URGENCY (4) Hypomagnesemia Current Visit: Yes Status: Acute Code(s): E83.42 - HYPOMAGNESEMIA (5) Hypokalemia Current Visit: Yes Status: Acute Code(s): E87.6 - HYPOKALEMIA (6) Altered mental status Current Visit: Yes Status: Acute Code(s): R41.82 - ALTERED MENTAL STATUS, UNSPECIFIED (7) History of pulmonary embolism Current Visit: Yes Status: Acute Code(s): Z86.711 - PERSONAL HISTORY OF PULMONARY EMBOLISM (8) Headache Current Visit: No Status: Acute Code(s): R51.9 - HEADACHE, UNSPECIFIED (9) Hypertension Current Visit: No Status: Chronic Code(s): I10 - ESSENTIAL (PRIMARY) HYPERTENSION (10) Type 2 diabetes mellitus Current Visit: No Status: Resolved
[2024-03-01 06:24] LABS: Hematocrit 35.7 % (34.1-44.9); Hemoglobin 11.5 g/dL (11.2-15.7); Mean Cell Volume 83.8 fL (79.4-94.8); Mean Corpuscular Hgb Concent. 32.2 g/dL (32.2-35.5); Platelet Count 392 x10^3/uL (182-369); Red Blood Count 4.26 x10^6/uL (3.93-5.22); Red Cell Distribution Width 14.3 % (11.7-14.4); White Blood Count 8.1 x10^3/uL (3.98-10.04)
[2024-03-01 06:31] LABS: ALBUMIN 4.1 g/dL (3.5-5.0); ANION GAP 15.6 MEQ/L (5-15); BILIRUBIN,TOTAL 0.4 mg/dL (0.2-1.3); Calcium 9.5 mg/dL (8.4-10.2); Creatinine 1 0.93 mg/dL (0.52-1.04); EST GLOMERULAR FILTRATION RATE 67.4 ML/MIN; Potassium 3.5 mmol/L (3.5-5.1); Total Protein 6.9 g/dL (6.3-8.2)
[2024-03-01 08:17] VITALS: RESP 19
--- NOTE | 2024-03-01 10:48 | PCM.DS ---
Discharge Summary Date of Admission: 02/28/24 19:40 Date of Discharge: 03/01/24 Admitting Physician: AGUILAR NICHOLSON MD Primary Care Provider: LYDIA WHITFIELD Allergies Allergies morphine Allergy (Severe, Verified 02/17/24 14:57) Irregular Heart Beat Sulfa (Sulfonamide Antibiotics) Allergy (Intermediate, Verified 02/17/24 14:57) Hives sulfamethoxazole [From Bactrim] Allergy (Intermediate, Verified 02/17/24 14:57) Hives trimethoprim [From Bactrim] Allergy (Intermediate, Verified 02/17/24 14:57) Hives fluoxetine HCl [From Prozac] Adverse Reaction (Intermediate, Verified 02/17/24 14:57) homicidal thoughts homicidal thoughts Hospital Summary - Hospital Course Hospital Course: 8 years old very pleasant lady with past medical history significant for diabetes mellitus type 2 hypertension hyperlipidemia on Xarelto for 3 years, prior history of PE, prior history of TIA without any residual deficit came to the ER with stroke-like symptoms. Patient told me she was doing great until this morning when she went to restaurant to grab food for her . While she was going to restroom she felt extremely weak confused unable to speak and she felt her feet got numb. Similar symptoms when blood sugar is low. She did not get a chance to check her blood sugar during this time. In the ER the initial blood pressure was 178/100 she was afebrile with pulse of 78 ,Code Stroke initated ,CT head with no acute findings. Lab findings remarkable for pl t count at 415, acidosis with co2 at 21 - no resolved, potassium 3.2 - now resolved, lactic acid 2.3 -now normal at 1.9, and magnesium at 1.5. Troponin unremarkable. Urine was clear. Neurology consulted and felt no intervention was needed, however the did recommend further imaging including CTA H/N and MRI brain. 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 Right carotid negative for significant occlusion/stenosis. CXR with non-acute findings. MRI brain with no acute findings. Symptoms have resolved since admission. Patient started on atorvastatin. Patient requesting discharge. Will follow up with neurology as OP. BP stable. Patient states she was recently changed from Xarelto to coumadin due to cost 02/27/24 and will start this as OP. No xarelto. 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 Right carotid negative for significant occlusion/stenosis -CT Head with no acute findings -MRI pending - allow for permissive HTN -treat if SBP > 220 DBP >120 with prn hydralazine - hold bp meds 48-72 hours after admission -pt/ot/st eval -Resume xarelto -lipid panel -neuro checks -tele -further testing pending MRI results -lipid panel -statin 03/01: -MRI negative - neurology appt made for OP -BP controlled with home meds -no further symptoms since admission -No further neurology recommendations Code(s): R29.90 - UNSPECIFIED SYMPTOMS AND SIGNS INVOLVING THE NERVOUS SYSTEM (2) Acidosis Current Visit: Yes Status: Acute Assessment & Plan: -Labs reviewed, co2 level at 21 on arrival - now resolved Code(s): E87.20 - ACIDOSIS, UNSPECIFIED (3) Hypertensive urgency Current Visit: No Status: Resolved Assessment & Plan: -see stroke-like symptoms -resolved Code(s): I16.0 - HYPERTENSIVE URGENCY (4) Hypomagnesemia Current Visit: Yes Status: Acute Assessment & Plan: -Mag level reviewed on admission and low at 1.5 - will recheck, replenish as appropriate 03/01: -resolved Code(s): E83.42 - HYPOMAGNESEMIA (5) Hypokalemia Current Visit: Yes Status: Acute Assessment & Plan: -Potassium level reviewed on admission at 3.2, replenished, now resolved -Monitor lytes daily -tele 03/01: -resolved Code(s): E87.6 - HYPOKALEMIA (6) Altered mental status Current Visit: Yes Status: Acute Assessment & Plan: -see stroke-like symptoms Code(s): R41.82 - ALTERED MENTAL STATUS, UNSPECIFIED (7) History of pulmonary embolism Current Visit: Yes Status: Acute Assessment & Plan: -on xarelto x 3years - will continue - patient states she is to start coumadin due to cost of xarelto- has not started rx yet Code(s): Z86.711 - PERSONAL HISTORY OF PULMONARY EMBOLISM (8) Headache Current Visit: No Status: Acute Assessment & Plan: -chronic -CT head negative -MRI negative for acute findings -pain control Code(s): R51.9 - HEADACHE, UNSPECIFIED (9) Hypertension Current Visit: No Status: Chronic Code(s): I10 - ESSENTIAL (PRIMARY) HYPER TENSION -BP controlled - home meds resumed (10) Type 2 diabetes mellitus Current Visit: No Status: Resolved Assessment & Plan: -SSI -ADA diet -accuchecks -A1c VTE: xarelto PPI: protonix Dispo: 1-2 days Code Status: Full code I spent 35 minutes [id number] with the patient on the day of discharge p erforming discharge exam, discussing hospital stay and discharge instructions with patient and caregivers, preparation of discharge records, prescriptions & referral forms and addressing any questions/concerns the patient had as documented above. - Vitals & Intake/Output Vital Signs: Vital Signs Temperature 97.6 F 03/01/24 07:00 Pulse Rate 86 03/01/24 07:00 Respiratory Rate 19 03/01/24 07:00 Blood Pressure 175/81 03/01/24 07:00 O2 Sat by Pulse Oximetry 96 03/01/24 07:00 Intake & Output: Intake & Output 02/27/24 02/28/24 02/29/24 03/01/24 11:59 11:59 11:59 11:59 Intake Total 480 840 Output Total 800 750 Balance -320 90 Weight 70.6 kg - Lab Result Diagrams: 03/01/24 05:40 03/01/24 05:40 Lab Results-Last 24 Hrs: Lab Results-Last 24 Hours 02/29/24 02/29/24 02/29/24 Range/Units 04:50 04:50 04:50 WBC (3.98-10.04) x10^3/uL RBC (3.93-5.22) x10^6/uL Hgb (11.2-15.7) g/dL Hct (34.1-44.9) % MCV (79.4-94.8) fL MCH (25.6-32.2) pg MCHC (32.2-35.5) g/dL RDW (11.7-14.4) % Plt Count (182-369) x10^3/uL MPV (9.4-12.3) fL Sodium (135-145) mmol/L Potassium (3.5-5.1) mmol/L Chloride (98-107) mmol/L Carbon Dioxide (22-30) mmol/L Anion Gap (5-15) MEQ/L BUN (7-17) mg/dL Creatinine (0.52-1.04) mg/dL Estimated GFR ML/MIN Glucose (74-106) mg/dL POC Glucometer (74 to 106) mg/dL Hemoglobin A1c 6.03 H (4.5-6.0) % Calcium (8.4-10.2) mg/dL Magnesium 1.8 (1.6-2.3) mg/dL Total Bilirubin (0.2-1.3) mg/dL AST (14-36) U/L ALT (0-35) U/L Alkaline Phosphatase (38-126) U/L Serum Total Protein (6.3-8.2) g/dL Albumin (3.5-5.0) g/dL Triglycerides 252 H (30-150) mg/dL Cholesterol 163 (50-200) mg/dL LDL Cholesterol 91 (30-100) mg/dL HDL Cholesterol 39 L (40-60) mg/dL Heart Disease Risk Ratio 4.0 02/29/24 02/29/24 03/01/24 Range/Units 15:57 22:16 05:38 WBC (3.98-10.04) x10^3/uL RBC (3.93-5.22) x10^6/uL Hgb (11.2-15.7) g/dL Hct (34.1-44.9) % MCV (79.4-94.8) fL MCH (25.6-32.2) pg MCHC (32.2-35.5) g/dL RDW (11.7-14.4) % Plt Count (182-369) x10^3/uL MPV (9.4-12.3) fL Sodium (135-145) mmol/L Potassium (3.5-5.1) mmol/L Chloride (98-107) mmol/L Carbon Dioxide (22-30) mmol/L Anion Gap (5-15) MEQ/L BUN (7-17) mg/dL Creatinine (0.52-1.04) mg/dL Estimated GFR ML/MIN Glucose (74-106) mg/dL POC Glucometer 202 H 143 H (74 to 106) mg/dL Hemoglobin A1c (4.5-6.0) % Calcium (8.4-10.2) mg/dL Magnesium 1.7 (1.6-2.3) mg/dL Total Bilirubin (0.2-1.3) mg/dL AST (14-36) U/L ALT (0-35) U/L Alkaline Phosphatase (38-126) U/L Serum Total Protein (6.3-8.2) g/dL Albumin (3.5-5.0) g/dL Triglycerides (30-150) mg/dL Cholesterol (50-200) mg/dL LDL Cholesterol (30-100) mg/dL HDL Cholesterol (40-60) mg/dL Heart Disease Risk Ratio 03/01/24 03/01/24 Range/Units 05:40 05:40 WBC 8.1 (3.98-10.04) x10^3/uL RBC 4.26 (3.93-5.22) x10^6/uL Hgb 11.5 (11.2-15.7) g/dL Hct 35.7 (34.1-44.9) % MCV 83.8 (79.4-94.8) fL MCH 27.0 (25.6-32.2) pg MCHC 32.2 (32.2-35.5) g/dL RDW 14.3 (11.7-14.4) % Plt Count 392 H (182-369) x10^3/uL MPV 9.0 L (9.4-12.3) fL Sodium 138 (135-145) mmol/L Potassium 3.5 (3.5-5.1) mmol/L Chloride 102 (98-107) mmol/L Carbon Dioxide 24 (22-30) mmol/L Anion Gap 15.6 H (5-15) MEQ/L BUN 15 (7-17) mg/dL Creatinine 0.93 (0.52-1.04) mg/dL Estimated GFR 67.4 ML/MIN Glucose 129 H (74-106) mg/dL POC Glucometer (74 to 106) mg/dL Hemoglobin A1c (4.5-6.0) % Calcium 9.5 (8.4-10.2) mg/dL Magnesium (1.6-2.3) mg/dL Total Bilirubin 0.40 (0.2-1.3) mg/dL AST 22 (14-36) U/L ALT 32 (0-35) U/L Alkaline Phosphatase 69 (38-126) U/L Serum Total Protein 6.9 (6.3-8.2) g/dL Albumin 4.1 (3.5-5.0) g/dL Triglycerides (30-150) mg/dL Cholesterol (50-200) mg/dL LDL Cholesterol (30-100) mg/dL HDL Cholesterol (40-60) mg/dL Heart Disease Risk Ratio Micro Results-Entire Visit: Accuchecks Date 03/01/24 Date 02/29/24 Date 02/29/24 Date 02/29/24 Time 08:17 Time 22:20 - Radiology Exams Ordered Rad Exams-Entire Visit: Radiology Procedures Category Date Time Status CHEST 1 VIEW (PORTABLE) Stat Exams 02/28/24 14:[address] ANGIOGRAPHY NECK [CT] Stat Exams 02/28/24 14:58 Completed CTA HEAD W AND/OR WO CONTRAST [CT] Stat Exams 02/28/24 14:58 Completed HEAD WITHOUT CONTRAST [CT] Stat Exams 02/28/24 14:13 Completed MRI BRAIN W/O CONTRAST [MRI] Routine Exams 02/29/24 13:00 Completed - Procedures and Test Procedures and Tests throughout Hospitalization: Therapy Orders & Screens 02/28/24 19:41 Respiratory Therapy Consult ONCE Comment: Reason For Exam: 02/29/24 14:07 PT Eval & Treat (MD Order) ONCE Reason for Eval:: weakness Diagnosis: TIA OT Eval and Treat (MD Order) ONCE Comment: Physician Instructions: Reason For Exam: Diagnosis: TIA Discharge Exam General Appearance: no apparent distress Neurologic Exam: alert, oriented x 3, cooperative Eye Exam: PERRL Ears, Nose, Throat Exam: normal ENT inspection Neck Exam: normal inspection Respiratory Exam: normal breath sounds, lungs clear Cardiovascular Exam: regular rate/rhythm, normal heart sounds Gastrointestinal/Abdomen Exam: soft, normal bowel sounds Pelvic Exam: deferred Rectal Exam: deferred Back Exam: normal inspection Extremity Exam: normal inspection Skin Exam: normal color Final Diagnosis/Problem List - Final Discharge Diagnosis/Problem (1) Stroke-like symptoms Current Visit: Yes Status: Resolved Code(s): R29.90 - UNSPECIFIED SYMPTOMS AND SIGNS INVOLVING THE NERVOUS SYSTEM (2) Acidosis Current Visit: Yes Status: Resolved Code(s): E87.20 - ACIDOSIS, UNSPECIFIED (3) Hypertensive urgency Current Visit: No Status: Resolved Code(s): I16.0 - HYPERTENSIVE URGENCY (4) Hypomagnesemia Current Visit: Yes Status: Resolved Code(s): E83.42 - HYPOMAGNESEMIA (5) Hypokalemia Current Visit: Yes Status: Resolved Code(s): E87.6 - HYPOKALEMIA (6) Altered mental status Current Visit: Yes Status: Resolved Code(s): R41.82 - ALTERED MENTAL STATUS, UNSPECIFIED (7) History of pulmonary embolism Current Visit: Yes Status: Chronic Code(s): Z86.711 - PERSONAL HISTORY OF PULMONARY EMBOLISM (8) Headache Current Visit: No Status: Chronic Code(s): R51.9 - HEADACHE, UNSPECIFIED (9) Hypertension Current Visit: No Status: Chronic Code(s): I10 - ESSENTIAL (PRIMARY) HYPERTENSION (10) Type 2 diabetes mellitus Current Visit: No Status: Chronic - Discharge Disposition: Home, Self-Care Condition: Stable Prescriptions: New Atorvastatin Calcium [Lipitor 40Mg] 80 mg PO DAILY 30 Days #30 tablet Continue Metformin HCl 850 mg [Glucophage 850 MG] 850 mg PO BID Omeprazole 20 mg PO DAILY Glipizide 5 mg [Glucotrol 5 MG] 5 mg PO DAILY Rivaroxaban [Xarelto] 20 mg PO DAILY Oxycodone/APAP 5 mg/325 mg [Percocet Tablet 5/325Mg] 1 tab PO TID PRN PRN Reason: Pain Carvedilol 3.125 mg [Coreg 3.125 MG] 3.125 mg PO BID Hydroxyzine HCl 25 mg [Atarax 25 mg] 25 mg PO TIDPRN PRN PRN Reason: Anxiety Furosemide 20 mg [Lasix 20 mg] 20 mg PO DAILY cloNIDine HCL [Clonidine HCl] 0.2 mg PO HS Spironolactone 25 mg [Aldactone 25 MG] 25 mg PO DAILY HydrALAzine HCL 25 MG TAB [Apresoline 25 MG TABLET] 10 mg PO BIDPRN PRN PRN Reason: hypertension Instructions: Stroke - Discharge instructions Follow up with: ROSALIA MISHRA [NON-STAFF PHY W/O PRIVILEGES] - Call for Appointment FERNANDO FARMER NP [NON-STAFF PHY W/O PRIVILEGES] - 03/06/24 10:00 am Forms: Discharge Instructions
[2024-03-01] MEDS: Apresoline 25 MG TABLET PO PRN (11:02)
[2024-03-01] MEDS: Aldactone 25 MG PO SCH (11:02)
[2024-03-01] MEDS: LASIX 20 MG PO SCH (11:02)
[2024-03-01 12:11] VITALS: BP 154/67; PULSE 87; TEMP 97.8; O2SAT 99
[2024-03-01] MEDS ORDERED: CLONIDINE 0.1 MG TABLET PO SCH (22:00)
[2024-03-01] MEDS ORDERED: Coreg 3.125 MG PO SCH (22:00)
== END 2024-03-01 12:30 | disposition home or self-care (01) ==
LOC: ED 14:10 → MED SURG 19:40
PROVIDERS: ADMIT Internal Medicine; ATTEND Internal Medicine
DX: G45.9 Transient cerebral ischemic attack, unspecified (principal); R29.90 Unspecified symptoms and signs involving the nervous system; E87.20 Acidosis, unspecified; I16.0 Hypertensive urgency; E83.42 Hypomagnesemia; E87.6 Hypokalemia; R41.82 Altered mental status, unspecified; Z86.711 Personal history of pulmonary embolism; R51.9 Headache, unspecified; I10 Essential (primary) hypertension; E11.9 Type 2 diabetes mellitus without complications; E78.5 Hyperlipidemia, unspecified; I25.2 Old myocardial infarction; Z79.01 Long term (current) use of anticoagulants; Z79.899 Other long term (current) drug therapy; Z85.43 Personal history of malignant neoplasm of ovary; Z85.42 Personal history of malignant neoplasm of other parts of uterus; Z86.73 Personal history of transient ischemic attack (TIA), and cerebral infarction without residual deficits
CPT/HCPCS: 36415; 70450; 70496; 70498; 70551; 71045; 80048; 80053; 80061; 81001; 82010; 82947; 83036; 83605; 83721; 83735; 84484; 85025; 85027; 93005; 93041; 93268; 94760; 94762; 96374; 99285; G0378; Q3014; J0360; J2405; A9270-GY